=== PATIENT | male | born 1940 | race Caucasian/White ===

== ENCOUNTER → 2017-05-28 08:56 | Outpatient (CLI) | payer MEDICARE, OTHER, SELFPAY ==
[2017-05-28 12:45] LABS: PSA,Total- Diagnostic 7.59 ng/mL (0.0-4.0)
== END ==
PROVIDERS: Family Provider Family Medicine; PCP Family Medicine; Visit Provider Family Medicine
DX: R97.20 Elevated prostate specific antigen [PSA] (principal)
CPT/HCPCS: 36415; 84153

== ENCOUNTER → 2017-07-09 16:47 | Outpatient (CLI) | payer MEDICARE, OTHER, SELFPAY ==
--- NOTE | 2017-07-09 | IMM_PTH ---
PATIENT: CASEY MORALES LOC: [facility] U#:[id number] AGE/SX: 84/M ROOM: RE07/09/[address]: Dr. Alek Edouard MD : 1940 BED: DIS: SPEC #: [id number] RECD: 07/11/17 12:37 STATUS: LESLY REQ #: [id number] MARE: 07/09/17 00:[address]: Alek Edouard DEPT: IMMUNOHISTOCHEMISTRY RECD BY: Minnie Arrington ENTERED: 07/11/17 12:38 SP TYPE: IMMUNO OTHR DR: Dr. Yosef Ayers DO Tissues: A - PROSTATE RIGHT D - PROSTATE LEFT Procedures: 34BE12 (add) P40 (add) 34BE12 (initial) PHYSICIAN & INSTITUTION [place] [id number] SPECIMEN INFORMATION: Tissue Source: A - Right apex, D - Left apex Clinical Info: Elevated PSA Specimen Number: [id number] A & D CPT code: 69975, 60004 x3 METHODOLOGY: Deparaffinized sections of prefer/formalin-fixed tissue or PAP/DQ stained slides are incubated with monoclonal/polyclonal antibodies/oligonucleotide probes. Localization is made via biotin free immunoperoxidase method. Appropriate controls are performed and reacted as expected. Results on target cell population are indicated in the following table: RESULTS: ANTIBODY / CLONE RESULT Block A P40 (BC28) negative 34BE12 (34BE12) negative Block D P40 (BC28) positive 34BE12 (34BE12) positive These tests were developed and their performance characteristics determined by [facility]. They may not have been cleared or approved by the U.S. Food and Drug Administration. The FDA has determined that such clearance or approval is not necessary. INTERPRETATION: A. Right prostate, apex, core biopsy: Adenocarcinoma. D. Left prostate, apex, core biopsy: Consistent with focal high-grade prostatic intraepithelial neoplasia (HGPIN). SJ:elvira 07/12/17
--- NOTE | 2017-07-09 08:00 | PROSBIL_PTH ---
PATIENT: CASEY MORALES LOC: [facility] U#:[id number] AGE/SX: 84/M ROOM: RE07/09/[address]: Dr. Alek Edouard MD : 1940 BED: DIS: SPEC #: [id number] RECD: 07/09/17 16:38 STATUS: LESLY NICOLETTE #: [id number] MARE: 07/09/17 08:[address]: Alek Edouard DEPT: SURGICAL PATHOLOGY RECD BY: Lowell Chung ENTERED: 07/10/17 06:45 SP TYPE: PROST BX JHONATAN DR: Dr. Yosef Ayers DO Tissues: A - PROSTATE RIGHT B - PROSTATE RIGHT C - PROSTATE RIGHT D - PROSTATE LEFT E - PROSTATE LEFT F - PROSTATE LEFT Procedures: PROSTATE BX HEADER OPERATION: Prostate biopsy PRE-OP DIAGNOSIS: Elevated PSA TISSUE SUBMITTED: A - Right apex, B - Right mid, C - Right base, D - Left apex, E - Left mid, F - Left base MICROSCOPIC DIAGNOSIS A. Right prostate, apex, core biopsy: Prostatic adenocarcinoma: [place] grade: 3+3=6 Number of cores involved: 2 out of 2 Proportion of tissue involved: ~20% Perineural invasion: Not identified. Greatest tumor length: 0.3 cm Focal high-grade prostatic intraepithelial neoplasia (HGPIN). See comment. B. Right prostate, mid, core biopsy: Prostatic adenocarcinoma: [place] grade: 3+4=7 Number of cores involved: 2 out of 2 Proportion of tissue involved: ~75% Perineural invasion: Not identified. Greatest tumor length: 0.5 cm Focal high-grade prostatic intraepithelial neoplasia (HGPIN). C. Right prostate, base, core biopsy: Prostatic adenocarcinoma: [place] grade: 3+3=6 Number of cores involved: 1 out of 2 Proportion of tissue involved: ~25% Perineural invasion: Not identified. Greatest tumor length: 0.3 cm Focal high-grade prostatic intraepithelial neoplasia (HGPIN). See comment. D. Left prostate, apex, core biopsy: Focal high-grade prostatic intraepithelial neoplasia (HGPIN). See comment. E. Left prostate, mid, core biopsy: Prostatic adenocarcinoma: [place] grade: 3+3=6 Number of cores involved: 1 out of 2 Proportion of tissue involved: ~15% Perineural invasion: Not identified. Greatest tumor length: 0.2 cm Focal high-grade prostatic intraepithelial neoplasia (HGPIN). F. Left prostate, base, core biopsy: Prostatic tissue, negative for malignancy. SJ:elvira 07/11/17 COMMENT A & D. Immunohistochemistry ([id number]) supports the above diagnosis. C. The tumor is present focally in discontinuous fashion. This case has been reviewed in consultation with Dr. Colunga who concurs with the above diagnosis. MICROSCOPIC DESCRIPTION Slides are reviewed. GROSS DESCRIPTION A - Received is one container designated prostate, right apex. The specimen consists of two elongated fragments of light martinez-white soft tissue each measuring 1 cm in length and 0.1 cm in diameter. The specimen is totally submitted in one cassette. B - Received is one container designated prostate, right mid. The specimen consists of two elongated fragments of light martinez-white soft tissue each measuring 1 cm in length and 0.1 cm in diameter. The specimen is totally submitted in one cassette. C - Received is one container designated prostate, right base. The specimen consists of two elongated fragments of light martinez-white soft tissue each measuring 1 cm in length and 0.1 cm in diameter. The specimen is totally submitted in one cassette. D - Received is one container designated prostate, left apex. The specimen consists of two elongated fragments of light martinez-white soft tissue each measuring 1 cm in length and 0.1 cm in diameter. The specimen is totally submitted in one cassette. E - Received is one container designated prostate, left mid. The specimen consists of two elongated fragments of light martinez-white soft tissue each measuring 1 cm in length and 0.1 cm in diameter. The specimen is totally submitted in one cassette. F - Received is one container designated prostate, left base. The specimen consists of two elongated fragments of light martinez-white soft tissue each measuring 0.8 cm in length and 0.1 cm in diameter. The specimen is totally submitted in one cassette. / AM:rg 07/10/17 TC:0 [facility]: [id number]
== END ==
PROVIDERS: Family Provider Family Medicine; PCP Family Medicine; Visit Provider Urology
DX: C61 Malignant neoplasm of prostate (principal)
CPT/HCPCS: 88305; 88341; 88342; G0416

== ENCOUNTER → 2017-07-23 07:00 | Outpatient (CLI) | payer MEDICARE, OTHER, SELFPAY ==
--- NOTE | 2017-07-23 07:00 | DT_ITS ---
This patient was seen during an EMR downtime July 22, 2017 - July 29, 2017. This patient may have a combination of paper and electronic documentation or all paper documentation. All documentation is viewable within the e-chart portion of [employer] for each patient visit.
--- NOTE | 2017-07-23 07:00 | CT_ITS ---
STUDY: CT ABDOMEN AND PELVIS WITH CONTRAST REASON FOR EXAM: Male, 77 years old. New diagnosis prostate cancer RADIATION DOSAGE (If Supplied By Facility): CTDIvol = ( 13.13 ) mGy, DLP = ( 466.02 ) mGycm TECHNIQUE: Transaxial images were obtained from the dome of the diaphragm to the symphysis pubis with oral contrast. 100ml ml of Isovue 300 contrast was administered. Sagittal and coronal images were reconstructed. Individualized dose optimization techniques were used for this CT. COMPARISON: None. FINDINGS: The visualized lung bases are unremarkable. The visualized portions of the heart are within normal limits. There is a subcentimeter hypodensity of the lateral right hepatic lobe indeterminate for solid versus cystic structure. Normal gallbladder and extrahepatic biliary system. Normal spleen. Normal pancreas. Normal bilateral adrenal glands. There are multiple right renal cysts measuring up to 2.3 cm. There is prominence of the left renal pelvis. There is a lower pole cyst measuring 2.8 cm. Normal visualized stomach. Normal small intestine. There is a moderate amount of colonic stool. The appendix is visualized and appears normal. There are calcified plaques of the abdominal aorta Normal inferior vena cava. Normal retroperitoneum. Normal urinary bladder. The prostate is enlarged, measuring 5.8 x 3.3 cm. There is increased soft tissue density of the seminal vesicle angles raising the suspicion of extracapsular extension of primary disease process. Normal abdominal wall. Normal osseous structures. CT/Abdomen/Pelvis WITH Contrast IMPRESSION: 1. Subcentimeter hypodensity of the lateral right hepatic lobe indeterminate for solid versus cystic structure. Ultrasonographic correlation is recommended. 2. Bilateral renal cysts. Prominence of the left renal pelvis. No obstructing calculus is seen. 3. Enlarged prostate. Increased soft tissue density of the seminal vesicle angles raising the suspicion of extracapsular extension of primary disease process. 4. There is no evidence of osseous metastatic disease. 5. No inguinal, deep pelvic, or retroperitoneal adenopathy is seen. Electronically Signed: Ashwin Botello MD at 17:35 EDT , Service support ,
[2017-08-04 14:43] LABS: CREATININE FINGERSTICK 0.91 mg/dL (0.70-1.30)
== END ==
PROVIDERS: Family Provider Family Medicine; PCP Family Medicine; Visit Provider Urology
DX: C61 Malignant neoplasm of prostate (principal)
CPT/HCPCS: 74177; Q9967

== ENCOUNTER 2017-09-11 05:22 | Inpatient (IN) | payer MEDICARE, OTHER, SELFPAY ==
[2017-08-27 10:44] VITALS: BP 119/77; PULSE 54; RESP 16; TEMP 36.6; O2SAT 100; BMI 20.1
--- NOTE | 2017-08-27 11:07 | SDCEKG_ITS ---
Test Reason : Blood Pressure : / mmHG Vent. Rate : 048 BPM Atrial Rate : 048 BPM P-R Int : 136 ms QRS Dur : 104 ms QT Int : 432 ms P-R-T Axes : 008 083 077 degrees QTc Int : 385 ms Marked sinus bradycardia Incomplete right bundle branch block Abnormal ECG Confirmed by DIANNE CARTER, MAGGI ([id number]), clinical editor SCAR SMITH ([id number]) on 08/29/2017 12:57:00 PM Referred By: Alek Edouard Confirmed By:MAGGI DEAN MD
[2017-08-27 11:43] LABS: Hemoglobin 13.3 g/dl (13.0-16.5); Mean Corp Hgb Conc 34.1 g/gl (32-36); Mean Corpuscular Hgb 32.1 pg (27.0-32.0); Mean Corpuscular Volume 94.2 fL (80-94); Mean Platelet Vol. 9.6 fl (6.2-12.0); Platelet Count 221 K/mm3 (150-450); RBC Distribution Width CV 13.1 % (11.6-14.6); RBC Distribution Width SD 44.9 fl (35.1-43.9); Red Blood Count 4.14 M/mm3 (4.6-6.2); White Blood Count 5.2 K/mm3 (4.4-11.0)
[2017-08-27 11:44] LABS: Scan Indicated on CBC? Y/N NO
[2017-09-11] VITALS (10 sets, daily range): BP systolic 93–123; BP diastolic 45–83; PULSE 57–67; RESP 16–18; TEMP 36.2–36.8; O2SAT 97–100; BMI 20.1; BMI 20.2
--- NOTE | 2017-09-11 07:30 | PROST_PTH ---
PATIENT: CASEY MORALES LOC: [facility] U#:[id number] AGE/SX: 77/M ROOM: [facility] – [id number] RE09/11/[address]: Dr. Alek Edouard MD : 1940 BED: 1 DIS: 09/12/2017 SPEC #: [id number] RECD: 09/11/17 14:00 STATUS: LESLY NICOLETTE #: [id number] MARE: 09/11/17 07:[address]: Alek Edouard DEPT: SURGICAL PATHOLOGY RECD BY: Guy Galarza ENTERED: 09/11/17 15:18 SP TYPE: PROSTATE OTHR DR: Dr. Yosef Ayers, DO Tissues: A - Prostate, NOS B - Adipose tissue C - Lymph node of pelvis, NOS D - Lymph node of pelvis, NOS E - Neck of urinary bladder F - Neck of urinary bladder Procedures: Surgery Specimen Level IV Surgery Specimen Level HEADER OPERATION: Laparoscopic robotic radical prostatectomy PRE-OP DIAGNOSIS: Prostate cancer, elevated PSA TISSUE SUBMITTED: A ? Prostate, B ? Fat over prostate, C ? Right pelvic lymph node, D ? Left pelvic lymph node, E ? Bladder neck margin, F - Bladder neck margin #2 MICROSCOPIC DIAGNOSIS A. Prostate, radical prostatectomy: Prostatic adenocarcinoma. See cancer summary below. B. Fat over prostate: Mature adipose tissue, negative for carcinoma. C. Right pelvic lymph node, biopsy: Fragment of fibroconnective tissue, negative for carcinoma. No lymph node tissue is identified. D. Left pelvic lymph node, biopsy: Fragment of fibroconnective tissue, negative for carcinoma. No lymph node tissue is identified. E. Bladder neck margin, biopsy: Negative for carcinoma. See comment. F. Bladder neck margin #2, biopsy: Negative for carcinoma. See comment. PROSTATE CANCER (RADICAL) SUMMARY: Procedure - radical prostatectomy Prostate size - 4 cm transversely, 3.5 cm anterior-posteriorly and 3.5 cm craniocaudally Prostate weight ? 37.6 gm Lymph node sampling ? no lymph nodes are identified. See comment. Histologic type ? adenocarcinoma (acinar, not otherwise specified) Histologic grade ([place] Pattern): Primary pattern ? grade 3 Secondary pattern ? grade 4 Tertiary pattern ? not applicable Total [place] score - 7 Tumor Quantitation: Proportion (%) of prostate involved by tumor - ~20% Extraprostatic extension ? not identified Seminal vesicle invasion ? not identified Margins ? margins are free of tumor. Treatment effect on carcinoma ? no known presurgical therapy. Lymph-Vascular invasion - not identified Perineural invasion ? present, focal Regional lymph nodes ? please see comment. Distant metastasis ? not applicable Additional pathologic findings - Focal high-grade prostatic intraepithelial neoplasia (HGPIN). - Benign prostatic hyperplasia. - Focal chronic inflammation. Ancillary studies ? not performed PATHOLOGIC STAGE: pT2c pNx Mx The above summary is in compliance with [employer] [place] [employer] (CAP) Cancer Protocols Checklist and [place] Joint Committee on Cancer (AJCC), Staging Manual, 8th Ed. SJ:elvira 09/13/17 COMMENT A. The tumor in the right prostate lobe is present in the apical, mid and basal portion of the prostate and measures 2 x 0.5 cm in greatest dimension (measured microscopically) and present in slides #5, 6, 8, 13, 15 and 16. The tumor in the left lobe is present in the apical and mid portion of the prostate lobe and measures 1 x 0.5 cm in greatest dimension (measured microscopically) and present in slides #7, 9 and?12. C & D . No lymph node tissue is present in the submitted specimens. E & F. Cauterized fragments of urothelium are also noted. Please make reference to previous specimen ([id number]) right prostate, apex, mid and base and left prostate, mid with diagnosis of adenocarcinoma and left prostate, apex with diagnosis of focal high-grade prostatic intraepithelial neoplasia. MICROSCOPIC DESCRIPTION Slides are reviewed. GROSS DESCRIPTION A - Received in fixative is one container labeled with the patient's name and designated prostate. The specimen consists of a radical prostatectomy specimen consisting of the prostate and bilateral seminal vesicles and vas deferens weighing 37.6 gm. The prostate measures 4 cm transversely, 3.5 cm anterior-posteriorly and 3.5 cm craniocaudally. The right seminal vesicle measures 2.5 x 1 x 0.5 cm and right vas deferens measures 3 cm in length and up to 0.4 cm in diameter. The left seminal vesicle measures 2.5 x 1 x 0.5 cm and left vas deferens measures 2 cm in length and up to 0.4 cm in diameter. The prostate is inked as follows: anterior surface ? yellow, posterior surface ? black, right lateral surface ? blue, left lateral surface ? green. The seminal vesicles and vas deferens are inked as follows: right seminal vesicle and vas deferens anterior surface ? blue, posterior surface ? black, left seminal vesicle and vas deferens anterior surface ? green, posterior surface ? black. Sections do not reveal any mass lesion. Procedural Nurse sections are submitted in 19 cassettes as follows: 1 - right seminal vesicle and vas deferens, 2 ? left seminal vesicle and vas deferens, 3 ? apical margin, enface, 4 ? bladder base margin, enface, 5-9 ? apical portion, 10-13 ? middle portion, 14-19 ? basal portion (18 & 19 contains the most basal portion). / : 09/12/17 B - Received in fixative is one container labeled with the patient's name and designated fat over prostate. The specimen consists of an irregular piece of yellow adipose tissue measuring 3.5 x 2 x 0.5 cm. No mass lesion is identified. The entire specimen is submitted in two cassettes. / : 09/11/17 C - Received in fixative is one container labeled with the patient's name and designated right pelvic lymph node. The specimen consists of a piece of yellow adipose tissue measuring 2.2 x 0.5 x 0.3 cm. No obvious lymph node tissue is noted. The entire specimen is submitted in one cassette. / : 09/11/17 D - Received in fixative is one container labeled with the patient's name and designated left pelvic lymph node. The specimen consists of a piece of yellow adipose tissue measuring 2 x 1.5 x 0.2 cm. No obvious lymph node tissue is noted. The entire specimen is submitted in one cassette. / : 09/11/17 E - Received in fixative is one container labeled with the patient's name and designated bladder neck margin. The specimen consists of a piece of martinez soft tissue measuring 0.5 x 0.2 x 0.1 cm. The specimen is totally submitted in one cassette. / : 09/11/17 F - Received in fixative is one container labeled with the patient's name and designated bladder neck margin #2. The specimen consists of a piece of martinez-pink, congested soft tissue measuring 0.6 x 0.6 x 0.2 cm. The entire specimen is submitted in one cassette. / SILVIANO:elvira 09/11/17 TC:0 CPT: 03192, 52477 x 5
[2017-09-11] MEDS: Cefazolin 2 GM in 0.9% Normal Saline 100 ML IV (07:31)
[2017-09-11] MEDS: Bupivacaine Mpf 0.5% 30 ML VIAL (11:12)
--- NOTE | 2017-09-11 11:26 | OP.PCM_ITS ---
Report of Operation Date of Procedure: 09/11/17 Pre-Operative Diagnosis: Prostate cancer, frequent urination Post-Operative Diagnosis: The same and frequency of urination Surgery/Procedure Performed:: Laparoscopic robotic assisted radical prostatectomy bilateral nerve sparing, EMG monitoring of the urethral sphincter and pelvic nerves, suture suspension of the urethra for incontinence, bilateral pelvic lymph node dissection Description of Surgical Findings:: 77-year-old male taken back to the operating room after smooth induction of general anesthesia he is placed supine on the table in the in the dorsal lithotomy position, the penis and testicles were prepped and draped in usual sterile fashion his abdomen was shaved prepped and draped in usual sterile fashion after draping the patient on examination is very thin elderly male in fairly good health condition infiltrated below the umbilicus with lidocaine mated incision across the umbilicus and then dissected down to the fascia but the Veress needle through the fascia into the peritoneal cavity and insufflated the peritoneal cavity with CO2 gas we then set our pressure to 10 mm for most of the case. I then placed my camera trocar my right arm trocar my to left arm trochars entry level administrative assistant trocar and air seal port after all these ports were placed the robot was docked and we proceeded with the dissection I had a fairly large floppy bladder when I looked inside the inside the abdomen no obvious gross disease very thin male could identify all the landmarks the bowel and the colon looked normal I then identified the vas deferens on the right side and started tracing is down below the bladder at the support the bladder up and hold up with my entry level administrative assistant and also also the fourth arm and dissected behind the bladder until I got to the vas deferens and seminal vesicles dissected out the right seminal vesicle, and then dissected out the left seminal vesicle, then dissected above the the nonbilious fascia and was able to free the the prostate off the fascia quite easily all the way to the apex. Once the vas deferens and vessels were both dissected out completely and then pulled out of the pelvis we then dropped the bladder incising the peritoneal attachments of the bladder superiorly and created the space of Retzius and the bladder was placed on traction with the fourth arm dissected the bladder out created the space of Retzius open up the pelvis nicely I then dissected the obturator lymph nodes on the right side using clips and electrocautery this was sent off as a specimen the lymph nodes grossly the negative, I then went to the left side and dissected the lymph node bundle on the left side using clips and electrocautery again the bundles looked negative grossly and there was sent off as a permanent section. I then went to the prostate incised the endopelvic fascia both the left and right side dissected the levator muscles off the prostate all the way up to the apex I then transected through the puboprostatic ligaments and the attachments of the prostate to the pubic bone and then identified the dorsal vein complex, the dorsal vein complex was then stitched with the 0 Vicryl stitch using a CT1 needle once this was suture-ligated then I went on top of the prostate I then identified the fascia top of the prostate open this up and started dissecting the neurovascular bundles of the right and left side of the prostate laterally to allow for the dissection and identification of the neurovascular bundles. I then pulled back to the prostate bladder junction also the fat off the prostate was dissected off of this was sent off as a separate specimen called fat over prostate, I then dissected between the bladder and prostate coming down to the urethra and then dissected posteriorly between the bladder and prostate coming down to the seminal vesicles I we then placed the EMG electrodes to the midline trocar passed the electrodes through some fat and then put the electrodes in the right lateral wall on the left lateral wall we tested along the lateral wall to identify the nerve bundles that went along the side of the the lateral odell and these were intact both the left and right side I then started dissection of the pedicle on the right side I clipped to the pedicle with clips and identified the neurovascular bundle and freed it off the lateral aspect of the prostate and freed all the way up to the right apex during this dissection and used the EMG monitoring and electrostimulation to make sure that these nerves are also intact and they were intact at the end of dissection on the right side, I then went to the left side and put clips through the pedicle on the left side and then using EMG monitoring the check the electrodes before and after the dissection and the EMG monitoring confirmed the preservation of nerves on the left side all the way up to the apex after the clips were placed on the pedicle of the prostate left side and neurovascular bundle was saved nicely in the left side and I transected through the dorsal vein complex dissected sequentially around the urethra and a nice stump transected through the urethra and the prostate was then freed and placed in Endo Catch back we then performed anastomosis and suture suspension of the urethra was then performed to suspend the urethra to help prevent incontinence using stitches from the bladder neck to the urethra this is done in a running fashion after the end of the complete completion of this then put a catheter in the bladder irrigated and there was nice and watertight. I then placed an extra stitches in the dorsal vein complex to make sure this was no bleeding which I was not, we then undocked the robot we extracted the prostate to the umbilicus closed the [address] Delaney stitch fascia together and flush the catheter the catheter is nice and clear. Patient anesthetic is currently being reversed he did really well the procedure minimal to no blood loss all the counts were were reported to be normal and the patient is undergoing reversal of his anesthesia at this point. Type of Anesthesia:: General Drains: gama - Admit VTE Documentation VTE Present on Admission: No VTE Mechan Device Prophylaxis: SCD's
[2017-09-11] MEDS: Lactated Ringers 1,000 ML 125 ML IV ×2 (12:37→20:30)
[2017-09-11] MEDS: Ketorolac 15 MG/ML Vial IV ×2 (17:11→22:06)
[2017-09-11 18:14] LABS: Hematocrit 34.2 % (40-54); Hemoglobin 12.2 g/dl (13.0-16.5); Mean Corp Hgb Conc 35.7 g/gl (32-36); Mean Corpuscular Hgb 33.7 pg (27.0-32.0); Mean Corpuscular Volume 94.5 fL (80-94); Mean Platelet Vol. 9.8 fl (6.2-12.0); Platelet Count 206 K/mm3 (150-450); RBC Distribution Width CV 12.5 % (11.6-14.6); RBC Distribution Width SD 41.9 fl (35.1-43.9); Red Blood Count 3.62 M/mm3 (4.6-6.2)
[2017-09-11 18:16] LABS: Scan Indicated on CBC? Y/N NO
[2017-09-11 18:28] LABS: Anion Gap 6 (5-15); BUN 13 mg/dL (7-18); BUN/Creat Ratio 12.9 RATIO (10-20); Calcium,Total 8.3 mg/dL (8.5-10.1); Chloride 106 mmol/L (98-107); Creatinine, Serum 1.01 mg/dL (0.70-1.30); EST Glomerular Filtration Rate 76 mL/min (>60); Est Glom Filt Rate - Afr Amer 92 mL/min (>60); Glucose 127 mg/dL (74-106); Potassium 3.7 mmol/L (3.5-5.1); Sodium Level 143 mmol/L (136-145)
[2017-09-11] MEDS: Docusate Sodium 100 MG Capsule 200 MG PO (22:05)
[2017-09-11] MEDS: Ciprofloxacin 500 MG Tablet PO (22:05)
[2017-09-12 03:40] VITALS: BP 88/49; PULSE 68; RESP 18; TEMP 37; O2SAT 98
[2017-09-12] MEDS: Lactated Ringers 1,000 ML 125 ML IV (03:58)
[2017-09-12] MEDS: Ketorolac 15 MG/ML Vial IV ×2 (03:58→11:14)
[2017-09-12 05:52] VITALS: BP 86/44; PULSE 54; RESP 18; TEMP 37.2; O2SAT 97
[2017-09-12] MEDS: Tolterodine Tartrate 4 MG CAP.SA PO (06:01)
[2017-09-12] MEDS: 0.9% Normal Saline 1,000 ML 999 ML IV (06:19)
[2017-09-12 06:32] LABS: Hematocrit 31.6 % (40-54); Hemoglobin 11.1 g/dl (13.0-16.5); Mean Corp Hgb Conc 35.1 g/gl (32-36); Mean Corpuscular Hgb 33.2 pg (27.0-32.0); Mean Corpuscular Volume 94.6 fL (80-94); Mean Platelet Vol. 9.5 fl (6.2-12.0); Platelet Count 185 K/mm3 (150-450); RBC Distribution Width CV 12.3 % (11.6-14.6); RBC Distribution Width SD 41.2 fl (35.1-43.9); Red Blood Count 3.34 M/mm3 (4.6-6.2); White Blood Count 6.6 K/mm3 (4.4-11.0)
[2017-09-12 06:45] LABS: Anion Gap 4 (5-15); BUN 13 mg/dL (7-18); BUN/Creat Ratio 10.9 RATIO (10-20); Chloride 106 mmol/L (98-107); Creatinine, Serum 1.19 mg/dL (0.70-1.30); EST Glomerular Filtration Rate 63 mL/min (>60); Est Glom Filt Rate - Afr Amer 76 mL/min (>60); Estimated Creatinine Clearance 47.96 ml/min; Glucose 93 mg/dL (74-106); Potassium 3.8 mmol/L (3.5-5.1); Scan Indicated on CBC? Y/N NO; Sodium Level 142 mmol/L (136-145)
--- NOTE | 2017-09-12 07:57 | PCM.PN.BLA ---
Progress Note Problem 77-year-old male status post radical prostatectomy doing fairly well this morning, will advance him to regular diet if he can tolerate food for breakfast and lunch then I think he can go home I want him to also walk around the hallways of the walk and his blood pressure stable then he will be able to be discharged this afternoon he has prescriptions in the chart for Cipro, Lowry, and Colace. He was given instructions for no driving and no heavy lifting and follow-up with me next to remove the catheter.
--- NOTE | 2017-09-12 08:00 | DS.PCM_ITS ---
Discharge Date and Diagnosis Date of Admission: 09/11/17 Date of Discharge: 09/12/17 Hospital Course and Treatment Summary of Care Provided: Problem 77-year-old male status post radical prostatectomy doing fairly well this morning, will advance him to regular diet if he can tolerate food for breakfast and lunch then I think he can go home I want him to also walk around the hallways of the walk and his blood pressure stable then he will be able to be discharged this afternoon he has prescriptions in the chart for Cipro, [place] , and Colace. He was given instructions for no driving and no heavy lifting and follow-up with me next to remove the catheter. Discharge Diet: No Restrictions Home Medications: Medications to take at Discharge Loratadine [Allergy Relief] 10 mg PO DAILY PRN 08/27/17 Ciprofloxacin [Cipro] 500 mg PO BID #20 tab 09/11/17 Ciprofloxacin [Cipro] 500 mg PO BID #20 tab 09/11/17 Docusate Sodium [Colace] 100 mg PO BID #20 cap 09/11/17 Hydrocodone/Acetaminophen [[place] 5-325 Tablet] 1 ea PO Q4H PRN PRN 7 Days #14 tab 09/11/17 Following Prescrptions Were Given to Patient: Hydrocodone/Acetaminophen [[place] 5-325 Tablet] 1 ea PO Q4H PRN PRN 7 Days #14 tab PRN Reason: Pain Ciprofloxacin [Cipro] 500 mg PO BID #20 tab Ciprofloxacin [Cipro] 500 mg PO BID #20 tab Docusate Sodium [Colace] 100 mg PO BID #20 cap Primary Care Physician: Yosef Ayers DO [Primary Care Provider] - Medical Necessity - Tobacco Use Smoking Status: Former smoker Tobacco Use: Pipe Meaningful Use Info Meaningful Use Diagnoses (Choose all that apply): None applicable
[2017-09-12 08:52] VITALS: BP 81/46; PULSE 71; RESP 18; TEMP 36.9; O2SAT 96
[2017-09-12 08:56] VITALS: BP 86/43; PULSE 70
[2017-09-12] MEDS: Docusate Sodium 100 MG Capsule 200 MG PO (09:04)
[2017-09-12] MEDS: Ciprofloxacin 500 MG Tablet PO (09:04)
[2017-09-12 11:18] VITALS: BP 96/52; PULSE 70; RESP 18; TEMP 36.8; O2SAT 100
--- NOTE | 2017-09-12 11:21 | CASEMGMT ---
SEE JACQUELYN MANE ASSESS LINK. D/C Plan: Home Intro role to JACQUELYN MANE @ [facility]. Pt sitting up in chair, alert/oriented x3 and willing to participate in assessment. All questions answered appropriately. Pt states he is independent @ home, drives, no DME use. No needs identified. Kate BSN JACQUELYN MANE
== END 2017-09-12 13:55 | disposition home or self-care (01) | DRG 708 ==
LOC: ACINP 05:29 → MS2 12:45
PROVIDERS: Anesthesiology; Admitting Provider Urology; Family Provider Family Medicine; PCP Family Medicine; Visit Provider Urology
PROC: 0VT04ZZ Resection of Prostate, Percutaneous Endoscopic Approach (ICD-10-PCS; CPT 55866; principal; 2017-09-11 07:10)
DX: C61 Malignant neoplasm of prostate (principal); R35.0 Frequency of micturition; I45.10 Unspecified right bundle-branch block; Z87.891 Personal history of nicotine dependence
CPT/HCPCS: 36415; 80048; 85027; 86850; 86900; 86901; 88304; 88305; 88307; 88309; 93005; 97802; J7030; J7120

== ENCOUNTER → 2017-11-05 09:05 | Outpatient (CLI) | payer MEDICARE, OTHER, SELFPAY ==
[2017-11-05 12:25] LABS: PSA,Total- Diagnostic < 0.01 ng/mL (0.0-4.0)
== END ==
PROVIDERS: Family Provider Family Medicine; PCP Family Medicine; Visit Provider Urology
DX: C61 Malignant neoplasm of prostate (principal)
CPT/HCPCS: 36415; 84153

== ENCOUNTER → 2018-03-05 10:34 | Outpatient (CLI) | payer MEDICARE, OTHER, SELFPAY ==
[2018-03-05 12:18] LABS: PSA,Total- Diagnostic < 0.01 ng/mL (0.0-4.0)
--- OUTSIDE RECORDS SUMMARY | 2018-05-10 05:46 | XMS RPT_ITS ---
:1940 Author Organization [employer] Name Relationship Address Phone EVON MORALES Unavailable [address] + [place] [address] ANDREW, SANA Unavailable Unavailable + R Unavailable Unavailable Unavailable ANDREW, SHARLYE Unavailable [address] + [place] [address] ANDREW, SANA Unavailable Unavailable + R Unavailable Unavailable Unavailable ANDREW, SHARLYE Unavailable [address] + [place] [address] ANDREW, SANA Unavailable Unavailable + R Unavailable Unavailable Unavailable ANDREW, SHARLYE Unavailable [address] + [place] [address] ANDREW, SANA Unavailable Unavailable + R Unavailable Unavailable Unavailable ANDREW, SHARLYE Unavailable [address] + [place] [address] ANG HEDRICK Un[address] + [place] [address] R Unavailable Unavailable Unavailable ANDREW, SHARLYE Unavailable [address] + [place] [address] ANG HEDRICK Unavailable [address] + [place] [address] R Unavailable Unavailable Unavailable ANDREW, SHARLYE Unavailable [address] + [place] [address] ANG HEDRICK Unavailable [address] + [place] [address] R Unavailable Unavailable Unavailable Care Team Providers Name Role Phone Alek Edouard Attending Unavailable Alek Edouard Referring Unavailable Yosef Ayers Primary Care Unavailable Yosef Ayers Attending Unavailable Armen, Yosef Primary Care Unavailable Silke, Alek Chan Attending Unavailable Armen, Yosef Primary Care Unavailable Silke, Alek Chan Referring Unavailable Silke, Alek Chan Attending Unavailable Silke, Alek Chan Referring Unavailable Armen, Yosef Primary Care Unavailable Silke, Alek Chan Admitting Unavailable Silke, Alek Chan Attending Unavailable Silke, Alek Chan Referring Unavailable Armen, Yosef Primary Care Unavailable [place], Wero Attending Unavailable Silke, Alek Chan Referring Unavailable Silke, Alek Chan Attending Unavailable Silke, Alek Chan Referring Unavailable Armen, Yosef Primary Care Unavailable PROBLEMS PROBLEMS DATE TYPE CONDITION / CODE ATTENDING STATUS SOURCE 10/09/2017 Unknown C61 - Malignant Silke, Alek Active [place] neoplasm of prostate / [facility] C61(ICD-10) Hospital Repository 09/23/2017 Unknown I45.10 - Unspecified [place], Active [place] 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9940 0.0-4.0 ng/mL PSA, Normal DIAGNOSTIC < 0.01 Result Comment: This test was performed using the TPSA assay method for the [employer] chemistry system. Values obtained with different assay methods cannot be used interchangably. When changing PSA assays in the course of monitoring a patient, additional sequential testing should be carried out to confirm baseline values. Performed By: #### L501.9940 #### [facility] [place], [address] PSA,TOTAL- DIAGNOSTIC Collected: 11/05/2017 Status: F Source: [place] 9:12 AM [facility] REPOSITORY TYPE CODE TESTS RESULT OUT OF RANGE REFERENCE UNITS LAB L501.9940 0.0-4.0 ng/mL PSA, Normal DIAGNOSTIC < 0.01 Result Comment: This test was performed using the TPSA assay method for the [employer] chemistry system. Values obtained with different assay methods cannot be used interchangably. When changing PSA assays in the course of monitoring a patient, additional sequential testing should be carried out to confirm baseline values. Performed By: #### L501.9940 #### [facility] [address] [place], [address] DISCHARGE SUMMARY Observed: 09/12/2017 Status: F Source: [place] 8:00 AM [facility] REPOSITORY [facility] Medical Records Department [address] [place] [address] Discharge Summary 09/12/17 0759 MR#: [id number] Acct: [id number] Name: CASEY MORALES Rep #: [id number] : 1940 77 From: Alek Edouard MD PCP: Yosef Ayers DO Status: ADM IN Location: MS2 MS600-3 Discharge Date and Diagnosis Date of Admission: 09/11/17 Date of Discharge: 09/12/17 Hospital Course and Treatment Summary of Care Provided: Problem 77-year-old male status post radical prostatectomy doing fairly well this morning, will advance him to regular diet if he can tolerate food for breakfast and lunch then I think he can go home I want him to also walk around the hallways of the walk and his blood pressure stable then he will be able to be discharged this afternoon he has prescriptions in the chart for Cipro, Kulpmont, and Colace. He was given instructions for no driving and no heavy lifting and follow-up with me next to remove the catheter. Discharge Diet: No Restrictions Home Medications: Medications to take at Discharge Loratadine [Allergy Relief] 10 mg PO DAILY PRN 08/27/17 Ciprofloxacin [Cipro] 500 mg PO BID #20 tab 09/11/17 Ciprofloxacin [Cipro] 500 mg PO BID #20 tab 09/11/17 Docusate Sodium [Colace] 100 mg PO BID #20 cap 09/11/17 Hydrocodone/Acetaminophen [Kulpmont 5-325 Tablet] 1 ea PO Q4H PRN PRN 7 Days #14 tab 09/11/17 Following Prescrptions Were Given to Patient: Hydrocodone/Acetaminophen [Kulpmont 5-325 Tablet] 1 ea PO Q4H PRN PRN 7 Days #14 tab PRN Reason: Pain Ciprofloxacin [Cipro] 500 mg PO BID #20 tab Ciprofloxacin [Cipro] 500 mg PO BID #20 tab Docusate Sodium [Colace] 100 mg PO BID #20 cap Primary Care Physician: Yosef Ayers DO [Primary Care Provider] - Medical Necessity - Tobacco Use Smoking Status: Former smoker Tobacco Use: Pipe Meaningful Use Info Meaningful Use Diagnoses (Choose all that apply): None applicable 09/12/17 0800 <Electronically signed by Alek Edouard MD> Date Alek Edouard MD Cosigner Signature (if applicable): Date CC: Alek Edouard MD; Yosef Ayers DO Signed CBC-COMPLETE BLOOD CNT Collected: 09/12/2017 Status: F Source: [place] NO DIFF 6:15 AM [facility] REPOSITORY TYPE CODE TESTS RESULT OUT OF RANGE REFERENCE UNITS LAB L100.1000 4.4-11.0 K/mm3 Normal WBC 6.6 LAB L100.1200 4.6-6.2 M/mm3 Low RBC 3.34 LAB L100.1300 13.0-16.5 g/dl Low HGB 11.1 LAB L100.1400 40-54 % Low HCT 31.6 LAB L100.1500 80-94 fL High MCV 94.6 LAB L100.1600 27.0-32.0 pg High MCH 33.2 LAB L100.1700 32-36 g/gl Normal MCHC 35.1 LAB L100.1810 11.6-14.6 % Normal RDW CV 12.3 LAB L100.1820 35.1-43.9 fl Normal RDW SD 41.2 LAB L100.1900 150-450 K/mm3 Normal PLT 185 LAB L100.2000 6.2-12.0 fl Normal MPV 9.5 Performed By: #### L100.0500 #### [facility] [address] [place], [place], [address] BASIC METABOLIC Collected: 09/12/2017 Status: F Source: [place] PROFILE (BMP) 6:15 AM [facility] REPOSITORY TYPE CODE TESTS RESULT OUT OF RANGE REFERENCE UNITS LAB L501.0100 74-106 mg/dL Normal GLU 93 Result Comment: Please note revised GLUCOSE reference range effective 2017. LAB L501.1000 7-18 mg/dL Normal BUN 13 LAB L501.1100 0.70-1.30 mg/dL Normal CREAT,SERUM 1.19 Result Comment: The validity of the calculated GFR AND GFRAA in patients over 70 years has not been determined. Clinical correlation is essential. LAB L501.1110 >60 mL/min Normal EST GFR 63 Result Comment: Non- GFR Calc LAB L501.1115 >60 mL/min Normal EST GFR - AA 76 Result Comment: GFR Calc LAB L501.1255 ml/min Normal Estimated CRCL 47.96 LAB L501.1300 10-20 RATIO Normal BUN/CRE 10.9 LAB L501.2200 8.5-10 mg/dL Low .1 CA 8.0 LAB L501.5300 136-14 mmol/L Normal 5 NA 142 LAB L501.5600 3.5-5. mmol/L Normal 1 K 3.8 LAB L501.5900 98-107 mmol/L Normal CL 106 LAB L501.6100 21.0-3 mmol/L Normal 2.0 CO2 32.0 LAB L501.6200 5-15 Low GAP 4 Performed By: #### L500.2500 #### [facility] [address] [place], [place], [address] CBC-COMPLETE BLOOD CNT Collected: 09/11/2017 Status: F Source: [place] NO DIFF 5:24 PM [facility] REPOSITORY Order Comment: Comments: To be done in PACU TYPE CODE TESTS RESULT OUT OF RANGE REFERENCE UNITS LAB L100.1000 4.4-11.0 K/mm3 Normal WBC 10.0 LAB L100.1200 4.6-6.2 M/mm3 Low RBC 3.62 LAB L100.1300 13.0-16.5 g/dl Low HGB 12.2 LAB L100.1400 40-54 % Low HCT 34.2 LAB L100.1500 80-94 fL High MCV 94.5 LAB L100.1600 27.0-32.0 pg High MCH 33.7 LAB L100.1700 32-36 g/gl Normal MCHC 35.7 LAB L100.1810 11.6-14.6 % Normal RDW CV 12.5 LAB L100.1820 35.1-43.9 fl Normal RDW SD 41.9 LAB L100.1900 150-450 K/mm3 Normal PLT 206 LAB L100.2000 6.2-12.0 fl Normal MPV 9.8 Performed By: #### L100.0500 #### [facility] [address] [place], [address] BASIC METABOLIC Collected: 09/11/2017 Status: F Source: [place] PROFILE (BMP) 5:24 PM [facility] REPOSIT[facility] Order Comment: TO BE DONE IN PACU Comments: To be done in PACU TYPE CODE TESTS RESULT OUT OF RANGE REFERENCE UNITS LAB L501.0100 74-106 mg/dL High GLU 127 Result Comment: Fasting Glucose result greater than or equal to 126 mg/dL suggests DIABETES MELLITUS per A.D.A. criteria. Please note revised GLUCOSE reference range effective 2017. LAB L501.1000 7-18 mg/dL Normal BUN 13 LAB L501.1100 0.70-1.30 mg/dL Normal CREAT,SERUM 1.01 Result Comment: The validity of the calculated GFR AND GFRAA in patients over 70 years has not been determined. Clinical correlation is essential. LAB L501.1110 >60 mL/min Normal EST GFR 76 Result Comment: Non- GFR Calc LAB L501.1115 >60 mL/min Normal EST GFR - AA 92 Result Comment: GFR Calc LAB L501.1255 ml/min Normal Estimated CRCL 56.50 LAB L501.1300 10-20 RATIO Normal BUN/CRE 12.9 LAB L501.2200 8.5-10 mg/dL Low .1 CA 8.3 LAB L501.5300 136-14 mmol/L Normal 5 NA 143 LAB L501.5600 3.5-5. mmol/L Normal 1 K 3.7 LAB L501.5900 98-107 mmol/L Normal CL 106 LAB L501.6100 21.0-3 mmol/L Normal 2.0 CO2 31.0 LAB L501.6200 5-15 Normal GAP 6 Performed By: #### L500.2500 #### [facility] [address] [place], [address] OPERATIVE REPORT Observed: 09/11/2017 Status: F Source: [place] 11:26 AM [facility] REPOSITORY [facility] Medical Records Department [address] [place] [address] Operative Report 09/11/17 1118 MR#: [id number] Acct: [id number] Name: CASEY MORALES Rep #: [id number] : 1940 77 From: Alek Edouard MD PCP: Yosef Ayers DO Status: ADM IN Y Location: [place] [address] Report of Operation Date of Procedure: 09/11/17 Pre-Operative Diagnosis: Prostate cancer, frequent urination Post-Operative Diagnosis: The same and frequency of urination Surgery/Procedure Performed:: Laparoscopic robotic assisted radical prostatectomy bilateral nerve sparing, EMG monitoring of the urethral sphincter and pelvic nerves, suture suspension of the urethra for incontinence, bilateral pelvic lymph node dissection Description of Surgical Findings:: 77-year-old male taken back to the operating room after smooth induction of general anesthesia he is placed supine on the table in the in the dorsal lithotomy position, the penis and testicles were prepped and draped in usual sterile fashion his abdomen was shaved prepped and draped in usual sterile fashion after draping the patient on examination is very thin elderly male in fairly good health condition infiltrated below the umbilicus with lidocaine mated incision across the umbilicus and then dissected down to the fascia but the Veress needle through the fascia into the peritoneal cavity and insufflated the peritoneal cavity with CO2 gas we then set our pressure to 10 mm for most of the case. I then placed my camera trocar my right arm trocar my to left arm trochars clinical assistant professor trocar and air seal port after all these ports were placed the robot was docked and we proceeded with the dissection I had a fairly large floppy bladder when I looked inside the inside the abdomen no obvious gross disease very thin male could identify all the landmarks the bowel and the colon looked normal I then identified the vas deferens on the right side and started tracing is down below the bladder at the support the bladder up and hold up with my clinical assistant professor and also also the fourth arm and dissected behind the bladder until I got to the vas deferens and seminal vesicles dissected out the right seminal vesicle, and then dissected out the left seminal vesicle, then dissected above the the nonbilious fascia and was able to free the the prostate off the fascia quite easily all the way to the apex. Once the vas deferens and vessels were both dissected out completely and then pulled out of the pelvis we then dropped the bladder incising the peritoneal attachments of the bladder superiorly and created the space of Retzius and the bladder was placed on traction with the fourth arm dissected the bladder out created the space of Retzius open up the pelvis nicely I then dissected the obturator lymph nodes on the right side using clips and electrocautery this was sent off as a specimen the lymph nodes grossly the negative, I then went to the left side and dissected the lymph node bundle on the left side using clips and electrocautery again the bundles looked negative grossly and there was sent off as a permanent section. I then went to the prostate incised the endopelvic fascia both the left and right side dissected the levator muscles off the prostate all the way up to the apex I then transected through the puboprostatic ligaments and the attachments of the prostate to the pubic bone and then identified the dorsal vein complex, the dorsal vein complex was then stitched with the 0 Vicryl stitch using a CT1 needle once this was suture-ligated then I went on top of the prostate I then identified the fascia top of the prostate open this up and started dissecting the neurovascular bundles of the right and left side of the prostate laterally to allow for the dissection and identification of the neurovascular bundles. I then pulled back to the prostate bladder junction also the fat off the prostate was dissected off of this was sent off as a separate specimen called fat over prostate, I then dissected between the bladder and prostate coming down to the urethra and then dissected posteriorly between the bladder and prostate coming down to the seminal vesicles I we then placed the EMG electrodes to the midline trocar passed the electrodes through some fat and then put the electrodes in the right lateral wall on the left lateral wall we tested along the lateral wall to identify the nerve bundles that went along the side of the the lateral odell and these were intact both the left and right side I then started dissection of the pedicle on the right side I clipped to the pedicle with clips and identified the neurovascular bundle and freed it off the lateral aspect of the prostate and freed all the way up to the right apex during this dissection and used the EMG monitoring and electrostimulation to make sure that these nerves are also intact and they were intact at the end of dissection on the right side, I then went to the left side and put clips through the pedicle on the left side and then using EMG monitoring the check the electrodes before and after the dissection and the EMG monitoring confirmed the preservation of nerves on the left side all the way up to the apex after the clips were placed on the pedicle of the prostate left side and neurovascular bundle was saved nicely in the left side and I transected through the dorsal vein complex dissected sequentially around the urethra and a nice stump transected through the urethra and the prostate was then freed and placed in Endo Catch back we then performed anastomosis and suture suspension of the urethra was then performed to suspend the urethra to help prevent incontinence using stitches from the bladder neck to the urethra this is done in a running fashion after the end of the complete completion of this then put a catheter in the bladder irrigated and there was nice and watertight. I then placed an extra stitches in the dorsal vein complex to make sure this was no bleeding which I was not, we then undocked the robot we extracted the prostate to the umbilicus closed the [address] stitch fascia together and flush the catheter the catheter is nice and clear. Patient anesthetic is currently being reversed he did really well the procedure minimal to no blood loss all the counts were were reported to be normal and the patient is undergoing reversal of his anesthesia at this point. Type of Anesthesia:: General Drains: gama - Admit VTE Documentation VTE Present on Admission: No VTE Mechan Device Prophylaxis: SCD's 09/11/17 1126 <Electronically signed by Alek Edouard MD> Date Alek Edouard MD CC: Alek Edouard MD; Yosef Ayers DO Signed PROSTATE RADICAL Observed: 09/11/2017 Status: F Source: [place] RESECTION 7:30 AM [facility] REPOSITORY Patient: CASEY MORALES : 1940 (77/M) Acct Num: [id number] Phys: Silke CARTER,Alek Chan Unit Num: [id number] Loc: MS2 UR938-5 Specimen: [id number] Received: 09/11/17 - 1400 Spec Type: PROSTATE TISSUES TISSUES: A. Prostate, NOS B. Adipose tissue C. Lymph node of pelvis, NOS - RIGHT D. Lymph node of pelvis, NOS - LEFT E. Neck of urinary bladder F. Neck of urinary bladder COMMENT A. The tumor in the right prostate lobe is present in the apical, mid and basal portion of the prostate and measures 2 x 0.5 cm in greatest dimension (measured microscopically) and present in slides #5, 6, 8, 13, 15 and 16. The tumor in the left lobe is present in the apical and mid portion of the prostate lobe and measures 1 x 0.5 cm in greatest dimension (measured microscopically) and present in slides #7, 9 and 12. C AND D . No lymph node tissue is present in the submitted specimens. E AND F. Cauterized fragments of urothelium are also noted. Please make reference to previous specimen ([id number]) right prostate, apex, mid and base and left prostate, mid with diagnosis of adenocarcinoma and left prostate, apex with diagnosis of focal high-grade prostatic intraepithelial neoplasia. GROSS DESCRIPTION A - Received in fixative is one container labeled with the patient's name and designated prostate. The specimen consists of a radical prostatectomy specimen consisting of the prostate and bilateral seminal vesicles and vas deferens weighing 37.6 gm. The prostate measures 4 cm transversely, 3.5 cm anterior-posteriorly and 3.5 cm craniocaudally. The right seminal vesicle measures 2.5 x 1 x 0.5 cm and right vas deferens measures 3 cm in length and up to 0.4 cm in diameter. The left seminal vesicle measures 2.5 x 1 x 0.5 cm and left vas deferens measures 2 cm in length and up to 0.4 cm in diameter. The prostate is inked as follows: anterior surface yellow, posterior surface black, right lateral surface blue, left lateral surface green. The seminal vesicles and vas deferens are inked as follows: right seminal vesicle and vas deferens anterior surface blue, posterior surface black, left seminal vesicle and vas deferens anterior surface green, posterior surface black. Sections do not reveal any mass lesion. Network Support Administrator sections are submitted in 19 cassettes as follows: 1 - right seminal vesicle and vas deferens, 2 left seminal vesicle and vas deferens, 3 apical margin, enface, 4 bladder base margin, enface, 5-9 apical portion, 10-13 middle portion, 14-19 basal portion (18 AND 19 contains the most basal portion). / : 09/12/17 B - Received in fixative is one container labeled with the patient's name and designated fat over prostate. The specimen consists of an irregular piece of yellow adipose tissue measuring 3.5 x 2 x 0.5 cm. No mass lesion is identified. The entire specimen is submitted in two cassettes. / : 09/11/17 C - Received in fixative is one container labeled with the patient's name and designated right pelvic lymph node. The specimen consists of a piece of yellow adipose tissue measuring 2.2 x 0.5 x 0.3 cm. No obvious lymph node tissue is noted. The entire specimen is submitted in one cassette. / : D - Received in fixative is one container labeled with the patient's name and designated left pelvic lymph node. The specimen consists of a piece of yellow adipose tissue measuring 2 x 1.5 x 0.2 cm. No obvious lymph node tissue is noted. The entire specimen is submitted in one cassette. / : 09/11/17 E - Received in fixative is one container labeled with the patient's name and designated bladder neck margin. The specimen consists of a piece of martinez soft tissue measuring 0.5 x 0.2 x 0.1 cm. The specimen is totally submitted in one cassette. / : 09/11/17 F - Received in fixative is one container labeled with the patient's name and designated bladder neck margin #2. The specimen consists of a piece of martinez- pink, congested soft tissue measuring 0.6 x 0.6 x 0.2 cm. The entire specimen is submitted in one cassette. / : 09/11/17 TC:0 CPT: 01032, 29097 x 5 HEADER OPERATION: Laparoscopic robotic radical prostatectomy PRE-OP DIAGNOSIS: Prostate cancer, elevated PSA TISSUE SUBMITTED: A Prostate, B Fat over prostate, C Right pelvic lymph node, D Left pelvic lymph node, E Bladder neck margin, F - Bladder neck margin #2 MICROSCOPIC DESCRIPTION Slides are reviewed. MICROSCOPIC DIAGNOSIS A. Prostate, radical prostatectomy: Prostatic adenocarcinoma. See cancer summary below. B. Fat over prostate: Mature adipose tissue, negative for carcinoma. C. Right pelvic lymph node, biopsy: Fragment of fibroconnective tissue, negative for carcinoma. No lymph node tissue is identified. D. Left pelvic lymph node, biopsy: Fragment of fibroconnective tissue, negative for carcinoma. No lymph node tissue is identified. E. Bladder neck margin, biopsy: Negative for carcinoma. See comment. F. Bladder neck margin #2, biopsy: Negative for carcinoma. See comment. PROSTATE CANCER (RADICAL) SUMMARY: Procedure - radical prostatectomy Prostate size - 4 cm transversely, 3.5 cm anterior-posteriorly and 3.5 cm craniocaudally Prostate weight 37.6 gm Lymph node sampling no lymph nodes are identified. See comment. Histologic type adenocarcinoma (acinar, not otherwise specified) Histologic grade (Vadim Pattern): Primary pattern grade 3 Secondary pattern grade 4 Tertiary pattern not applicable Total Vadim score - 7 Tumor Quantitation: Proportion (%) of prostate involved by tumor - ~20% Extraprostatic extension not identified Seminal vesicle invasion not identified Margins margins are free of tumor. Treatment effect on carcinoma no known presurgical therapy. Lymph-Vascular invasion - not identified Perineural invasion present, focal Regional lymph nodes please see comment. Distant metastasis not applicable Additional pathologic findings - Focal high-grade prostatic intraepithelial neoplasia (HGPIN). - Benign prostatic hyperplasia. - Focal chronic inflammation. Ancillary studies not performed PATHOLOGIC STAGE: pT2c pNx Mx The above summary is in compliance with [employer] [place] (CAP) Cancer Protocols Checklist and [place] [employer] Committee on Cancer (AJCC), Staging Manual, 8th Ed. SJ:elvira 09/13/17 Signed Leonel Mims 09/13/17 <signature on file> Performed By: #### PPROST #### [facility] [address] [place], [address] TYPE AND SCREEN Collected: 09/11/2017 Status: F Source: [place] 5:50 AM [facility] REPOSITORY Order Comment: Reason for Type AND Screen/Red Cells: SURGERY TYPE CODE TESTS RESULT OUT OF RANGE REFERENCE UNITS LAB B10.0800 Test Normal BLOOD TYPE GEL not performed LAB B100.4000 Normal Antibody NEGATIVE Screen Performed By: #### B101.7450 #### [facility] [address] [place], [address] ABORH BLOOD TYPE, Collected: 09/11/2017 Status: F Source: [place] PATIENT 5:50 AM [facility] REPOSITORY TYPE CODE TESTS RESULT OUT OF RANGE REFERENCE UNITS LAB B100.1300 A Normal BLOOD POSITIVE TYPE PT Performed By: #### B100.0000 #### [facility] [address] [place], [address] 12 LEAD ELECTROCARDIOGRAM Observed: 08/29/2017 Status: F Source: ALEC 12:57 PM [facility] REPOSITORY [facility] Cardiovascular Services [address] [place] [address] EKG - [facility] 08/27/17 1021 MR#: [id number] Acct: [id number] Name: CASEY MORALES Rep #: [id number] : 1940 77 From: Wero Dean MD Attending Dr: Silke CARTER,Alek Chan Status: PRE IN Ordering Dr: Shyam Mosley MD Date: 08/27/17 Location: [facility] Sex: M C Admitted: Test Reason : Blood Pressure : / mmHG Vent. Rate : 048 BPM Atrial Rate : 048 BPM P-R Int : 136 ms QRS Dur : 104 ms QT Int : 432 ms P-R-T Axes : 008 083 077 degrees QTc Int : 385 ms Marked sinus bradycardia Incomplete right bundle branch block Abnormal ECG Confirmed by DIANNE CARTER, WERO ([id number]), development editor SCAR SMITH ([id number]) on 08/29/2017 12:57:00 PM Referred By: Alek Edouard Confirmed By:WERO DEAN MD 08/29/17 1257 Date Wero Dean MD CC: Shyam Mosley MD; Alek Edouard MD; Yosef Ayers DO Date Dictated: 08/27/17 1021 Date Transcribed: 08/27/17 1021 Corrections Officer: Signed CBC-COMPLETE BLOOD CNT Collected: 08/27/2017 Status: F Source: ALEC NO DIFF 11:15 AM [facility] REPOSITORY TYPE CODE TESTS RESULT OUT OF RANGE REFERENCE UNITS LAB L100.1000 4.4-11.0 K/mm3 Normal WBC 5.2 LAB L100.1200 4.6-6.2 M/mm3 Low RBC 4.14 LAB L100.1300 13.0-16.5 g/dl Normal HGB 13.3 LAB L100.1400 40-54 % Low HCT 39.0 LAB L100.1500 80-94 fL High MCV 94.2 LAB L100.1600 27.0-32.0 pg High MCH 32.1 LAB L100.1700 32-36 g/gl Normal MCHC 34.1 LAB L100.1810 11.6-14.6 % Normal RDW CV 13.1 LAB L100.1820 35.1-43.9 fl High RDW SD 44.9 LAB L100.1900 150-450 K/mm3 Normal PLT 221 LAB L100.2000 6.2-12.0 fl Normal MPV 9.6 Performed By: #### L100.0500 #### [facility] [address] [facility] [place], [address] DOWNTIME REPORT Observed: 08/08/2017 Status: F Source: ALEC 12:25 PM [facility] REPOSITORY [facility] Medical Records Department [address] [place] [address] Downtime Report MR#: [id number] Acct: [id number] Name: ANDREWCASEY L Rep #: [id number] : 1940 77 From: Hiren Smith PCP: Yosef Ayers DO Status: REG CLI This patient was seen during an EMR downtime July 22, 2017 - July 29, 2017. This patient may have a combination of paper and electronic documentation or all paper documentation. All documentation is viewable within the e-chart portion of [employer]™ for each patient visit. ABDOMEN/PELVIS WITH Observed: 07/25/2017 Status: F Source: ALEC CONTRAST 5:45 PM [facility] REPOSITORY [facility] Imaging Services [address] [place] [address] Abdomen/Pelvis WITH Contrast MR#: [id number] Acct: [id number] Name: CASEY MORALES Rep #: [id number] : 1940 77 From: Ashwin Botello MD PCP: Yosef Ayers DO Status: PRE CLI Study: Abdomen/Pelvis WITH Contrast Date of Exam: 07/23/17 Exam# [id number] Ordering Dr: Alek Edouard MD STUDY: CT ABDOMEN AND PELVIS WITH CONTRAST REASON FOR EXAM: Male, 77 years old. New diagnosis prostate cancer RADIATION DOSAGE (If Supplied By Facility): CTDIvol = ( 13.13 ) mGy, DLP = ( 466.02 ) mGycm TECHNIQUE: Transaxial images were obtained from the dome of the diaphragm to the symphysis pubis with oral contrast. 100ml ml of Isovue 300 contrast was administered. Sagittal and coronal images were reconstructed. Individualized dose optimization techniques were used for this CT. COMPARISON: None. FINDINGS: The visualized lung bases are unremarkable. The visualized portions of the heart are within normal limits. There is a subcentimeter hypodensity of the lateral right hepatic lobe indeterminate for solid versus cystic structure. Normal gallbladder and extrahepatic biliary system. Normal spleen. Normal pancreas. Normal bilateral adrenal glands. There are multiple right renal cysts measuring up to 2.3 cm. There is prominence of the left renal pelvis. There is a lower pole cyst measuring 2.8 cm. Normal visualized stomach. Normal small intestine. There is a moderate amount of colonic stool. The appendix is visualized and appears normal. There are calcified plaques of the abdominal aorta Normal inferior vena cava. Normal retroperitoneum. Normal urinary bladder. The prostate is enlarged, measuring 5.8 x 3.3 cm. There is increased soft tissue density of the seminal vesicle angles raising the suspicion of extracapsular extension of primary disease process. Normal abdominal wall. Normal osseous structures. CT/Abdomen/Pelvis WITH Contrast IMPRESSION: 1. Subcentimeter hypodensity of the lateral right hepatic lobe indeterminate for solid versus cystic structure. Ultrasonographic correlation is recommended. 2. Bilateral renal cysts. Prominence of the left renal pelvis. No obstructing calculus is seen. 3. Enlarged prostate. Increased soft tissue density of the seminal vesicle angles raising the suspicion of extracapsular extension of primary disease process. 4. There is no evidence of osseous metastatic disease. 5. No inguinal, deep pelvic, or retroperitoneal adenopathy is seen. Electronically Signed: Ashwin Botello MD at 17:35 EDT , Service support , CC: Alek Edouard MD; [facility] Corrections Officer: Signed CREATININE FINGERSTICK Collected: 07/23/2017 Status: F Source: TRIMBLE 6:50 AM [facility] REPOSITORY Order Comment: RESULT(S) PREVIOUSLY REPORTED ON MANUAL REQUISITION DURING DOWNTIME. TYPE CODE TESTS RESULT OUT OF RANGE REFERENCE UNITS LAB L9100.0210 0.70-1.30 mg/dL Normal CREATININE WB 0.91 Performed By: #### L9100.0200 #### [facility] Point of Care [address] [place] [address] PROSTATE BIOPSY Observed: 07/09/2017 Status: F Source: TRIMBLE BILATERAL 8:00 AM [facility] REPOSITORY Patient: CASEY MORALES : 1940 (76/M) Acct Num: [id number] Phys: Silke CARTER,Alek Chan Unit Num: [id number] Loc: LABSPEC Specimen: [id number] Received: 07/09/171 Spec Type: PROST BX TISSUES TISSUES: A. PROSTATE RIGHT B. PROSTATE RIGHT C. PROSTATE RIGHT D. PROSTATE LEFT E. PROSTATE LEFT F. PROSTATE LEFT COMMENT A AND D. Immunohistochemistry ([id number]) supports the above diagnosis. C. The tumor is present focally in discontinuous fashion. This case has been reviewed in consultation with Dr. Colunga who concurs with the above diagnosis. GROSS DESCRIPTION A - Received is one container designated prostate, right apex. The specimen consists of two elongated fragments of light martinez-white soft tissue each measuring 1 cm in length and 0.1 cm in diameter. The specimen is totally submitted in one cassette. B - Received is one container designated prostate, right mid. The specimen consists of two elongated fragments of light martinez-white soft tissue each measuring 1 cm in length and 0.1 cm in diameter. The specimen is totally submitted in one cassette. C - Received is one container designated prostate, right base. The specimen consists of two elongated fragments of light martinez-white soft tissue each measuring 1 cm in length and 0.1 cm in diameter. The specimen is totally submitted in one cassette. D - Received is one container designated prostate, left apex. The specimen consists of two elongated fragments of light martinez-white soft tissue each measuring 1 cm in length and 0.1 cm in diameter. The specimen is totally submitted in one cassette. E - Received is one container designated prostate, left mid. The specimen consists of two elongated fragments of light martinez-white soft tissue each measuring 1 cm in length and 0.1 cm in diameter. The specimen is totally submitted in one cassette. F - Received is one container designated prostate, left base. The specimen consists of two elongated fragments of light martinez-white soft tissue each measuring 0.8 cm in length and 0.1 cm in diameter. The specimen is totally submitted in one cassette. / AM:rg 07/10/17 TC:0 CPT: G0146 HEADER OPERATION: Prostate biopsy PRE-OP DIAGNOSIS: Elevated PSA TISSUE SUBMITTED: A - Right apex, B - Right mid, C - Right base, D - Left apex, E - Left mid, F - Left base MICROSCOPIC DESCRIPTION Slides are reviewed. MICROSCOPIC DIAGNOSIS A. Right prostate, apex, core biopsy: Prostatic adenocarcinoma: Vadim grade: 3+3=6 Number of cores involved: 2 out of 2 Proportion of tissue involved: ~20% Perineural invasion: Not identified. Greatest tumor length: 0.3 cm Focal high-grade prostatic intraepithelial neoplasia (HGPIN). See comment. B. Right prostate, mid, core biopsy: Prostatic adenocarcinoma: Vadim grade: 3+4=7 Number of cores involved: 2 out of 2 Proportion of tissue involved: ~75% Perineural invasion: Not identified. Greatest tumor length: 0.5 cm Focal high-grade prostatic intraepithelial neoplasia (HGPIN). C. Right prostate, base, core biopsy: Prostatic adenocarcinoma: Vadim grade: 3+3=6 Number of cores involved: 1 out of 2 Proportion of tissue involved: ~25% Perineural invasion: Not identified. Greatest tumor length: 0.3 cm Focal high-grade prostatic intraepithelial neoplasia (HGPIN). See comment. D. Left prostate, apex, core biopsy: Focal high-grade prostatic intraepithelial neoplasia (HGPIN). See comment. E. Left prostate, mid, core biopsy: Prostatic adenocarcinoma: [place] grade: 3+3=6 Number of cores involved: 1 out of 2 Proportion of tissue involved: ~15% Perineural invasion: Not identified. Greatest tumor length: 0.2 cm Focal high-grade prostatic intraepithelial neoplasia (HGPIN). F. Left prostate, base, core biopsy: Prostatic tissue, negative for malignancy. SJ:elvira 07/11/17 Signed Leonel Mims 07/11/17 <signature on file> Performed By: #### PPROSBIL #### [facility] [place], [address] IMMUNOHISTOCHEMISTRY Observed: 07/09/2017 Status: F Source: TRIMBLE 12:00 AM [facility] REPOSITORY Patient: CASEY MORALES : 1940 (76/M) Acct Num: [id number] Phys: Silke CARTER,Alek Chan Unit Num: [id number] Loc: LABSPEC Specimen: [id number] Received: 07/11/17 - 1237 Spec Type: IMMUNO TISSUES TISSUES: A. PROSTATE RIGHT D. PROSTATE LEFT SPECIMEN INFORMATION: Tissue Source: A - Right apex, D - Left apex Clinical Info: Elevated PSA Specimen Number: [id number] A AND D CPT code: 86199, 78360 x3 METHODOLOGY: Deparaffinized sections of prefer/formalin-fixed tissue or PAP/DQ stained slides are incubated with monoclonal/polyclonal antibodies/oligonucleotide probes. Localization is made via biotin free immunoperoxidase method. Appropriate controls are performed and reacted as expected. Results on target cell population are indicated in the following table: RESULTS: ANTIBODY / CLONE RESULT Block A P40 (BC28) negative 34BE12 (34BE12) negative Block D P40 (BC28) positive 34BE12 (34BE12) positive These tests were developed and their performance characteristics determined by [facility]. They may not have been cleared or approved by the U.S. Food and Drug Administration. The FDA has determined that such clearance or approval is not necessary. INTERPRETATION: A. Right prostate, apex, core biopsy: Adenocarcinoma. D. Left prostate, apex, core biopsy: Consistent with focal high-grade prostatic intraepithelial neoplasia (HGPIN). SJ:elvira 07/12/17 PHYSICIAN AND INSTITUTION [place] [address] Signed Leonel Mims 07/12/17 <signature on file> Performed By: #### PIMM #### [facility] [address] [place] [address]. [place], [address] PSA,TOTAL- DIAGNOSTIC Collected: 05/28/2017 Status: F Source: TRIMBLE 9:00 [facility] REPOSITORY TYPE CODE TESTS RESULT OUT OF REFERENCE UNITS RANGE LAB L501.9940 0.0-4.0 ng/mL PSA, High DIAGNOSTIC 7.59 Result Comment: This test was performed using the TPSA assay method for the [employer] chemistry system. Values obtained with different assay methods cannot be used interchangably. When changing PSA assays in the course of monitoring a patient, additional sequential testing should be carried out to confirm baseline values. Performed By: #### L501.9940 #### [facility] [address] [place], [place] [address], [address] ALLERGIES ALLERGIES DATE TYPE / CODE NAME / CODE REACTION SEVERITY SOURCE 08/27/2017 Drug No Known Unknown [facility] Allergy/4160 Allergies/F00 Hospital [address]37(SNOMED 9601609(RXNOR Repository CT) M) ENCOUNTERS ENCOUNTERS ADMIT/DISCHARGE ACCOUNT ADMITTING ENCOUNTER LOCATION SOURCE NUMBER CLASS 03/05/2018 [id number] Ambulatory [place] 8 [facility] ing:LAB Repository 11/05/2017 [id number] Ambulatory [place] 6 [facility] ing:LAB Repository 09/11/2017/ [id number] Alek Edouard Inpatient [place] 8 9 [place] Encounter [facility] ing:RX2Ehss: Repository BQ406Ejj: 1 08/27/2017/ [id number] Ambulatory BMSBuilding:W [place] 8 5 [facility] Repository 07/23/2017 [id number] Ambulatory Alec [place] 3 [facility] ing:CT Repository 07/09/2017 [id number] Ambulatory [place] 6 [facility] ing:LABSPEC Repository 05/28/2017 [id number] Ambulatory Alec [place] 6 [facility] ing:LAB.FUTUR Repository E PAYERS PAYERS ENCOUNTER GUARANTOR PAYER SUBSCRIBER SOURCE 03/05/2018 Mark Mcknight Primary CASEY L [place] [id number] Insurance:MEDICARE BARTADOB: [facility] [place] [facility] [id number] Repository [id number]: [phone] [id number] [phone] () Date:2018-03-05 03/05/2018 Secondary CASEY L [place] Insurance:MEDICAL BARTADOB: [facility] [id number] Hospital Number: Repository [id number] Date:2661-14-02[address] [address]ZQ: 03/05/2018 Tertiary NOT GIVENUNK Alec Insurance:SELF PAY [facility] Number: Effective Repository Date:2018-03-05 11/05/2017 Mark Juan Luis Primary CASEY L [place] [id number] Insurance:MEDICARE BARTADOB: [facility] [place] [facility] [id number] Number: Repository [id number]: [phone] [id number] [phone] () Date:2017-11-05 11/05/2017 Secondary CASEY L [place] Insurance:MEDICAL BARTADOB: [facility] [id number] Hospital Number: Repository [id number] Date:7418-55-76DI[address] [address]YS: 11/05/2017 Tertiary NOT GIVENUNK Alec Insurance:SELF PAY [facility] Number: Effective Repository Date:2017-11-05 09/11/2017 Mark L Primary CASEY L [place] [id number] Insurance:MEDICARE BARTADOB: [facility] [place] [facility] [id number] Number: Repository [id number]: [phone] [id number] [phone] (HP) Date:2017-08-05 09/11/2017 Secondary CASEY L Alec Insurance:MEDICAL BARTADOB: [facility] [id number] Hospital Number: Repository [id number] Date:4049-03-57WN[address] [address]FX: 09/11/2017 Tertiary NOT GIVENUNK Alec Insurance:SELF PAY [facility] Number: Effective Repository Date:2017-08-05 08/27/2017 Mark L Primary CASEY L [place] [id number] Insurance:MEDICAL BARTADOB: [facility] [place] [facility] [id number] Number: Repository [id number]: [phone] [id number] [phone] (HP) Date:0362-90-04RR[address] [address]HR: 08/27/2017 Secondary NOT GIVENUNK [place] Insurance:SELF PAY [facility] Number: Effective Repository Date:2017-08-27 07/23/2017 Mark L Primary CASEY L Ale[place] [id number] Insurance:MEDICARE BARTADOB: [facility] [place] [facility] [id number] Number: Repository [id number]: [phone] [id number] [phone] (HP) Date:2017-07-16 07/23/2017 Secondary CASEY L Alec Insurance:[facility]ADOB[id number] Hospital Number: Repository [id number] Date:5558-53-55HE [address] [address]XJ: 07/23/2017 Tertiary NOT GIVENUNK [place] Insurance:SELF PAY [facility] Number: Effective Repository Date:2017-07-16 07/09/2017 Mark L Primary CASEY L [place] [id number] Insurance:MEDICARE BARTADOB: [facility] [place] [facility] [place] ONLYPolicy [id number] Number: Repository [id number]: [phone] [id number] [phone] () Date:2017-07-09 07/09/2017 Secondary CASEY L [place] Insurance:MEDICAL BARTADOB: [facility] [id number] Hospital Number: Repository [id number] Date:7462-86-10LI [address] [address]RK: 07/09/2017 Tertiary NOT GIVENUNK [place] Insurance:SELF PAY [facility] Number: Effective Repository Date:2017-07-09 05/28/2017 Mark L Primary CASEY L Ale[place] [id number] Insurance:MEDICARE BARTADOB: [facility] [place] ONLYPolicy [id number] Number: Repository [id number]: [id number] [phone] (HP) Date:2006-07-19 05/28/2017 Secondary CASEY L Alec Insurance[facility] [id number] Hospital Number: Repository [id number] Date:7927-57-72DI [address] [address]HS: 05/28/2017 Tertiary NOT GIVENUNK Alec Insurance:SELF PAY [facility] Number: Effective Repository Date:2016-11-30
== END ==
PROVIDERS: Family Provider Family Medicine; PCP Family Medicine; Referring Provider Urology; Visit Provider Urology
DX: C61 Malignant neoplasm of prostate (principal)
CPT/HCPCS: 36415; 84153

== ENCOUNTER → 2018-09-02 | Outpatient (CLI) | payer MEDICARE, OTHER, SELFPAY ==
[2018-09-02 15:44] LABS: Absolute Lymphocyte Count 1.54 X10^3/uL (0.83-4.51); Absolute Neutrophil Count 3.1 X10^3/uL (2.0-7.7); Basophil# 0.01 X10^3/uL; Basophil% 0.2 % (0-1); Eosinophil# 0.07 X10^3/uL; Eosinophils% 1.4 % (0-5); Hematocrit 38.4 % (40-54); Hemoglobin 13.1 g/dL (13.0-16.5); Lymphocyte # 1.54 X10^3/ul (4.0); Mean Corp Hgb Conc 34.1 g/dL (32-36); Mean Corpuscular Hgb 32.6 pg (27.0-32.0); Mean Corpuscular Volume 95.5 fL (80-94); Mean Platelet Vol. 10.1 fl (6.2-12.0); Monocyte% 7.8 % (0-10); NRBC Flagged by Analyzer 0 % (0-5); Neutrophil % 60.4 % (47-70); Platelet Count 225 K/mm3 (150-450); RBC Distribution Width SD 45.5 fl (35.1-43.9); Red Blood Count 4.02 M/mm3 (4.6-6.2); White Blood Count 5.1 K/mm3 (4.4-11.0)
[2018-09-02 17:26] LABS: ALB/GLOB Ratio 1.2 RATIO (0.9-2.4); AST(SGOT) 22 U/L (15-37); Alanine Aminotransfer ALT/SGPT 17 U/L (16-61); Albumin, Serum 3.9 g/dL (3.2-5.0); Alkaline Phosphatase 71 U/L (45-117); Anion Gap 9 (5-15); BUN 23 mg/dL (7-18); BUN/Creat Ratio 17.8 RATIO (10-20); Calcium,Total 8.9 mg/dL (8.5-10.1); Chloride 106 mmol/L (98-107); Creatinine, Serum 1.29 mg/dL (0.70-1.30); EST Glomerular Filtration Rate 57 mL/min (>60); Est Glom Filt Rate - Afr Amer 69 mL/min (>60); Globulin 3.2 g/dL (2.2-4.2); Glucose 94 mg/dL (74-106); PSA,Total- Diagnostic < 0.01 ng/mL (0.0-4.0); Potassium 4.2 mmol/L (3.5-5.1); Protein, Total 7.1 g/dL (6.4-8.2); Sodium Level 142 mmol/L (136-145)
== END | disposition home or self-care (01) ==
LOC: BFHLAB 13:05
PROVIDERS: Family Provider Family Medicine; PCP Family Medicine; Visit Provider Urology
DX: C61 Malignant neoplasm of prostate (principal); R10.9 Unspecified abdominal pain
CPT/HCPCS: 36415; 80053; 84153; 85025

== ENCOUNTER → 2018-09-12 12:39 | Outpatient (CLI) | payer MEDICARE, OTHER, SELFPAY ==
--- NOTE | 2018-09-12 12:44 | CT_ITS ---
STUDY: CT ABDOMEN AND PELVIS WITH CONTRAST REASON FOR EXAM: Male, 78 years old. Abdominal pain and GI distress RADIATION DOSAGE (If Supplied By Facility): CTDIvol = ( 18.37 ) mGy, DLP = ( 335.84 ) mGycm TECHNIQUE: Transaxial images were obtained from the dome of the diaphragm to the symphysis pubis without oral contrast. 100 IV/Oral Isovue 300 was administered. Sagittal and coronal images were reconstructed. Individualized dose optimization techniques were used for this CT. COMPARISON: July 23, 2017 FINDINGS: The visualized lung bases are unremarkable. The visualized portions of the heart are within normal limits. There is mild fatty infiltrated. There is a tiny cyst in the right lobe. Bile ducts are not dilated. Normal gallbladder and extrahepatic biliary system. Normal spleen. Normal pancreas. Normal bilateral adrenal glands. There are multiple simple cysts in the right kidney. There is left renal pelvocaliectasis without evidence for hydroureter or ureteral calculus. This may partly exaggerated by parapelvic cysts There is a simple cyst in the left renal cortex. Concentric thickening of the odell of stomach possibly due to nonspecific gastritis. Nonspecific ileus with diffuse fecal retention in the colon. No evidence for acute appendicitis. Atherosclerotic changes of the aorta without evidence for aneurysm Normal inferior vena cava. Normal retroperitoneum. Nonspecific distention of the bladder. Normal abdominal wall. Lumbar spine demonstrates mild spondylosis No significant change since prior study CT/Abdomen/Pelvis WITH Contrast IMPRESSION: Findings which may be consistent with nonspecific gastritis Nonspecific ileus with diffuse fecal retention in the colon. Bilateral renal cysts. Electronically Signed: Giovany Chaney MD at 16:56 EDT , Service support ,
== END ==
PROVIDERS: Family Provider Family Medicine; PCP Family Medicine; Referring Provider Family Medicine; Visit Provider Family Medicine
DX: R10.9 Unspecified abdominal pain (principal); M54.5 Low back pain
CPT/HCPCS: 74177; Q9967

== ENCOUNTER → 2020-02-02 13:38 | Outpatient (CLI) | payer MEDICARE, OTHER, SELFPAY ==
[2020-02-02 15:54] LABS: PSA,Total - Annual Screen < 0.01 ng/mL (0.00-4.00)
== END ==
PROVIDERS: PCP Family Medicine; Visit Provider Family Medicine
DX: Z12.5 Encounter for screening for malignant neoplasm of prostate (principal)
CPT/HCPCS: 36415; 84153; G0103

== ENCOUNTER → 2021-02-02 14:12 | Outpatient (CLI) | payer OTHER, SELFPAY | PROVIDERS: PCP Family Medicine; Referring Provider Family Medicine; Visit Provider Family Medicine | DX: U07.1 COVID-19 (principal) | CPT/HCPCS: 87633; 87635; U0005; U0003 ==

== ENCOUNTER 2021-02-05 16:05 | Inpatient (IN) | payer MEDICARE, OTHER, SELFPAY ==
[2021-02-05 16:07] VITALS: BP 116/77; PULSE 73; RESP 25; TEMP 36.8; O2SAT 97; BMI 17.9
[2021-02-05 16:24] VITALS: BP 121/73; PULSE 69; RESP 22; TEMP 36.9; O2SAT 96
--- NOTE | 2021-02-05 16:24 | EKG12_ITS ---
Test Reason : SOB Blood Pressure : / mmHG Vent. Rate : 072 BPM Atrial Rate : 072 BPM P-R Int : 110 ms QRS Dur : 102 ms QT Int : 390 ms P-R-T Axes : 007 081 074 degrees QTc Int : 427 ms Sinus rhythm with short NH Poor R wave progression Confirmed by DIANNE CARTER, MAGGI ([id number]), editorial clerk MIRANDA SALGADO ([id number]) on 02/06/2021 9:47:12 AM Referred By: ADELFO Confirmed By:MAGGI DEAN MD
--- NOTE | 2021-02-05 16:28 | EDS_ITS ---
HPI History of Present Illness Chief Complaint: Weakness Informant: patient and EMS Narrative Narrative: 80-year-old male presents to the emergency department via EMS for the chief complaint of generalized weakness. Patient himself provides very little history as he falls asleep or keeps his eyes closed. I am told that he is Covid positive and so was his . I am told by EMS that his son from out of state was told that he was on the couch and was unable to get up. EMS notes that he was incontinent of urine. There is report that he was hypoxic at home but for EMS and for triage he is 97 to 98% on room air. Reportedly has no medical problems or surgeries. No known allergies. Patient cannot tell me any symptomology that he is experiencing. Upon chart review I see that the patient's primary care provider ordered a Covid test 3 days ago that returned positive. PFSH PFSH Medical History no medical history no medical history Home Medications loratadine [Allergy Relief] 10 mg PO DAILY PRN 08/27/17 [History Last Taken Unknown] ciprofloxacin HCl 500 mg PO BID #20 tab 09/11/17 [Rx Last Taken Unknown] ciprofloxacin HCl 500 mg PO BID #20 tab 09/11/17 [Rx Last Taken Unknown] docusate sodium 100 mg PO BID #20 cap 09/11/17 [Rx Last Taken Unknown] hydrocodone-acetaminophen 1 ea PO Q4H PRN PRN 7 Days #14 tab 09/11/17 [Rx Last Taken Unknown] Allergy/AdvReac Type Severity Reaction Status Date / Time No Known Allergies Allergy Verified 02/05/21 16:06 Surgical History no surgical history no surgical history Social History (Updated 02/05/21 @ 16:[address] Joey Michel, ) household members: spouse Smoking Status: Former smoker ROS ROS ED Review of Systems ROS Unobtainable: due to mental status EXAM Physical Exam Const Vital Signs: 02/05/21 16:07 02/05/21 16:24 02/05/21 18:13 Temperature 98.3 F 98.4 F 98.3 F Temperature Source Oral Oral Oral Pulse Rate 73 69 72 Respiratory Rate 25 H 22 H 20 H Respiratory Effort Normal Non-Labored Respiratory Pattern Normal Blood Pressure 116/77 121/73 H 128/81 H Blood Pressure Mean 90 89 96 Pulse Ox 97 96 97 Oxygen Delivery Method Room Air Room Air Room Air Positive well nourished and well developed General Appearance ED: well developed HEENT Reports normocephalic, head/scalp atraumatic, TM's clear and moist mucous membranes Negative for trauma Tympanic Membrane ED: Yes TM's clear Eyes PERRL and EOMs intact bilaterally Neck no lymphadenopathy, supple and no JVD Resp normal respiratory effort and clear to auscultation bilaterally Cardio regular rate, regular rhythm and no murmurs GI normal to inspection, nondistended, normoactive bowel sounds and non-tender Palpation: soft Narrative: Urinary incontinence Back/Spine no CVA tenderness and normal ROM Extremity normal to inspection General Extremety ED: Negative for edema General Extremity: Negative for edema Neuro no sensory deficits noted Sensorium / Orientation: lethargic Psych mental status grossly normal Mood & Affect: Negative for depressed or tearful Skin no rashes or lesions noted and no wounds MDM MDM MDM Narrative Medical decision making narrative: Basic blood work showed a white count of 6.5 hemoglobin 15.2. Coags negative. CMP with a BUN of 41 and a creatinine 1.27. Total bilirubin 1.4. Glucose 129. Troponin is at 38. BNP 851 and a normal lactic acid. My interpretation of the chest x-ray is multifocal areas of infiltrate though mild. Urine is very concentrated and with his BUN of 41 and creatinine 1.2 suggestive of dehydration. He did receive a liter fluid bolus. Patient is hemodynamically stable. He is not requiring supplemental oxygen. Unfortunately the patient appears very fatigued and is unable to really stay crystal ke and talk. The patient is unable to care for himself at home. I will speak with the hospitalist about admission to help placement. I was unable to speak/get a hold of family. After discussing with the hospitalist nursing was able to reach the . Lab Data Attestation: I reviewed the patient's lab results. Labs: Laboratory Results - last 24 hr 02/05/21 02/05/21 02/05/21 16:40 16:40 16:40 WBC 6.5 RBC 4.60 Hgb 15.2 Hct 42.8 MCV 93.0 MCH 33.0 H MCHC 35.5 RDW Std Deviation 43.9 RDW Coeff of Zackery 12.7 Plt Count 241 MPV 10.0 Immature Gran % (Auto) 0.500 Neut % (Auto) 73.3 H Lymph % (Auto) 16.6 L [place] % (Auto) 9.6 Eos % (Auto) 0.0 Baso % (Auto) 0.0 Absolute Neuts (auto) 4.8 Absolute Lymphs (auto) 1.08 Nucleated RBC % 0 PT 13.1 INR 1.1 APTT 30.4 Sodium 141 Potassium 4.0 Chloride 103 Carbon Dioxide 31.0 Anion Gap 7 BUN 41 H Creatinine 1.27 Estim Creat Clear Calc 39.89 Est GFR (MDRD) Af Amer 70 Est GFR (MDRD) Non-Af 58 L BUN/Creatinine Ratio 32.3 H Glucose 129 H Lactic Acid Calcium 9.1 Total Bilirubin 1.40 H AST 67 H ALT 23 Alkaline Phosphatase 104 Troponin I High Sens 38 B-Natriuretic Peptide Total Protein 7.6 Albumin 2.9 L Globulin 4.7 H Albumin/Globulin Ratio 0.6 L Lipase 77 02/05/21 02/05/21 16:40 16:40 WBC RBC Hgb Hct MCV MCH MCHC RDW Std Deviation RDW Coeff of Zackery Plt Count MPV Immature Gran % (Auto) Neut % (Auto) Lymph % (Auto) [place] % (Auto) Eos % (Auto) Baso % (Auto) Absolute Neuts (auto) Absolute Lymphs (auto) Nucleated RBC % PT INR APTT Sodium Potassium Chloride Carbon Dioxide Anion Gap BUN Creatinine Estim Creat Clear Calc Est GFR (MDRD) Af Amer Est GFR (MDRD) Non-Af BUN/Creatinine Ratio Glucose Lactic Acid 1.4 Calcium Total Bilirubin AST ALT Alkaline Phosphatase Troponin I High Sens B-Natriuretic Peptide 51.3 Total Protein Albumin Globulin Albumin/Globulin Ratio Lipase Radiography Diagnostic Testing: Clinical Impression(s) from Imaging Studies Chest X-Ray 02/05/21 16:30 IMPRESSION: Few subtle patchy airspace opacities in the left lower lobe consistent with Covid pneumonia. Electronically Signed: Fabio Castillo MD at 17:10 EST Tel , Service support , EKG Initial EKG: Attestation: I personally reviewed and interpreted this EKG as follows: Comments: Sinus rhythm with a ventricular rate of 72 bpm Discharge Plan Dx/Rx/DC Orders Clinical Impression: COVID-19, Generalized weakness, Acute dehydration, Encephalopathy due to 2019- nCoV Disposition Disposition: Acute Care Hospital [facility]
--- NOTE | 2021-02-05 16:30 | RAD_ITS ---
INDICATION: covid EXAMINATION/TECHNIQUE: X-RAY - XR Chest 1 View COMPARISON: None. FINDINGS: Few subtle patchy airspace opacities in the left lower lobe. The cardiomediastinal silhouette is unremarkable. No pleural effusion or pneumothorax. No acute osseous abnormalities. RAD/Chest 1 View (Portable) IMPRESSION: Few subtle patchy airspace opacities in the left lower lobe consistent with Covid pneumonia. Electronically Signed: Fabio Castillo MD at 17:10 EST Tel , Service support ,
[2021-02-05 16:59] LABS: Absolute Lymphocyte Count 1.08 X10^3/uL (0.83-4.51); Absolute Neutrophil Count 4.8 X10^3/uL (2.0-7.7); Hematocrit 42.8 % (40-54); Hemoglobin 15.2 g/dL (13.0-16.5); Lymphocyte # 1.08 X10^3/ul (0.83-4.51); Lymphocyte % 16.6 % (19-41); Mean Corp Hgb Conc 35.5 g/dL (32-36); Monocyte# 0.62 X10^3/uL; Monocyte% 9.6 % (0-10); NRBC Flagged by Analyzer 0 % (0-5); Neutrophil # 4.76 X10^3/uL (2.7-7.7); Neutrophil % 73.3 % (47-70); Platelet Count 241 K/mm3 (150-450); RBC Distribution Width CV 12.7 % (11.6-14.6); RBC Distribution Width SD 43.9 fl (35.1-43.9); White Blood Count 6.5 K/mm3 (4.4-11.0)
[2021-02-05 17:06] LABS: International Normalized Ratio 1.1; Prothrombin Time (Protime)PT. 13.1 SECONDS (11.7-14.9)
[2021-02-05 17:07] LABS: Partial Thromboplast Time 30.4 Seconds (24.1-36.2)
[2021-02-05 17:14] LABS: ALB/GLOB Ratio 0.6 RATIO (0.9-2.4); AST(SGOT) 67 U/L (15-37); Alanine Aminotransfer ALT/SGPT 23 U/L (16-61); Albumin, Serum 2.9 g/dL (3.2-5.0); Alkaline Phosphatase 104 U/L (45-117); Anion Gap 7 (5-15); BUN 41 mg/dL (7-18); BUN/Creat Ratio 32.3 RATIO (10-20); Calcium,Total 9.1 mg/dL (8.5-10.1); Chloride 103 mmol/L (98-107); Creatinine, Serum 1.27 mg/dL (0.70-1.30); EST Glomerular Filtration Rate 58 mL/min (>60); Est Glom Filt Rate - Afr Amer 70 mL/min (>60); Estimated Creatinine Clearance 39.89 ml/min; Globulin 4.7 g/dL (2.2-4.2); Glucose 129 mg/dL (74-106); Lipase 77 U/L (73-393); Protein, Total 7.6 g/dL (6.4-8.2); Sodium Level 141 mmol/L (136-145); Troponin-I HS 38 pg/mL (3.0-78.0)
[2021-02-05 17:27] LABS: Lactic Acid 1.4 mmol/L (0.4-1.9)
[2021-02-05 17:42] LABS: BNP,B-Type NATRIURETIC PEPTIDE 51.3 pg/mL (0-100)
[2021-02-05 18:13] VITALS: BP 128/81; PULSE 72; RESP 20; TEMP 36.8; O2SAT 97
--- NOTE | 2021-02-05 18:28 | CT_ITS ---
HISTORY: altered loc TECHNIQUE: Multiple axial images were obtained of the brain without intravenous contrast. A radiation dose optimization technique was used for this scan. IV Contrast dosage and agent: None. COMPARISON: None FINDINGS: # of images incl. paperwork: 251 PARANASAL SINUSES AND MASTOID AIR CELLS: Scattered mucoperiosteal thickening. INTRACRANIAL HEMORRHAGE: None. BRAIN PARENCHYMA: No CT evidence of stroke. No intracranial masses. There is preservation of the holman/white matter interface. Posterior fossa structures are unremarkable. There is hypoattenuation of the periventricular white matter. Chronic involutional changes are noted. CSF SPACES: Appropriate for age. There is no hydrocephalus. MASS EFFECT: None. CALVARIUM: No acute fracture. CT/Brain/Head without Contrast IMPRESSION: Chronic involutional and white matter changes. No acute intracranial process. Individualized dose optimization techniques were used for this CT. at 2006 Reported and signed by: Wing Zavala MD Electronically Signed: Wing Zavala MD at 20:05 EST Tel , Service support ,
[2021-02-05 18:29] LABS: Magnesium 2.7 mg/dL (1.6-2.6)
[2021-02-05] MEDS: 0.9% Normal Saline 1,000 ML 999 ML IV (18:30)
--- NOTE | 2021-02-05 18:33 | HP.PCM.HOS_ITS ---
HPI - General General Date of Admission: 02/05/21 HPI Narrative CASEY MORALES, is a 80 M with unknown past medical history was brought by squad to ED for altered mental status, not eating and drinking for 5 to 6 days. Patient and his both are Covid positive. Patient is very weak, confused, groggy, lethargic and cannot give history, not sure whether he comprehends the questions. As per EMS, patient has been pale diaphoretic incontinent and not getting up from the couch for past few days. Patient blood pressure 128/86, respiratory 12, pulse 72, entitle 15 as per EMS. GCS 14. In ED, patient vitals is similar. Patient easily fall asleep and keeps eyes closed as per ED physician but patient open eyes for me but no answer. As per ER physician patient PCP ordered Covid test 3 days ago and returned positive on 02/02/2021. Chest x-ray shows subtle opacities in left lower lobe consistent with COVID-19 pneumonia. Labs reviewed. BUN 41, creatinine 1.2 765 dehydration. Patient has Badillo catheter and dark-colored urine about 500 mL. Magnesium 2.7, AST elevated, total bili 1.4. UA pending. CT head, inflammatory markers and D-dimer ordered. I talked to the patient's on phone and she said he has been losing memory for past 6 months but for last few weeks is very confused, groggy and not moving. For for last few days he is not moving out of the bed very weak and has not eaten or drink water last 5 to 6 days. She denies cough, shortness of breath, fever chills, abdominal pain, nausea vomiting diarrhea constipation, GI bleed, burning micturition or UTI. He does not take any medications. [facility], [facility] Medical History no medical history Home Medications NK 02/05/21 [History Last Taken Unknown] Allergy/AdvReac Type Severity Reaction Status Date / Time No Known Allergies Allergy Verified 02/05/21 16:06 Surgical History no surgical history Social History household members: spouse Smoking Status: Former smoker ROS ROS Narrative 12 ROS unobtainable as patient confused disoriented does not answer questions. Rest 12 ROS in HPI as talked to patient's over the phone. Review of Systems ROS Unobtainable: due to encephalopathy and due to mental status Vital Signs Vital Signs Vital Signs: 02/05/21 16:07 02/05/21 16:24 02/05/21 18:13 Temperature 98.3 F 98.4 F 98.3 F Temperature Source Oral Oral Oral Pulse Rate 73 69 72 Respiratory Rate 25 H 22 H 20 H Respiratory Effort Normal Non-Labored Respiratory Pattern Normal Blood Pressure 116/77 121/73 H 128/81 H Blood Pressure Mean 90 89 96 Pulse Ox 97 96 97 Oxygen Delivery Method Room Air Room Air Room Air Weight Weight: 131 lb 13.383 oz Body Mass Index (BMI) 17.9 Physical Exam Narrative General: Confused, disoriented, not answering questions, nonverbal. BMI 17.9 kg/m? HEENT: Atraumatic, PERRLA, EOMI, Normocephalic Oral: Oral mucosa dry. Neck: Supple, No JVD, Negative Carotid Bruits Lungs: Air entry diminished in bilateral lung bases. No crepitation/rhonchi Cardiovascular: Sinus rhythm, Normal S1, Normal S2, No murmurs Abdomen: Bowel Sounds sluggish, Soft, Non Tender, Non-Distended : No renal angle tenderness. No suprapubic tenderness. Extremities: No edema, Capillary Refill Less than 3 Seconds Skin: Bluish toe and left second toe. Musculoskeletal: Loss of subcutaneous fat and loss from bulk of muscles of extremities, intercostal muscles and intervertebral muscles. No Tenderness to Palpation of Joints or Extremities Neurological: Cranial nerves II-XII grossly intact, DTR 2+/4, can lift both lower extremities for 5 seconds, muscle strength 4/5 at major joints. Psych/Mental Status: Confused, flat affect. Results Lab / Micro Data Result Diagrams: 02/05/21 16:40 02/05/21 16:40 Labs: Laboratory Results - last 24 hr 02/05/21 16:40: WBC 6.5, RBC 4.60, Hgb 15.2, Hct 42.8, MCV 93.0, MCH 33.0 H, MCHC 35.5, RDW Std Deviation 43.9, RDW Coeff of Zackery 12.7, Plt Count 241, MPV 10.0, Immature Gran % (Auto) 0.500, Neut % (Auto) 73.3 H, Lymph % (Auto) 16.6 L, [place] % (Auto) 9.6, Eos % (Auto) 0.0, Baso % (Auto) 0.0, Absolute Neuts (auto) 4.8, Absolute Lymphs (auto) 1.08, Nucleated RBC % 0 02/05/21 16:40: PT 13.1, INR 1.1, APTT 30.4 02/05/21 16:40: Sodium 141, Potassium 4.0, Chloride 103, Carbon Dioxide 31.0, Anion Gap 7, BUN 41 H, Creatinine 1.27, Estim Creat Clear Calc 39.89, Est GFR (MDRD) Af Amer 70, Est GFR (MDRD) Non-Af 58 L, BUN/Creatinine Ratio 32.3 H, Glucose 129 H, Calcium 9.1, Total Bilirubin 1.40 H, AST 67 H, ALT 23, Alkaline Phosphatase 104, Troponin I High Sens 38, Total Protein 7.6, Albumin 2.9 L, Globulin 4.7 H, Albumin/Globulin Ratio 0.6 L, Lipase 77 02/05/21 16:40: Lactic Acid 1.4 02/05/21 16:40: B-Natriuretic Peptide 51.3 02/05/21 16:40: Magnesium 2.7 H Radiology Impression Chest X-Ray 02/05/21 16:30 IMPRESSION: Few subtle patchy airspace opacities in the left lower lobe consistent with Covid pneumonia. Electronically Signed: Fabio Castillo MD at 17:10 EST Tel , Service support , Assessment & Plan Assessment/Plan (1) COVID-19: PLAN: 1. Acute encephalopathy, possible metabolic/encephalopathic or multiple etiologies on chronic mental condition possible dementia probably from COVID-19 infection: Patient is being admitted in PCU. IV fluid normal saline to correct dehydration. Normal potassium. Lactic acid 1.4. CT head ordered by ER physician. 2. Bilateral COVID-19 pneumonia: Start on IV Decadron 6 mg daily and IV remdesivir. AST 67 1 total bili 1.4 but ALT normal. Inflammatory markers including D-dimer ordered. If D-dimer more than 1.5, will order CT angiogram chest. Pneumonia work-up including blood cultures x2 ordered. 3. Patient is a former smoker. Patient denies any past medical history including chronic heart disease lung disease, digestive disease or musculoskeletal disease. He is not on any home medications VTE prophylaxis: Lovenox 30 mg subcu twice daily if D-dimer less than 1.5 otherwise therapeutic dose. Discontinue if platelet count drops less than 50,000 or hemoglobin less than 8 g% Living will/advanced directive/end of life care: I talked to the patient's regarding advanced directive and he has living will or advanced directive. As per probably he is on organ donor list although she is not very sure. After discussion of benefits/risks procedures involved with full code, DNR CC arrest and DNR CC, the patient's opted for full code The patient's does want artificial life support including intubation, tube feed, ventilator and/chest compression, central venous catheter, vasopressor and DC shock if needed Total time spent in [id number] encounter in discussion of advanced di rective 16 minutes. Charges/Coding Visit Charges Inpatient E&M: 30037 Init Hosp L3 Procedures Hospitalists Procedures: 72266 Advncd Care Plan 30 Min
[2021-02-05 18:38] LABS: Mucous, Urine 0 SEEN /hpf (<or=2+); Squamous Epithelial Cells - UA 0 SEEN /hpf (0-5)
[2021-02-05 18:41] LABS: Color, Urine Yellow (Yellow); Glucose, Dipstick Normal (Normal); Ketone-Dipstick 15 mg/dl (Negative); Leukocyte Esterase-Dipstick 25 /ul (Negative); Nitrite-Dipstick Negative (Negative); Occult Blood-Urine 150 /ul (Negative); Protein-Dipstick 30 mg/dl (Negative); Urine Bilirubin Dipstick Negative (Negative); Urine Clarity Clear (Clear); Urine Urobilinogen 1 mg/dl (Normal)
[2021-02-05 19:09] LABS: Bacteria RARE /hpf (None Seen); Red Blood Cells-Urine 10-25 SEEN /hpf (0-5); White Blood Cells 0-5 SEEN /hpf (0-5)
[2021-02-05 19:39] VITALS: PULSE 68
[2021-02-05 19:40] VITALS: BMI 16.5
[2021-02-05 19:41] VITALS: BP 112/62; PULSE 74; RESP 18; TEMP 36.2; O2SAT 99
--- NOTE | 2021-02-05 20:14 | PCS.PANDOC ---
PANDEMIC DOCUMENTATION INITIATED: Date: 10/03/2020 Time: 190
[2021-02-05] MEDS: Enoxaparin 30 MG/0.3 ML Syringe SC (20:22)
[2021-02-05 20:28] LABS: Procalcitonin 0.15 ng/mL (0.00-0.09)
[2021-02-05 20:35] LABS: Fibrinogen 638 mg/dl (203-444)
[2021-02-05 20:50] LABS: CPK Total, Creatine Kinase 323 U/L (39-308); LDH 312 U/L (87-241); Troponin-I HS 39 pg/mL (3.0-78.0)
[2021-02-05 20:54] LABS: D-Dimer Quantitative (DVT/PE) 2.01 FEU/ug/m (0.27-0.49)
--- NOTE | 2021-02-05 21:16 | CT_ITS ---
HISTORY: d-dimer elevation, Covid + EXAMINATION: CTA Chest WO/W Contrast Injection TECHNIQUE: Helically acquired images were obtained of the chest following IV contrast as per pulmonary angiogram protocol with 3D reconstructions. A radiation dose optimization technique was used for this scan. IV Contrast dosage and agent: 75mL [id number] COMPARISON: None FINDINGS: LUNGS, PLEURA AND LARGE AIRWAYS: Groundglass opacity in the periphery of the left lower lobe with milder involvement in the periphery of the upper lingula. No consolidations or pleural effusions. No pneumothorax. THYROID: No thyroid lesions. PULMONARY ARTERIES: Normal in caliber. No pulmonary embolism. AORTA AND GREAT VESSELS: No aneurysm or dissection. HEART AND PERICARDIUM: Heart size is normal. No pericardial effusion. MEDIASTINUM AND MIGDALIA: No mediastinal or hilar adenopathy. Esophagus is unremarkable. No hiatal hernia. UPPER ABDOMEN: No acute pathology. BONES: No acute or aggressive abnormality. CT/CTA Chest W/WO Contrast IMPRESSION: Negative CTA Chest. Pulmonary findings of unknown chronicity but suspicious for infection including atypical or viral pneumonia in the appropriate clinical setting. Individualized dose optimization techniques were used for this CT. at 2334 Reported and signed by: Wing Zavala MD Electronically Signed: Wing Zavala MD at 23:33 EST Tel , Service support ,
--- NOTE | 2021-02-05 21:23 | PCM.HOSP.N ---
Hospitalist Note After reviewing patient's chart tonight, I called Dr. Peguero to discuss the case with him since he admitted the patient, patient is not hypoxic he shows no signs of Covid at this time, I do not believe he is a candidate for IV dexamethasone and remdesivir, Dr. Peguero agrees and we will stop the medications. Patient will be seen tomorrow by infectious diseases-there will make an evaluation as to whether the patient needs treatment or not. Patient's D-dimer was elevated today and I have ordered a CTA of the chest to rule out PE.
[2021-02-05 22:44] VITALS: PULSE 79
[2021-02-06] VITALS (18 sets, daily range): BP systolic 93–117; BP diastolic 47–84; PULSE 53–105; RESP 18–28; TEMP 37.2–39.2; O2SAT 92–99
[2021-02-06] MEDS: 0.9% Normal Saline 1,000 ML 100 ML IV ×3 (02:26→20:28)
[2021-02-06] MEDS: Acetaminophen 325 MG Tablet 650 MG PO (02:33)
[2021-02-06] MEDS: 0.9% Saline Lock 10 ML Syringe IV ×2 (02:33→10:20)
[2021-02-06 06:49] LABS: Absolute Lymphocyte Count 0.61 X10^3/uL (0.83-4.51); Absolute Neutrophil Count 6.4 X10^3/uL (2.0-7.7); Hematocrit 41.5 % (40-54); Hemoglobin 14.6 g/dL (13.0-16.5); Lymphocyte # 0.61 X10^3/ul (0.83-4.51); Mean Corp Hgb Conc 35.2 g/dL (32-36); Mean Corpuscular Hgb 32.9 pg (27.0-32.0); Mean Corpuscular Volume 93.5 fL (80-94); Monocyte# 0.53 X10^3/uL; NRBC Flagged by Analyzer 0 % (0-5); Neutrophil % 84.2 % (47-70); Platelet Count 226 K/mm3 (150-450); RBC Distribution Width CV 12.6 % (11.6-14.6); RBC Distribution Width SD 43.2 fl (35.1-43.9); Red Blood Count 4.44 M/mm3 (4.6-6.2); White Blood Count 7.6 K/mm3 (4.4-11.0)
[2021-02-06 07:15] LABS: ALB/GLOB Ratio 0.6 RATIO (0.9-2.4); AST(SGOT) 88 U/L (15-37); Alanine Aminotransfer ALT/SGPT 30 U/L (16-61); Albumin, Serum 2.6 g/dL (3.2-5.0); Alkaline Phosphatase 124 U/L (45-117); Anion Gap 7 (5-15); BUN 38 mg/dL (7-18); BUN/Creat Ratio 32.8 RATIO (10-20); Calcium,Total 8.7 mg/dL (8.5-10.1); Chloride 108 mmol/L (98-107); Creatinine, Serum 1.16 mg/dL (0.70-1.30); EST Glomerular Filtration Rate 65 mL/min (>60); Est Glom Filt Rate - Afr Amer 78 mL/min (>60); Estimated Creatinine Clearance 39.37 ml/min; Globulin 4.1 g/dL (2.2-4.2); Glucose 142 mg/dL (74-106); Potassium 3.8 mmol/L (3.5-5.1); Protein, Total 6.7 g/dL (6.4-8.2); Sodium Level 144 mmol/L (136-145)
--- NOTE | 2021-02-06 09:50 | CASEMGMT ---
JACQUELYN MANE assessment: Call to pt's for initial transition planning/care coordination assessment due to pt confusion. JACQUELYN MANE introduced self and role at [facility], voices understanding and consents to assessment. Pt is currently on 2-3L nc but is only alert to self. states is 'not doing great' herself at home but states their son is on way from [place] and states no concerns getting resources. also has some moments of confusion during phone conversation. Care providers, pharmacy, and demographics verified/updated. Presentation: COVID +, not eating/drinking, unable to get off couch, incontinent Admitting dx: COVID w/ AMS PCP: Armen Specialists: None Preferred Pharmacy: [facility] Insurance: MMO/MCR B only Prescription Benefit: MMO Living Will/HPOA: is unsure if pt has LW/HPOA and is aware that there is nothing on file at [facility]. LNOK: Amirah Chin, ; Ryan Chin, son Living Arrangements: Pt lives with on main level of 2 story home and states has not been able to care for self. states increased confusion for pt over the last 6 months but has not been dx'd with anything by PCP. states pt has not been able to complete ADL's on own. Transportation: states pt has still been driving. DME/HHC: states pt has shower seat and states no need for any further DME. states no preference for DME company if pt qualifies for home oxygen. states no hx of HHC or SNF. does state some concerns with pt coming home at discharge d/t inability to care for self and confusion. Pt is retired. Pt does not smoke cigarettes or drink ETOH. voices no further questions/concerns. CM to follow therapy notes, oxygen need, and any further discharge planning/needs. Advised pt to ask for CM if any further questions/concerns/needs arise, voices understanding. Pt Goal: Home Plan: TBD, pending therapy notes, oxygen need. [place] JACQUELYN MANE
[2021-02-06] MEDS: Enoxaparin 30 MG/0.3 ML Syringe SC ×2 (10:19→22:25)
[2021-02-06] MEDS: dexAMETHasone 10 MG/ML Vial 6 MG IV (10:19)
--- NOTE | 2021-02-06 11:33 | CON.PCM.ID_ITS ---
HPI Consult Data Date of Consult: 02/06/21 HPI Narrative HPI Narrative: CASEY MORALES, is a 80 M who presents with decreased level consciousness and poor p.o. intake. Patient was found to be COVID-19 positive on admission. Patient is currently on 3 L nasal cannula O2. Patient is very vague and difficult historian, apparently has no significant past medical histo ry and was not taking any medications at home. Badillo catheter was placed upon admission. History is obtained through review of the records. Patient is currently on low-dose dexamethasone as well as DVT prophylaxis. PFSH Medical History no medical history Home Medications NK 02/05/21 [History Last Taken Unknown] Allergy/AdvReac Type Severity Reaction Status Date / Time No Known Allergies Allergy Verified 02/05/21 16:06 Family History unable to obtain Surgical History no surgical history Social History household members: spouse Smoking Status: Former smoker Lab / Micro Data Result Diagrams: 02/06/21 06:20 02/06/21 06:20 Labs: Laboratory Results - last 24 hr 02/05/21 16:40: WBC 6.5, RBC 4.60, Hgb 15.2, Hct 42.8, MCV 93.0, MCH 33.0 H, MCHC 35.5, RDW Std Deviation 43.9, RDW Coeff of Zackery 12.7, Plt Count 241, MPV 10.0, Immature Gran % (Auto) 0.500, Neut % (Auto) 73.3 H, Lymph % (Auto) 16.6 L, [place] % (Auto) 9.6, Eos % (Auto) 0.0, Baso % (Auto) 0.0, Absolute Neuts (auto) 4 .8, Absolute Lymphs (auto) 1.08, Nucleated RBC % 0 02/05/21 16:40: PT 13.1, INR 1.1, APTT 30.4 02/05/21 16:40: Sodium 141, Potassium 4.0, Chloride 103, Carbon Dioxide 31.0, Anion Gap 7, BUN 41 H, Creatinine 1.27, Estim Creat Clear Calc 39.89, Est GFR (MDRD) Af Amer 70, Est GFR (MDRD) Non-Af 58 L, BUN/Creatinine Ratio 32.3 H, Glucose 129 H, Calcium 9.1, Total Bilirubin 1.40 H, AST 67 H, ALT 23, Alkaline Phosphatase 104, Troponin I High Sens 38, Total Protein 7.6, Albumin 2.9 L, Globulin 4.7 H, Albumin/Globulin Ratio 0.6 L, Lipase 77 02/05/21 16:40: Lactic Acid 1.4 02/05/21 16:40: B-Natriuretic Peptide 51.3 02/05/21 16:40: Magnesium 2.7 H 02/05/21 16:40: Fibrinogen 638 H, D-Dimer Quant (PE/DVT) 2.01 H* 02/05/21 16:40: Procalcitonin 0.15 H 02/05/21 18:08: Urine Color Yellow, Urine Clarity Clear, Urine pH 6.0, Ur Specific [place] 1.020, Urine Protein 30 H, Urine Glucose (UA) Normal, Urine Ketones 15 H, Urine Occult Blood 150 H, Urine Nitrite Negative, Urine Bilirubin Negative, Urine Urobilinogen 1 H, Ur Leukocyte Esterase 25 H, Urine RBC 10-25 SEEN, Urine WBC 0-5 SEEN, Ur Squamous Epith Cells 0 SEEN, Urine Bacteria RARE, Urine Mucus 0 SEEN 02/05/21 20:05: Lactate Dehydrogenase 312 H, Total Creatine Kinase 323 H, Tropo eder I High Sens 39, C-React Prot Ext Range 89.50 H 02/06/21 06:20: Sodium 144, Potassium 3.8, Chloride 108 H, Carbon Dioxide 29.0, Anion Gap 7, BUN 38 H, Creatinine 1.16, Estim Creat Clear Calc 39.37, Est GFR (MDRD) Af Amer 78, Est GFR (MDRD) Non-Af 65, BUN/Creatinine Ratio 32.8 H, Glucose 142 H, Calcium 8.7, Total Bilirubin 1.50 H, AST 88 H, ALT 30, Alkaline Phosphatase 124 H, Total Protein 6.7, Albumin 2.6 L, Globulin 4.1, Albumin/Globulin Ratio 0.6 L 02/06/21 06:20: WBC 7.6, RBC 4.44 L, Hgb 14.6, Hct 41.5, MCV 93.5, MCH 32.9 H, MCHC 35.2, RDW Std Deviation 43.2, RDW Coeff of Zackery 12.6, Plt Count 226, MPV 10.0, Immature Gran % (Auto) 0.800, Neut % (Auto) 84.2 H, Lymph % (Auto) 8.0 L, [place] % (Auto) 7.0, Eos % (Auto) 0.0, Baso % (Auto) 0.0, Absolute Neuts (auto) 6.4, Absolute Lymphs (auto) 0.61 L, Nucleated RBC % 0 Micro: Microbiology 02/06/21 03:55 Urine Catheter - Catheter Legionella Antigen - Final 02/06/21 03:55 Urine Catheter - Catheter Streptococcus pneumoniae Antigen (M - Final Radiology Impression Chest X-Ray 02/05/21 16:30 IMPRESSION: Few subtle patchy airspace opacities in the left lower lobe consistent with Covid pneumonia. Electronically Signed: Fabio Castillo MD at 17:10 EST Tel , Service support , Brain CT 02/05/21 18:28 IMPRESSION: Chronic involutional and white matter changes. No acute intracranial process. Individualized dose optimization techniques were used for this CT. at 2006 Reported and signed by: Wing Zavala MD Electronically Signed: Wing Zavala MD at 20:05 EST Tel , Service support , Chest CTA 02/05/21 21:16 IMPRESSION: Negative CTA Chest. Pulmonary findings of unknown chronicity but suspicious for infection including atypical or viral pneumonia in the appropriate clinical setting. Individualized dose optimization techniques were used for this CT. at 2334 Reported and signed by: Wing Zavala MD Electronically Signed: Wing Zavala MD at 23:33 EST Tel , Service support , COVID-19 pneumonia currently requiring 3 L nasal cannula. Reasonable to continue low-dose dexamethasone and DVT prophylaxis. Unclear the duration of symptomatology, reasonable to hold off for remdesivir at this point. Continue s upportive care.
--- NOTE | 2021-02-06 16:59 | PCM.PN.HOSP ---
Subjective Subjective Very confused and sleepy today. Per the he has been having increasing confusion over the last 6 months and does have a history of dementia. No issues overnight Objective Data Objective Data Vital Signs: Vital Signs Temp Pulse Resp BP Pulse Ox 98.9 F 59 L 19 H 103/53 L 98 02/06/21 15:30 02/06/21 15:30 02/06/21 15:30 02/06/21 15:30 02/06/21 16:34 Oxygen Flow Rate (L/min) 3 Oxygen Delivery Method Nasal Cannula Weight: 118 lb 13.266 oz Body Mass Index (BMI) 16.5 Intake & Output: Intake and Output for Last 24 Hours 02/05/21 02/06/21 02/07/21 03:59 03:59 03:59 Intake Total 1204.17 / 1204.17 795 / 795 Output Total 1050 / 1050 200 / 200 Balance 154.17 / 154.17 595 / 595 Lab / Micro Data Result Diagrams: 02/06/21 06:20 02/06/21 06:20 Labs: Laboratory Results - last 24 hr 02/05/21 16:40: WBC 6.5, RBC 4.60, Hgb 15.2, Hct 42.8, MCV 93.0, MCH 33.0 H, MCHC 35.5, RDW Std Deviation 43.9, RDW Coeff of Zackery 12.7, Plt Count 241, MPV 10.0, Immature Gran % (Auto) 0.500, Neut % (Auto) 73.3 H, Lymph % (Auto) 16.6 L, [place] % (Auto) 9.6, Eos % (Auto) 0.0, Baso % (Auto) 0.0, Absolute Neuts (auto) 4.8, Absolute Lymphs (auto) 1.08, Nucleated RBC % 0 02/05/21 16:40: PT 13.1, INR 1.1, APTT 30.4 02/05/21 16:40: Sodium 141, Potassium 4.0, Chloride 103, Carbon Dioxide 31.0, Anion Gap 7, BUN 41 H, Creatinine 1.27, Estim Creat Clear Calc 39.89, Est GFR (MDRD) Af Amer 70, Est GFR (MDRD) Non-Af 58 L, BUN/Creatinine Ratio 32.3 H, Glucose 129 H, Calcium 9.1, Total Bilirubin 1.40 H, AST 67 H, ALT 23, Alkaline Phosphatase 104, Troponin I High Sens 38, Total Protein 7.6, Albumin 2.9 L, Globulin 4.7 H, Albumin/Globulin Ratio 0.6 L, Lipase 77 02/05/21 16:40: Lactic Acid 1.4 02/05/21 16:40: B-Natriuretic Peptide 51.3 02/05/21 16:40: Magnesium 2.7 H 02/05/21 16:40: Fibrinogen 638 H, D-Dimer Quant (PE/DVT) 2.01 H* 02/05/21 16:40: Procalcitonin 0.15 H 02/05/21 18:08: Urine Color Yellow, Urine Clarity Clear, Urine pH 6.0, Ur Specific [place] 1.020, Urine Protein 30 H, Urine Glucose (UA) Normal, Urine Ketones 15 H, Urine Occult Blood 150 H, Urine Nitrite Negative, Urine Bilirubin Negative, Urine Urobilinogen 1 H, Ur Leukocyte Esterase 25 H, Urine RBC 10-25 SEEN, Urine WBC 0-5 SEEN, Ur Squamous Epith Cells 0 SEEN, Urine Bacteria RARE, Urine Mucus 0 SEEN 02/05/21 20:05: Lactate Dehydrogenase 312 H, Total Creatine Kinase 323 H, Troponin I High Sens 39, C-React Prot Ext Range 89.50 H 02/06/21 06:20: Sodium 144, Potassium 3.8, Chloride 108 H, Carbon Dioxide 29.0, Anion Gap 7, BUN 38 H, Creatinine 1.16, Estim Creat Clear Calc 39.37, Est GFR (MDRD) Af Amer 78, Est GFR (MDRD) Non-Af 65, BUN/Creatinine Ratio 32.8 H, Glucose 142 H, Calcium 8.7, Total Bilirubin 1.50 H, AST 88 H, ALT 30, Alkaline Phosphatase 124 H, Total Protein 6.7, Albumin 2.6 L, Globulin 4.1, Albumin/Globulin Ratio 0.6 L 02/06/21 06:20: WBC 7.6, RBC 4.44 L, Hgb 14.6, Hct 41.5, MCV 93.5, MCH 32.9 H, MCHC 35.2, RDW Std Deviation 43.2, RDW Coeff of Zackery 12.6, Plt Count 226, MPV 10.0, Immature Gran % (Auto) 0.800, Neut % (Auto) 84.2 H, Lymph % (Auto) 8.0 L, [place] % (Auto) 7.0, Eos % (Auto) 0.0, Baso % (Auto) 0.0, Absolute Neuts (auto) 6.4, Absolute Lymphs (auto) 0.61 L, Nucleated RBC % 0 Micro: Microbiology 02/06/21 03:55 Urine Catheter - Catheter Legionella Antigen - Final 02/06/21 03:55 Urine Catheter - Catheter Streptococcus pneumoniae Antigen (M - Final Radiography Diagnostic Testing: Radiology Impression Chest X-Ray 02/05/21 16:30 IMPRESSION: Few subtle patchy airspace opacities in the left lower lobe consistent with Covid pneumonia. Electronically Signed: Fabio Castillo MD at 17:10 EST Tel , Service support , Brain CT 02/05/21 18:28 IMPRESSION: Chronic involutional and white matter changes. No acute intracranial process. Individualized dose optimization techniques were used for this CT. at 2006 Reported and signed by: Wing Zavala MD Electronically Signed: Wing Zavala MD at 20:05 EST Tel , Service support , Chest CTA 02/05/21 21:16 IMPRESSION: Negative CTA Chest. Pulmonary findings of unknown chronicity but suspicious for infection including atypical or viral pneumonia in the appropriate clinical setting. Individualized dose optimization techniques were used for this CT. at 2334 Reported and signed by: Wing Zavala MD Electronically Signed: Wing Zavala MD at 23:33 EST Tel , Service support , Physical Exam Const no apparent distress General Appearance: cooperative Orientation / Consciousness: confused HEENT normocephalic and moist oral mucous membranes Eyes PERRL, EOMs intact bilaterally and conjunctivae normal Neck supple and no JVD Resp normal respiratory effort, no retractions and no use of accessory muscles Auscultation: diminished lung sounds; Negative for crackles, rales, rhonchi or wheezes Cardio regular rate, regular rhythm, S1 normal heart sound, S2 normal heart sound and no murmurs GI soft to palpation, non-tender and non-distended; Negative for hepatosplenomegaly Extremity no clubbing, cyanosis or edema Skin no rashes or lesions noted Neuro no focal motor deficits and no sensory deficits noted Psych Mood & Affect: flat affect Assessment & Plan Assessment/Plan (1) COVID-19: PLAN: 1. Acute encephalopathy, possible metabolic/encephalopathic or multiple etiologies on chronic mental condition possible dementia probably from COVID-19 infection: Patient is being admitted in PCU. IV fluid normal saline to correct dehydration. Normal potassium. Lactic acid 1.4. CT head ordered by ER physician. ?02/06/2021: Per the that he does have baseline dementia which is getting worse over the last 6 months 2. Bilateral COVID-19 pneumonia: Start on IV Decadron 6 mg daily and IV remdesivir. AST 67 1 total bili 1.4 but ALT normal. Inflammatory markers including D-dimer ordered. If D-dimer more than 1.5, will order CT angiogram chest. Pneumonia work-up including blood cultures x2 ordered. ?02/06/2021: Continue with Decadron hold off on remdesivir given unclear duration of symptoms appreciate infectious disease input. CT of the chest was negative for PEs 3. Patient is a former smoker. Patient denies any past medical history including chronic heart disease lung disease, digestive disease or musculoskeletal disease. He is not on any home medications DVT: Lovenox Charges/Coding Visit Charges Inpatient E&M: 25069 Subs Hosp L2
[2021-02-07] VITALS (18 sets, daily range): BP systolic 85–121; BP diastolic 50–63; PULSE 42–65; RESP 16–23; TEMP 35.9–36.8; O2SAT 20–100
[2021-02-07] MEDS: 0.9% Normal Saline 1,000 ML 999 ML IV (04:31)
[2021-02-07 07:27] LABS: Absolute Lymphocyte Count 1.01 X10^3/uL (0.83-4.51); Absolute Neutrophil Count 9.1 X10^3/uL (2.0-7.7); Basophil# 0.01 X10^3/uL; Basophil% 0.1 % (0-1); Hematocrit 35.9 % (40-54); Hemoglobin 12.2 g/dL (13.0-16.5); Lymphocyte # 1.01 X10^3/ul (0.83-4.51); Lymphocyte % 9.4 % (19-41); Mean Corpuscular Hgb 32.4 pg (27.0-32.0); Mean Corpuscular Volume 95.2 fL (80-94); Mean Platelet Vol. 10.4 fl (6.2-12.0); Monocyte% 4.7 % (0-10); NRBC Flagged by Analyzer 0 % (0-5); Neutrophil # 9.08 X10^3/uL (2.7-7.7); Neutrophil % 84.8 % (47-70); POSITIVE MORPHOLOGY YES; Platelet Count 230 K/mm3 (150-450); RBC Distribution Width CV 12.9 % (11.6-14.6); RBC Distribution Width SD 45.2 fl (35.1-43.9); Red Blood Count 3.77 M/mm3 (4.6-6.2); White Blood Count 10.7 K/mm3 (4.4-11.0)
[2021-02-07 07:30] LABS: Differential Indicated SCAN CRITERIA MET
[2021-02-07] MEDS: dexAMETHasone 10 MG/ML Vial 6 MG IV (08:03)
[2021-02-07] MEDS: 0.9% Normal Saline 1,000 ML 100 ML IV (08:03)
[2021-02-07] MEDS: Enoxaparin 30 MG/0.3 ML Syringe SC ×2 (08:05→22:14)
[2021-02-07 08:15] LABS: ALB/GLOB Ratio 0.5 RATIO (0.9-2.4); AST(SGOT) 54 U/L (15-37); Alanine Aminotransfer ALT/SGPT 21 U/L (16-61); Albumin, Serum 1.8 g/dL (3.2-5.0); Alkaline Phosphatase 86 U/L (45-117); Anion Gap 5 (5-15); BUN 40 mg/dL (7-18); BUN/Creat Ratio 41.5 RATIO (10-20); Calcium,Total 8.1 mg/dL (8.5-10.1); Chloride 118 mmol/L (98-107); Creatinine, Serum 0.96 mg/dL (0.70-1.30); EST Glomerular Filtration Rate 80 mL/min (>60); Est Glom Filt Rate - Afr Amer 97 mL/min (>60); Estimated Creatinine Clearance 47.57 ml/min; Globulin 3.7 g/dL (2.2-4.2); Glucose 140 mg/dL (74-106); Potassium 3.8 mmol/L (3.5-5.1); Protein, Total 5.5 g/dL (6.4-8.2); Sodium Level 150 mmol/L (136-145)
--- NOTE | 2021-02-07 13:44 | PN.HOSP_ITS ---
Subjective Subjective Seems more alert today, responds to voice and does answer some questions though he is still confused. Objective Data Objective Data Vital Signs: Vital Signs Temp Pulse Resp BP Pulse Ox 97.9 F 65 20 H 98/54 L 98 02/07/21 08:00 02/07/21 11:00 02/07/21 08:00 02/07/21 08:00 02/07/21 10:53 Oxygen Flow Rate (L/min) 2 Oxygen Delivery Method Nasal Cannula Weight: 118 lb 13.266 oz Body Mass Index (BMI) 16.5 Intake & Output: Intake and Output for Last 24 Hours 02/06/21 02/07/21 02/08/21 03:59 03:59 03:59 Intake Total 1204.17 / 1204.17 2146.67 / 2146.67 1648.33 / 1648.33 Output Total 1050 / 1050 700 / 700 550 / 550 Balance 154.17 / 154.17 1446.67 / 1446.67 1098.33 / 1098.33 Lab / Micro Data Result Diagrams: 02/07/21 07:05 02/07/21 07:05 Labs: Laboratory Results - last 24 hr 02/07/21 07:05: WBC 10.7, RBC 3.77 L, Hgb 12.2 L, Hct 35.9 L, MCV 95.2 H, MCH 32.4 H, MCHC 34.0, RDW Std Deviation 45.2 H, RDW Coeff of Zackery 12.9, Plt Count 230, MPV 10.4, Immature Gran % (Auto) 1.000 H, Neut % (Auto) 84.8 H, Lymph % (Auto) 9.4 L, [place] % (Auto) 4.7, Eos % (Auto) 0.0, Baso % (Auto) 0.1, Absolute Neuts (auto) 9.1 H, Absolute Lymphs (auto) 1.01, Nucleated RBC % 0 02/07/21 07:05: Sodium 150 H, Potassium 3.8, Chloride 118 H, Carbon Dioxide 27.0, Anion Gap 5, BUN 40 H, Creatinine 0.96, Estim Creat Clear Calc 47.57, Est GFR (MDRD) Af Amer 97, Est GFR (MDRD) Non-Af 80, BUN/Creatinine Ratio 41.5 H, Glucose 140 H, Calcium 8.1 L, Total Bilirubin 0.70, AST 54 H, ALT 21, Alkaline Phosphatase 86, Total Protein 5.5 L, Albumin 1.8 L, Globulin 3.7, Albumin/Globulin Ratio 0.5 L Micro: Microbiology 02/06/21 03:55 Urine Catheter - Catheter Legionella Antigen - Final 02/06/21 03:55 Urine Catheter - Catheter Streptococcus pneumoniae Antigen (M - Final Physical Exam Const alert and no apparent distress General Appearance: cooperative Orientation / Consciousness: confused HEENT normocephalic and moist oral mucous membranes Eyes PERRL, EOMs intact bilaterally and conjunctivae normal Neck supple and no JVD Resp normal respiratory effort, no retractions and no use of accessory muscles Auscultation: diminished lung sounds; Negative for crackles, rales, rhonchi or wheezes Cardio regular rate, regular rhythm, S1 normal heart sound, S2 normal heart sound and no murmurs GI soft to palpation, non-tender and non-distended; Negative for hepatosplenomegaly Extremity no clubbing, cyanosis or edema Skin no rashes or lesions noted Neuro no focal motor deficits and no sensory deficits noted Psych Mood & Affect: flat affect Assessment & Plan Assessment/Plan (1) COVID-19: PLAN: 1. Acute encephalopathy, possible metabolic/encephalopathic or multiple etiologies on chronic mental condition possible dementia probably from COVID-19 infection: Patient is being admitted in PCU. IV fluid normal saline to correct dehydration. Normal potassium. Lactic acid 1.4. CT head ordered by ER physician. ?02/06/2021: Per the that he does have baseline dementia which is getting worse over the last 6 months ?02/07/2021: Seems to be a little bit more alert today, will continue to monitor his improvement. However given his baseline confusion and the fact that he has been getting worse he is likely unsafe to return home and will likely need placement in a detention facility. 2. Bilateral COVID-19 pneumonia: Start on IV Decadron 6 mg daily and IV remdesivir. AST 67 1 total bili 1.4 but ALT normal. Inflammatory markers including D-dimer ordered. If D-dimer more than 1.5, will order CT angiogram chest. Pneumonia work-up including blood cultures x2 ordered. ?02/06/2021: Continue with Decadron hold off on remdesivir given unclear duration of symptoms appreciate infectious disease input. CT of the chest was negative for PEs ?02/07/2021: Doing well from an oxygen standpoint, he is maintaining his sats currently on 2 L. We'll continue with Decadron 3. Patient is a former smoker. Patient denies any past medical history including chronic heart disease lung disease, digestive disease or musculoskeletal disease. He is not on any home medications Disposition: SNF DVT: Lovenox Charges/Coding Visit Charges Inpatient E&M: 81025 Subs Hosp L2
--- NOTE | 2021-02-07 16:03 | CASEMGMT ---
EVERTON spoke with patient's son Ryan regarding discharge planning. EVERTON explained to Ryan that patient is going to need to go to a usp facility short term. EVERTON provided Ryan with a list of (SNF, HH, LTCH, IRF) providers including quality and resource use data and consistent with the patient?s preferred geographic region, medical needs, and insurance network. SW circled the facilities that are in network. EVERTON also explained the only facility in the area that is taking positive COVID patients is [facility] and EVERTON circled this one as well. EVERTON explained that [facility] is not in network with patient's insurance. However, due to the circumstances it is possible to get an exception. EVERTON encouraged Ryan to go look at the facility as they are allowing visits. Ryan asked what happens if [facility] is not acceptable and he is not comfortable with patient going there. EVERTON told him that some of the other facilities in the area are accepting patients 10-14 days past their positive test. That would not be an ideal situation. Ryan asked about help at home if that is an option. EVERTON explained home health and what is covered and also gave him a private duty list. Ryan will talk with family. Susie Hoyos PUPIL PERSONNEL WORKER KIMO
[2021-02-07 16:51] LABS: Magnesium 2.3 mg/dL (1.6-2.6); Phosphorus 2.5 mg/dL (2.5-4.9)
[2021-02-07] MEDS: 0.9% Saline Lock 10 ML Syringe IV (20:06)
[2021-02-08] VITALS (12 sets, daily range): BP systolic 97–111; BP diastolic 47–68; PULSE 44–79; RESP 16–20; TEMP 36–37.1; O2SAT 94–97
[2021-02-08 05:07] LABS: Absolute Lymphocyte Count 0.75 X10^3/uL (0.83-4.51); Basophil# 0.01 X10^3/uL; Basophil% 0.1 % (0-1); Hematocrit 33.7 % (40-54); Hemoglobin 11.8 g/dL (13.0-16.5); Lymphocyte # 0.75 X10^3/ul (0.83-4.51); Lymphocyte % 7.3 % (19-41); Mean Corpuscular Hgb 32.7 pg (27.0-32.0); Mean Corpuscular Volume 93.4 fL (80-94); Mean Platelet Vol. 10.4 fl (6.2-12.0); Monocyte# 0.42 X10^3/uL; Monocyte% 4.1 % (0-10); NRBC Flagged by Analyzer 0 % (0-5); Neutrophil # 9.02 X10^3/uL (2.7-7.7); Neutrophil % 87.6 % (47-70); Platelet Count 226 K/mm3 (150-450); RBC Distribution Width CV 12.7 % (11.6-14.6); RBC Distribution Width SD 43.4 fl (35.1-43.9); Red Blood Count 3.61 M/mm3 (4.6-6.2); White Blood Count 10.3 K/mm3 (4.4-11.0)
[2021-02-08 05:31] LABS: ALB/GLOB Ratio 0.5 RATIO (0.9-2.4); AST(SGOT) 66 U/L (15-37); Alanine Aminotransfer ALT/SGPT 29 U/L (16-61); Albumin, Serum 1.8 g/dL (3.2-5.0); Alkaline Phosphatase 77 U/L (45-117); Anion Gap 5 (5-15); BUN 39 mg/dL (7-18); BUN/Creat Ratio 44.6 RATIO (10-20); Chloride 111 mmol/L (98-107); Creatinine, Serum 0.88 mg/dL (0.70-1.30); EST Glomerular Filtration Rate 89 mL/min (>60); Est Glom Filt Rate - Afr Amer 108 mL/min (>60); Estimated Creatinine Clearance 51.89 ml/min; Globulin 3.5 g/dL (2.2-4.2); Glucose 135 mg/dL (74-106); Potassium 3.4 mmol/L (3.5-5.1); Protein, Total 5.3 g/dL (6.4-8.2); Sodium Level 144 mmol/L (136-145)
[2021-02-08] MEDS: 0.9% Saline Lock 10 ML Syringe IV (07:57)
[2021-02-08] MEDS: Enoxaparin 30 MG/0.3 ML Syringe SC ×2 (07:57→21:53)
[2021-02-08] MEDS: dexAMETHasone 10 MG/ML Vial 6 MG IV (07:57)
--- NOTE | 2021-02-08 12:53 | CASEMGMT ---
EVERTON received a call from patient's son, Edmundo. He had a few questions for EVERTON regarding d/c planning. EVERTON answered his questions. EVERTON let Edmundo know that physician feels patient will be ready for discharge in the next day or so. EVERTON asked if EVERTON could send a referral to [facility]. Edmundo said he is going to talk to his brother Ryan and they will get back to EVERTON. Susie MALIN
--- NOTE | 2021-02-08 13:51 | PCM.PN.HOSP ---
Subjective Subjective Seems to be back to baseline in terms of alertness. He is completely on room air, and denies any shortness of breath. He is also very confused and does not know where he is or what year it is. Objective Data Objective Data Vital Signs: Vital Signs Temp Pulse Resp BP Pulse Ox 98.3 F 58 L 16 108/54 L 95 02/08/21 08:10 02/08/21 11:00 02/08/21 08:10 02/08/21 08:10 02/08/21 08:10 Oxygen Flow Rate (L/min) 2 Oxygen Delivery Method Room Air Weight: 118 lb 13.266 oz Body Mass Index (BMI) 16.5 Intake & Output: Intake and Output for Last 24 Hours 02/07/21 02/08/21 02/09/21 03:59 03:59 03:59 Intake Total 2146.67 / 2146.67 2488.33 / 2488.33 Output Total 700 / 700 700 / 700 525 / 525 Balance 1446.67 / 1446.67 1788.33 / 1788.33 -525 / -525 Lab / Micro Data Result Diagrams: 02/08/21 04:52 02/08/21 04:52 Labs: Laboratory Results - last 24 hr 02/07/21 07:05: Phosphorus 2.5, Magnesium 2.3 02/08/21 04:52: WBC 10.3, RBC 3.61 L, Hgb 11.8 L, Hct 33.7 L, MCV 93.4, MCH 32.7 H, MCHC 35.0, RDW Std Deviation 43.4, RDW Coeff of Zackery 12.7, Plt Count 226, MPV 10.4, Immature Gran % (Auto) 0.900, Neut % (Auto) 87.6 H, Lymph % (Auto) 7.3 L, [place] % (Auto) 4.1, Eos % (Auto) 0.0, Baso % (Auto) 0.1, Absolute Neuts (auto) 9.0 H, Absolute Lymphs (auto) 0.75 L, Nucleated RBC % 0 02/08/21 04:52: Sodium 144, Potassium 3.4 L, Chloride 111 H, Carbon Dioxide 28.0, Anion Gap 5, BUN 39 H, Creatinine 0.88, Estim Creat Clear Calc 51.89, Est GFR (MDRD) Af Amer 108, Est GFR (MDRD) Non-Af 89, BUN/Creatinine Ratio 44.6 H, Glucose 135 H, Calcium 8.0 L, Total Bilirubin 0.80, AST 66 H, ALT 29, Alkaline Phosphatase 77, Total Protein 5.3 L, Albumin 1.8 L, Globulin 3.5, Albumin/Globulin Ratio 0.5 L Micro: Microbiology 02/05/21 18:05 Blood Culture (Wb) - Anticubital Right Blood Culture - Preliminary No growth in 48 hours. 02/05/21 16:40 Blood Culture (Wb) - Anticubital Right Blood Culture - Preliminary No growth in 48 hours. 02/06/21 03:55 Urine Catheter - Catheter Legionella Antigen - Final 02/06/21 03:55 Urine Catheter - Catheter Streptococcus pneumoniae Antigen (M - Final Physical Exam Const alert and no apparent distress General Appearance: cooperative Orientation / Consciousness: confused HEENT normocephalic and moist oral mucous membranes Eyes PERRL, EOMs intact bilaterally and conjunctivae normal Neck supple and no JVD Resp normal respiratory effort, no retractions and no use of accessory muscles Auscultation: diminished lung sounds; Negative for crackles, rales, rhonchi or wheezes Cardio regular rate, regular rhythm, S1 normal heart sound, S2 normal heart sound and no murmurs GI soft to palpation, non-tender and non-distended; Negative for hepatosplenomegaly Extremity no clubbing, cyanosis or edema Skin no rashes or lesions noted Neuro no focal motor deficits and no sensory deficits noted Psych Mood & Affect: flat affect Assessment & Plan Assessment/Plan (1) COVID-19: PLAN: 1. Acute encephalopathy, possible metabolic/encephalopathic or multiple etiologies on chronic mental condition possible dementia probably from COVID-19 infection: Patient is being admitted in PCU. IV fluid normal saline to correct dehydration. Normal potassium. Lactic acid 1.4. CT head ordered by ER physician. ?02/06/2021: Per the that he does have baseline dementia which is getting worse over the last 6 months ?02/07/2021: Seems to be a little bit more alert today, will continue to monitor his improvement. However given his baseline confusion and the fact that he has been getting worse he is likely unsafe to return home and will likely need placement in a residential facility. ?02/08/2021: Much more alert today, will advance his diet to a full liquid diet and see how he manages with that. 2. Bilateral COVID-19 pneumonia: Start on IV Decadron 6 mg daily and IV remdesivir. AST 67 1 total bili 1.4 but ALT normal. Inflammatory markers including D-dimer ordered. If D-dimer more than 1.5, will order CT angiogram chest. Pneumonia work-up including blood cultures x2 ordered. ?02/06/2021: Continue with Decadron hold off on remdesivir given unclear duration of symptoms appreciate infectious disease input. CT of the chest was negative for PEs ?02/07/2021: Doing well from an oxygen standpoint, he is maintaining his sats currently on 2 L. We'll continue with Decadron ?02/08/2021: We will continue with Decadron however he is now maintaining his oxygen saturations on room air 3. Patient is a former smoker. Patient denies any past medical history including chronic heart disease lung disease, digestive disease or musculoskeletal disease. He is not on any home medications Disposition: SNF DVT: Lovenox Charges/Coding Visit Charges Inpatient E&M: 99652 Subs Hosp L2
--- NOTE | 2021-02-08 15:34 | CASEMGMT ---
EVERTON spoke with patient's son, Ryan when he came to visit patient. EVERTON explained the physician told SW patient will be ready in a day or 2 if he continues to do well. EVERTON asked if EVERTON could send the referral to [facility]. EVERTON told Ryan that [facility] said they only have 2 beds available. Ryan gave EVERTON permission to send the referral to [facility]. EVERTON faxed referral to [facility] and also called leaving a message. Susie Hoyos MSW KIMO
[2021-02-08] MEDS: Potassium Chloride Oral Tablet 20 MEQ 40 MEQ PO (16:33)
--- NOTE | 2021-02-08 17:17 | CASEMGMT ---
SW received a message from Cherie at [facility] and they do not have any beds available. Susie Hoyos CASINO FLOORPERSON KIMO
[2021-02-09] VITALS (15 sets, daily range): BP systolic 100–194; BP diastolic 56–164; PULSE 57–83; RESP 16–20; TEMP 36.4–36.9; O2SAT 89–99
[2021-02-09 07:15] LABS: Absolute Lymphocyte Count 0.84 X10^3/uL (0.83-4.51); Basophil# 0.01 X10^3/uL; Basophil% 0.1 % (0-1); Hematocrit 36.8 % (40-54); Hemoglobin 13.3 g/dL (13.0-16.5); Lymphocyte # 0.84 X10^3/ul (0.83-4.51); Mean Corp Hgb Conc 36.1 g/dL (32-36); Mean Corpuscular Hgb 33.1 pg (27.0-32.0); Mean Corpuscular Volume 91.5 fL (80-94); Mean Platelet Vol. 10.4 fl (6.2-12.0); Monocyte# 0.61 X10^3/uL; Monocyte% 5.8 % (0-10); NRBC Flagged by Analyzer 0 % (0-5); Neutrophil # 8.97 X10^3/uL (2.7-7.7); Neutrophil % 85.5 % (47-70); Platelet Count 262 K/mm3 (150-450); RBC Distribution Width CV 12.5 % (11.6-14.6); Red Blood Count 4.02 M/mm3 (4.6-6.2); White Blood Count 10.5 K/mm3 (4.4-11.0)
[2021-02-09 07:45] LABS: ALB/GLOB Ratio 0.6 RATIO (0.9-2.4); AST(SGOT) 78 U/L (15-37); Alanine Aminotransfer ALT/SGPT 39 U/L (16-61); Albumin, Serum 2.1 g/dL (3.2-5.0); Alkaline Phosphatase 84 U/L (45-117); Anion Gap 7 (5-15); BUN 37 mg/dL (7-18); BUN/Creat Ratio 41.3 RATIO (10-20); Calcium,Total 8.4 mg/dL (8.5-10.1); Chloride 111 mmol/L (98-107); EST Glomerular Filtration Rate 87 mL/min (>60); Est Glom Filt Rate - Afr Amer 105 mL/min (>60); Estimated Creatinine Clearance 50.74 ml/min; Globulin 3.8 g/dL (2.2-4.2); Glucose 125 mg/dL (74-106); Potassium 3.6 mmol/L (3.5-5.1); Protein, Total 5.9 g/dL (6.4-8.2); Sodium Level 145 mmol/L (136-145)
[2021-02-09] MEDS: Enoxaparin 30 MG/0.3 ML Syringe SC ×2 (09:03→22:33)
[2021-02-09] MEDS: dexAMETHasone 10 MG/ML Vial 6 MG IV (09:03)
--- NOTE | 2021-02-09 10:06 | CASEMGMT ---
EVERTON spoke with patient's son, Ryan and let him know [facility] does not have any beds available. EVERTON explained Saturday patient will be 10 days out from his positive test so he could go to one of the other facilities that take his insurance on the list that EVERTON gave him. Ryan had the list and patient's choices in [facility] are [place] and [facility]. They would like to keep patient as close to [place] as possible. EVERTON said [facility] is closer than [facility]. Ryan agreed to allow EVERTON fo fax a referral to [facility]. EVERTON called [facility] and spoke with Sandra. She will have her training program developer look at referral when she comes in this afternoon. Sandra said that since he is 10 days out on Saturday the earliest they could take him would be Saturday. Await return call. Susie Hoyos BOBBIN COIL WINDER KIMO
--- NOTE | 2021-02-09 15:15 | CASEMGMT ---
EVERTON received a call from Sandra at [facility]. They can accept patient on Saturday since this will be day 11 since positive COVID test. She asked that the SW on Saturday fax updated progress and therapy notes. EVERTON called patient's son Ryan and let him know [facility] can take patient on Saturday. SW let him know someone will call and let him know when patient will be leaving. His brother from [place] will be coming into town on Saturday to help with patient's significant other and patient. EVERTON let him know patient can wear regular clothes while at [facility]. He thanked EVERTON for the assistance. Plan: d/c to [facility] under skilled level of care on a convalescent stay. Susie MALIN
--- NOTE | 2021-02-09 16:46 | PN.HOSP_ITS ---
Subjective Subjective Much more alert today and sitting up in the chair for the exam. He still is confused. Son was in the room today and states that they have been noticing some mental decline for the last 6 months but became more noticeable 2 months ago and then he had significant decline with the beginning of his Covid infection. Objective Data Objective Data Vital Signs: Vital Signs Temp Pulse Resp BP Pulse Ox 98.2 F 83 16 110/77 97 02/09/21 15:00 02/09/21 15:45 02/09/21 15:00 02/09/21 15:00 02/09/21 15:00 Oxygen Flow Rate (L/min) 2 Oxygen Delivery Method Room Air Weight: 118 lb 13.266 oz Body Mass Index (BMI) 16.5 Intake & Output: Intake and Output for Last 24 Hours 02/08/21 02/09/21 02/10/21 03:59 03:59 03:59 Intake Total 2488.33 / 2488.33 480 / 480 480 / 480 Output Total 700 / 700 800 / 800 1450 / 1450 Balance 1788.33 / 1788.33 -320 / -320 -970 / -970 Lab / Micro Data Result Diagrams: 02/09/21 07:05 02/09/21 07:05 Labs: Laboratory Results - last 24 hr 02/09/21 07:05: WBC 10.5, RBC 4.02 L, Hgb 13.3, Hct 36.8 L, MCV 91.5, MCH 33.1 H , MCHC 36.1 H, RDW Std Deviation 42.0, RDW Coeff of Zackery 12.5, Plt Count 262, MPV 10.4, Immature Gran % (Auto) 0.600, Neut % (Auto) 85.5 H, Lymph % (Auto) 8.0 L, [place] % (Auto) 5.8, Eos % (Auto) 0.0, Baso % (Auto) 0.1, Absolute Neuts (auto) 9.0 H, Absolute Lymphs (auto) 0.84, Nucleated RBC % 0 02/09/21 07:05: Sodium 145, Potassium 3.6, Chloride 111 H, Carbon Dioxide 27.0, Anion Gap 7, BUN 37 H, Creatinine 0.90, Estim Creat Clear Calc 50.74, Est GFR (MDRD) Af Amer 105, Est GFR (MDRD) Non-Af 87, BUN/Creatinine Ratio 41.3 H, Glucose 125 H, Calcium 8.4 L, Total Bilirubin 0.90, AST 78 H, ALT 39, Alkaline Phosphatase 84, Total Protein 5.9 L, Albumin 2.1 L, Globulin 3.8, Albumin/Gl obulin Ratio 0.6 L Micro: Microbiology 02/05/21 18:05 Blood Culture (Wb) - Anticubital Right Blood Culture - Preliminary No growth in 48 hours. 02/05/21 16:40 Blood Culture (Wb) - Anticubital Right Blood Culture - Preliminary No growth in 48 hours. 02/06/21 03:55 Urine Catheter - Catheter Legionella Antigen - Final 02/06/21 03:55 Urine Catheter - Catheter Streptococcus pneumoniae Antigen (M - Final Physical Exam Const alert and no apparent distress General Appearance: cooperative Orientation / Consciousness: confused HEENT normocephalic and moist oral mucous membranes Eyes PERRL, EOMs intact bilaterally and conjunctivae normal Neck supple and no JVD Resp normal respiratory effort, no retractions and no use of accessory muscles Auscultation: diminished lung sounds; Negative for crackles, rales, rhonchi or wheezes Cardio regular rate, regular rhythm, S1 normal heart sound, S2 normal heart sound and no murmurs GI soft to palpation, non-tender and non-distended; Negative for hepatosplenomegaly Extremity no clubbing, cyanosis or edema Skin no rashes or lesions noted Neuro no focal motor deficits and no sensory deficits noted Psych Mood & Affect: flat affect Assessment & Plan Assessment/Plan (1) COVID-19: PLAN: 1. Acute encephalopathy, possible metabolic/encephalopathic or multiple etiologies on chronic mental condition possible dementia probably from COVID-19 infection: Patient is being admitted in PCU. IV fluid normal saline to correct dehydration. Normal potassium. Lactic acid 1.4. CT head ordered by ER physician. ?02/06/2021: Per the that he does have baseline dementia which is getting worse over the last 6 months ?02/07/2021: Seems to be a little bit more alert today, will continue to monitor his improvement. However given his baseline confusion and the fact that he has been getting worse he is likely unsafe to return home and will likely need placement in a detention facility. ?02/08/2021: Much more alert today, will advance his diet to a full liquid diet and see how he manages with that. Neck spine?12-?02/09/2021: We will obtain a vitamin B12 and a TSH as these work-ups have not been done as an outpatient by his PCP. CT of the brain was unremarkable. Given the time course it is consistent with acute encephalopathy in the setting of chronic dementia given the onset of Covid. The delirium could also be worsened by steroids however at this time we will continue. 2. Bilateral COVID-19 pneumonia: Start on IV Decadron 6 mg daily and IV remdesivir. AST 67 1 total bili 1.4 but ALT normal. Inflammatory markers including D-dimer ordered. If D-dimer more than 1.5, will order CT angiogram chest. Pneumonia work-up including blood cultures x2 ordered. ?02/06/2021: Continue with Decadron hold off on remdesivir given unclear duration of symptoms appreciate infectious disease input. CT of the chest was negative for PEs ?02/07/2021: Doing well from an oxygen standpoint, he is maintaining his sats currently on 2 L. We'll continue with Decadron ?02/08/2021: We will continue with Decadron however he is now maintaining his oxygen saturations on room air 3. Patient is a former smoker. Patient denies any past medical history including chronic heart disease lung disease, digestive disease or musculoskeletal disease. He is not on any home medications Disposition: SNF DVT: Lovenox Charges/Coding Visit Charges Inpatient E&M: 43159 Subs Hosp L2
[2021-02-10] VITALS (10 sets, daily range): BP systolic 112–158; BP diastolic 59–81; PULSE 52–96; RESP 16–22; TEMP 36–36.7; O2SAT 92–96
[2021-02-10 07:36] LABS: Absolute Lymphocyte Count 0.72 X10^3/uL (0.83-4.51); Absolute Neutrophil Count 5.8 X10^3/uL (2.0-7.7); Basophil# 0.01 X10^3/uL; Basophil% 0.1 % (0-1); Hematocrit 35.3 % (40-54); Hemoglobin 12.5 g/dL (13.0-16.5); Lymphocyte # 0.72 X10^3/ul (0.83-4.51); Lymphocyte % 10.1 % (19-41); Mean Corp Hgb Conc 35.4 g/dL (32-36); Mean Corpuscular Hgb 32.5 pg (27.0-32.0); Mean Corpuscular Volume 91.7 fL (80-94); Mean Platelet Vol. 10.6 fl (6.2-12.0); Monocyte# 0.63 X10^3/uL; Monocyte% 8.8 % (0-10); NRBC Flagged by Analyzer 0 % (0-5); Neutrophil # 5.75 X10^3/uL (2.7-7.7); Neutrophil % 80.3 % (47-70); Platelet Count 272 K/mm3 (150-450); RBC Distribution Width CV 12.3 % (11.6-14.6); RBC Distribution Width SD 41.3 fl (35.1-43.9); Red Blood Count 3.85 M/mm3 (4.6-6.2); White Blood Count 7.2 K/mm3 (4.4-11.0)
[2021-02-10 08:16] LABS: ALB/GLOB Ratio 0.5 RATIO (0.9-2.4); AST(SGOT) 61 U/L (15-37); Alanine Aminotransfer ALT/SGPT 41 U/L (16-61); Alkaline Phosphatase 80 U/L (45-117); Anion Gap 8 (5-15); BUN 36 mg/dL (7-18); BUN/Creat Ratio 45.3 RATIO (10-20); Calcium,Total 8.4 mg/dL (8.5-10.1); Chloride 110 mmol/L (98-107); EST Glomerular Filtration Rate 100 mL/min (>60); Est Glom Filt Rate - Afr Amer 121 mL/min (>60); Estimated Creatinine Clearance 57.08 ml/min; Globulin 3.7 g/dL (2.2-4.2); Glucose 119 mg/dL (74-106); Potassium 3.7 mmol/L (3.5-5.1); Protein, Total 5.7 g/dL (6.4-8.2); Sodium Level 146 mmol/L (136-145)
[2021-02-10 09:11] LABS: Vitamin B12 759 pg/mL (211-911)
[2021-02-10] MEDS: dexAMETHasone 4 MG Tablet 6 MG PO (09:19)
[2021-02-10] MEDS: Enoxaparin 30 MG/0.3 ML Syringe SC ×2 (09:19→20:53)
--- NOTE | 2021-02-10 13:54 | PN.HOSP_ITS ---
Subjective Subjective Patient seen and examined. He had a flat affect and wouldnt really answer questions. Unable to do review of systems. Objective Data Objective Data Vital Signs: Vital Signs Temp Pulse Resp BP Pulse Ox 97.9 F 82 16 117/74 92 02/10/21 09:16 02/10/21 09:16 02/10/21 09:16 02/10/21 09:16 02/10/21 10:20 Oxygen Flow Rate (L/min) 2 Oxygen Delivery Method Room Air Weight: 118 lb 13.266 oz Body Mass Index (BMI) 16.5 Intake & Output: Intake and Output for Last 24 Hours 02/08/21 02/09/21 02/10/21 23:59 23:59 23:59 Intake Total 480 / 480 840 / 990 370 / 370 Output Total 850 / 850 1850 / 2300 1200 / 1200 Balance -370 / -370 -1010 / -1310 -830 / -830 Lab / Micro Data Result Diagrams: 02/10/21 07:15 02/10/21 07:15 Labs: Laboratory Results - last 24 hr 02/09/21 07:05: TSH 1.20 02/10/21 07:15: WBC 7.2, RBC 3.85 L, Hgb 12.5 L, Hct 35.3 L, MCV 91.7, MCH 32.5 H, MCHC 35.4, RDW Std Deviation 41.3, RDW Coeff of Zackery 12.3, Plt Count 272, MPV 10.6, Immature Gran % (Auto) 0.700, Neut % (Auto) 80.3 H, Lymph % (Auto) 10.1 L, [place] % (Auto) 8.8, Eos % (Auto) 0.0, Baso % (Auto) 0.1, Absolute Neuts (auto) 5.8, Absolute Lymphs (auto) 0.72 L, Nucleated RBC % 0 02/10/21 07:15: Sodium 146 H, Potassium 3.7, Chloride 110 H, Carbon Dioxide 28.0, Anion Gap 8, BUN 36 H, Creatinine 0.80, Estim Creat Clear Calc 57.08, Est GFR (MDRD) Af Amer 121, Est GFR (MDRD) Non-Af 100, BUN/Creatinine Ratio 45.3 H, Glucose 119 H, Calcium 8.4 L, Total Bilirubin 1.00, AST 61 H, ALT 41, Alkaline Phosphatase 80, Total Protein 5.7 L, Albumin 2.0 L, Globulin 3.7, Albumin/Globulin Ratio 0.5 L 02/10/21 07:15: Vitamin B12 759 Micro: Microbiology 02/05/21 18:05 Blood Culture (Wb) - Anticubital Right Blood Culture - Preliminary No growth in 48 hours. 02/05/21 16:40 Blood Culture (Wb) - Anticubital Right Blood Culture - Preliminary No growth in 48 hours. 02/06/21 03:55 Urine Catheter - Catheter Legionella Antigen - Final 02/06/21 03:55 Urine Catheter - Catheter Streptococcus pneumoniae Antigen (M - Final Physical Exam Const alert Orientation / Consciousness: confused Exam Limitations: altered mental status HEENT head/scalp atraumatic and moist oral mucous membranes Head and Scalp: normocephalic Eyes PERRL, EOMs intact bilaterally and conjunctivae normal Neck no lymphadenopathy and supple Resp normal respiratory effort, no retractions, no use of accessory muscles and clear to auscultation bilaterally Resp Narrative: on room air. Cardio regular rate, regular rhythm, S1 normal heart sound, S2 normal heart sound and n o murmurs GI normal to inspection, nondistended, normoactive bowel sounds, soft to palpation, non-tender, non-distended and hepatosplenomegaly Extremity normal to inspection, full ROM and no clubbing, cyanosis or edema Peripheral Pulses: Yes pulses 2+ throughout Skin no rashes or lesions noted Neuro Neuro Narrative: confused Sensorium / Orientation: awake and alert Assessment & Plan Assessment/Plan (1) COVID-19: (2) Generalized weakness: PLAN: #COVID 19 infection * On room air. On Decadron. * Titrate oxygen as needed to maintain saturation above 90%. * Duration of symptoms was unclear so remdesivir was discontinued. * CT was negative for PE. * #Acute metabolic encephalopathy * Was thought to be due to Covid but it does appear that patient has baseline dementia which has been gradually worsening. * PT OT on board. Patient will therefore benefit from placement. CT of the brain showed no acute intracranial abnormalities * DVT prophylaxis: lovenox Disposition: awaiting placement. Charges/Coding Visit Charges Inpatient E&M: 92377 Subs Hosp L2
[2021-02-11] VITALS (9 sets, daily range): BP systolic 110–129; BP diastolic 71–89; PULSE 56–74; RESP 16–20; TEMP 36.1–36.6; O2SAT 96–97
[2021-02-11 06:06] LABS: Absolute Lymphocyte Count 0.87 X10^3/uL (0.83-4.51); Absolute Neutrophil Count 5.1 X10^3/uL (2.0-7.7); Basophil# 0.01 X10^3/uL; Basophil% 0.2 % (0-1); Hematocrit 36.8 % (40-54); Hemoglobin 12.8 g/dL (13.0-16.5); Lymphocyte # 0.87 X10^3/ul (0.83-4.51); Lymphocyte % 13.1 % (19-41); Mean Corp Hgb Conc 34.8 g/dL (32-36); Mean Corpuscular Hgb 32.2 pg (27.0-32.0); Mean Corpuscular Volume 92.5 fL (80-94); Mean Platelet Vol. 10.6 fl (6.2-12.0); Monocyte# 0.61 X10^3/uL; Monocyte% 9.2 % (0-10); NRBC Flagged by Analyzer 0 % (0-5); Neutrophil # 5.08 X10^3/uL (2.7-7.7); Neutrophil % 76.3 % (47-70); Platelet Count 308 K/mm3 (150-450); RBC Distribution Width CV 12.2 % (11.6-14.6); RBC Distribution Width SD 41.5 fl (35.1-43.9); Red Blood Count 3.98 M/mm3 (4.6-6.2); White Blood Count 6.7 K/mm3 (4.4-11.0)
[2021-02-11 06:34] LABS: Anion Gap 4 (5-15); BUN 36 mg/dL (7-18); BUN/Creat Ratio 46.7 RATIO (10-20); Calcium,Total 8.3 mg/dL (8.5-10.1); Chloride 110 mmol/L (98-107); Creatinine, Serum 0.77 mg/dL (0.70-1.30); EST Glomerular Filtration Rate 103 mL/min (>60); Est Glom Filt Rate - Afr Amer 125 mL/min (>60); Estimated Creatinine Clearance 45.67 ml/min; Glucose 118 mg/dL (74-106); Potassium 3.6 mmol/L (3.5-5.1); Sodium Level 144 mmol/L (136-145)
[2021-02-11] MEDS: Enoxaparin 30 MG/0.3 ML Syringe SC ×2 (09:34→20:59)
[2021-02-11] MEDS: dexAMETHasone 4 MG Tablet 6 MG PO (09:34)
--- NOTE | 2021-02-11 10:40 | PN.HOSP_ITS ---
Subjective Subjective Patient seen and examined. He remains confused and is unable to do review of systems. He is on room air. He is awaiting placement. Objective Data Objective Data Vital Signs: Vital Signs Temp Pulse Resp BP Pulse Ox 97.8 F 74 16 124/89 H 97 02/11/21 09:00 02/11/21 09:00 02/11/21 09:00 02/11/21 09:00 02/11/21 09:00 Oxygen Flow Rate (L/min) 2 Oxygen Delivery Method Nasal Cannula Weight: 118 lb 13.266 oz Body Mass Index (BMI) 16.5 Intake & Output: Intake and Output for Last 24 Hours 02/09/21 02/10/21 02/11/21 23:59 23:59 23:59 Intake Total 840 / 990 770 / 770 0 / 0 Output Total 1850 / 2300 1500 / 1850 650 / 650 Balance -1010 / -1310 -730 / -1080 -650 / -650 Lab / Micro Data Result Diagrams: 02/11/21 05:46 02/11/21 05:46 Labs: Laboratory Results - last 24 hr 02/11/21 05:46: WBC 6.7, RBC 3.98 L, Hgb 12.8 L, Hct 36.8 L, MCV 92.5, MCH 32.2 H, MCHC 34.8, RDW Std Deviation 41.5, RDW Coeff of Zackery 12.2, Plt Count 308, MPV 10.6, Immature Gran % (Auto) 1.200 H, Neut % (Auto) 76.3 H, Lymph % (Auto) 13.1 L, [place] % (Auto) 9.2, Eos % (Auto) 0.0, Baso % (Auto) 0.2, Absolute Neuts (auto) 5.1, Absolute Lymphs (auto) 0.87, Nucleated RBC % 0 02/11/21 05:46: Sodium 144, Potassium 3.6, Chloride 110 H, Carbon Dioxide 30.0, Anion Gap 4 L, BUN 36 H, Creatinine 0.77, Estim Creat Clear Calc 45.67, Est GFR (MDRD) Af Amer 125, Est GFR (MDRD) Non-Af 103, BUN/Creatinine Ratio 46.7 H, Glucose 118 H, Calcium 8.3 L Micro: Microbiology 02/05/21 18:05 Blood Culture (Wb) - Anticubital Right Blood Culture - Final No growth in 5 days. 02/05/21 16:40 Blood Culture (Wb) - Anticubital Right Blood Culture - Final No growth in 5 days. 02/06/21 03:55 Urine Catheter - Catheter Legionella Antigen - Final 02/06/21 03:55 Urine Catheter - Catheter Streptococcus pneumoniae Antigen (M - Final Physical Exam Const alert Constitutional Narrative: nonverbal General Appearance: cooperative Orientation / Consciousness: confused Exam Limitations: altered mental status HEENT normocephalic, head/scalp atraumatic and moist oral mucous membranes Head and Scalp: normocephalic Eyes PERRL, EOMs intact bilaterally and conjunctivae normal Neck no lymphadenopathy, supple and no JVD Resp normal respiratory effort, no retractions, no use of accessory muscles and clear to auscultation bilaterally Resp Narrative: on room air. Auscultation: diminished lung sounds; Negative for crackles, rales, rhonchi or wheezes Cardio regular rate, regular rhythm, S1 normal heart sound, S2 normal heart sound and no murmurs GI normal to inspection, nondistended, normoactive bowel sounds, soft to palpation, non-tender, non-distended and hepatosplenomegaly Extremity normal to inspection, full ROM and no clubbing, cyanosis or edema Skin no rashes or lesions noted Neuro no focal motor deficits and no sensory deficits noted Neuro Narrative: confused Sensorium / Orientation: awake and alert Psych Mood & Affect: flat affect Assessment & Plan Assessment/Plan (1) COVID-19: (2) Generalized weakness: PLAN: #COVID 19 infection * On room air. On Decadron. * Titrate oxygen as needed to maintain saturation above 90%. * Duration of symptoms was unclear so remdesivir was discontinued. * CT was negative for PE. * #Acute metabolic encephalopathy * Was thought to be due to Covid but it does appear that patient has baseline dementia which has been gradually worsening. * PT OT on board. Patient will therefore benefit from placement. CT of the brain showed no acute intracranial abnormalities * DVT prophylaxis: lovenox Disposition: awaiting placement. FOr DC to [facility] on Saturday Charges/Coding Visit Charges Inpatient E&M: 76550 Subs Hosp L2
[2021-02-12] VITALS (10 sets, daily range): BP systolic 92–115; BP diastolic 49–58; PULSE 56–102; RESP 16–18; TEMP 36.1–36.6; O2SAT 90–96
[2021-02-12 07:09] LABS: Absolute Lymphocyte Count 0.81 X10^3/uL (0.83-4.51); Absolute Neutrophil Count 4.6 X10^3/uL (2.0-7.7); Basophil# 0.01 X10^3/uL; Basophil% 0.2 % (0-1); Eosinophil# 0.01 X10^3/uL; Eosinophils% 0.2 % (0-5); Hematocrit 38.9 % (40-54); Hemoglobin 13.3 g/dL (13.0-16.5); Lymphocyte # 0.81 X10^3/ul (0.83-4.51); Lymphocyte % 13.4 % (19-41); Mean Corp Hgb Conc 34.2 g/dL (32-36); Mean Corpuscular Volume 93.5 fL (80-94); Mean Platelet Vol. 10.9 fl (6.2-12.0); Monocyte# 0.55 X10^3/uL; Monocyte% 9.1 % (0-10); NRBC Flagged by Analyzer 0 % (0-5); Neutrophil # 4.61 X10^3/uL (2.7-7.7); Neutrophil % 76.4 % (47-70); Platelet Count 319 K/mm3 (150-450); RBC Distribution Width CV 12.2 % (11.6-14.6); RBC Distribution Width SD 42.3 fl (35.1-43.9); Red Blood Count 4.16 M/mm3 (4.6-6.2)
[2021-02-12 07:32] LABS: Anion Gap 6 (5-15); BUN 36 mg/dL (7-18); BUN/Creat Ratio 45.7 RATIO (10-20); Calcium,Total 8.3 mg/dL (8.5-10.1); Chloride 107 mmol/L (98-107); Creatinine, Serum 0.79 mg/dL (0.70-1.30); EST Glomerular Filtration Rate 101 mL/min (>60); Est Glom Filt Rate - Afr Amer 122 mL/min (>60); Estimated Creatinine Clearance 45.67 ml/min; Glucose 115 mg/dL (74-106); Potassium 3.6 mmol/L (3.5-5.1); Sodium Level 143 mmol/L (136-145)
--- NOTE | 2021-02-12 09:33 | PN.HOSP_ITS ---
Subjective Subjective Patient seen and examined. He was lying calmly in bed. He was nonverbal. He has remained hemodynamically stable. Objective Data Objective Data Vital Signs: Vital Signs Temp Pulse Resp BP Pulse Ox 97.0 F L 59 L 18 98/53 L 93 02/12/21 03:10 02/12/21 07:00 02/12/21 03:10 02/12/21 03:10 02/12/21 03:10 Oxygen Flow Rate (L/min) 2 Oxygen Delivery Method Room Air Weight: 118 lb 13.266 oz Body Mass Index (BMI) 16.5 Intake & Output: Intake and Output for Last 24 Hours 02/10/21 02/11/21 02/12/21 23:59 23:59 23:59 Intake Total 770 / 770 180 / 180 200 / 200 Output Total 1500 / 1850 1400 / 1400 400 / 400 Balance -730 / -1080 -1220 / -1220 -200 / -200 Lab / Micro Data Result Diagrams: 02/12/21 06:20 02/12/21 06:20 Labs: Laboratory Results - last 24 hr 02/12/21 06:20: WBC 6.0, RBC 4.16 L, Hgb 13.3, Hct 38.9 L, MCV 93.5, MCH 32.0, MCHC 34.2, RDW Std Deviation 42.3, RDW Coeff of Zackery 12.2, Plt Count 319, MPV 10.9, Immature Gran % (Auto) 0.700, Neut % (Auto) 76.4 H, Lymph % (Auto) 13.4 L, [place] % (Auto) 9.1, Eos % (Auto) 0.2, Baso % (Auto) 0.2, Absolute Neuts (auto) 4.6, Absolute Lymphs (auto) 0.81 L, Nucleated RBC % 0 02/12/21 06:20: Sodium 143, Potassium 3.6, Chloride 107, Carbon Dioxide 30.0, Anion Gap 6, BUN 36 H, Creatinine 0.79, Estim Creat Clear Calc 45.67, Est GFR (MDRD) Af Amer 122, Est GFR (MDRD) Non-Af 101, BUN/Creatinine Ratio 45.7 H, Glucose 115 H, Calcium 8.3 L Micro: Microbiology 02/05/21 18:05 Blood Culture (Wb) - Anticubital Right Blood Culture - Final No growth in 5 days. 02/05/21 16:40 Blood Culture (Wb) - Anticubital Right Blood Culture - Final No growth in 5 days. 02/06/21 03:55 Urine Catheter - Catheter Legionella Antigen - Final 02/06/21 03:55 Urine Catheter - Catheter Streptococcus pneumoniae Antigen (M - Final Physical Exam Const alert Constitutional Narrative: nonverbal General Appearance: cooperative Orientation / Consciousness: confused Exam Limitations: altered mental status HEENT normocephalic, head/scalp atraumatic and moist oral mucous membranes Head and Scalp: normocephalic Eyes PERRL, EOMs intact bilaterally and conjunctivae normal Neck no lymphadenopathy, supple and no JVD Resp normal respiratory effort, no retractions, no use of accessory muscles and clear to auscultation bilaterally Resp Narrative: on room air. Auscultation: diminished lung sounds; Negative for crackles, rales, rhonchi or wheezes Cardio regular rate, regular rhythm, S1 normal heart sound, S2 normal heart sound and no murmurs GI normal to inspection, nondistended, normoactive bowel sounds, soft to palpation, non-tender, non-distended and hepatosplenomegaly Extremity normal to inspection, full ROM and no clubbing, cyanosis or edema Peripheral Pulses: Yes pulses 2+ throughout Skin no rashes or lesions noted Neuro no focal motor deficits and no sensory deficits noted Neuro Narrative: confused Sensorium / Orientation: awake and alert Psych Mood & Affect: flat affect Assessment & Plan Assessment/Plan (1) COVID-19: (2) Generalized weakness: PLAN: #COVID 19 infection * remains on room air. On Decadron. * Titrate oxygen as needed to maintain saturation above 90%. * Duration of symptoms was unclear so remdesivir was discontinued. * CT was negative for PE. * #Acute metabolic encephalopathy * due to worsening baseline dementia * PT OT on board. Patient will therefore benefit from placement. CT of the brain showed no acute intracranial abnormalities * DVT prophylaxis: lovenox Disposition: awaiting placement. FOr DC to [facility] on Saturday Charges/Coding Visit Charges Inpatient E&M: 24210 Subs Hosp L2
[2021-02-12] MEDS: Enoxaparin 30 MG/0.3 ML Syringe SC ×2 (09:53→20:27)
[2021-02-12] MEDS: dexAMETHasone 4 MG Tablet 6 MG PO (09:53)
[2021-02-13] VITALS (7 sets, daily range): BP systolic 103–111; BP diastolic 39–67; PULSE 57–98; RESP 16–18; TEMP 36–36.6; O2SAT 96–99
[2021-02-13 07:31] LABS: Absolute Lymphocyte Count 0.84 X10^3/uL (0.83-4.51); Absolute Neutrophil Count 10.9 X10^3/uL (2.0-7.7); Basophil# 0.02 X10^3/uL; Basophil% 0.2 % (0-1); Hematocrit 39.1 % (40-54); Lymphocyte # 0.84 X10^3/ul (0.83-4.51); Lymphocyte % 6.5 % (19-41); Mean Corp Hgb Conc 35.8 g/dL (32-36); Mean Corpuscular Hgb 33.3 pg (27.0-32.0); Mean Corpuscular Volume 93.1 fL (80-94); Mean Platelet Vol. 10.6 fl (6.2-12.0); Monocyte% 8.5 % (0-10); NRBC Flagged by Analyzer 0 % (0-5); Neutrophil # 10.89 X10^3/uL (2.7-7.7); Neutrophil % 84.3 % (47-70); Platelet Count 338 K/mm3 (150-450); RBC Distribution Width CV 12.5 % (11.6-14.6); RBC Distribution Width SD 42.8 fl (35.1-43.9); White Blood Count 12.9 K/mm3 (4.4-11.0)
[2021-02-13 07:53] LABS: Anion Gap 5 (5-15); BUN 38 mg/dL (7-18); BUN/Creat Ratio 39.3 RATIO (10-20); Calcium,Total 8.5 mg/dL (8.5-10.1); Chloride 106 mmol/L (98-107); Creatinine, Serum 0.97 mg/dL (0.70-1.30); EST Glomerular Filtration Rate 80 mL/min (>60); Est Glom Filt Rate - Afr Amer 96 mL/min (>60); Estimated Creatinine Clearance 47.08 ml/min; Glucose 113 mg/dL (74-106); Potassium 3.8 mmol/L (3.5-5.1); Sodium Level 144 mmol/L (136-145)
[2021-02-13] MEDS: Enoxaparin 30 MG/0.3 ML Syringe SC (08:37)
[2021-02-13] MEDS: dexAMETHasone 4 MG Tablet 6 MG PO (08:37)
--- NOTE | 2021-02-13 10:16 | CASEMGMT ---
Addendum entered by Germaine Curry 02/13/21 15:17: Social Work Physician had put pt needed longer than 30 days. SW spoke w/physician, was able to change length of stay to shorter than 30 days. [facility] faxed new instructions to both [facility] and to [facility]. ADRY Castillo Addendum entered by Germaine Curry 02/13/21 13:21: Social Work Pt is ready for discharge to [facility]. [facility]ON faxed the hospital exemption to [facility]. SW did let Guera at [facility] know that we could not send the hospital exemption electronically so it was faxed over, and they can see if they are able to to the PAS/RR online. [facility]ERTON faxed all discharge paperwork including the hospital exemption over to [facility]. [facility] set up a 3:30pm ambulance with Physicians. EVERTON let pt's son Guera Davis at [facility], and pt's bedside RN know time of pickup. No further needs anticipated. Pt going to [facility] skilled, for convalescent stay. ADRY Castillo Original Note: Social Work SW received a call from son Ryan asking if pt is going to [facility] today, SW let him know that as per the notes on Saturday pt should go today, will let him know when pt is set up to go. SW spoke w/Guera at [facility], also let her know pt should be coming today, updates faxed. [facility] attempted to do the hospital exemption, and an error message pops up saying pt's social security number is already in use, and cannot continue to complete the exemption form. However, searching by pt's social security number yields no results. [facility]ERTON spoke w/Pam Méndez at [facility]. She states if we cannot submit electronically we need to fax it over once completed to [facility]. Since she is aware of the situation, we do not need to wait for an approval, but just need to fax over. [facility]ERTON waiting for discharge instructions, and will fax to [facility], fax hospital exemption to [facility], and set up transport. ADRY Castillo
--- NOTE | 2021-02-13 11:25 | PCM.DC.SUM ---
Providers Date of Admission: 02/05/21 Primary Care Physician: Dr. Yosef Ayers, Consultations 02/05/21 19:40 Consult: Infectious Disease Routine Consulting Provider: Russell Teague Reason for Consult: Covid-19, AMS, exact history not clear EMERGENT Consult: No MD Notified: Yes Date Notified: 02/06/21 Time Notified: 06:40 Method of Notification: Answering Service Reason For Visit: COVID19 WITH AMS Diagnosis Discharge Diagnosis (1) COVID-19: Status: Acute Code(s): U07.1 - COVID-19 (2) Generalized weakness: Status: Acute Code(s): R53.1 - Weakness Medications at Discharge Home Medications dexamethasone 6 mg PO DAILY #6 tab 02/13/21 Hospital Course Operations None Procedures None Summary of Care Provided Minutes Spent on Discharge: 45 Hospital Course: Patient is a 80-year-old male who was admitted through the ED on 02/05/2021 after being brought in by the EMS for altered mental status and decreased appetite and intake for 5 to 6 days. Patient was Covid positive and was found to be very weak and confused and lethargic. He could not give much of a history. His PCP had ordered a Covid test 3 days prior and he had tested positive on 02/02/2021. Chest x-ray showed subtle opacities consistent with COVID-[address] of the brain was negative for any acute intracranial pathology. Admitting hospitalist spoke to patient's who said the patient had been losing his memory for about 5 to 6 months which had worsened in the past few weeks prior to admission. He was admitted to manage for acute metabolic encephalopathy thought to be due to COVID-19 infection and exacerbated by probable dementia. He was started on Decadron and remdesivir. Patient was weaned off of oxygen and remained on room air. He was skilled as needing therapy. He was discharged to senior care facility on 02/13/2021. Patient was seen and examined prior to discharge. He remained minimally responsive, but had no other active complaints. Review of systems was otherwise negative. Labs and vitals reviewed. Home meds reviewed and reconciled. Physical Exam Const alert Constitutional Narrative: nonverbal Orientation / Consciousness: confused Exam Limitations: altered mental status HEENT normocephalic, head/scalp atraumatic and moist oral mucous membranes Eyes PERRL, EOMs intact bilaterally and conjunctivae normal Neck no lymphadenopathy, supple and no JVD Resp normal respiratory effort, no retractions, no use of accessory muscles and clear to auscultation bilaterally Resp Narrative: on room air. Auscultation: diminished lung sounds; Negative for crackles, rales, rhonchi or wheezes Cardio regular rate, regular rhythm, S1 normal heart sound, S2 normal heart sound and no murmurs GI normal to inspection, nondistended, normoactive bowel sounds, soft to palpation, non-tender, non-distended and hepatosplenomegaly Extremity normal to inspection, full ROM and no clubbing, cyanosis or edema Skin no rashes or lesions noted Neuro no focal motor deficits and no sensory deficits noted Neuro Narrative: confused Sensorium / Orientation: awake and alert Psych Mood & Affect: flat affect Weight / BMI Weight Weight: 118 lb 13.266 oz Body Mass Index (BMI) 16.5 ABG / Lab / Microbiology Data Result Diagrams: 02/13/21 07:18 02/13/21 07:18 Laboratory: Laboratory Results - last 24 hr 02/13/21 07:18: WBC 12.9 H, RBC 4.20 L, Hgb 14.0, Hct 39.1 L, MCV 93.1, MCH 33.3 H, MCHC 35.8, RDW Std Deviation 42.8, RDW Coeff of Zackery 12.5, Plt Count 338, MPV 10.6, Immature Gran % (Auto) 0.500, Neut % (Auto) 84.3 H, Lymph % (Auto) 6.5 L, [place] % (Auto) 8.5, Eos % (Auto) 0.0, Baso % (Auto) 0.2, Absolute Neuts (auto) 10.9 H, Absolute Lymphs (auto) 0.84, Nucleated RBC % 0 02/13/21 07:18: Sodium 144, Potassium 3.8, Chloride 106, Carbon Dioxide 33.0 H, Anion Gap 5, BUN 38 H, Creatinine 0.97, Estim Creat Clear Calc 47.08, Est GFR (MDRD) Af Amer 96, Est GFR (MDRD) Non-Af 80, BUN/Creatinine Ratio 39.3 H, Glucose 113 H, Calcium 8.5 Microbiology: Microbiology 02/05/21 18:05 Blood Culture (Wb) - Anticubital Right Blood Culture - Final No growth in 5 days. 02/05/21 16:40 Blood Culture (Wb) - Anticubital Right Blood Culture - Final No growth in 5 days. 02/06/21 03:55 Urine Catheter - Catheter Legionella Antigen - Final 02/06/21 03:55 Urine Catheter - Catheter Streptococcus pneumoniae Antigen (M - Final D/C Instructions Discharge Diet: Low fat / Low cholesterol Discharge Activity: Return to Normal Activity Weight Bearing Status: Weight bearing as tolerated Call your doctor if you observe: Fever of 101 or Higher, Shortness of breath and Increased palpitations (irregular heartbeat) Meaningful Use Info Meaningful Use Diagnoses (Choose all that apply): None applicable Discharge Plan Admission Admit Date/Time: 02/05/21 18:02 Primary Reason for Your Visit: covid 19 pneumonia Attending Provider: Cheryl Umanzor Primary Care Provider: Yosef Ayers Consulting Providers: Russell Teague Discharge Orders/Prescriptions Prescriptions: New dexamethasone 4 mg Tablet 6 mg PO DAILY Qty: 6 RF: 0 Referrals / Follow Up: Yosef Ayers DO [Primary Care Provider] - Disposition Disposition (needs filled in before D/C Order can be placed): [facility] Facility Charges/Coding Visit Charges Inpatient E&M: 44127 Disch Hosp
--- NOTE | 2021-02-13 12:14 | PCM.TXEXTCAR ---
Diet 02/09/21 10:25 Diet: Regular - General Food consistency:: Regular Liquid Consistency:: Regular/Thin Type of Dietary Supplement:: Ensure Enlive Is pt able to select menu?: No Diet Comments: 8 oz w/ meals tid, 1:1 supervision, ensure pt is fully alert for meals Routine Orders/Code Status Enema Type: Fleetz Enema Frequency: Daily PRN Suppository Type: Dulcolax 10mg Suppository Frequency: Daily PRN O2 Frequency: PRN Keep PO Greater than or Equal to (%): 90 Therapies Weight Bearing: Weight bearing as tolerated Physical Therapy: Eval and Treat Occupational Therapy: Eval and Treat Problem/Diagnosis (1) COVID-19: Status: Acute (2) Generalized weakness: Status: Acute Allergies/Procedures Done in Hospital Allergies No Known Allergies Allergy (Verified 02/05/21 16:06) Procedures: None Type of Care/Length of Stay Estimated LOS: More Than 30 Days Type of Care Needed: Skilled Rehab Potential: Fair Prognosis: Fair Additional Orders/Day of Discharge Day of Discharge: 02/13/21 Dietary and Speech Recommendations Dietitian Recommendations/Changes: As medically able, rec advance SHRAVAN to liberal regular diet Will provide 8 oz ensure enlive w/ meals tid for increased nutrition if consumed Discharge Plan Admission Admit Date/Time: 02/05/21 18:02 Primary Reason for Your Visit: covid 19 pneumonia Attending Provider: Cheryl Umanzor Primary Care Provider: Yosef Ayers Consulting Providers: Russell Teague Discharge Orders/Prescriptions Prescriptions: New dexamethasone 4 mg Tablet 6 mg PO DAILY Qty: 6 RF: 0 Referrals / Follow Up: Yosef Ayers DO [Primary Care Provider] - Disposition Disposition (needs filled in before D/C Order can be placed): Long-Term Facility
--- NOTE | 2021-02-13 13:32 | NURSING ---
Pt straight cathed for 450ml monique colored urine.
--- NOTE | 2021-02-13 16:12 | NURSING ---
Report called to Marc Justin to nurse Sherlyn @ [phone].
== END 2021-02-13 15:51 | disposition skilled nursing facility (03) | DRG 177 ==
LOC: ED 17:26 → PCU 18:29
PROVIDERS: Family Medicine; Internal Medicine; Admitting Provider Internal Medicine; Emergency Provider Emergency Medicine; PCP Family Medicine; Visit Provider Student in an Organized Health Care Education/Training Program
DX: U07.1 COVID-19 (principal); J12.82 Pneumonia due to coronavirus disease 2019; G93.41 Metabolic encephalopathy; E86.0 Dehydration; F03.90 Unspecified dementia, unspecified severity, without behavioral disturbance, psychotic disturbance, mood disturbance, and anxiety; Z66 Do not resuscitate; Z87.891 Personal history of nicotine dependence; R32 Unspecified urinary incontinence
CPT/HCPCS: 36415; 51702; 70450; 71045; 71275; 80048; 80053; 81001; 82550; 82607; 83605; 83615; 83690; 83735; 83880; 84100; 84145; 84443; 84484; 85025; 85379; 85384; 85610; 85730; 86140; 87040; 87449; 87633; 87635; 92507; 92526; 92610; 93005; 97110; 97116; 97162; 97165; 97530; 97535; 99285; J7030; J7050; Q9967; A4216; U0003; U0005

== ENCOUNTER 2021-02-20 10:55 | Inpatient (IN) | payer MEDICARE, OTHER, SELFPAY ==
[2021-02-20] VITALS (14 sets, daily range): BP systolic 94–119; BP diastolic 65–78; PULSE 55–92; RESP 10–26; TEMP 35.5–36.6; O2SAT 96–100; BMI 35.6; BMI 15.0
--- NOTE | 2021-02-20 11:09 | EKG12_ITS ---
Test Reason : Blood Pressure : / mmHG Vent. Rate : 084 BPM Atrial Rate : 084 BPM P-R Int : 124 ms QRS Dur : 100 ms QT Int : 488 ms P-R-T Axes : 083 086 081 degrees QTc Int : 576 ms Normal sinus rhythm Nonspecific ST abnormality Prolonged QT Abnormal ECG Confirmed by DIANNE CARTER, MAGGI ([id number]), web content editor REGGIE LOU ([id number]) on 02/22/2021 9:49:03 AM Referred By: ALEJANDRO/ALEXA Confirmed By:MAGGI DEAN MD
--- NOTE | 2021-02-20 11:24 | ED.VIS.DYS ---
HPI History of Present Illness Chief Complaint: Shortness of Breath Informant: patient, EMS and SNF Associated Symptoms cough Chest Pain: Positive for None Narrative Narrative: From available information, patient is on day #11 of Covid (which is inaccurate since the patient tested positive for Covid on 02/02/2021), was discharged from the hospital after being admitted for it, and was 70% on room air this morning, he has had a little more dyspnea than usual. No chest discomfort. It is noted according to discharge summary from the hospital on 02/13 that the patient was discharged on room air to [facility] after being weaned from oxygen requirement. [facility] Medical History (Updated 02/20/21 @ 13:[address] Bhanu Nobles MD) Altered mental status COVID Dementia Dysphagia Encephalopathy Muscle weakness Pneumonia Medical History no medical history no medical history Home Medications albuterol sulfate 0.63 mg INHALATION Q4H 02/20/21 [History Last Taken Unknown] bisacodyl 10 mg IA DAILY PRN 02/20/21 [History Last Taken Unknown] dexamethasone 6 mg PO DAILY 02/20/21 [History Last Taken 02/20/21] food supplemt, lactose-reduced [Ensure] 4 ml PO TID 02/20/21 [History Last Taken Unknown] levofloxacin [Levaquin] 500 mg PO DAILY 02/20/21 [History Last Taken 02/20/21] sodium phosphates [Fleet Enema] 118 ml IA DAILY PRN 02/20/21 [History Last Taken Unknown] Allergy/AdvReac Type Severity Reaction Status Date / Time No Known Allergies Allergy Verified 02/20/21 11:55 Social History household members: spouse Smoking Status: Former smoker ROS ROS ED Constitutional Constitutional ED: Reports body ache(s), chills, fatigue, fever(s) and malaise Eyes Eyes: Denies change in vision or diplopia ENT ENT ED: Denies rhinorrhea or sore throat Cardiovascular Cardiovascular: Denies chest pain or palpitations Respiratory/Chest Respiratory/Chest: Reports as per HPI, cough and dyspnea Gastrointestinal Gastrointestinal: Denies abdominal pain, diarrhea, nausea or vomiting Genitourinary Genitourinary ED: Denies dysuria or hematuria Musculoskeletal Musculoskeletal: Denies back pain or neck pain Integumentary Denies abscess or rash Neurologic Neurologic: Denies headache(s), paresthesias or weakness Psychiatric Psychiatric: Denies anxiety or suicidal thoughts EXAM Physical Exam Const Vital Signs: 02/20/21 10:55 02/20/21 10:59 02/20/21 11:46 Temperature 96 F L 96 F L Temperature Source Temporal Temporal Pulse Rate 88 88 Respiratory Rate 18 18 Respiratory Effort Normal Non-Labored Blood Pressure 108/74 108/74 Blood Pressure Mean 85 85 Pulse Ox 99 99 Oxygen Delivery Method Nasal Cannula Nasal Cannula Nasal Cannula Oxygen Flow Rate (L/min) 4 4 2 02/20/21 11:58 02/20/21 12:01 02/20/21 13:00 Temperature 97.8 F 97.8 F 97.8 F Temperature Source Temporal Temporal Temporal Pulse Rate 89 76 92 Respiratory Rate 26 H 19 H 22 H Respiratory Effort Blood Pressure 94/67 109/65 119/68 Blood Pressure Mean 76 79 85 Pulse Ox 100 100 100 Oxygen Delivery Method Nasal Cannula Nasal Cannula Nasal Cannula Oxygen Flow Rate (L/min) 2 2 2 02/20/21 14:00 02/20/21 16:05 02/20/21 17:37 Temperature 97.8 F Temperature Source Oral Pulse Rate 76 88 75 Respiratory Rate 22 H 22 H 18 Respiratory Effort Blood Pressure 114/66 107/68 100/78 Blood Pressure Mean 82 81 85 Pulse Ox 99 99 100 Oxygen Delivery Method Room Air Nasal Cannula Nasal Cannula Oxygen Flow Rate (L/min) 3 2 Positive well nourished and well developed Constitutional Narrative: Malaised-appearing, no distress General Appearance ED: well developed and NAD HEENT Reports moist mucous membranes normocephalic and atraumatic Eyes PERRL and EOMs intact bilaterally Neck full ROM, supple, no meningeal signs and no JVD Resp normal respiratory effort and clear to auscultation bilaterally Cardio regular rate, regular rhythm and no murmurs Rate: Negative for tachycardic GI non-tender and non-distended Auscultation: normoactive bowel sounds Palpation: soft Back/Spine no CVA tenderness General Back: other FROM Extremity normal to inspection and no calf tenderness General Extremety ED: Negative for edema, pulses abnormal or tenderness General Extremity: Negative for edema or pulses abnormal Neuro oriented x3, CN's II-XII intact bilaterally and no sensory deficits noted Sensorium / Orientation: awake and alert Motor Exam: strength 5/5 throughout Skin no rashes or lesions noted and no wounds MDM MDM MDM Narrative Medical decision making narrative: Chest x-ray shows right upper lobe pneumonia as well as some patchy infiltrate in the left lung. Labs are noted including potassium of 2.9, mild prerenal azotemia, both of which were treated in emergency department in addition to oxygen supplementation. D-dimer was elevated so CT angiography of the chest was obtained. Findings as noted below. Patient was started on Zosyn and vancomycin after cultures obtained. Negative Covid. CT shows development of right lung abscess that was not there on CT this past month on the . No pulmonary emboli. Discussed with hospitalist who requested that I review with pulmonology. Discussed with Dr. Chambers, who agrees with Zosyn and vancomycin and advises attempting to find a facility with CT surgery, although he states trying to percutaneously drain this would not be advisable right now due to the possible formation of bronchopleural fistula and advises IV antibiotics for now. I did discuss with both [facility] and [facility], he is on the waiting list for both and they request that we admit him locally for now with antibiotics as previously discussed. At [facility] discussed with CT surgery Dr. Calderon, they would be happy to accept the patient if they get a bed available that is appropriate for him and while here on IV antibiotics the patient shows signs of worsening. Lab Data Attestation: I reviewed the patient's lab results. Labs: Laboratory Results - last 24 hr 02/20/21 02/20/21 02/20/21 11:40 11:40 11:40 WBC Cancelled Corrected WBC Cancelled RBC Cancelled Hgb Cancelled Hct Cancelled MCV Cancelled MCH Cancelled MCHC Cancelled RDW Std Deviation Cancelled RDW Coeff of Zackery Cancelled Plt Count Cancelled MPV Cancelled Immature Gran % (Auto) Cancelled Neut % (Auto) Cancelled Lymph % (Auto) Cancelled Beckham % (Auto) Cancelled Eos % (Auto) Cancelled Baso % (Auto) Cancelled Absolute Neuts (auto) Cancelled Absolute Lymphs (auto) Cancelled Total Counted Cancelled Neutrophils % (Manual) Cancelled Band Neutrophils % Cancelled Lymphocytes % (Manual) Cancelled Monocytes % (Manual) Cancelled Eosinophils % (Manual) Cancelled Basophils % (Manual) Cancelled Metamyelocytes % Cancelled Myelocytes % Cancelled Promyelocytes % Cancelled Blast Cells % Cancelled Plasma Cell % (Manual) Cancelled Other Cells % Cancelled Nucleated RBC % Cancelled Nucleated RBCs/100 WBC Cancelled Differential Comment Cancelled Diff Path Review Cancelled Hypersegmented Neuts Cancelled Atypical Lymphocytes Cancelled Reactive Lymphocytes Cancelled Smudge Cells Cancelled Toxic Granulation Cancelled Toxic Vacuolation Cancelled Dohle Bodies Cancelled Aurelia Rods Cancelled Platelet Estimate Cancelled Plt Morphology Comment Cancelled RBC Morphology Cancelled Polychromasia Cancelled Hypochromasia Cancelled Poikilocytosis Cancelled Basophilic Stippling Cancelled Anisocytosis Cancelled Microcytosis Cancelled Macrocytosis Cancelled Spherocytes Cancelled Sickle Cells Cancelled Target Cells Cancelled Tear Drop Cells Cancelled Ovalocytes Cancelled Stomatocytes Cancelled Ruiz-[place] Bodies Cancelled Angelic Cells Cancelled Bite Cells Cancelled Crenated Cell Cancelled Acanthocytes (Spur) Cancelled Rouleaux Cancelled Schistocytes Cancelled D-Dimer Quant (PE/DVT) Sodium 153 H Potassium 2.9 L Chloride 115 H Carbon Dioxide 32.0 Anion Gap 6 BUN 34 H Creatinine 1.00 Estim Creat Clear Calc 65.74 Est GFR (MDRD) Af Amer 93 Est GFR (MDRD) Non-Af 77 BUN/Creatinine Ratio 34.1 H Glucose 201 H Lactic Acid 1.3 Calcium 8.5 Total Bilirubin 1.30 H AST 45 H ALT 116 H Alkaline Phosphatase 162 H Troponin I High Sens 6 Total Protein 5.9 L Albumin 1.3 L Globulin 4.6 H Albumin/Globulin Ratio 0.3 L 02/20/21 02/20/21 11:40 12:05 WBC 13.1 H Corrected WBC RBC 4.20 L Hgb 13.4 Hct 40.1 MCV 95.5 H MCH 31.9 MCHC 33.4 RDW Std Deviation 46.7 H RDW Coeff of Zackery 13.3 Plt Count 172 MPV 11.5 Immature Gran % (Auto) 0.500 Neut % (Auto) 91.8 H Lymph % (Auto) 4.3 L Beckham % (Auto) 3.2 Eos % (Auto) 0.0 Baso % (Auto) 0.2 Absolute Neuts (auto) 12.0 H Absolute Lymphs (auto) 0.56 L Total Counted Neutrophils % (Manual) Band Neutrophils % Lymphocytes % (Manual) Monocytes % (Manual) Eosinophils % (Manual) Basophils % (Manual) Metamyelocytes % Myelocytes % Promyelocytes % Blast Cells % Plasma Cell % (Manual) Other Cells % Nucleated RBC % 0 Nucleated RBCs/100 WBC Differential Comment Diff Path Review Hypersegmented Neuts Atypical Lymphocytes Reactive Lymphocytes Smudge Cells Toxic Granulation Toxic Vacuolation Dohle Bodies Aurelia Rods Platelet Estimate Plt Morphology Comment RBC Morphology Polychromasia Hypochromasia Poikilocytosis Basophilic Stippling Anisocytosis Microcytosis Macrocytosis Spherocytes Sickle Cells Target Cells Tear Drop Cells Ovalocytes Stomatocytes Ruiz-[place] Bodies Angelic Cells Bite Cells Crenated Cell Acanthocytes (Spur) Rouleaux Schistocytes D-Dimer Quant (PE/DVT) 2.12 H* Sodium Potassium Chloride Carbon Dioxide Anion Gap BUN Creatinine Estim Creat Clear Calc Est GFR (MDRD) Af Amer Est GFR (MDRD) Non-Af BUN/Creatinine Ratio Glucose Lactic Acid Calcium Total Bilirubin AST ALT Alkaline Phosphatase Troponin I High Sens Total Protein Albumin Globulin Albumin/Globulin Ratio Radiography Diagnostic Testing: Clinical Impression(s) from Imaging Studies Chest X-Ray 02/20/21 11:25 IMPRESSION: Findings suggestive of focal infiltration in the lateral peripheral aspect of the right upper lobe with cavitation. Patchy infiltrate in the left midlung. Hyperinflation and COPD. Electronically Signed: Ayden Gregory MD at 11:51 EST , Service support , Chest CTA 02/20/21 12:42 IMPRESSION: Progressive heterogeneous infiltration in the superior segment of the right lower lobe with multiple areas of cavitation suggestive of possible abscess formation. Persistent bibasilar infiltrates worse in the right lower lobe as well as in the anterior aspect of the left upper lobe. There is no evidence of pulmonary embolism at this time. Electronically Signed: Ayden Gregory MD at 13:24 EST , Service support , EKG Initial EKG: Attestation: I personally reviewed and interpreted this EKG as follows: Interpretation: Sinus Rhythm, No Acute Injury Pattern and Non-Specific ST Changes Comments: Prolonged QTC Prior EKG tracings: available for review Prior: Changed (T wave flattening diffusely is new, in addition to QT prolongation) Discharge Plan Dx/Rx/DC Orders Clinical Impression: Abscess of lung, Hypoxemia, Pneumonia, Hypokalemia Disposition Disposition: Acute Care Hospital [facility]
--- NOTE | 2021-02-20 11:25 | RAD_ITS ---
STUDY: X-RAY CHEST REASON FOR EXAM: Male, 80 years old. Cough. Covid day 11. TECHNIQUE: Single AP portable view of the chest. COMPARISON: Comparison is made with prior study dated 02/05/2021. FINDINGS: EKG electrodes are seen. There is hyperinflation of the lungs consistent with chronic obstructive lung disease (COPD). There now is evidence of a 7 cm x 4.7 cm heterogeneous infiltrate in the peripheral lateral aspect of the right upper lobe suggestive of pneumonic infiltrate with cavitation. Focal infiltrate in the left midlung. There is no demonstrated pleural abnormality. Normal size heart. Normal mediastinum and susie. Normal visualized pulmonary arteries. Normal visualized aortic arch and descending thoracic aorta. There are degenerative changes of the visualized thoracic spine. Normal visualized ribs, clavicles, and shoulders. There is no demonstrated abnormality of the visualized soft tissue structures of the upper abdomen. RAD/Chest 1 View (Portable) IMPRESSION: Findings suggestive of focal infiltration in the lateral peripheral aspect of the right upper lobe with cavitation. Patchy infiltrate in the left midlung. Hyperinflation and COPD. Electronically Signed: Ayden Gregory MD at 11:51 EST , Service support ,
[2021-02-20] MEDS: 0.9% Normal Saline 1,000 ML 125 ML IV ×2 (11:54→21:07)
[2021-02-20 12:06] LABS: D-Dimer Quantitative (DVT/PE) 2.12 FEU/ug/m (0.27-0.49)
[2021-02-20 12:09] LABS: Albumin, Serum 1.3 g/dL (3.2-5.0); BUN 34 mg/dL (7-18); BUN/Creat Ratio 34.1 RATIO (10-20); EST Glomerular Filtration Rate 77 mL/min (>60); Est Glom Filt Rate - Afr Amer 93 mL/min (>60); Estimated Creatinine Clearance 65.74 ml/min; Globulin 4.6 g/dL (2.2-4.2); Glucose 201 mg/dL (74-106); Protein, Total 5.9 g/dL (6.4-8.2)
[2021-02-20 12:10] LABS: ALB/GLOB Ratio 0.3 RATIO (0.9-2.4); AST(SGOT) 45 U/L (15-37); Alanine Aminotransfer ALT/SGPT 116 U/L (16-61); Alkaline Phosphatase 162 U/L (45-117); Anion Gap 6 (5-15); Calcium,Total 8.5 mg/dL (8.5-10.1); Chloride 115 mmol/L (98-107); Potassium 2.9 mmol/L (3.5-5.1); Sodium Level 153 mmol/L (136-145); Troponin-I HS 6 pg/mL (3.0-78.0)
[2021-02-20 12:14] LABS: Absolute Lymphocyte Count 0.56 X10^3/uL (0.83-4.51); Basophil# 0.03 X10^3/uL; Basophil% 0.2 % (0-1); Hematocrit 40.1 % (40-54); Hemoglobin 13.4 g/dL (13.0-16.5); Lymphocyte # 0.56 X10^3/ul (0.83-4.51); Lymphocyte % 4.3 % (19-41); Mean Corp Hgb Conc 33.4 g/dL (32-36); Mean Corpuscular Hgb 31.9 pg (27.0-32.0); Mean Corpuscular Volume 95.5 fL (80-94); Mean Platelet Vol. 11.5 fl (6.2-12.0); Monocyte# 0.42 X10^3/uL; Monocyte% 3.2 % (0-10); NRBC Flagged by Analyzer 0 % (0-5); Neutrophil # 12.01 X10^3/uL (2.7-7.7); Neutrophil % 91.8 % (47-70); POSITIVE DIFFERENTIAL YES; Platelet Count 172 K/mm3 (150-450); RBC Distribution Width CV 13.3 % (11.6-14.6); RBC Distribution Width SD 46.7 fl (35.1-43.9); White Blood Count 13.1 K/mm3 (4.4-11.0)
[2021-02-20 12:15] LABS: Differential Indicated SCAN CRITERIA MET
[2021-02-20 12:21] LABS: Lactic Acid 1.3 mmol/L (0.4-1.9)
--- NOTE | 2021-02-20 12:42 | CT_ITS ---
STUDY: CTA CHEST REASON FOR EXAM: Male, 80 years old. Sob, elevated d-dimer RADIATION DOSAGE (If Supplied By Facility): CTDIvol = ( 5.77 ) mGy, DLP = ( 154.77 ) mGycm TECHNIQUE: The examination was performed with the intravenous administration of IV 75mL [id number]-[id number]. Post-processing of the angiographic images was performed, with multiplanar reformation and 3D reconstruction. Individualized dose optimization techniques were used for this CT. COMPARISON: Comparison is made with prior CT scan the thorax dated 02/05/2021 and prior chest radiograph done earlier today. FINDINGS: Normal enhancement of the main pulmonary artery and right and left pulmonary arteries. Normal enhancement of the bilateral peripheral pulmonary arteries. There is no demonstrated pulmonary embolism. Normal thoracic aorta and visualized great vessels. There is no demonstrated aortic dissection. Normal heart and pericardium. Normal mediastinum. Normal hilar regions. Normal visualized trachea and bronchi. Hyperinflation. Diffuse emphysematous changes. Stable 5 mm partially calcified granuloma in the posterior medial segment of the right upper lobe. Mild degree of the calcified pleural plaques in the right hemithorax. Since prior study, there has been progressive heterogeneous infiltration in the superior segment of the right lower lobe with multiple areas of cavitation. This may represent pulmonary abscesses. There is also evidence of patchy bibasilar infiltrates worse in the right lower lobe. Normal chest wall structures. There are degenerative changes of thoracic spine. Moderate degree of left hydronephrosis. CT/CTA Chest W/WO Contrast IMPRESSION: Progressive heterogeneous infiltration in the superior segment of the right lower lobe with multiple areas of cavitation suggestive of possible abscess formation. Persistent bibasilar infiltrates worse in the right lower lobe as well as in the anterior aspect of the left upper lobe. There is no evidence of pulmonary embolism at this time. Electronically Signed: Ayden Gregory MD at 13:24 EST , Service support ,
[2021-02-20] MEDS: Potassium Chloride 10mEq/100mL 10 MEQ/100 ML IV.SOLN. 100 MEQ IV BOLUS (14:14)
--- NOTE | 2021-02-20 17:05 | NURSING ---
CALLED [facility], TALKED TO CINTHIA. NO DR TO DR UNTIL THEIR BED IS APPROVED.
--- NOTE | 2021-02-20 17:08 | NURSING ---
CALLED [facility]. TALKED TO SUZETTE. NOT ACCEPTING PATIENT
--- NOTE | 2021-02-20 17:15 | NURSING ---
CALLED [facility]. TALKED TO DANGELO. THEY ARE TAKING PATIENTS ON A CASE BY CASE. SHE IS TALKING TO DR LIU
--- NOTE | 2021-02-20 17:49 | NURSING ---
ON WAIT LIST NOW AT [facility]
--- NOTE | 2021-02-20 18:07 | NURSING ---
MED SURG JOBEULAHERI LUNG ABSCESS, HYPOXEMIA, HYPOKALEMIA
--- NOTE | 2021-02-20 18:15 | HP.PCM.HOS_ITS ---
HPI - General HPI Narrative CASEY MORALES, is a 80 M who presents with increased dyspnea. Patient was just discharged on the with COVID-19. Was hospitalized for the . Discharged on room air. Patient was dyspneic today with a pulse ox of 70% on room air. Patient presented to the emergency room and had a CAT scan. CAT scan showed progressive heterogenous infiltration of the superior segment of the right lower lobe with multiple areas of cavitation suggested possible abscess formation. Persistent bibasilar infiltrates worse in the right lower lobe as well these cavitary lesions were not noted on CAT scan from the 05 February. Patient is a very poor historian so history is obtained primarily from emergency room physician. [facility] Medical History Altered mental status COVID Dementia Dysphagia Encephalopathy Muscle weakness Pneumonia Medical History no medical history Home Medications albuterol sulfate 0.63 mg INHALATION Q4H 02/20/21 [History Last Taken Unknown] bisacodyl 10 mg MS DAILY PRN 02/20/21 [History Last Taken Unknown] dexamethasone 6 mg PO DAILY 02/20/21 [History Last Taken 02/20/21] food supplemt, lactose-reduced [Ensure] 4 ml PO TID 02/20/21 [History Last Taken Unknown] levofloxacin [Levaquin] 500 mg PO DAILY 02/20/21 [History Last Taken 02/20/21] sodium phosphates [Fleet Enema] 118 ml MS DAILY PRN 02/20/21 [History Last Taken Unknown] Allergy/AdvReac Type Severity Reaction Status Date / Time No Known Allergies Allergy Verified 02/20/21 11:55 Social History household members: spouse Smoking Status: Former smoker ROS ROS Narrative Coughing. Nonproductive. No fever chills. Weight loss. Poor appetite. All review of systems were negative except as mentioned above in the history of present illness and the other review of systems. Vital Signs Vital Signs Vital Signs: 02/20/21 10:55 02/20/21 10:59 02/20/21 11:46 Temperature 35.5 C L 35.5 C L Temperature Source Temporal Temporal Pulse Rate 88 88 Respiratory Rate 18 18 Respiratory Effort Normal Non-Labored Blood Pressure 108/74 108/74 Blood Pressure Mean 85 85 Pulse Ox 99 99 Oxygen Delivery Method Nasal Cannula Nasal Cannula Nasal Cannula Oxygen Flow Rate (L/min) 4 4 2 02/20/21 11:58 02/20/21 12:01 02/20/21 13:00 Temperature 36.6 C 36.6 C 36.6 C Temperature Source Temporal Temporal Temporal Pulse Rate 89 76 92 Respiratory Rate 26 H 19 H 22 H Respiratory Effort Blood Pressure 94/67 109/65 119/68 Blood Pressure Mean 76 79 85 Pulse Ox 100 100 100 Oxygen Delivery Method Nasal Cannula Nasal Cannula Nasal Cannula Oxygen Flow Rate (L/min) 2 2 2 02/20/21 14:00 02/20/21 16:05 02/20/21 17:37 Temperature 36.6 C Temperature Source Oral Pulse Rate 76 88 75 Respiratory Rate 22 H 22 H 18 Respiratory Effort Blood Pressure 114/66 107/68 100/78 Blood Pressure Mean 82 81 85 Pulse Ox 99 99 100 Oxygen Delivery Method Room Air Nasal Cannula Nasal Cannula Oxygen Flow Rate (L/min) 3 2 Weight Weight: 119 kg Body Mass Index (BMI) 35.6 Physical Exam Const Constitutional Narrative: Cachectic. Afebrile. Patient has garbled voice. HEENT normocephalic and head/scalp atraumatic Eyes Eyes Narrative: No icterus Neck no lymphadenopathy Neck Narrative: No thyromegaly Resp Resp Narrative: Diminished throughout but clear. Bronchial breath sounds in right lower lobe Cardio regular rate, regular rhythm, S1 normal heart sound and S2 normal heart sound GI normal to inspection, nondistended, normoactive bowel sounds, soft to palpation, non-tender and non-distended Extremity normal to inspection and no clubbing, cyanosis or edema Skin no rashes or lesions noted Neuro moves all extremities Neuro Narrative: Oriented to self and place. Date was 13, could not tell me the year Results Lab / Micro Data Attestation: I reviewed the patient's lab results. Result Diagrams: 02/20/21 12:05 02/20/21 11:40 Labs: Laboratory Results - last 24 hr 02/20/21 11:40: WBC Cancelled, Corrected WBC Cancelled, RBC Cancelled, Hgb C ancelled, Hct Cancelled, MCV Cancelled, MCH Cancelled, MCHC Cancelled, RDW Std Deviation Cancelled, RDW Coeff of Zackery Cancelled, Plt Count Cancelled, MPV Cancelled, Immature Gran % (Auto) Cancelled, Neut % (Auto) Cancelled, Lymph % (Auto) Cancelled, Rush % (Auto) Cancelled, Eos % (Auto) Cancelled, Baso % (Auto) Cancelled, Absolute Neuts (auto) Cancelled, Absolute Lymphs (auto) Cancelled, Total Counted Cancelled, Neutrophils % (Manual) Cancelled, Band Neutrophils % Cancelled, Lymphocytes % (Manual) Cancelled, Monocytes % (Manual) Cancelled, Eosinophils % (Manual) Cancelled, Basophils % (Manual) Cancelled, Metamyelocytes % Cancelled, Myelocytes % Cancelled, Promyelocytes % Cancelled, Blast Cells % Cancelled, Plasma Cell % (Manual) Cancelled, Other Cells % Cancelled, Nucleated RBC % Cancelled, Nucleated RBCs/100 WBC Cancelled, Differential Comment Cancelled, Diff Path Review Cancelled, Hypersegmented Neuts Cancelled, Atypical Lymphocytes Cancelled, Reactive Lymphocytes Cancelled, Smudge Cells Cancelled, Toxic Granulation Cancelled, Toxic Vacuolation Cancelled, Dohle Bodies Cancelled, Aurelia Rods Cancelled, Platelet Estimate Cancelled, Plt Morphology Comment Cancelled, RBC Morphology Cancelled, Polychromasia Cancelled, Hypochromasia Cancelled, Poikilocytosis Cancelled, Basophilic Stippling Cancelled, Anisocytosis Cancelled, Microcytosis Cancelled, Macrocytosis Cancelled, Spherocytes Cancelled, Sickle Cells Cancelled, Target Cells Cancelled, Tear Drop Cells Cancelled, Ovalocytes Cancelled, Stomatocytes Cancelled, Ruiz-Truman Bodies Cancelled, Angelic Cells Cancelled, Bite Cells Cance lled, Crenated Cell Cancelled, Acanthocytes (Spur) Cancelled, Rouleaux Cancelled, Schistocytes Cancelled 02/20/21 11:40: Sodium 153 H, Potassium 2.9 L, Chloride 115 H, Carbon Dioxide 32.0, Anion Gap 6, BUN 34 H, Creatinine 1.00, Estim Creat Clear Calc 65.74, Est GFR (MDRD) Af Amer 93, Est GFR (MDRD) Non-Af 77, BUN/Creatinine Ratio 34.1 H, Glucose 201 H, Calcium 8.5, Total Bilirubin 1.30 H, AST 45 H, ALT 116 H, Alkaline Phosphatase 162 H, Troponin I High Sens 6, Total Protein 5.9 L, Albumin 1.3 L, Globulin 4.6 H, Albumin/Globulin Ratio 0.3 L 02/20/21 11:40: Lactic Acid 1.3 02/20/21 11:40: D-Dimer Quant (PE/DVT) 2.12 H* 02/20/21 12:05: WBC 13.1 H, RBC 4.20 L, Hgb 13.4, Hct 40.1, MCV 95.5 H, MCH 31.9, MCHC 33.4, RDW Std Deviation 46.7 H, RDW Coeff of Zackery 13.3, Plt Count 172, MPV 11.5, Immature Gran % (Auto) 0.500, Neut % (Auto) 91.8 H, Lymph % (Auto) 4.3 L, Rush % (Auto) 3.2, Eos % (Auto) 0.0, Baso % (Auto) 0.2, Absolute Neuts (auto) 12.0 H, Absolute Lymphs (auto) 0.56 L, Nucleated RBC % 0 Micro: Microbiology 02/20/21 11:50 Nasal Secretion SARS-CoV-2 Antigen (Rapid) - Final Radiology Impression Chest X-Ray 02/20/21 11:25 IMPRESSION: Findings suggestive of focal infiltration in the lateral peripheral aspect of the right upper lobe with cavitation. Patchy infiltrate in the left midlung. Hyperinflation and COPD. Electronically Signed: Ayden Gregory MD at 11:51 EST , Service support , Chest CTA 02/20/21 12:42 IMPRESSION: Progressive heterogeneous infiltration in the superior segment of the right lower lobe with multiple areas of cavitation suggestive of possible abscess formation. Persistent bibasilar infiltrates worse in the right lower lobe as well as in the anterior aspect of the left upper lobe. There is no evidence of pulmonary embolism at this time. Electronically Signed: Ayden Gregory MD at 13:24 EST , Service support , Assessment & Plan Assessment/Plan (1) Abscess of lung: QUALIFIERS: Pulmonary abscess pneumonia presence: with pneumonia Laterality: right Lung location: lower lobe of lung Qualified Code(s): J85.1 - Abscess of lung with pneumonia (2) Pneumonia: QUALIFIERS: Pneumonia type: due to unspecified organism Laterality: right Lung location: lower lobe of lung Qualified Code(s): J18.9 - Pneumonia, unspecified organism (3) Acute respiratory failure with hypoxia: PLAN: 1. Acute hypoxic respiratory failure Secondary to possible gram-negative pneumonia but also cavitary lesions which could be an abscess but also recent COVID-19 pneumonia Patient peers to be stable at this time on 3 L Wean oxygen as able 2. Suspected gram-negative pneumonia as well as possible pulmonary abscess These cavitary lesions were not present on CAT scan from February 05 We will recheck x-ray in the morning to see if there is been any worsening of these lesions. Atypical presentation for pneumothorax The emergency room physician was able to contact [facility]. He spoke with the CT surgeon, Dr. Shyam Calderon, at [facility] who apparently did not formally accept the patient but was to be notified if there. The plan now is just to continue with IV antibiotics, consult pulmonary, check cultures, check urinary antigens for Streptococcus and Legionella Pulmonary toilet 3. Hypokalemia Replacement performed in the emergency room Check magnesium 4. Severe protein malnutrition Very cachectic Continue supplements Consult nutrition 5. Recent COVID-19 pneumonia Unclear onset but was least 30 January Patient is no longer requiring quarantine No additional treatment at this time Patient tells me that he was unvaccinated but I cannot rely on the accuracy 6. Possible dementia Consider geriatric evaluation for more formal assessment outpatient Patient does have garbled voice and will have speech therapy evaluate him 7. Debility Multifactorial PT OT evaluate and treat 8. VTE prophylaxis with enoxaparin 9. CODE STATUS: Reviewed previous documentation. Patient was full CODE STATUS continue with that Charges/Coding Visit Charges Inpatient E&M: 48121 Init Hosp L3
[2021-02-20] MEDS: Albuterol 2.5 MG/3 ML VIAL.NEB. INHALATION (22:20)
--- NOTE | 2021-02-20 22:20 | CPS ---
Decreased O2 liter flow to 1 lpm
--- NOTE | 2021-02-20 22:21 | PCM.RX.CS ---
Consult Pharmacy has been consulted to manage selected antiobiotic: Vancomycin Type of Consult: New start Labs: Sodium 153 mmol/L (136-145) H 02/20/21 11:40 Potassium 2.9 mmol/L (3.5-5.1) L 02/20/21 11:40 Chloride 115 mmol/L (98-107) H 02/20/21 11:40 Carbon Dioxide 32.0 mmol/L (21.0-32.0) 02/20/21 11:40 Anion Gap 6 (5-15) 02/20/21 11:40 BUN 34 mg/dL (7-18) H 02/20/21 11:40 Creatinine 1.00 mg/dL (0.70-1.30) 02/20/21 11:40 Est GFR (MDRD) Af Amer 93 mL/min (>60) 02/20/21 11:40 Est GFR (MDRD) Non-Af 77 mL/min (>60) 02/20/21 11:40 BUN/Creatinine Ratio 34.1 RATIO (10-20) H 02/20/21 11:40 Glucose 201 mg/dL (74-106) H 02/20/21 11:40 Microbiology: Microbiology 02/20/21 11:50 Nasal Secretion SARS-CoV-2 Antigen (Rapid) - Final Goal Trough: 15-20 mcg/mL Pharmacy Plan for Drug Dosing: Pharmacy Service will continue to monitor and adjust dosing as required. Medications Vancomycin HCl () 500 mg in 100 mls @ 100 mls/hr IV Q12H PÉREZ Discontinued Medications Vancomycin HCl 1,750 mg/ (Sodium Chloride) 535 mls @ 250 mls/hr IV X1 ONE Stop: 02/20/21 14:52 Last Admin: 02/20/21 17:18 Dose: Infused Documented by: Follow-Up Labs: Trough Vancomycin Labs to be done on [date and time ordered]: 02/22 @ 3195
[2021-02-20] MEDS: Piperacil/Tazobactam 3.375 GM/50 ML ML IV (22:57)
--- NOTE | 2021-02-20 23:16 | NURSING ---
called and left message to get answers to admission questions
[2021-02-21] VITALS (23 sets, daily range): BP systolic 102–120; BP diastolic 54–72; PULSE 60–95; RESP 18–24; TEMP 36.2–37.3; O2SAT 75–99
[2021-02-21 00:35] LABS: M R Staph aureus DNA By PCR Negative (Negative); Probe Check PASS; Specimen Processing Control PASS
[2021-02-21] MEDS: Vancomycin IV 500 MG/100 ML BAG 100 MG IV ×2 (03:57→13:34)
[2021-02-21] MEDS: 0.9% Normal Saline 1,000 ML 125 ML IV (04:03)
--- NOTE | 2021-02-21 04:08 | PCS.PANDOC ---
PANDEMIC DOCUMENTATION INITIATED: Date: 10/03/2020 Time: 190
--- NOTE | 2021-02-21 05:55 | RAD_ITS ---
STUDY: X-RAY CHEST REASON FOR EXAM: Male, 80 years old. Pulmonary abscess followup TECHNIQUE: Single AP portable view of the chest. COMPARISON: Comparison is made with prior study dated 02/20/2021. FINDINGS: EKG electrodes are seen. There is hyperinflation of the lungs consistent with chronic obstructive lung disease (COPD). Since prior study, there has been a decrease in size of the heterogeneous infiltrate in the lateral aspect of the right upper lobe. It presently measures 6.4 cm by 4.8 cm. There is progressive infiltrate in the left midlung. Normal size heart. Normal mediastinum and susie. Normal visualized pulmonary arteries. Normal visualized aortic arch and descending thoracic aorta. Normal visualized thoracic spine. Normal visualized ribs, clavicles, and shoulders. There is no demonstrated abnormality of the visualized soft tissue structures of the upper abdomen. RAD/Chest 1 View (Portable) IMPRESSION: Progressive infiltrate in the left midlung. Interval improvement of the heterogeneous infiltrate in the peripheral aspect of the right upper Electronically Signed: Ayden Gregory MD at 10:46 EST , Service support ,
[2021-02-21] MEDS: Piperacil/Tazobactam 3.375 GM/50 ML ML IV ×3 (06:40→21:58)
[2021-02-21] MEDS: Albuterol 2.5 MG/3 ML VIAL.NEB. INHALATION ×4 (07:12→19:05)
[2021-02-21 07:57] LABS: Absolute Lymphocyte Count 0.72 X10^3/uL (0.83-4.51); Basophil# 0.01 X10^3/uL; Basophil% 0.1 % (0-1); Hematocrit 36.7 % (40-54); Hemoglobin 12.2 g/dL (13.0-16.5); Lymphocyte # 0.72 X10^3/ul (0.83-4.51); Lymphocyte % 7.1 % (19-41); Mean Corp Hgb Conc 33.2 g/dL (32-36); Mean Corpuscular Hgb 32.3 pg (27.0-32.0); Mean Corpuscular Volume 97.1 fL (80-94); Mean Platelet Vol. 12.1 fl (6.2-12.0); Monocyte# 0.34 X10^3/uL; Monocyte% 3.3 % (0-10); NRBC Flagged by Analyzer 0 % (0-5); Neutrophil # 9.01 X10^3/uL (2.7-7.7); Neutrophil % 88.8 % (47-70); Platelet Count 183 K/mm3 (150-450); RBC Distribution Width CV 13.4 % (11.6-14.6); RBC Distribution Width SD 48.2 fl (35.1-43.9); Red Blood Count 3.78 M/mm3 (4.6-6.2); White Blood Count 10.2 K/mm3 (4.4-11.0)
[2021-02-21 08:30] LABS: ALB/GLOB Ratio 0.3 RATIO (0.9-2.4); AST(SGOT) 30 U/L (15-37); Alanine Aminotransfer ALT/SGPT 72 U/L (16-61); Albumin, Serum 1.1 g/dL (3.2-5.0); Alkaline Phosphatase 124 U/L (45-117); Anion Gap 6 (5-15); BUN 31 mg/dL (7-18); BUN/Creat Ratio 36.1 RATIO (10-20); Calcium,Total 8.2 mg/dL (8.5-10.1); Chloride 120 mmol/L (98-107); Creatinine, Serum 0.86 mg/dL (0.70-1.30); EST Glomerular Filtration Rate 91 mL/min (>60); Est Glom Filt Rate - Afr Amer 111 mL/min (>60); Estimated Creatinine Clearance 49.55 ml/min; Globulin 3.9 g/dL (2.2-4.2); Glucose 124 mg/dL (74-106); Magnesium 2.3 mg/dL (1.6-2.6); Sodium Level 155 mmol/L (136-145)
[2021-02-21] MEDS: 0.45% Normal Saline 1,000 ML 100 ML IV (08:33)
[2021-02-21] MEDS: Enoxaparin 40 MG/0.4 ML Syringe SC (08:33)
[2021-02-21] MEDS: Menthol/Lanolin/Calamine/Znox 113 GM Tube 1 APPLIC TOPICAL ×2 (10:00→19:50)
--- NOTE | 2021-02-21 13:00 | PCM.PN.HOSP ---
Subjective Subjective States that he is breathing okay and feels fine. Denies any chest pain. He does have a baseline dementia on previous discussions with his son they have been noticing it for several months before his initial admission in the middle of January but that his is gotten worse with the onset of Covid. TSH and B12 on the last admission were normal as was a CT of the head. Objective Data Objective Data Vital Signs: Vital Signs Temp Pulse Resp BP Pulse Ox 97.5 F L 66 23 H 118/70 92 02/21/21 08:17 02/21/21 10:45 02/21/21 10:45 02/21/21 08:17 02/21/21 10:45 Oxygen Flow Rate (L/min) 1 Oxygen Delivery Method Room Air Weight: 110 lb 14.28 oz Body Mass Index (BMI) 15.0 Intake & Output: Intake and Output for Last 24 Hours 02/20/21 02/21/21 02/22/21 03:59 03:59 03:59 Intake Total 1382.92 / 1432.92 1016.67 / 1016.67 Balance 1382.92 / 1432.92 1016.67 / 1016.67 Medical Nutrition Assessment Dietitian: Malnutrition Criteria Met Start: 02/21/21 12:40 Freq: Status: Active Protocol: Document 02/21/21 12:42 BILL (Rec: 02/21/21 12:42 BILL [id number]) Nutrition Malnutrition Evidence of Malnutrition Exists Yes Malnutrition (severe): Acute Illness/Injury Evidenced By Suboptimal Energy Intake ( Severe),Weight Loss (Severe), Physical Changes (Severe) Clinical Problem Acute Disease or Injury Related Malnutrition Etiology related to recent illness of covid, dementia and issues w/ chewing/swallowing making it difficult for pt to consume adeqate nutrition to meet est nutritional needs Signs/Symptoms as evidenced by <50% po intake x >5 days, 6.7% wt loss x 2 wks and obvious fat/muscle wasting in upper body (orbital /temporal regions, clavicle area, arms) Status Active Problem Recommendation Dietitian Recommendations/Changes As medically able, rec SHRAVAN to liberal Regular - consistency per [employer] - w/ ensure pudding or magic cup w/ meals tid Monitor for refeeding syndrome d/t signs and symptoms of malnutrition If to remain NPO, will provide rec for enteral nutrition support as indicated and if in accordance w/ pt/family wishes. Lab / Micro Data Result Diagrams: 02/21/21 07:05 02/21/21 07:05 Labs: Laboratory Results - last 24 hr 02/20/21 23:00: MRSA (PCR) Negative 02/21/21 07:05: WBC 10.2, RBC 3.78 L, Hgb 12.2 L, Hct 36.7 L, MCV 97.1 H, MCH 32.3 H, MCHC 33.2, RDW Std Deviation 48.2 H, RDW Coeff of Zackery 13.4, Plt Count 183, MPV 12.1 H, Immature Gran % (Auto) 0.700, Neut % (Auto) 88.8 H, Lymph % (Auto) 7.1 L, Coffey % (Auto) 3.3, Eos % (Auto) 0.0, Baso % (Auto) 0.1, Absolute Neuts (auto) 9.0 H, Absolute Lymphs (auto) 0.72 L, Nucleated RBC % 0 02/21/21 07:05: Sodium 155 H, Potassium 3.0 L, Chloride 120 H, Carbon Dioxide 29.0, Anion Gap 6, BUN 31 H, Creatinine 0.86, Estim Creat Clear Calc 49.55, Est GFR (MDRD) Af Amer 111, Est GFR (MDRD) Non-Af 91, BUN/Creatinine Ratio 36.1 H, Glucose 124 H, Calcium 8.2 L, Magnesium 2.3, Total Bilirubin 1.10 H, AST 30, ALT 72 H, Alkaline Phosphatase 124 H, Total Protein 5.0 L, Albumin 1.1 L, Globulin 3.9, Albumin/Globulin Ratio 0.3 L Micro: Microbiology 02/20/21 11:50 Nasal Secretion SARS-CoV-2 Antigen (Rapid) - Final Radiography Diagnostic Testing: Radiology Impression Chest CTA 02/20/21 12:42 IMPRESSION: Progressive heterogeneous infiltration in the superior segment of the right lower lobe with multiple areas of cavitation suggestive of possible abscess formation. Persistent bibasilar infiltrates worse in the right lower lobe as well as in the anterior aspect of the left upper lobe. There is no evidence of pulmonary embolism at this time. Electronically Signed: Ayden Gregory MD at 13:24 EST , Service support , Chest X-Ray 02/21/21 05:55 IMPRESSION: Progressive infiltrate in the left midlung. Interval improvement of the heterogeneous infiltrate in the peripheral aspect of the right upper Electronically Signed: Ayden Gregory MD at 10:46 EST , Service support , Physical Exam Const alert and no apparent distress General Appearance: cooperative HEENT normocephalic and moist oral mucous membranes Eyes PERRL, EOMs intact bilaterally and conjunctivae normal Neck supple and no JVD Resp normal respiratory effort, no retractions and no use of accessory muscles Auscultation: diminished lung sounds; Negative for crackles, rales, rhonchi or wheezes Cardio regular rate, regular rhythm, S1 normal heart sound, S2 normal heart sound and no murmurs GI soft to palpation, non-tender and non-distended; Negative for hepatosplenomegaly Extremity no clubbing, cyanosis or edema Skin no rashes or lesions noted Neuro no focal motor deficits and no sensory deficits noted Psych affect normal Appearance: appropriate Assessment & Plan Assessment/Plan (1) Abscess of lung: QUALIFIERS: Pulmonary abscess pneumonia presence: with pneumonia Laterality: right Lung location: lower lobe of lung Qualified Code(s): J85.1 - Abscess of lung with pneumonia (2) Pneumonia: QUALIFIERS: Pneumonia type: due to unspecified organism Laterality: right Lung location: lower lobe of lung Qualified Code(s): J18.9 - Pneumonia, unspecified organism (3) Acute respiratory failure with hypoxia: PLAN: 1. Acute hypoxic respiratory failure due to recent Covid as well as possible gram-negative pneumonia with a pulmonary abscess Secondary to possible gram-negative pneumonia but also cavitary lesions which could be an abscess but also recent COVID-19 pneumonia Patient peers to be stable at this time on 3 L Wean oxygen as able We will continue with broad-spectrum antibiotics and consult pulmonology. Dr. Shyam Calderon is a CT surgeon at [facility] who wanted to be notified if there was a pneumothorax however it does not appear to be on repeat chest x-ray. Urine antigens negative 2. Hypokalemia Replacement performed in the emergency room Check magnesium 3. Severe protein malnutrition Very cachectic Continue supplements Consult nutrition 4. Recent COVID-19 pneumonia Unclear onset but was least 30 January Patient is no longer requiring quarantine No additional treatment at this time Patient tells me that he was unvaccinated but I cannot rely on the accuracy 5. Possible dementia Consider geriatric evaluation for more formal assessment outpatient Patient does have garbled voice and will have speech therapy evaluate him 6. Debility Multifactorial PT OT evaluate and treat DVT: Lovenox Charges/Coding Visit Charges Inpatient E&M: 44353 Subs Hosp L2
--- NOTE | 2021-02-21 13:22 | CASEMGMT ---
Social Work Consult: long term placement Referral source: RN ANTONIETTA Met with patient in room. Introduced self and social service technician role. Patient not verbally responding to this social service technician. Patient making eye contact with this social service technician. This social service technician inquired if patient can hear this social service technician, patient shakes head yes. This social service technician then asking further questions, patient not responding. This social service technician inquired if this social service technician could contact patient family, patient owen head yes. Further chart review completed. Patient son, Ryan noted to be main contact. Telephone call to Ryan Davis answering and confirms to be main contact as patient spouse can get confused. Ryan reports to be aware that patient is confused and having difficulty following directions and engaging in conversation. Ryan reports that patient prior level of functioning before COVID-19 diagnosis was independent. 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 This social service technician broached topic of care home placement for patient. Patient was at [facility] prior to hospitalization. Ryan inquiring about other SNF options that might be closer to [place]. This social service technician e-mailed list of in-network facilities to Ryan that are local to patient geographical region as well as provided Ryan with list of all nursing homes in the area per Ryan's request. Ryan to review information and get back to this social service technician on choices/plan. Ryan reports to be updating patient spouse. Will continue to follow. Heather SINGH, ADRY
--- NOTE | 2021-02-21 13:47 | EX.PCM.CONCC ---
Assessment & Plan Assessment/Plan (1) Abscess of lung: QUALIFIERS: Pulmonary abscess pneumonia presence: with pneumonia Laterality: right Lung location: lower lobe of lung Qualified Code(s): J85.1 - Abscess of lung with pneumonia (2) Dementia: PLAN: RECOMMENDATIONS: 1. Continue empiric antibiotics 2. Possibly arrange for CT-guided biopsy if not improving 3. Attempt to clarify ECF history 4. No indication for baricitinib, Remdesivir or Decadron from a COVID perspective 5. Initiate bronchodilators if patient develops wheezing 6. Consider infectious disease consult for possible long-term antibiotics IMPRESSIONS: 1. Possible pulmonary abscess following COVID-19 infection Patient with cavitating lesion noted in the periphery of the right lung. Patient is also reporting a significant reduction in weight, but review of the medical record shows only a 20 pound weight loss compared to previous. Patient is not reporting any constitutional symptoms such as a productive cough or fever. Patient was recently admitted for COVID-19 and left lower lobe findings appear to be stable. However, patient has developed a cavitating lesion in the right lower lobe that was not present on 02/05/2021. The rapidity would be suggestive of an infectious etiology. Cultures are currently pending. Continue with antibiotics for now. Cannot exclude the need for a CT-guided biopsy if not responsive to therapy as squamous cell carcinoma can act similarly. Patient does not meet clinical criteria for medical therapy for COVID. Patient is in an ECF, but otherwise has no risk factors for tuberculosis 2. Hypernatremia/hyperchloremia/hypokalemia Patient will be initiated on D5W. Patient does have a significant elevation of bicarbonate. Cannot exclude paraneoplastic SIADH. Potassium will be supplemented as indicated. Rapidity of development is suggestive of an infectious etiology more than malignant. 3. Advanced age/severe malnutrition/possible dementia/debility Complicates care, management, recovery and prognosis. We will need to monitor closely for refeeding syndrome. HPI Consult Data Date of Consult: 02/21/21 HPI Narrative HPI Narrative: CASEY MORALES is a 80 M, with past medical history listed below, who presents to [facility] on 02/20/2021 secondary to progressive shortness of breath while at an ECF. Patient had reportedly tested positive for COVID-19 on February 02, 2021 and was discharged from the hospital. Patient was noted to have a saturation of 70% on the morning of presentation with slightly worsening dyspnea. Patient had denied any chest discomfort at that time. Patient was reportedly discharged to an ECF on room air. History from the patient was significantly limited given baseline dementia. In the ER, patient was afebrile, but requiring 4 L nasal cannula to maintain saturations. Patient was normotensive. Initial labs showed hypokalemia of 2.9, hypernatremia at 153 and hyperchloremia at 115. Renal function was within normal limits. Bicarbonate was elevated to 32. Liver enzymes were elevated and albumin was only 1.3. White blood cell count was elevated at 13.3 and hemoglobin of 13.4. D-dimer was elevated at 2.12. Chest x-ray suggested a focal infiltrate on the lateral aspect of the right upper lobe with cavitation along with baseline hyperinflation. A CTA of the chest was obtained confirming multiple areas of cavitation with possible abscess in the right lower lobe. No PE was noted. Patient is a very difficult historian. Patient is aware that he is at [facility] and knows his date of . Patient reports he has never been a smoker and denies any pulmonary history. Patient was unaware of his COVID-19 diagnosis recently. Patient is reporting a 40 pound weight loss as he believes his weight is around 150. Patient has not reported any hemoptysis, epistaxis or hematuria. [facility] Medical History (Updated 02/21/21 @ 13:[address] Brian Chambers MD) Altered mental status COVID COVID-19 Dementia Dysphagia Encephalopathy Generalized weakness Muscle weakness Pneumonia Medical History no medical history Home Medications albuterol sulfate 0.63 mg INHALATION Q4H 02/20/21 [History Last Taken Unknown] bisacodyl 10 mg CO DAILY PRN 02/20/21 [History Last Taken Unknown] dexamethasone 6 mg PO DAILY 02/20/21 [History Last Taken 02/20/21] food supplemt, lactose-reduced [Ensure] 4 ml PO TID 02/20/21 [History Last Taken Unknown] levofloxacin [Levaquin] 500 mg PO DAILY 02/20/21 [History Last Taken 02/20/21] sodium phosphates [Fleet Enema] 118 ml CO DAILY PRN 02/20/21 [History Last Taken Unknown] Allergy/AdvReac Type Severity Reaction Status Date / Time No Known Allergies Allergy Verified 02/20/21 11:55 Social History household members: spouse Smoking Status: Former smoker ROS Review of Systems ROS Unobtainable: due to mental status Physical Exam Const alert and no apparent distress General Appearance: cooperative Nutritional Appearance: cachectic HEENT normocephalic HEENT Narrative: Dry mucous membranes. Temporal wasting noted. Mouth: oral and palatal mucosa abnormal Eyes PERRL, EOMs intact bilaterally and conjunctivae normal Neck supple and no JVD Chest Chest Narrative: Visible rib spaces noted Chest: abnormal inspection of the chest barrel chest and increased A-P diameter Resp normal respiratory effort, no retractions and no use of accessory muscles Auscultation: diminished lung sounds; Negative for crackles, rales, rhonchi or wheezes Cardio regular rate, regular rhythm, S1 normal heart sound, S2 normal heart sound and no murmurs GI soft to palpation, non-tender and non-distended; Negative for hepatosplenomegaly Extremity no clubbing, cyanosis or edema Skin no rashes or lesions noted Neuro no focal motor deficits and no sensory deficits noted Psych affect normal Appearance: appropriate Medical Records Data Medical Nutrition Assessment Dietitian: Malnutrition Criteria Met Start: 02/21/21 12:40 Freq: Status: Active Protocol: Document 02/21/21 12:42 BILL (Rec: 02/21/21 12:42 [facility] [id number]) Nutrition Malnutrition Evidence of Malnutrition Exists Yes Malnutrition (severe): Acute Illness/Injury Evidenced By Suboptimal Energy Intake ( Severe),Weight Loss (Severe), Physical Changes (Severe) Clinical Problem Acute Disease or Injury Related Malnutrition Etiology related to recent illness of covid, dementia and issues w/ chewing/swallowing making it difficult for pt to consume adeqate nutrition to meet est nutritional needs Signs/Symptoms as evidenced by <50% po intake x >5 days, 6.7% wt loss x 2 wks and obvious fat/muscle wasting in upper body (orbital /temporal regions, clavicle area, arms) Status Active Problem Recommendation Dietitian Recommendations/Changes As medically able, rec SHRAVAN to liberal Regular - consistency per ROUTER OPERATOR RADIAL - w/ ensure pudding or magic cup w/ meals tid Monitor for refeeding syndrome d/t signs and symptoms of malnutrition If to remain NPO, will provide rec for enteral nutrition support as indicated and if in accordance w/ pt/family wishes. Lab / Micro Data Result Diagrams: 02/21/21 07:05 02/21/21 07:05 Labs: Laboratory Results - last 24 hr 02/20/21 23:00: MRSA (PCR) Negative 02/21/21 07:05: WBC 10.2, RBC 3.78 L, Hgb 12.2 L, Hct 36.7 L, MCV 97.1 H, MCH 32.3 H, MCHC 33.2, RDW Std Deviation 48.2 H, RDW Coeff of Zackery 13.4, Plt Count 183, MPV 12.1 H, Immature Gran % (Auto) 0.700, Neut % (Auto) 88.8 H, Lymph % (Auto) 7.1 L, [place] % (Auto) 3.3, Eos % (Auto) 0.0, Baso % (Auto) 0.1, Absolute Neuts (auto) 9.0 H, Absolute Lymphs (auto) 0.72 L, Nucleated RBC % 0 02/21/21 07:05: Sodium 155 H, Potassium 3.0 L, Chloride 120 H, Carbon Dioxide 29.0, Anion Gap 6, BUN 31 H, Creatinine 0.86, Estim Creat Clear Calc 49.55, Est GFR (MDRD) Af Amer 111, Est GFR (MDRD) Non-Af 91, BUN/Creatinine Ratio 36.1 H, Glucose 124 H, Calcium 8.2 L, Magnesium 2.3, Total Bilirubin 1.10 H, AST 30, ALT 72 H, Alkaline Phosphatase 124 H, Total Protein 5.0 L, Albumin 1.1 L, Globulin 3.9, Albumin/Globulin Ratio 0.3 L Micro: Microbiology 02/20/21 11:50 Nasal Secretion SARS-CoV-2 Antigen (Rapid) - Final Radiology Impression Chest X-Ray 02/21/21 05:55 IMPRESSION: Progressive infiltrate in the left midlung. Interval improvement of the heterogeneous infiltrate in the peripheral aspect of the right upper Electronically Signed: Ayden Gregory MD at 10:46 EST , Service support , Charges/Coding Visit Charges Inpatient E&M: 54299 Init Hosp L2
[2021-02-21] MEDS: Potassium Chloride 10mEq/100mL 10 MEQ/100 ML IV.SOLN. 100 MEQ IV BOLUS ×4 (14:30→19:40)
--- NOTE | 2021-02-21 14:35 | NURSING ---
recieved phone call from [facility] they reviewed patient's care with cardiothoracic surgeon who states best treated with 6 weeks of antibiotics and referred to their hospitalist, at this time no bed for patient on medical floor. hospitalist informed.
--- NOTE | 2021-02-21 15:10 | CASEMGMT ---
JACQUELYN CM Readmission Note Previous Admission: 02/05/2021-02/13/21 Diagnosis: COVID 19 with AMS DC Disposition: SNF on RA Current Admission Diagnosis: PNA, pulmonary abscess Pt presented to ER from [facility] due to 70% pulse ox on RA and increased sob. CT showed R lung abscess, IV atb started. Pt is on waiting list at [facility] for trf. Pt is currently on RA. Pulm to c/s. DC PLAN: Transfer to tertiary facility if bed becomes available vs SNF if managed at [facility].
[2021-02-21] MEDS: 0.9% Saline Lock 10 ML Syringe IV (16:41)
--- NOTE | 2021-02-21 17:26 | EKG12_ITS ---
Test Reason : TACHY Blood Pressure : / mmHG Vent. Rate : 081 BPM Atrial Rate : 081 BPM P-R Int : 130 ms QRS Dur : 100 ms QT Int : 376 ms P-R-T Axes : 085 085 073 degrees QTc Int : 436 ms Normal sinus rhythm Nonspecific ST and T wave abnormality Abnormal ECG When compared with ECG of 20-FEB-2021 11:29, MANUAL COMPARISON REQUIRED, DATA IS UNCONFIRMED Confirmed by MARY CARTER, SRINI ([id number]), proposal editor MIRANDA SALGADO ([id number]) on 03/02/2021 1:53:21 PM Referred By: ALISSON Confirmed By:PRICILA HERNANDEZ MD
[2021-02-22] VITALS (13 sets, daily range): BP systolic 99–110; BP diastolic 58–71; PULSE 62–94; RESP 16–18; TEMP 36.6–36.8; O2SAT 95–98
[2021-02-22 02:05] LABS: Vancomycin, Trough Level 8.8 ug/mL (5.0-15.0)
--- NOTE | 2021-02-22 02:20 | PCM.RX.CS ---
Consult Pharmacy has been consulted to manage selected antiobiotic: Vancomycin Type of Consult: Follow-up Labs: Sodium 155 mmol/L (136-145) H 02/21/21 07:05 Potassium 3.0 mmol/L (3.5-5.1) L 02/21/21 07:05 Chloride 120 mmol/L (98-107) H 02/21/21 07:05 Carbon Dioxide 29.0 mmol/L (21.0-32.0) 02/21/21 07:05 Anion Gap 6 (5-15) 02/21/21 07:05 BUN 31 mg/dL (7-18) H 02/21/21 07:05 Creatinine 0.86 mg/dL (0.70-1.30) 02/21/21 07:05 Est GFR (MDRD) Af Amer 111 mL/min (>60) 02/21/21 07:05 Est GFR (MDRD) Non-Af 91 mL/min (>60) 02/21/21 07:05 BUN/Creatinine Ratio 36.1 RATIO (10-20) H 02/21/21 07:05 Glucose 124 mg/dL (74-106) H 02/21/21 07:05 Vancomycin Trough 8.8 ug/mL (5.0-15.0) 02/22/21 01:26 Microbiology: Microbiology 02/21/21 15:30 Urine, Random Legionella Antigen - Final 02/21/21 15:30 Urine, Random Streptococcus pneumoniae Antigen (M - Final 02/20/21 11:50 Nasal Secretion SARS-CoV-2 Antigen (Rapid) - Final Goal Trough: 15-20 mcg/mL Pharmacy Plan for Drug Dosing: Pharmacy Service will continue to monitor and adjust dosing as required. TROUGH 8.8 AT 11 HRS. INCREASE TO 1GM Q12H AND FOLLOW UP TROUGH PRIOR TO 4TH DOSE Follow-Up Labs: Trough Vancomycin Labs to be done on [date and time ordered]: 02/23 @ 1316
[2021-02-22] MEDS: Vancomycin IV 1,000 MG/200 ML BAG 200 MG IV ×2 (02:57→13:49)
[2021-02-22] MEDS: Piperacil/Tazobactam 3.375 GM/50 ML ML IV ×3 (05:04→21:24)
[2021-02-22] MEDS: Albuterol 2.5 MG/3 ML VIAL.NEB. INHALATION ×2 (07:25→14:40)
[2021-02-22 08:04] LABS: Absolute Lymphocyte Count 0.73 X10^3/uL (0.83-4.51); Absolute Neutrophil Count 7.5 X10^3/uL (2.0-7.7); Basophil# 0.01 X10^3/uL; Basophil% 0.1 % (0-1); Eosinophil# 0.02 X10^3/uL; Eosinophils% 0.2 % (0-5); Hematocrit 34.5 % (40-54); Hemoglobin 11.5 g/dL (13.0-16.5); Lymphocyte # 0.73 X10^3/ul (0.83-4.51); Lymphocyte % 8.4 % (19-41); Mean Corp Hgb Conc 33.3 g/dL (32-36); Mean Corpuscular Volume 96.1 fL (80-94); Monocyte# 0.35 X10^3/uL; NRBC Flagged by Analyzer 0 % (0-5); Neutrophil # 7.52 X10^3/uL (2.7-7.7); Neutrophil % 86.7 % (47-70); Platelet Count 162 K/mm3 (150-450); RBC Distribution Width CV 13.2 % (11.6-14.6); RBC Distribution Width SD 47.3 fl (35.1-43.9); Red Blood Count 3.59 M/mm3 (4.6-6.2); White Blood Count 8.7 K/mm3 (4.4-11.0)
[2021-02-22] MEDS: Menthol/Lanolin/Calamine/Znox 113 GM Tube 1 APPLIC TOPICAL ×2 (08:15→21:25)
[2021-02-22 08:16] LABS: Anion Gap 5 (5-15); BUN 22 mg/dL (7-18); Calcium,Total 7.8 mg/dL (8.5-10.1); Chloride 112 mmol/L (98-107); Creatinine, Serum 0.82 mg/dL (0.70-1.30); EST Glomerular Filtration Rate 97 mL/min (>60); Est Glom Filt Rate - Afr Amer 117 mL/min (>60); Estimated Creatinine Clearance 51.97 ml/min; Glucose 113 mg/dL (74-106); Potassium 3.1 mmol/L (3.5-5.1); Sodium Level 148 mmol/L (136-145)
--- NOTE | 2021-02-22 09:40 | CASEMGMT ---
Social Work SW called son, Ryan, in regard to plans for retirement facility. Ryan states they would like to get pt closer to home, as it would be easier for pt's to see him. SW explained may want to check SNF benefits to see if pt has out of network benefits--as no facilities in [place] take pt's insurance. SW explained can call and let son know. SW called [employer]. SW informed pt's in and out of network benefit for SNF is the same, covered at 80% after a $2500 deductible. Since this insurance goes by calendar year, pt will again owe the $2500 for 2021. The signs and displays sales representative from insurance also said that pt will need a precert AND a three day stay. SW called son, gave son the information above. SW asked him to review the list of retirement facilities given by Brenda, and to let this SW a couple of choices. He is to get back to this SW this afternoon. SW will continue to follow. ADRY Castillo
[2021-02-22] MEDS: Potassium Chloride 10mEq/100mL 10 MEQ/100 ML IV.SOLN. 100 MEQ IV BOLUS (10:46)
--- NOTE | 2021-02-22 11:00 | PCM.PN.HOSP ---
Subjective Subjective Denies any significant issues overnight. Feels well and has no difficulty breathing Objective Data Objective Data Vital Signs: Vital Signs Temp Pulse Resp BP Pulse Ox 97.9 F 63 18 105/62 97 02/22/21 08:09 02/22/21 08:09 02/22/21 08:09 02/22/21 08:09 02/22/21 08:09 Oxygen Flow Rate (L/min) 1 Oxygen Delivery Method Room Air Weight: 110 lb 14.28 oz Body Mass Index (BMI) 15.0 Intake & Output: Intake and Output for Last 24 Hours 02/21/21 02/22/21 02/23/21 03:59 03:59 03:59 Intake Total 1382.92 / 1432.92 3014.17 / 3014.17 931 / 931 Output Total 350 / 350 Balance 1382.92 / 1432.92 2664.17 / 2664.17 931 / 931 Medical Nutrition Assessment Dietitian: Malnutrition Criteria Met Start: 02/21/21 12:40 Freq: Status: Active Protocol: Document 02/21/21 12:42 SLA (Rec: 02/21/21 12:42 SLA [id number]) Nutrition Malnutrition Evidence of Malnutrition Exists Yes Malnutrition (severe): Acute Illness/Injury Evidenced By Suboptimal Energy Intake ( Severe),Weight Loss (Severe), Physical Changes (Severe) Clinical Problem Acute Disease or Injury Related Malnutrition Etiology related to recent illness of covid, dementia and issues w/ chewing/swallowing making it difficult for pt to consume adeqate nutrition to meet est nutritional needs Signs/Symptoms as evidenced by <50% po intake x >5 days, 6.7% wt loss x 2 wks and obvious fat/muscle wasting in upper body (orbital /temporal regions, clavicle area, arms) Status Active Problem Recommendation Dietitian Recommendations/Changes As medically able, rec SHRAVAN to liberal Regular - consistency per BUSINESS LIAISON MANAGER - w/ ensure pudding or magic cup w/ meals tid Monitor for refeeding syndrome d/t signs and symptoms of malnutrition If to remain NPO, will provide rec for enteral nutrition support as indicated and if in accordance w/ pt/family wishes. Lab / Micro Data Result Diagrams: 02/22/21 07:38 02/22/21 07:38 Labs: Laboratory Results - last 24 hr 02/22/21 01:26: Vancomycin Trough 8.8 02/22/21 07:38: WBC 8.7, RBC 3.59 L, Hgb 11.5 L, Hct 34.5 L, MCV 96.1 H, MCH 32.0, MCHC 33.3, RDW Std Deviation 47.3 H, RDW Coeff of Zackery 13.2, Plt Count 162, MPV 12.0, Immature Gran % (Auto) 0.600, Neut % (Auto) 86.7 H, Lymph % (Auto) 8.4 L, [place] % (Auto) 4.0, Eos % (Auto) 0.2, Baso % (Auto) 0.1, Absolute Neuts (auto) 7.5, Absolute Lymphs (auto) 0.73 L, Nucleated RBC % 0 02/22/21 07:38: Sodium 148 H, Potassium 3.1 L, Chloride 112 H, Carbon Dioxide 31.0, Anion Gap 5, BUN 22 H, Creatinine 0.82, Estim Creat Clear Calc 51.97, Est GFR (MDRD) Af Amer 117, Est GFR (MDRD) Non-Af 97, BUN/Creatinine Ratio 27.0 H, Glucose 113 H, Calcium 7.8 L Micro: Microbiology 02/21/21 15:30 Urine, Random Legionella Antigen - Final 02/21/21 15:30 Urine, Random Streptococcus pneumoniae Antigen (M - Final 02/20/21 11:50 Nasal Secretion SARS-CoV-2 Antigen (Rapid) - Final Physical Exam Const alert and no apparent distress General Appearance: cooperative HEENT normocephalic and moist oral mucous membranes Eyes PERRL, EOMs intact bilaterally and conjunctivae normal Neck supple and no JVD Resp normal respiratory effort, no retractions and no use of accessory muscles Auscultation: diminished lung sounds; Negative for crackles, rales, rhonchi or wheezes Cardio regular rate, regular rhythm, S1 normal heart sound, S2 normal heart sound and no murmurs GI soft to palpation, non-tender and non-distended; Negative for hepatosplenomegaly Extremity no clubbing, cyanosis or edema Skin no rashes or lesions noted Neuro no focal motor deficits and no sensory deficits noted Psych affect normal Appearance: appropriate Assessment & Plan Assessment/Plan (1) Abscess of lung: QUALIFIERS: Pulmonary abscess pneumonia presence: with pneumonia Laterality: right Lung location: lower lobe of lung Qualified Code(s): J85.1 - Abscess of lung with pneumonia (2) Pneumonia: QUALIFIERS: Pneumonia type: due to unspecified organism Laterality: right Lung location: lower lobe of lung Qualified Code(s): J18.9 - Pneumonia, unspecified organism (3) Acute respiratory failure with hypoxia: PLAN: 1. Acute hypoxic respiratory failure due to recent Covid as well as possible gram-negative pneumonia with a pulmonary abscess Secondary to possible gram-negative pneumonia but also cavitary lesions which could be an abscess but also recent COVID-19 pneumonia Current lead doing well on room air We will continue with broad-spectrum antibiotics and consult pulmonology. CT surgery got back to us and stated this was not a surgical issue and from medical standpoint to have no beds We will consult infectious disease for antibiotic recommendations 2. Hypokalemia Replacement performed in the emergency room Check magnesium 3. Severe protein malnutrition Very cachectic Continue supplements Consult nutrition 4. Recent COVID-19 pneumonia Unclear onset but was least 30 January Patient is no longer requiring quarantine No additional treatment at this time Patient tells me that he was unvaccinated but I cannot rely on the accuracy 5. Possible dementia Consider geriatric evaluation for more formal assessment outpatient Patient does have garbled voice and will have speech therapy evaluate him 6. Debility Multifactorial PT/OT evaluate and treat DVT: Lovenox Charges/Coding Visit Charges Inpatient E&M: 43091 Subs Hosp L2
[2021-02-22 11:37] LABS: Phosphorus 1.9 mg/dL (2.5-4.9)
[2021-02-22] MEDS: Potassium Chloride 10mEq/100mL 10 MEQ/100 ML IV.SOLN. 90 MEQ IV BOLUS ×3 (12:04→15:20)
[2021-02-22] MEDS: Enoxaparin 40 MG/0.4 ML Syringe SC (12:07)
--- NOTE | 2021-02-22 14:03 | PN.CC_ITS ---
Assessment & Plan Assessment/Plan (1) Abscess of lung: QUALIFIERS: Pulmonary abscess pneumonia presence: with pneumonia Laterality: right Lung location: lower lobe of lung Qualified Code(s): J85.1 - Abscess of lung with pneumonia (2) Dementia: PLAN: RECOMMENDATIONS: 1. Continue empiric antibiotics 2. Possibly arrange for CT-guided biopsy if not improving in 3 to 4 weeks 3. Attempt to clarify ECF history 4. No indication for baricitinib, Remdesivir or Decadron from a COVID perspective 5. Initiate bronchodilators if patient develops wheezing 6. Recommend infectious disease consult for possible long-term antibiotics IMPRESSIONS: 1. Possible pulmonary abscess following COVID-19 infection Patient with cavitating lesion noted in the periphery of the right lung. Patient is also reporting a significant reduction in weight, but review of the medical record shows only a 20 pound weight loss compared to previous. Patient is not reporting any constitutional symptoms such as a productive cough or fever. Patient was recently admitted for COVID-19 and left lower lobe findings appear to be stable. However, patient has developed a cavitating lesion in the right lower lobe that was not present on 02/05/2021. The rapidity would be suggestive of an infectious etiology. Cultures are currently pending. Continue with antibiotics for now. Cannot exclude the need for a CT-guided biopsy in 3 to 4 weeks if not responsive to therapy as squamous cell carcinoma can act similarly. Patient does not meet clinical criteria for medical therapy for COVID. Patient is in an ECF, but otherwise has no risk factors for tuberculosis. Patient could possibly be discharged once antibiotic plan is made 2. Hypernatremia/hyperchloremia/hypokalemia Patient will be continued on D5W for another 24 hours. Mentation appears to be improving with improvement in hypernatremia. Patient does have a significant elevation of bicarbonate. Cannot exclude paraneoplastic SIADH. Potassium will be supplemented as indicated. Rapidity of development is suggestive of an infectious etiology more than malignant. 3. Advanced age/severe malnutrition/possible dementia/debility Complicates care, management, recovery and prognosis. We will need to monitor closely for refeeding syndrome. Subjective Subjective Patient did okay overnight. Patient much more interactive today compared to yesterday. Patient is still doing well on room air. Patient is not reporting any productive cough. Patient does cough frequently with deep inhalation and talking. Objective Data Objective Data Vital Signs: Vital Signs Temp Pulse Resp BP Pulse Ox 36.6 C 63 18 105/62 98 02/22/21 08:09 02/22/21 13:38 02/22/21 08:09 02/22/21 08:09 02/22/21 10:31 Oxygen Flow Rate (L/min) 1 Oxygen Delivery Method Room Air Weight: 50.3 kg Body Mass Index (BMI) 15.0 Intake & Output: Intake and Output for Last 24 Hours 02/20/21 02/21/21 02/22/21 23:59 23:59 23:59 Intake Total 1382.92 / 1382.92 2764.17 / 2764.17 1381 / 1381 Output Total 250 / 350 100 / 100 Balance 1382.92 / 1382.92 2514.17 / 2414.17 1281 / 1281 Medical Nutrition Assessment Dietitian: Malnutrition Criteria Met Start: 02/21/21 12:40 Freq: Status: Active Protocol: Document 02/21/21 12:42 BILL (Rec: 02/21/21 12:42 SLA [id number]) Nutrition Malnutrition Evidence of Malnutrition Exists Yes Malnutrition (severe): Acute Illness/Injury Evidenced By Suboptimal Energy Intake ( Severe),Weight Loss (Severe), Physical Changes (Severe) Clinical Problem Acute Disease or Injury Related Malnutrition Etiology related to recent illness of covid, dementia and issues w/ chewing/swallowing making it difficult for pt to consume adeqate nutrition to meet est nutritional needs Signs/Symptoms as evidenced by <50% po intake x >5 days, 6.7% wt loss x 2 wks and obvious fat/muscle wasting in upper body (orbital /temporal regions, clavicle area, arms) Status Active Problem Recommendation Dietitian Recommendations/Changes As medically able, rec SHRAVAN to liberal Regular - consistency per APPLICATION DBA - w/ ensure pudding or magic cup w/ meals tid Monitor for refeeding syndrome d/t signs and symptoms of malnutrition If to remain NPO, will provide rec for enteral nutrition support as indicated and if in accordance w/ pt/family wishes. Lab / Micro Data Result Diagrams: 02/22/21 07:38 02/22/21 07:38 Labs: Laboratory Results - last 24 hr 02/22/21 01:26: Vancomycin Trough 8.8 02/22/21 07:38: WBC 8.7, RBC 3.59 L, Hgb 11.5 L, Hct 34.5 L, MCV 96.1 H, MCH 32.0, MCHC 33.3, RDW Std Deviation 47.3 H, RDW Coeff of Zackery 13.2, Plt Count 162, MPV 12.0, Immature Gran % (Auto) 0.600, Neut % (Auto) 86.7 H, Lymph % (Auto) 8.4 L, [place] % (Auto) 4.0, Eos % (Auto) 0.2, Baso % (Auto) 0.1, Absolute Neuts (auto) 7.5, Absolute Lymphs (auto) 0.73 L, Nucleated RBC % 0 02/22/21 07:38: Sodium 148 H, Potassium 3.1 L, Chloride 112 H, Carbon Dioxide 31.0, Anion Gap 5, BUN 22 H, Creatinine 0.82, Estim Creat Clear Calc 51.97, Est GFR (MDRD) Af Amer 117, Est GFR (MDRD) Non-Af 97, BUN/Creatinine Ratio 27.0 H, Glucose 113 H, Calcium 7.8 L 02/22/21 07:38: Phosphorus 1.9 L Micro: Microbiology 02/21/21 15:30 Urine, Random Legionella Antigen - Final 02/21/21 15:30 Urine, Random Streptococcus pneumoniae Antigen (M - Final 02/20/21 11:50 Nasal Secretion SARS-CoV-2 Antigen (Rapid) - Final Physical Exam Const alert and no apparent distress Constitutional Narrative: More conversational today General Appearance: cooperative Nutritional Appearance: cachectic HEENT normocephalic HEENT Narrative: Dry mucous membranes. Temporal wasting noted. Mouth: oral and palatal mucosa abnormal Eyes PERRL, EOMs intact bilaterally and conjunctivae normal Neck supple and no JVD Chest Chest Narrative: Visible rib spaces noted Chest: abnormal inspection of the chest barrel chest and increased A-P diameter Resp normal respiratory effort, no retractions and no use of accessory muscles Auscultation: diminished lung sounds; Negative for crackles, rales, rhonchi or wheezes Cardio regular rate, regular rhythm, S1 normal heart sound, S2 normal heart sound and no murmurs GI soft to palpation, non-tender and non-distended; Negative for hepatosplenomegaly Extremity no clubbing, cyanosis or edema Skin no rashes or lesions noted Neuro no focal motor deficits and no sensory deficits noted Psych affect normal Appearance: appropriate Charges/Coding Visit Charges Inpatient E&M: 98069 Subs Hosp L2
[2021-02-22] MEDS: 0.9% Saline Lock 10 ML Syringe IV ×3 (14:24→21:24)
--- NOTE | 2021-02-22 14:51 | CON.PCM.ID_ITS ---
Assessment & Plan Assessment/Plan (1) Dementia: (2) Abscess of lung: QUALIFIERS: Pulmonary abscess pneumonia presence: with pneumonia Laterality: right Lung location: lower lobe of lung Qualified Code(s): J85.1 - Abscess of lung with pneumonia PLAN: Recent covid, now with lung abscess. Bcx neg so far. On empiric vanc/zosyn. Recommend biopsy and culture if possible to help with diagnosis and treatment, otherwise plan will be long course of abx with followup imaging to do cument resolution. Will follow, thank you HPI Consult Data Date of Consult: 02/22/21 HPI Narrative HPI Narrative: CASEY MORALES, is a 80 M with dementia, presented 02/20 with worsening dyspnea. Lives at [facility]. Admitted 02/[address] here s howed new cavitary pneumonia, admitted on vanc/zosyn. Feeling ok, denies cough, SOB, fever, n/v/d. Full ROS performed and neg except as noted above. [facility] Medical History Altered mental status COVID COVID-19 Dementia Dysphagia Encephalopathy Generalized weakness Muscle weakness Pneumonia Medical History no medical history Home Medications albuterol sulfate 0.63 mg INHALATION Q4H 02/20/21 [History Last Taken Unknown] bisacodyl 10 mg WI DAILY PRN 02/20/21 [History Last Taken Unknown] dexamethasone 6 mg PO DAILY 02/20/21 [History Last Taken 02/20/21] food supplemt, lactose-reduced [Ensure] 4 ml PO TID 02/20/21 [History Last Taken Unknown] levofloxacin [Levaquin] 500 mg PO DAILY 02/20/21 [History Last Taken 02/20/21] sodium phosphates [Fleet Enema] 118 ml WI DAILY PRN 02/20/21 [History Last Taken Unknown] Allergy/AdvReac Type Severity Reaction Status Date / Time No Known Allergies Allergy Verified 02/20/21 11:55 Social History household members: spouse Smoking Status: Former smoker Physical Exam Const no apparent distress Constitutional Narrative: oriented x2 General Appearance: cooperative HEENT normocephalic and head/scalp atraumatic Eyes PERRL and EOMs intact bilaterally Neck supple and No nodes Resp clear to auscultation bilaterally Auscultation: diminished lung sounds Cardio regular rate and regular rhythm GI normal to inspection, nondistended, normoactive bowel sounds Extremity no clubbing, cyanosis or edema Skin no rashes or lesions noted Neuro CN's II-XII intact bilaterally Medical Records Data Medical Nutrition Assessment Dietitian: Malnutrition Criteria Met Start: 02/21/21 12:40 Freq: Status: Active Protocol: Document 02/21/21 12:42 [facility] (Rec: 02/21/21 12:42 [facility] [id number]) Nutrition Malnutrition Evidence of Malnutrition Exists Yes Malnutrition (severe): Acute Illness/Injury Evidenced By Suboptimal Energy Intake ( Severe),Weight Loss (Severe), Physical Changes (Severe) Clinical Problem Acute Disease or Injury Related Malnutrition Etiology related to recent illness of covid, dementia and issues w/ chewing/swallowing making it difficult for pt to consume adeqate nutrition to meet est nutritional needs Signs/Symptoms as evidenced by <50% po intake x >5 days, 6.7% wt loss x 2 wks and obvious fat/muscle wasting in upper body (orbital /temporal regions, clavicle area, arms) Status Active Problem Recommendation Dietitian Recommendations/Changes As medically able, rec SHRAVAN to liberal Regular - consistency per PRODUCT ANALYST - w/ ensure pudding or magic cup w/ meals tid Monitor for refeeding syndrome d/t signs and symptoms of malnutrition If to remain NPO, will provide rec for enteral nutrition support as indicated and if in accordance w/ pt/family wishes. Lab / Micro Data Result Diagrams: 02/22/21 07:38 02/22/21 07:38 Labs: Laboratory Results - last 24 hr 02/22/21 01:26: Vancomycin Trough 8.8 02/22/21 07:38: WBC 8.7, RBC 3.59 L, Hgb 11.5 L, Hct 34.5 L, MCV 96.1 H, MCH 32.0, MCHC 33.3, RDW Std Deviation 47.3 H, RDW Coeff of Zackery 13.2, Plt Count 162, MPV 12.0, Immature Gran % (Auto) 0.600, Neut % (Auto) 86.7 H, Lymph % (Auto) 8.4 L, [place] % (Auto) 4.0, Eos % (Auto) 0.2, Baso % (Auto) 0.1, Absolute Neuts (auto) 7.5, Absolute Lymphs (auto) 0.73 L, Nucleated RBC % 0 02/22/21 07:38: Sodium 148 H, Potassium 3.1 L, Chloride 112 H, Carbon Dioxide 3 1.0, Anion Gap 5, BUN 22 H, Creatinine 0.82, Estim Creat Clear Calc 51.97, Est GFR (MDRD) Af Amer 117, Est GFR (MDRD) Non-Af 97, BUN/Creatinine Ratio 27.0 H, Glucose 113 H, Calcium 7.8 L 02/22/21 07:38: Phosphorus 1.9 L Micro: Microbiology 02/20/21 11:40 Blood Culture (Wb) - Anticubital Right Blood Culture - Preliminary No growth in 48 hours. 02/20/21 11:40 Blood Culture (Wb) - Anticubital Left Blood Culture - Preliminary No growth in 48 hours. 02/21/21 15:30 Urine, Random Legionella Antigen - Final 02/21/21 15:30 Urine, Random Streptococcus pneumoniae Antigen (M - Final
[2021-02-23] VITALS (14 sets, daily range): BP systolic 58–111; BP diastolic 47–70; PULSE 65–104; RESP 18; TEMP 36.1–36.7; O2SAT 94–99
[2021-02-23] MEDS: Vancomycin IV 1,000 MG/200 ML BAG 200 MG IV ×2 (02:55→13:01)
[2021-02-23] MEDS: Piperacil/Tazobactam 3.375 GM/50 ML ML IV ×3 (05:28→21:22)
[2021-02-23] MEDS: Albuterol 2.5 MG/3 ML VIAL.NEB. INHALATION ×2 (06:48→11:30)
[2021-02-23 07:17] LABS: Absolute Lymphocyte Count 0.79 X10^3/uL (0.83-4.51); Absolute Neutrophil Count 5.6 X10^3/uL (2.0-7.7); Basophil# 0.03 X10^3/uL; Basophil% 0.4 % (0-1); Eosinophil# 0.02 X10^3/uL; Eosinophils% 0.3 % (0-5); Hematocrit 37.7 % (40-54); Hemoglobin 12.8 g/dL (13.0-16.5); Lymphocyte # 0.79 X10^3/ul (0.83-4.51); Lymphocyte % 11.6 % (19-41); Mean Corpuscular Hgb 31.5 pg (27.0-32.0); Mean Corpuscular Volume 92.9 fL (80-94); Mean Platelet Vol. 12.1 fl (6.2-12.0); Monocyte# 0.31 X10^3/uL; Monocyte% 4.5 % (0-10); NRBC Flagged by Analyzer 0 % (0-5); Neutrophil # 5.64 X10^3/uL (2.7-7.7); Neutrophil % 82.6 % (47-70); Platelet Count 133 K/mm3 (150-450); RBC Distribution Width CV 13.2 % (11.6-14.6); RBC Distribution Width SD 44.5 fl (35.1-43.9); Red Blood Count 4.06 M/mm3 (4.6-6.2); White Blood Count 6.8 K/mm3 (4.4-11.0)
[2021-02-23 07:49] LABS: Anion Gap 7 (5-15); BUN 19 mg/dL (7-18); BUN/Creat Ratio 18.1 RATIO (10-20); Chloride 109 mmol/L (98-107); Creatinine, Serum 1.05 mg/dL (0.70-1.30); EST Glomerular Filtration Rate 72 mL/min (>60); Est Glom Filt Rate - Afr Amer 88 mL/min (>60); Estimated Creatinine Clearance 40.59 ml/min; Glucose 113 mg/dL (74-106); Potassium 3.1 mmol/L (3.5-5.1); Sodium Level 145 mmol/L (136-145)
[2021-02-23] MEDS: Enoxaparin 40 MG/0.4 ML Syringe SC (08:48)
[2021-02-23] MEDS: Menthol/Lanolin/Calamine/Znox 113 GM Tube 1 APPLIC TOPICAL ×2 (08:48→20:01)
--- NOTE | 2021-02-23 09:46 | CASEMGMT ---
Social Work Pt's son Ryan called to review options for long-term. As SW's encouragement, son did call pt's insurance to check on coverage, and SW was quoted incorrect information. Because pt has part B Medicare, when this SW called yesterday, [employer] assumed they were secondary insurance--they assumed pt also had Medicare Part A, and he does not. Son was able to attain the accurate information in regard to pt's benefits, and found out out of network is covered at 50%. Son states they would like to stay with an in network facility if possible. They would like TCU if bed availability. SW did explain to son will find out, explained the length of stay in TCU is usually 30 days or less. SW explained should pt need longer than this, the SW in TCU will be planning with family about where pt should go from there. Son states understanding. Family may be okay with [facility] if [facility]CU cannot take pt, or they may consider another facility in network. SW called TCU, they can take pt. Precert is waived at this time. SW let pt's son know pt can go to TCU. SW again reminded him that if pt needs longer than 30 days, the staff there will speak w/family about next steps. Son states understanding and is very glad pt is able to go to TCU. It is easier for pt's as she can drive to TCU to see pt. SW will continue to follow with anticipated discharge to TCU. ADRY Castillo
[2021-02-23] MEDS: Potassium Chloride 10mEq/100mL 10 MEQ/100 ML IV.SOLN. 100 MEQ IV BOLUS ×4 (11:00→15:43)
--- NOTE | 2021-02-23 11:54 | PN.HOSP_ITS ---
Subjective Subjective Says have more energy today after his phosphorus was replaced. No issues overnight. Objective Data Objective Data Vital Signs: Vital Signs Temp Pulse Resp BP Pulse Ox 98.1 F 67 18 111/70 97 02/23/21 02:58 02/23/21 03:54 02/23/21 02:58 02/23/21 02:58 02/23/21 09:29 Oxygen Flow Rate (L/min) 1 Oxygen Delivery Method Room Air Weight: 110 lb 14.28 oz Body Mass Index (BMI) 15.0 Intake & Output: Intake and Output for Last 24 Hours 02/22/21 02/23/21 02/24/21 03:59 03:59 03:59 Intake Total 3014.17 / 3014.17 2796 / 2796 345 / 345 Output Total 350 / 350 Balance 2664.17 / 2664.17 2796 / 2796 345 / 345 Medical Nutrition Assessment Dietitian: Malnutrition Criteria Met Start: 02/21/21 12:40 Freq: Status: Active Protocol: Document 02/21/21 12:42 [facility] (Rec: 02/21/21 12:42 [facility] [id number]) Nutrition Malnutrition Evidence of Malnutrition Exists Yes Malnutrition (severe): Acute Illness/Injury Evidenced By Suboptimal Energy Intake ( Severe),Weight Loss (Severe), Physical Changes (Severe) Clinical Problem Acute Disease or Injury Related Malnutrition Etiology related to recent illness of covid, dementia and issues w/ chewing/swallowing making it difficult for pt to consume adeqate nutrition to meet est nutritional needs Signs/Symptoms as evidenced by <50% po intake x >5 days, 6.7% wt loss x 2 wks and obvious fat/muscle wasting in upper body (orbital /temporal regions, clavicle area, arms) Status Active Problem Recommendation Dietitian Recommendations/Changes As medically able, rec SHRAVAN to liberal Regular - consistency per CRM SOLUTION ARCHITECT - w/ ensure pudding or magic cup w/ meals tid Monitor for refeeding syndrome d/t signs and symptoms of malnutrition If to remain NPO, will provide rec for enteral nutrition support as indicated and if in accordance w/ pt/family wishes. Lab / Micro Data Result Diagrams: 02/23/21 07:00 02/23/21 07:00 Labs: Laboratory Results - last 24 hr 02/23/21 07:00: WBC 6.8, RBC 4.06 L, Hgb 12.8 L, Hct 37.7 L, MCV 92.9, MCH 31.5, MCHC 34.0, RDW Std Deviation 44.5 H, RDW Coeff of Zackery 13.2, Plt Count 133 L, MPV 12.1 H, Immature Gran % (Auto) 0.600, Neut % (Auto) 82.6 H, Lymph % (Auto) 11.6 L, [place] % (Auto) 4.5, Eos % (Auto) 0.3, Baso % (Auto) 0.4, Absolute Neuts (auto) 5.6, Absolute Lymphs (auto) 0.79 L, Nucleated RBC % 0 02/23/21 07:00: Sodium 145, Potassium 3.1 L, Chloride 109 H, Carbon Dioxide 29.0, Anion Gap 7, BUN 19 H, Creatinine 1.05, Estim Creat Clear Calc 40.59, Est GFR (MDRD) Af Amer 88, Est GFR (MDRD) Non-Af 72, BUN/Creatinine Ratio 18.1, Glucose 113 H, Calcium 8.0 L 02/23/21 07:00: Phosphorus 3.0 Micro: Microbiology 02/20/21 11:40 Blood Culture (Wb) - Anticubital Right Blood Culture - Preliminary No growth in 48 hours. 02/20/21 11:40 Blood Culture (Wb) - Anticubital Left Blood Culture - Preliminary No growth in 48 hours. 02/21/21 15:30 Urine, Random Legionella Antigen - Final 02/21/21 15:30 Urine, Random Streptococcus pneumoniae Antigen (M - Final 02/20/21 11:50 Nasal Secretion SARS-CoV-2 Antigen (Rapid) - Final Physical Exam Narrative Const alert and no apparent distress General Appearance: cooperative HEENT normocephalic and moist oral mucous membranes Eyes PERRL, EOMs intact bilaterally and conjunctivae normal Neck supple and no JVD Resp normal respiratory effort, no retractions and no use of accessory muscles Auscultation: diminished lung sounds; Negative for crackles, rales, rhonchi or wheezes Cardio regular rate, regular rhythm, S1 normal heart sound, S2 normal heart sound and no murmurs GI soft to palpation, non-tender and non-distended; Negative for hepatosplenomegaly Extremity no clubbing, cyanosis or edema Skin no rashes or lesions noted Neuro no focal motor deficits and no sensory deficits noted Psych affect normal Appearance: appropriate Assessment & Plan Assessment/Plan (1) Abscess of lung: QUALIFIERS: Pulmonary abscess pneumonia presence: with pneumonia Laterality: right Lung location: lower lobe of lung Qualified Code(s): J85.1 - Abscess of lung with pneumonia (2) Pneumonia: QUALIFIERS: Pneumonia type: due to unspecified organism Laterality: right Lung location: lower lobe of lung Qualified Code(s): J18.9 - Pneumonia, unspecified organism (3) Acute respiratory failure with hypoxia: PLAN: 1. Acute hypoxic respiratory failure due to recent Covid as well as possible gram-negative pneumonia with a pulmonary abscess Secondary to possible gram-negative pneumonia but also cavitary lesions which could be an abscess but also recent COVID-19 pneumonia Currently doing well on room air We will continue with broad-spectrum antibiotics and consult pulmonology. CT surgery got back to us and stated this was not a surgical issue and from medical standpoint to have no beds Per ID could likely transition to p.o. antibiotics when cleared by speech 2. Hypokalemia Continue to replace and monitor 3. Severe protein malnutrition Very cachectic Continue supplements Consult nutrition 4. Recent COVID-19 pneumonia Unclear onset but was least 30 January Patient is no longer requiring quarantine No additional treatment at this time Patient tells me that he was unvaccinated but I cannot rely on the accuracy 5. Possible dementia Consider geriatric evaluation for more formal assessment outpatient Patient does have garbled voice and will have speech therapy evaluate him 6. Debility Multifactorial PT/OT evaluate and treat DVT: Lovenox Charges/Coding Visit Charges Inpatient E&M: 80953 Subs Hosp L2
--- NOTE | 2021-02-23 12:00 | PCM.PN.INT ---
Assessment & Plan Assessment/Plan (1) Abscess of lung: QUALIFIERS: Pulmonary abscess pneumonia presence: with pneumonia Laterality: right Lung location: lower lobe of lung Qualified Code(s): J85.1 - Abscess of lung with pneumonia (2) Dementia: PLAN: RECOMMENDATIONS: 1. Continue empiric antibiotics 2. Possibly arrange for CT-guided biopsy if not improving in 3 to 4 weeks 3. Discontinue D5W given normalization of hyponatremia 4. No indication for baricitinib, Remdesivir or Decadron from a COVID perspective 5. Initiate bronchodilators if patient develops wheezing 6. Await ID recommendations on antibiotics IMPRESSIONS: 1. Possible pulmonary abscess following COVID-19 infection Patient with cavitating lesion noted in the periphery of the right lung. Patient is also reporting a significant reduction in weight, but review of the medical record shows only a 20 pound weight loss compared to previous. Patient is not reporting any constitutional symptoms such as a productive cough or fever. Patient was recently admitted for COVID-19 and left lower lobe findings appear to be stable. However, patient has developed a cavitating lesion in the right lower lobe that was not present on 02/05/2021. The rapidity would be suggestive of an infectious etiology. Cultures are currently pending. Continue with antibiotics for now. Cannot exclude the need for a CT-guided biopsy in 3 to 4 weeks if not responsive to therapy as squamous cell carcinoma can act similarly. Patient is in an ECF, but otherwise has no risk factors for tuberculosis. Patient could possibly be discharged once antibiotic plan is made with plans to follow-up with pulmonary following CT scan. 2. Hypernatremia/hyperchloremia/hypokalemia Resolved. Patient will be discontinued on D5W given normalization. Mentation appears to be improving with improvement in hypernatremia. Patient does have a significant elevation of bicarbonate. Cannot exclude paraneoplastic SIADH. Potassium will be supplemented as indicated. Rapidity of development is suggestive of an infectious etiology more than malignant. 3. Advanced age/severe malnutrition/possible dementia/debility Complicates care, management, recovery and prognosis. We will need to monitor closely for refeeding syndrome. Subjective Subjective Patient is doing okay from a respiratory standpoint on room air. Patient continues to have a cough with deep inhalation. No fevers were noted overnight. Patient subjectively feels stable from yesterday. Patient is much quicker and interactions today compared to yesterday. Objective Data Objective Data Vital Signs: Vital Signs Temp Pulse Resp BP Pulse Ox 36.7 C 67 18 111/70 97 02/23/21 02:58 02/23/21 03:54 02/23/21 02:58 02/23/21 02:58 02/23/21 09:29 Oxygen Flow Rate (L/min) 1 Oxygen Delivery Method Room Air Weight: 50.3 kg Body Mass Index (BMI) 15.0 Intake & Output: Intake and Output for Last 24 Hours 02/21/21 02/22/21 02/23/21 23:59 23:59 23:59 Intake Total 2764.17 / 2764.17 2796 / 2796 693.33 / 693.33 Output Total 250 / 350 100 / 100 Balance 2514.17 / 2414.17 2696 / 2696 693.33 / 693.33 Medical Nutrition Assessment Dietitian: Malnutrition Criteria Met Start: 02/21/21 12:40 Freq: Status: Active Protocol: Document 02/21/21 12:42 [facility] (Rec: 02/21/21 12:42 [facility] [id number]) Nutrition Malnutrition Evidence of Malnutrition Exists Yes Malnutrition (severe): Acute Illness/Injury Evidenced By Suboptimal Energy Intake ( Severe),Weight Loss (Severe), Physical Changes (Severe) Clinical Problem Acute Disease or Injury Related Malnutrition Etiology related to recent illness of covid, dementia and issues w/ chewing/swallowing making it difficult for pt to consume adeqate nutrition to meet est nutritional needs Signs/Symptoms as evidenced by <50% po intake x >5 days, 6.7% wt loss x 2 wks and obvious fat/muscle wasting in upper body (orbital /temporal regions, clavicle area, arms) Status Active Problem Recommendation Dietitian Recommendations/Changes As medically able, rec SHRAVAN to liberal Regular - consistency per AUTO VINYL TOP INSTALLER - w/ ensure pudding or magic cup w/ meals tid Monitor for refeeding syndrome d/t signs and symptoms of malnutrition If to remain NPO, will provide rec for enteral nutrition support as indicated and if in accordance w/ pt/family wishes. Lab / Micro Data Result Diagrams: 02/23/21 07:00 02/23/21 07:00 Labs: Laboratory Results - last 24 hr 02/23/21 07:00: WBC 6.8, RBC 4.06 L, Hgb 12.8 L, Hct 37.7 L, MCV 92.9, MCH 31.5, MCHC 34.0, RDW Std Deviation 44.5 H, RDW Coeff of Zackery 13.2, Plt Count 133 L, MPV 12.1 H, Immature Gran % (Auto) 0.600, Neut % (Auto) 82.6 H, Lymph % (Auto) 11.6 L, [place] % (Auto) 4.5, Eos % (Auto) 0.3, Baso % (Auto) 0.4, Absolute Neuts (auto) 5.6, Absolute Lymphs (auto) 0.79 L, Nucleated RBC % 0 02/23/21 07:00: Sodium 145, Potassium 3.1 L, Chloride 109 H, Carbon Dioxide 29.0, Anion Gap 7, BUN 19 H, Creatinine 1.05, Estim Creat Clear Calc 40.59, Est GFR (MDRD) Af Amer 88, Est GFR (MDRD) Non-Af 72, BUN/Creatinine Ratio 18.1, Glucose 113 H, Calcium 8.0 L 02/23/21 07:00: Phosphorus 3.0 Micro: Microbiology 02/20/21 11:40 Blood Culture (Wb) - Anticubital Right Blood Culture - Preliminary No growth in 48 hours. 02/20/21 11:40 Blood Culture (Wb) - Anticubital Left Blood Culture - Preliminary No growth in 48 hours. 02/21/21 15:30 Urine, Random Legionella Antigen - Final 02/21/21 15:30 Urine, Random Streptococcus pneumoniae Antigen (M - Final 02/20/21 11:50 Nasal Secretion SARS-CoV-2 Antigen (Rapid) - Final Physical Exam Const alert and no apparent distress Constitutional Narrative: More conversational today General Appearance: cooperative Nutritional Appearance: cachectic HEENT normocephalic HEENT Narrative: Dry mucous membranes. Temporal wasting noted. Mouth: oral and palatal mucosa abnormal Eyes PERRL, EOMs intact bilaterally and conjunctivae normal Neck supple and no JVD Chest Chest Narrative: Visible rib spaces noted Chest: abnormal inspection of the chest barrel chest and increased A-P diameter Resp normal respiratory effort, no retractions and no use of accessory muscles Auscultation: diminished lung sounds; Negative for crackles, rales, rhonchi or wheezes Cardio regular rate, regular rhythm, S1 normal heart sound, S2 normal heart sound and no murmurs GI soft to palpation, non-tender and non-distended; Negative for hepatosplenomegaly Extremity no clubbing, cyanosis or edema Skin no rashes or lesions noted Neuro no focal motor deficits and no sensory deficits noted Psych affect normal Appearance: appropriate Charges/Coding Visit Charges Inpatient E&M: 79746 Subs Hosp L2
--- NOTE | 2021-02-23 14:26 | PCM.RX.CS ---
Consult Pharmacy has been consulted to manage selected antiobiotic: Vancomycin Type of Consult: Follow-up Suspected Infection: Pneumonia Labs: Sodium 145 mmol/L (136-145) 02/23/21 07:00 Potassium 3.1 mmol/L (3.5-5.1) L 02/23/21 07:00 Chloride 109 mmol/L (98-107) H 02/23/21 07:00 Carbon Dioxide 29.0 mmol/L (21.0-32.0) 02/23/21 07:00 Anion Gap 7 (5-15) 02/23/21 07:00 BUN 19 mg/dL (7-18) H 02/23/21 07:00 Creatinine 1.05 mg/dL (0.70-1.30) 02/23/21 07:00 Est GFR (MDRD) Af Amer 88 mL/min (>60) 02/23/21 07:00 Est GFR (MDRD) Non-Af 72 mL/min (>60) 02/23/21 07:00 BUN/Creatinine Ratio 18.1 RATIO (10-20) 02/23/21 07:00 Glucose 113 mg/dL (74-106) H 02/23/21 07:00 Vancomycin Trough 28.4 ug/mL (5.0-15.0) H 02/23/21 13:40 Microbiology: Microbiology 02/20/21 11:40 Blood Culture (Wb) - Anticubital Right Blood Culture - Preliminary No growth in 48 hours. 02/20/21 11:40 Blood Culture (Wb) - Anticubital Left Blood Culture - Preliminary No growth in 48 hours. 02/21/21 15:30 Urine, Random Legionella Antigen - Final 02/21/21 15:30 Urine, Random Streptococcus pneumoniae Antigen (M - Final 02/20/21 11:50 Nasal Secretion SARS-CoV-2 Antigen (Rapid) - Final Goal Trough: 15-20 mcg/mL Pharmacy Plan for Drug Dosing: VANCOMYCIN LEVEL RECEIVED Current Vancomycin Dose: 1000mg IV Q12h Number of Doses Received: several Vancomycin Level: 28.4 Hours Since Last Dose: RN called, trough drawn while vancomycin dose was infusing Renal Function: 1.05 Renal Function Trend: stable Lab/Micro: NGTD Vancomycin Plan/Comments: The patient had a trough drawn which came back elevated. However; RN called to pharmacy and notified us that trough was drawn while vancomycin was infusing, which explains the elevated trough. Continue current dose and recheck a trough prior to next scheduled dose. Pending Level: 02/25/20 @6420 Pharmacy Service will continue to monitor and adjust dosing as required.
--- NOTE | 2021-02-23 17:16 | SP.MBSS_ITS ---
Modified Barium Swallow - Patient Information Study Date: 02/23/21 Study Time: 14:25 Direct Billable Minutes: 160 Total Minutes procedure & reportin Diagnosis: dysphagia Referring Physician: Gonzalez Brunner Reason for Referral: CASEY MORALES is a y/o 80 M who presented to the ED from [facility] d/t increased dyspnea on 02/21/20. Patient recently discharged from [facility] following a stay from 02/05/21 to 02/13/21 d/t COVID-19. He was discharged on room air. Patient was dyspneic upon admission to [facility] ED 02/20/21 with a pulse ox of 70% on room air. CAT scan showed progressive heterogenous infiltration of the superior segment of the right lower lobe with multiple areas of cavitation suggested possible abscess formation. Persistent bibasilar infiltrates worse in the right lower lobe as well these cavitary lesions were not noted on CAT scan from the 05 February. Patient is a very poor historian. Swallow function was evaluated at bedside on 02/22/21 and reassessed on 02/23/21. Pt was referred for objective assessment of swallow function under fluoroscopy prior to diet advancement d/t high suspicion for pharyngeal phase swallow dysfunction, complicated by fluctuating alertness/altered mental status. Medical History: Altered mental status, COVID, Dementia, Dysphagia, Encephalopathy, Muscle weakness, Pneumonia Current Diet Ordered: NPO Mental Status: Impaired - dementia - difficulty following commands, requires repetition Respiratory Status: Oxygenating on Room Air - Penetration-Aspiration Scale Penetration-Aspiration Scale: OBJECTIVE ASSESSMENT OF SWALLOW FUNCTION (QUANTITATIVE ? PER TRIAL): PENETRATION / ASPIRATION SCALE (SIDHU): 1 = does not enter airway 2 = enters airway/above vocal folds/ejected 3 = enters airway/above vocal folds/not ejected 4 = enters airway/contacts vocal folds/ejected 5 = enters airway/contacts vocal folds/not ejected 6 = enters airway/below vocal folds/ejected 7 = enters airway/below vocal folds/not ejected despite effort 8 = enters airway/below vocal folds/no effort - Penetration-Aspiration Scale Score Thin Liquid via teaspoon Result: 1= does not enter airway Comment: Multiple swallows required for pharyngeal clearance w/ pharyngeal residue penetrating the laryngeal vestibule (3 = enters airway/above vocal folds/not ejected). Moist throat clearing noted post-prandially, although not observed under fluoro. Thin Liquid via teaspoon Trial 2 Result: 5= enters airways/contacts vocal folds/not ejected Thin Liquid via small single sip from cup Result: 6= enters airway/below vocal folds/ejected Comment: Spillage to the pyriforms w/ posterior laryngeal vestibule penetration from the pyriforms which transiently dropped below the vocal folds, contrast ejected from below the folds but remained w/in the laryngeal vestibule atop the vocal folds. [place] Thick Liquid via small single sip from cup Result: 3= enters airways/above vocal folds/not ejected Comment: Increased thin liquid contrast (compared to prior image) visible in the laryngeal vestibule prior to deglutition d/t pharyngeal residue penetration; thin liquid contrast noted to be sitting atop vocal folds and prandially dropping below the vocal folds transiently (6 = enters airway/below vocal folds/ejected) and remained atop the vocal folds Honey Thick Liquid via teaspoon Result: 1= does not enter airway Pudding Result: 1= does not enter airway Pudding Trial 2 Result: 1= does not enter airway Cookie Result: 1= does not enter airway Honey Thick Liquid via teaspoon Trial 2 Result: 1= does not enter airway [place] Thick Liquid via teaspoon Result: 1= does not enter airway [place] Thick Liquid via small single sip from cup Trial 2 Result: 1= does not enter airway Thin Liquid via small single sip from cup Trial 2 Result: 6= enters airway/below vocal folds/ejected Comment: Spillage to the pyriforms w/ posterior laryngeal vestibule penetration from the pyriforms which transiently dropped below the vocal folds, contrast ejected from below the folds but remained w/in the laryngeal vestibule atop the vocal folds. - Pharyngeal Phase Initiation of Pharyngeal Swallow: Bolus head in valleculae Soft Palate Elevation: No bolus between soft palate and pharyngeal wall Laryngeal Elevation: Partial superior movement thyroid cart/partial apprx aryt- epig petiole Anterior Hyoid Excursion: Partial anterior movement Epiglottic Movement: Partial inversion Laryngeal Vestibule Closure at Height of Swallow: Incomplete; narrow column of air/contrast in laryngeal vestibule Pharyngeal Stripping Wave: Present - diminished Pharyngoesophageal Segment Opening: Parital distension and partial duration; parital obstruction of flow Tongue Base Retraction: Wide column of contrast between tongue base & post. pharyngeal wall Pharyngeal Residue: Majority of contrast within or on pharyngeal structures - Esophageal Phase Esophageal Clearance: Esophageal retention - Diagnosis/Impression Diagnosis: moderate to severe pharyngeal dysphagia (R13.13) Impression: This patient's swallow function is characterized by: * mild mastication inefficiency * oral residue post deglutition * little to no visible tongue base retraction * significantly reduced pharyngeal contraction/diminished stripping wave * incomplete epiglottic inversion * poor hyolaryngeal excursion resulting in reduced distention/duration of PES * poor pharyngeal clearance w/ severe residue retention * prandial thin liquid penetration into the laryngeal vestibule w/ post prandial penetration/aspiration of contrast spilling from the pyriforms and entering the laryngeal vestibule posteriorly * thin liquid contrast dropped below the vocal folds transiently w/ retention atop the vocal folds * less than 25% of pudding and less than 10% of cookie bolus successfully cleared through the pharynx into the esophagus w/ the initial swallow * severity of pharyngeal stasis necessitated multiple swallows per bolus w/ only partial clearance achieved * esophageal retention of bolus was noted w/ screening for clearance * patient was unable to follow commands for compensatory strategy use Additional Considerations: * patient is essentially a silent aspirator, demonstrating no outward response to contrast sitting atop/dropping below vocal folds throughout the study * high risk for aspiration of pharyngeal stasis * patient is highly susceptible to further medical complications associated with dysphagia, especially malnutrition/dehydration Diet Recommended: * NPO * Alternative means of nutrition/hydration should be considered Repeat MBS Recommended: * would discourage advancing diet without a repeat MBS d/t severity of pharyngeal stasis and lack of overt response to penetration/aspiration Treatment Considerations: * training and implementation of oropharyngeal strengthening exercises to facilitate improved tongue base retraction, pharyngeal contraction/stripping wave, hyolaryngeal excursion, epiglottic inversion, laryngeal vestibule closure * respiratory muscle strength training to improve cough strength for airway protection * would be an excellent candidate for participation in the the [place] Protocol * patient would benefit from therapeutic trials of moderately thick liquids w/ 2-3 swallows per bolus under direct VOICE OVER ANNOUNCER supervision w/ repeat MBS prior to advancing diet * patient demonstrates significant difficulty following directions, which may limit his ability to meaningfully participate in and benefit from traditional dysphagia intervention * difficulty comprehending and following directions additionally limits the patient's ability to implement compensatory strategies for airway protection w/ PO intake - Status Active ST Patient: Active - Contact Information [facility]:: Katie Seymour M.A., CCC-VOICE OVER ANNOUNCER [address] [place] [address] x [phone] [email or web address] 02/23/21 17:16
--- NOTE | 2021-02-23 18:39 | NURSING ---
Update given to son.
[2021-02-23] MEDS: 0.9% Normal Saline 1,000 ML 999 ML IV (19:20)
[2021-02-24] VITALS (14 sets, daily range): BP systolic 100–138; BP diastolic 57–84; PULSE 65–87; RESP 16–18; TEMP 36.6–36.7; O2SAT 95–98
[2021-02-24 02:22] LABS: Vancomycin, Trough Level 24.2 ug/mL (5.0-15.0)
--- NOTE | 2021-02-24 02:48 | PCM.RX.CS ---
Consult Pharmacy has been consulted to manage selected antiobiotic: Vancomycin Type of Consult: Follow-up Suspected Infection: Pneumonia Prior Doses of Antibiotics Received/Current Regimen: Medications Discontinued Medications Vancomycin HCl (Vancomycin) 1,000 mg in 200 mls @ 200 mls/hr IV Q12H PÉREZ Last Admin: 02/24/21 02:47 Dose: Not Given Documented by: Labs: Sodium 145 mmol/L (136-145) 02/23/21 07:00 Potassium 3.1 mmol/L (3.5-5.1) L 02/23/21 07:00 Chloride 109 mmol/L (98-107) H 02/23/21 07:00 Carbon Dioxide 29.0 mmol/L (21.0-32.0) 02/23/21 07:00 Anion Gap 7 (5-15) 02/23/21 07:00 BUN 19 mg/dL (7-18) H 02/23/21 07:00 Creatinine 1.05 mg/dL (0.70-1.30) 02/23/21 07:00 Est GFR (MDRD) Af Amer 88 mL/min (>60) 02/23/21 07:00 Est GFR (MDRD) Non-Af 72 mL/min (>60) 02/23/21 07:00 BUN/Creatinine Ratio 18.1 RATIO (10-20) 02/23/21 07:00 Glucose 113 mg/dL (74-106) H 02/23/21 07:00 Vancomycin Trough 24.2 ug/mL (5.0-15.0) H 02/24/21 01:30 Microbiology: Microbiology 02/20/21 11:40 Blood Culture (Wb) - Anticubital Right Blood Culture - Preliminary No growth in 48 hours. 02/20/21 11:40 Blood Culture (Wb) - Anticubital Left Blood Culture - Preliminary No growth in 48 hours. 02/21/21 15:30 Urine, Random Legionella Antigen - Final 02/21/21 15:30 Urine, Random Streptococcus pneumoniae Antigen (M - Final 02/20/21 11:50 Nasal Secretion SARS-CoV-2 Antigen (Rapid) - Final Weight used for dosin.3 kg Estimated Creatinine Clearance: 41 Goal Trough: 15-20 mcg/mL Pharmacy Plan for Drug Dosing: Vancomycin trough level was high at 24.2. Understandable to some degree from the recent increase in SCr. Discontinued current dose. Will draw a random level in 12 hours to determine further dosing. Pharmacy Service will continue to monitor and adjust dosing as required. Follow-Up Labs: Trough Vancomycin - random Labs to be done on [date and time ordered]: 02/24/21 @6978
[2021-02-24] MEDS: Piperacil/Tazobactam 3.375 GM/50 ML ML IV ×3 (05:27→20:38)
[2021-02-24 06:39] LABS: Anion Gap 7 (5-15); BUN 25 mg/dL (7-18); BUN/Creat Ratio 13.3 RATIO (10-20); Calcium,Total 7.6 mg/dL (8.5-10.1); Chloride 110 mmol/L (98-107); Creatinine, Serum 1.88 mg/dL (0.70-1.30); EST Glomerular Filtration Rate 37 mL/min (>60); Est Glom Filt Rate - Afr Amer 45 mL/min (>60); Estimated Creatinine Clearance 22.67 ml/min; Glucose 103 mg/dL (74-106); Potassium 2.8 mmol/L (3.5-5.1); Sodium Level 147 mmol/L (136-145)
[2021-02-24] MEDS: Albuterol 2.5 MG/3 ML VIAL.NEB. INHALATION ×2 (07:04→10:45)
[2021-02-24 07:46] LABS: Phosphorus 3.3 mg/dL (2.5-4.9)
[2021-02-24] MEDS: 0.9% Saline Lock 10 ML Syringe IV (08:54)
[2021-02-24] MEDS: Enoxaparin 40 MG/0.4 ML Syringe SC (09:00)
[2021-02-24] MEDS: Menthol/Lanolin/Calamine/Znox 113 GM Tube 1 APPLIC TOPICAL ×2 (09:01→20:32)
[2021-02-24] MEDS: Potassium Chloride 10mEq/100mL 10 MEQ/100 ML IV.SOLN. 100 MEQ IV BOLUS ×8 (09:01→20:31)
--- NOTE | 2021-02-24 11:19 | PN.CC_ITS ---
Assessment & Plan Assessment/Plan (1) Abscess of lung: QUALIFIERS: Pulmonary abscess pneumonia presence: with pneumonia Laterality: right Lung location: lower lobe of lung Qualified Code(s): J85.1 - Abscess of lung with pneumonia (2) Dementia: PLAN: RECOMMENDATIONS: 1. Continue empiric antibiotics per infectious disease 2. Possibly arrange for CT-guided biopsy if not improving in 3 to 4 weeks 3. Reinitiate D5W given hypernatremia 4. No indication for baricitinib, Remdesivir or Decadron from a COVID perspective 5. Initiate bronchodilators if patient develops wheezing 6. Await results of the swallow study IMPRESSIONS: 1. Possible pulmonary abscess following COVID-19 infection Patient with cavitating lesion noted in the periphery of the right lung. Patient is also reporting a significant reduction in weight, but review of the medical record shows only a 20 pound weight loss compared to previous. Patient is not reporting any constitutional symptoms such as a productive cough or fever. Patient was recently admitted for COVID-19 and left lower lobe findings appear to be stable. However, patient has developed a cavitating lesion in the right lower lobe that was not present on 02/05/2021. The rapidity would be suggestive of an infectious etiology. Cultures are negative. Continue with antibiotics per ID for now. Cannot exclude the need for a CT-guided biopsy in 3 to 4 weeks if not responsive to therapy as squamous cell carcinoma can act similarly. Patient is in an ECF, but otherwise has no risk factors for tuberculosis. Patient could possibly be discharged once antibiotic plan is made with plans to follow-up with pulmonary following CT scan. Plan needs to be made for nutrition and swallow recommendations 2. Hypernatremia/hyperchloremia/hypokalemia Resolved. Patient will be discontinued on D5W given normalization. M entation appears to be improving with improvement in hypernatremia. Patient does have a significant elevation of bicarbonate. Cannot exclude paraneoplastic SIADH. Potassium will be supplemented as indicated. Rapidity of development is suggestive of an infectious etiology more than malignant. 3. Advanced age/severe malnutrition/possible dementia/debility/hypotension Complicates care, management, recovery and prognosis. We will need to monitor closely for refeeding syndrome. Clinical suspicion for hypovolemic hypotension secondary to dehydration with decreased p.o. intake Subjective Subjective Patient with hypotension yesterday that responded to fluid boluses. Patient states he feels subjectively improved compared to yesterday. For the first time in his hospitalization, patient is able to complete a full sentence without coughing. Patient is not reporting any chest pain. Patient reportedly does have a swallow study evaluation scheduled for later today Objective Data Objective Data Vital Signs: Vital Signs Temp Pulse Resp BP Pulse Ox 36.7 C 65 16 100/57 L 95 02/24/21 08:41 02/24/21 08:41 02/24/21 08:41 02/24/21 08:41 02/24/21 08:41 Oxygen Flow Rate (L/min) 1 Oxygen Delivery Method Room Air Weight: 50.3 kg Body Mass Index (BMI) 15.0 Intake & Output: Intake and Output for Last 24 Hours 02/22/21 02/23/21 02/24/21 23:59 23:59 23:59 Intake Total 2796 / 2796 3065.83 / 3065.83 261.5 / 261.5 Output Total 100 / 100 Balance 2696 / 2696 3065.83 / 3065.83 261.5 / 261.5 Medical Nutrition Assessment Dietitian: Malnutrition Criteria Met Start: 02/21/21 12:40 Freq: Status: Active Protocol: Document 02/21/21 12:42 BILL (Rec: 02/21/21 12:42 [facility] [id number]) Nutrition Malnutrition Evidence of Malnutrition Exists Yes Malnutrition (severe): Acute Illness/Injury Evidenced By Suboptimal Energy Intake ( Severe),Weight Loss (Severe), Physical Changes (Severe) Clinical Problem Acute Disease or Injury Related Malnutrition Etiology related to recent illness of covid, dementia and issues w/ chewing/swallowing making it difficult for pt to consume adeqate nutrition to meet est nutritional needs Signs/Symptoms as evidenced by <50% po intake x >5 days, 6.7% wt loss x 2 wks and obvious fat/muscle wasting in upper body (orbital /temporal regions, clavicle area, arms) Status Active Problem Recommendation Dietitian Recommendations/Changes As medically able, rec SHRAVAN to liberal Regular - consistency per [employer] - w/ ensure pudding or magic cup w/ meals tid Monitor for refeeding syndrome d/t signs and symptoms of malnutrition If to remain NPO, will provide rec for enteral nutrition support as indicated and if in accordance w/ pt/family wishes. Lab / Micro Data Result Diagrams: 02/23/21 07:00 02/24/21 05:50 Labs: Laboratory Results - last 24 hr 02/23/21 13:40: Vancomycin Trough Cancelled 02/24/21 01:30: Vancomycin Trough 24.2 H 02/24/21 05:50: Sodium 147 H, Potassium 2.8 L, Chloride 110 H, Carbon Dioxide 30.0, Anion Gap 7, BUN 25 H, Creatinine 1.88 H, Estim Creat Clear Calc 22.67, Est GFR (MDRD) Af Amer 45 L, Est GFR (MDRD) Non-Af 37 L, BUN/Creatinine Ratio 13.3, Glucose 103, Calcium 7.6 L 02/24/21 06:00: Magnesium 2.0 02/24/21 06:00: Phosphorus 3.3 Micro: Microbiology 02/20/21 11:40 Blood Culture (Wb) - Anticubital Right Blood Culture - Preliminary No growth in 48 hours. 02/20/21 11:40 Blood Culture (Wb) - Anticubital Left Blood Culture - Preliminary No growth in 48 hours. 02/21/21 15:30 Urine, Random Legionella Antigen - Final 02/21/21 15:30 Urine, Random Streptococcus pneumoniae Antigen (M - Final 02/20/21 11:50 Nasal Secretion SARS-CoV-2 Antigen (Rapid) - Final Physical Exam Const alert and no apparent distress Constitutional Narrative: More conversational today with less coughing General Appearance: cooperative Nutritional Appearance: cachectic HEENT normocephalic HEENT Narrative: Dry mucous membranes. Temporal wasting noted. Mouth: oral and palatal mucosa abnormal Eyes PERRL, EOMs intact bilaterally and conjunctivae normal Neck supple and no JVD Chest Chest Narrative: Visible rib spaces noted Chest: abnormal inspection of the chest barrel chest and increased A-P diameter Resp normal respiratory effort, no retractions and no use of accessory muscles Auscultation: diminished lung sounds; Negative for crackles, rales, rhonchi or wheezes Cardio regular rate, regular rhythm, S1 normal heart sound, S2 normal heart sound and no murmurs GI soft to palpation, non-tender and non-distended; Negative for hepatosplenomegaly Extremity no clubbing, cyanosis or edema Skin no rashes or lesions noted Neuro no focal motor deficits and no sensory deficits noted Psych affect normal Appearance: appropriate Charges/Coding Visit Charges Inpatient E&M: 04989 Subs Hosp L2
--- NOTE | 2021-02-24 12:14 | PN.HOSP_ITS ---
Subjective Subjective Last evening he had transient hypotensive episode, at the time I was unsure whether or not this was due to an aspiration event he was given a liter bolus and his blood pressure improved. This morning he now has developed an VELIA with creatinine of 1.88, will need to discuss with the family that he failed his swallow evaluation again and discuss advance care planning options Objective Data Objective Data Vital Signs: Vital Signs Temp Pulse Resp BP Pulse Ox 98.1 F 80 18 100/57 L 95 02/24/21 08:41 02/24/21 10:45 02/24/21 10:45 02/24/21 08:41 02/24/21 10:45 Oxygen Flow Rate (L/min) 1 Oxygen Delivery Method Room Air Weight: 110 lb 14.28 oz Body Mass Index (BMI) 15.0 Intake & Output: Intake and Output for Last 24 Hours 02/23/21 02/24/21 02/25/21 03:59 03:59 03:59 Intake Total 2796 / 2796 2865.83 / 2865.83 311.5 / 311.5 Balance 2796 / 2796 2865.83 / 2865.83 311.5 / 311.5 Medical Nutrition Assessment Dietitian: Malnutrition Criteria Met Start: 02/21/21 12:40 Freq: Status: Active Protocol: Document 02/21/21 12:42 BILL (Rec: 02/21/21 12:42 BILL [id number]) Nutrition Malnutrition Evidence of Malnutrition Exists Yes Malnutrition (severe): Acute Illness/Injury Evidenced By Suboptimal Energy Intake ( Severe),Weight Loss (Severe), Physical Changes (Severe) Clinical Problem Acute Disease or Injury Related Malnutrition Etiology related to recent illness of covid, dementia and issues w/ chewing/swallowing making it difficult for pt to consume adeqate nutrition to meet est nutritional needs Signs/Symptoms as evidenced by <50% po intake x >5 days, 6.7% wt loss x 2 wks and obvious fat/muscle wasting in upper body (orbital /temporal regions, clavicle area, arms) Status Active Problem Recommendation Dietitian Recommendations/Changes As medically able, rec SHRAVAN to liberal Regular - consistency per [employer] END DEVEL[employer] - w/ ensure pudding or magic cup w/ meals tid Monitor for refeeding syndrome d/t signs and symptoms of malnutrition If to remain NPO, will provide rec for enteral nutrition support as indicated and if in accordance w/ pt/family wishes. Lab / Micro Data Result Diagrams: 02/23/21 07:00 02/24/21 05:50 Labs: Laboratory Results - last 24 hr 02/23/21 13:40: Vancomycin Trough Cancelled 02/24/21 01:30: Vancomycin Trough 24.2 H 02/24/21 05:50: Sodium 147 H, Potassium 2.8 L, Chloride 110 H, Carbon Dioxide 30.0, Anion Gap 7, BUN 25 H, Creatinine 1.88 H, Estim Creat Clear Calc 22.67, Est GFR (MDRD) Af Amer 45 L, Est GFR (MDRD) Non-Af 37 L, BUN/Creatinine Ratio 13.3, Glucose 103, Calcium 7.6 L 02/24/21 06:00: Magnesium 2.0 02/24/21 06:00: Phosphorus 3.3 Micro: Microbiology 02/20/21 11:40 Blood Culture (Wb) - Anticubital Right Blood Culture - Preliminary No growth in 48 hours. 02/20/21 11:40 Blood Culture (Wb) - Anticubital Left Blood Culture - Preliminary No growth in 48 hours. 02/21/21 15:30 Urine, Random Legionella Antigen - Final 02/21/21 15:30 Urine, Random Streptococcus pneumoniae Antigen (M - Final 02/20/21 11:50 Nasal Secretion SARS-CoV-2 Antigen (Rapid) - Final Physical Exam Narrative Const alert but sleepy and no apparent distress General Appearance: cooperative HEENT normocephalic and moist oral mucous membranes Eyes PERRL, EOMs intact bilaterally and conjunctivae normal Neck supple and no JVD Resp normal respiratory effort, no retractions and no use of accessory muscles Auscultation: diminished lung sounds; Negative for crackles, rales, rhonchi or wheezes Cardio regular rate, regular rhythm, S1 normal heart sound, S2 normal heart sound and no murmurs GI soft to palpation, non-tender and non-distended; Negative for hepatosplenomegaly Extremity no clubbing, cyanosis or edema Skin no rashes or lesions noted Neuro no focal motor deficits and no sensory deficits noted Psych affect normal Appearance: appropriate Assessment & Plan Assessment/Plan (1) Abscess of lung: QUALIFIERS: Pulmonary abscess pneumonia presence: with pneumonia Laterality: right Lung location: lower lobe of lung Qualified Code(s): J85.1 - Abscess of lung with pneumonia (2) Pneumonia: QUALIFIERS: Pneumonia type: due to unspecified organism Laterality: right Lung location: lower lobe of lung Qualified Code(s): J18.9 - Pneumonia, unspecified organism (3) Acute respiratory failure with hypoxia: PLAN: 1. Acute hypoxic respiratory failure due to recent Covid as well as possible gram-negative pneumonia with a pulmonary abscess/possible aspiration/VELIA ?Secondary to possible gram-negative pneumonia but also cavitary lesions which could be an abscess but also recent COVID-19 pneumonia may be secondary to aspiration ?Currently doing well on room air ?We will continue with broad-spectrum antibiotics and consult pulmonology. ?CT surgery got back to us and stated this was not a surgical issue and from medical standpoint to have no beds ?Per ID could likely transition to p.o. antibiotics when cleared by speech ?Will obtain swallow study and discussed with the family if he fails what to pursue in terms of artificial nutrition ?Had an episode of hypotension yesterday now has an VELIA, will continue to monitor creatinine, he is also hypernatremic therefore we'll continue with D5W 2. Hypokalemia ?Continue to replace and monitor 3. Severe protein malnutrition ?Very cachectic ?Continue supplements ?Consult nutrition 4. Recent COVID-19 pneumonia ?Unclear onset but was least 30 January ?Patient is no longer requiring quarantine ?No additional treatment at this time ?Patient tells me that he was unvaccinated but I cannot rely on the accuracy 5. Possible dementia ?Consider geriatric evaluation for more formal assessment outpatient ?Patient does have garbled voice and will have speech therapy evaluate him 6. Debility ?Multifactorial ?PT/OT evaluate and treat DVT: Lovenox Charges/Coding Visit Charges Inpatient E&M: 28487 Subs Hosp L2
--- NOTE | 2021-02-24 12:56 | PCM.PN.ID ---
Physical Exam Narrative Feeling better, no sputum, breathing improved, no fever Const alert General Appearance: cooperative Resp clear to auscultation bilaterally Resp Narrative: mild rhonchi Cardio regular rate and regular rhythm GI soft to palpation, non-tender and non-distended Skin no rashes or lesions noted ID ID: Route of nutrition/ use of supplements: [] Nutritional Intake: [] IV Site: [] [place] Catheter: [] Assessment & Plan Assessment/Plan (1) Dementia: (2) Abscess of lung: QUALIFIERS: Pulmonary abscess pneumonia presence: with pneumonia Laterality: right Lung location: lower lobe of lung Qualified Code(s): J85.1 - Abscess of lung with pneumonia PLAN: Recent covid, now with lung abscess. Bcx neg so far. On empiric vanc/zosyn. Improved symptoms. Ok for d/c with 30 days po doxy and augmentin with followup imaging to document resolution. ID followup in 3 weeks Will follow
--- NOTE | 2021-02-24 15:09 | CASEMGMT ---
Pt screened with [facility] Palliative Care Screening Tool due to readmission, no order received at this time. TCU to follow.
[2021-02-24 17:19] LABS: Vancomycin, Random Level 22.2 ug/mL (0.0-15.0)
--- NOTE | 2021-02-24 19:44 | PCM.RX.CS ---
Consult Pharmacy has been consulted to manage selected antiobiotic: Vancomycin Type of Consult: Follow-up Suspected Infection: Pneumonia Prior Doses of Antibiotics Received/Current Regimen: Previously had been on 1000mg iv q12h. Last dose 1.. @1301. Labs: Sodium 147 mmol/L (136-145) H 02/24/21 05:50 Potassium 2.8 mmol/L (3.5-5.1) L 02/24/21 05:50 Chloride 110 mmol/L (98-107) H 02/24/21 05:50 Carbon Dioxide 30.0 mmol/L (21.0-32.0) 02/24/21 05:50 Anion Gap 7 (5-15) 02/24/21 05:50 BUN 25 mg/dL (7-18) H 02/24/21 05:50 Creatinine 1.88 mg/dL (0.70-1.30) H 02/24/21 05:50 Est GFR (MDRD) Af Amer 45 mL/min (>60) L 02/24/21 05:50 Est GFR (MDRD) Non-Af 37 mL/min (>60) L 02/24/21 05:50 BUN/Creatinine Ratio 13.3 RATIO (10-20) 02/24/21 05:50 Glucose 103 mg/dL (74-106) 02/24/21 05:50 Vancomycin Trough 24.2 ug/mL (5.0-15.0) H 02/24/21 01:30 Random Vancomycin 22.2 ug/mL (0.0-15.0) H 02/24/21 16:08 Microbiology: Microbiology 02/20/21 11:40 Blood Culture (Wb) - Anticubital Right Blood Culture - Preliminary No growth in 48 hours. 02/20/21 11:40 Blood Culture (Wb) - Anticubital Left Blood Culture - Preliminary No growth in 48 hours. 02/21/21 15:30 Urine, Random Legionella Antigen - Final 02/21/21 15:30 Urine, Random Streptococcus pneumoniae Antigen (M - Final 02/20/21 11:50 Nasal Secretion SARS-CoV-2 Antigen (Rapid) - Final Weight used for dosin.3 kg Estimated Creatinine Clearance: ~23 ml/min Pharmacy Plan for Drug Dosing: Random level today 22.2. This was ~27hrs post last dose. Renal function worse. Cr today 1.88. Will get another random level in AM. No further dosing until level <20 mcg/ml. Pharmacy Service will continue to monitor and adjust dosing as required. Follow-Up Labs: Trough Vancomycin - random1.8.22@0600
--- NOTE | 2021-02-24 22:13 | PCA ---
Pt son Ryan called in to speak to the doctor about nutritional options. Pt son talked about peg tube and questioned other options, pt son would like to speak with doctor tomorrow 02/25 about options. Camilo Davis phone number is [phone]
[2021-02-25] VITALS (12 sets, daily range): BP systolic 92–127; BP diastolic 50–77; PULSE 61–121; RESP 16–18; TEMP 36.2–36.7; O2SAT 96–98
[2021-02-25] MEDS: Piperacil/Tazobactam 3.375 GM/50 ML ML IV ×2 (05:24→22:12)
[2021-02-25] MEDS: Albuterol 2.5 MG/3 ML VIAL.NEB. INHALATION (07:48)
[2021-02-25 08:18] LABS: Vancomycin, Random Level 19.4 ug/mL (0.0-15.0)
[2021-02-25 09:40] LABS: Anion Gap 11 (5-15); BUN 31 mg/dL (7-18); BUN/Creat Ratio 11.2 RATIO (10-20); Calcium,Total 7.5 mg/dL (8.5-10.1); Chloride 109 mmol/L (98-107); Creatinine, Serum 2.77 mg/dL (0.70-1.30); EST Glomerular Filtration Rate 24 mL/min (>60); Est Glom Filt Rate - Afr Amer 29 mL/min (>60); Estimated Creatinine Clearance 15.38 ml/min; Glucose 115 mg/dL (74-106); Potassium 3.4 mmol/L (3.5-5.1); Sodium Level 146 mmol/L (136-145)
[2021-02-25] MEDS: Menthol/Lanolin/Calamine/Znox 113 GM Tube 1 APPLIC TOPICAL ×2 (10:00→22:11)
--- NOTE | 2021-02-25 11:18 | PHA.PHARE_ITS ---
Consult Pharmacy has been consulted to manage selected antiobiotic: Vancomycin Type of Consult: Follow-up Labs: Sodium 146 mmol/L (136-145) H 02/25/21 06:48 Potassium 3.4 mmol/L (3.5-5.1) L 02/25/21 06:48 Chloride 109 mmol/L (98-107) H 02/25/21 06:48 Carbon Dioxide 26.0 mmol/L (21.0-32.0) 02/25/21 06:48 Anion Gap 11 (5-15) 02/25/21 06:48 BUN 31 mg/dL (7-18) H 02/25/21 06:48 Creatinine 2.77 mg/dL (0.70-1.30) H 02/25/21 06:48 Est GFR (MDRD) Af Amer 29 mL/min (>60) L 02/25/21 06:48 Est GFR (MDRD) Non-Af 24 mL/min (>60) L 02/25/21 06:48 BUN/Creatinine Ratio 11.2 RATIO (10-20) 02/25/21 06:48 Glucose 115 mg/dL (74-106) H 02/25/21 06:48 Vancomycin Trough 24.2 ug/mL (5.0-15.0) H 02/24/21 01:30 Random Vancomycin 19.4 ug/mL (0.0-15.0) H 02/25/21 06:48 Microbiology: Microbiology 02/20/21 11:40 Blood Culture (Wb) - Anticubital Right Blood Culture - Preliminary No growth in 48 hours. 02/20/21 11:40 Blood Culture (Wb) - Anticubital Left Blood Culture - Preliminary No growth in 48 hours. 02/21/21 15:30 Urine, Random Legionella Antigen - Final 02/21/21 15:30 Urine, Random Streptococcus pneumoniae Antigen (M - Final 02/20/21 11:50 Nasal Secretion SARS-CoV-2 Antigen (Rapid) - Final Goal Trough: 15-20 mcg/mL Pharmacy Plan for Drug Dosing: VANCOMYCIN LEVEL RECEIVED Current Vancomycin Dose: ON HOLD, LAST DOSE 1000MG 02/23 @ 1301 Number of Doses Received: 6 Vancomycin Level: 19.4 MG/DL - RANDOM Hours Since Last Dose: 41.5 Renal Function: SCR 2.77 MG/DL, CRCL 15.4 ML/MIN Renal Function Trend: WORSENED, SCR 1.88 MG/DL (02/24) Vancomycin Plan/Comments: RANDOM LEVEL IS THERAPEUTIC BUT SCR HAS INCREASED FROM 1.88 MG/DL TO 2.77 MG/DL. HESITANT TO GIVE A DOSE SINCE SCR HAS INCREASED SO MUCH AND RANDOM LEVEL IS ON THE UPPER END OF THERAPEUTIC RANGE. PATIENT WILL LIKELY STAY THERAPEUTIC TODAY SO WILL GET A RANDOM LEVEL TOMORROW MORNING TO RE- ASSES. Pending Level: 02/26/21 @ 0600 - RANDOM Pharmacy Service will continue to monitor and adjust dosing as required.
[2021-02-25] MEDS: Enoxaparin 40 MG/0.4 ML Syringe SC (12:02)
--- NOTE | 2021-02-25 14:25 | PN.CC_ITS ---
Assessment & Plan Assessment/Plan (1) Abscess of lung: QUALIFIERS: Pulmonary abscess pneumonia presence: with pneumonia Laterality: right Lung location: lower lobe of lung Qualified Code(s): J85.1 - Abscess of lung with pneumonia (2) Dementia: PLAN: RECOMMENDATIONS: 1. Continue empiric antibiotics per infectious disease 2. Possibly arrange for CT-guided biopsy if not improving in 3 to 4 weeks 3. Could consider TPN versus PEG with tube feeds 4. No indication for baricitinib, Remdesivir or Decadron from a COVID perspective 5. Possible need for nephrology consult IMPRESSIONS: 1. Possible pulmonary abscess following COVID-19 infection Patient with cavitating lesion noted in the periphery of the right lung. Patient is also reporting a significant reduction in weight, but review of the medical record shows only a 20 pound weight loss compared to previous. Patient is not reporting any constitutional symptoms such as a productive cough or fever. Patient was recently admitted for COVID-19 and left lower lobe findings appear to be stable. However, patient has developed a cavitating lesion in the right lower lobe that was not present on 02/05/2021. The rapidity would be suggestive of an infectious etiology. Cultures are negative. Continue with antibiotics per ID for now. Cannot exclude the need for a CT-guided biopsy in 3 to 4 weeks if not responsive to therapy as squamous cell carcinoma can act similarly. Patient is in an ECF, but otherwise has no risk factors for tuberculosis. Patient could possibly be discharged once antibiotic plan is made with plans to follow-up with pulmonary following CT scan. Plan needs to be made for nutrition 2. Hypernatremia/hyperchloremia/hypokalemia Resolved. Patient will be discontinued on D5W given normalization. Mentation appears to be improving with improvement in hypernatremia. Patient does have a significant elevation of bicarbonate. Potassium will be supplemented as indicated. Rapidity of development is suggestive of an infectious etiology more than malignant. 3. Advanced age/severe malnutrition/possible dementia/debility/hypotension Complicates care, management, recovery and prognosis. We will need to monitor closely for refeeding syndrome. Clinical suspicion for hypovolemic hypotension secondary to dehydration with decreased p.o. intake versus repeated aspiration associated with swallow evaluation 4. Acute kidney injury Patient was hypotensive yesterday. Clinical suspicion for ATN as an etiology. Hypotension was responsive to fluids and has not recurred. No indication for renal replacement therapy at this time. Hospitalist to discuss with family. Subjective Subjective Patient did okay overnight. No significant hypotension has been reported. Patient feels subjectively slightly improved compared to yesterday. No nausea or vomiting reported. Objective Data Objective Data Vital Signs: Vital Signs Temp Pulse Resp BP Pulse Ox 36.4 C L 121 H 18 109/77 96 02/25/21 08:15 02/25/21 10:00 02/25/21 08:55 02/25/21 08:15 02/25/21 09:00 Oxygen Flow Rate (L/min) 2 Oxygen Delivery Method Room Air Weight: 50.3 kg Body Mass Index (BMI) 15.0 Intake & Output: Intake and Output for Last 24 Hours 02/23/21 02/24/21 02/25/21 23:59 23:59 23:59 Intake Total 3065.83 / 3065.83 1298.5 / 1298.5 364 / 364 Balance 3065.83 / 3065.83 1298.5 / 1298.5 364 / 364 Medical Nutrition Assessment Dietitian: Malnutrition Criteria Met Start: 02/21/21 12:40 Freq: Status: Active Protocol: Document 02/24/21 15:11 RMA (Rec: 02/24/21 15:11 RMA [id number]) Nutrition Malnutrition Evidence of Malnutrition Exists Yes Malnutrition (severe): Acute Illness/Injury Evidenced By Suboptimal Energy Intake ( Severe),Weight Loss (Severe), Physical Changes (Severe) Clinical Problem Acute Disease or Injury Related Malnutrition Etiology Severe protein-calorie malnutrition in the context of acute illness related to dysphagia and inadequate oral intake Signs/Symptoms as evidenced by NPO, BMI 15.0, <50% po intake x >5 days, 6. 7% wt loss x 2 wks and obvious fat/muscle wasting in upper body (orbital/temporal regions , clavicle area, arms) Status Active Problem Recommendation Dietitian Recommendations/Changes PO diet as indicated to liberal Regular---consistency as per FINANCIAL SERVICES ASSOCIATE - w/ ensure pudding or magic cup w/ meals if safe for PO. Monitor for refeeding syndrome d/t signs and symptoms of malnutrition. If pt is deemed unsafe for PO nutrition and to remain NPO, consult RD for enteral nutrition support order and management as indicated. Lab / Micro Data Result Diagrams: 02/23/21 07:00 02/25/21 06:48 Labs: Laboratory Results - last 24 hr 02/24/21 16:08: Random Vancomycin 22.2 H 02/25/21 06:48: Sodium 146 H, Potassium 3.4 L, Chloride 109 H, Carbon Dioxide 26.0, Anion Gap 11, BUN 31 H, Creatinine 2.77 H, Estim Creat Clear Calc 15.38, Est GFR (MDRD) Af Amer 29 L, Est GFR (MDRD) Non-Af 24 L, BUN/Creatinine Ratio 11.2, Glucose 115 H, Calcium 7.5 L 02/25/21 06:48: Random Vancomycin 19.4 H Micro: Microbiology 02/20/21 11:40 Blood Culture (Wb) - Anticubital Right Blood Culture - Final No growth in 5 days. 02/20/21 11:40 Blood Culture (Wb) - Anticubital Left Blood Culture - Final No growth in 5 days. 02/21/21 15:30 Urine, Random Legionella Antigen - Final 02/21/21 15:30 Urine, Random Streptococcus pneumoniae Antigen (M - Final 02/20/21 11:50 Nasal Secretion SARS-CoV-2 Antigen (Rapid) - Final Physical Exam Const alert and no apparent distress Constitutional Narrative: Patient more drowsy today compared to yesterday General Appearance: cooperative Nutritional Appearance: cachectic HEENT normocephalic HEENT Narrative: Dry mucous membranes. Temporal wasting noted. Mouth: oral and palatal mucosa abnormal Eyes PERRL, EOMs intact bilaterally and conjunctivae normal Neck supple and no JVD Chest Chest Narrative: Visible rib spaces noted Chest: abnormal inspection of the chest barrel chest and increased A-P diameter Resp normal respiratory effort, no retractions and no use of accessory muscles Auscultation: diminished lung sounds; Negative for crackles, rales, rhonchi or wheezes Cardio regular rate, regular rhythm, S1 normal heart sound, S2 normal heart sound and no murmurs GI soft to palpation, non-tender and non-distended; Negative for hepatosplenomegaly Extremity no clubbing, cyanosis or edema Skin no rashes or lesions noted Neuro no focal motor deficits and no sensory deficits noted Psych affect normal Appearance: appropriate Charges/Coding Visit Charges Inpatient E&M: 89221 Subs Hosp L2
--- NOTE | 2021-02-25 15:25 | PCM.PN.HOSP ---
Subjective Subjective Alert but tired but no issues overnight. His potassium is 3.4 today and his creatinine is 2.77. Denies any shortness of breath or chest pain. Objective Data Objective Data Vital Signs: Vital Signs Temp Pulse Resp BP Pulse Ox 97.6 F L 121 H 18 109/77 96 02/25/21 08:15 02/25/21 10:00 02/25/21 08:55 02/25/21 08:15 02/25/21 09:00 Oxygen Flow Rate (L/min) 2 Oxygen Delivery Method Room Air Weight: 110 lb 14.28 oz Body Mass Index (BMI) 15.0 Intake & Output: Intake and Output for Last 24 Hours 02/24/21 02/25/21 02/26/21 03:59 03:59 03:59 Intake Total 2865.83 / 2865.83 1298.5 / 1298.5 314 / 314 Balance 2865.83 / 2865.83 1298.5 / 1298.5 314 / 314 Medical Nutrition Assessment Dietitian: Malnutrition Criteria Met Start: 02/21/21 12:40 Freq: Status: Active Protocol: Document 02/24/21 15:11 RMA (Rec: 02/24/21 15:11 RMA [id number]) Nutrition Malnutrition Evidence of Malnutrition Exists Yes Malnutrition (severe): Acute Illness/Injury Evidenced By Suboptimal Energy Intake ( Severe),Weight Loss (Severe), Physical Changes (Severe) Clinical Problem Acute Disease or Injury Related Malnutrition Etiology Severe protein-calorie malnutrition in the context of acute illness related to dysphagia and inadequate oral intake Signs/Symptoms as evidenced by NPO, BMI 15.0, <50% po intake x >5 days, 6. 7% wt loss x 2 wks and obvious fat/muscle wasting in upper body (orbital/temporal regions , clavicle area, arms) Status Active Problem Recommendation Dietitian Recommendations/Changes PO diet as indicated to liberal Regular---consistency as per CLINICAL OPERATIONS MANAGER - w/ ensure pudding or magic cup w/ meals if safe for PO. Monitor for refeeding syndrome d/t signs and symptoms of malnutrition. If pt is deemed unsafe for PO nutrition and to remain NPO, consult RD for enteral nutrition support order and management as indicated. Lab / Micro Data Result Diagrams: 02/23/21 07:00 02/25/21 06:48 Labs: Laboratory Results - last 24 hr 02/24/21 16:08: Random Vancomycin 22.2 H 02/25/21 06:48: Sodium 146 H, Potassium 3.4 L, Chloride 109 H, Carbon Dioxide 26.0, Anion Gap 11, BUN 31 H, Creatinine 2.77 H, Estim Creat Clear Calc 15.38, Est GFR (MDRD) Af Amer 29 L, Est GFR (MDRD) Non-Af 24 L, BUN/Creatinine Ratio 11.2, Glucose 115 H, Calcium 7.5 L 02/25/21 06:48: Random Vancomycin 19.4 H Micro: Microbiology 02/20/21 11:40 Blood Culture (Wb) - Anticubital Right Blood Culture - Final No growth in 5 days. 02/20/21 11:40 Blood Culture (Wb) - Anticubital Left Blood Culture - Final No growth in 5 days. 02/21/21 15:30 Urine, Random Legionella Antigen - Final 02/21/21 15:30 Urine, Random Streptococcus pneumoniae Antigen (M - Final 02/20/21 11:50 Nasal Secretion SARS-CoV-2 Antigen (Rapid) - Final Physical Exam Narrative Const alert but sleepy and no apparent distress General Appearance: cooperative Cachectic HEENT normocephalic and moist oral mucous membranes Eyes PERRL, EOMs intact bilaterally and conjunctivae normal Neck supple and no JVD Resp normal respiratory effort, no retractions and no use of accessory muscles Auscultation: diminished lung sounds; Negative for crackles, rales, rhonchi or wheezes Cardio regular rate, regular rhythm, S1 normal heart sound, S2 normal heart sound and no murmurs GI soft to palpation, non-tender and non-distended; Negative for hepatosplenomegaly Extremity no clubbing, cyanosis or edema Skin no rashes or lesions noted Neuro no focal motor deficits and no sensory deficits noted Psych affect normal Appearance: appropriate Assessment & Plan Assessment/Plan (1) Abscess of lung: QUALIFIERS: Pulmonary abscess pneumonia presence: with pneumonia Laterality: right Lung location: lower lobe of lung Qualified Code(s): J85.1 - Abscess of lung with pneumonia (2) Pneumonia: QUALIFIERS: Pneumonia type: due to unspecified organism Laterality: right Lung location: lower lobe of lung Qualified Code(s): J18.9 - Pneumonia, unspecified organism (3) Acute respiratory failure with hypoxia: PLAN: 1. Acute hypoxic respiratory failure due to recent Covid as well as possible gram-negative pneumonia with a pulmonary abscess/possible aspiration/VELIA ?Secondary to possible gram-negative pneumonia but also cavitary lesions which could be an abscess but also recent COVID-19 pneumonia may be secondary to aspiration ?Currently doing well on room air ?We will continue with broad-spectrum antibiotics and consult pulmonology. ?CT surgery got back to us and stated this was not a surgical issue and from medical standpoint to have no beds ?Per ID could likely transition to p.o. antibiotics when cleared by speech ?Will obtain swallow study and discussed with the family if he fails what to pursue in terms of artificial nutrition ?Had an episode of hypotension yesterday now has an VELIA, will continue to monitor creatinine, he is also hypernatremic therefore we'll continue with D5W ? Had a 40-minute discussion with the son over the phone about advanced care planning options. He is discussing with the family whether or not they would like a PICC line placed for TPN or if they would like to proceed with hospice assuming kidney function does not improve. He is lost about 10 pounds in a month due to poor nutrition. He remains confused. 2. Hypokalemia ?Continue to replace and monitor 3. Severe protein malnutrition ?Very cachectic ?Continue supplements ?Consult nutrition 4. Recent COVID-19 pneumonia ?Unclear onset but was least 30 January ?Patient is no longer requiring quarantine ?No additional treatment at this time ?Patient tells me that he was unvaccinated but I cannot rely on the accuracy 5. Possible dementia ?Consider geriatric evaluation for more formal assessment outpatient ?Patient does have garbled voice and will have speech therapy evaluate him 6. Debility ?Multifactorial ?PT/OT evaluate and treat DVT: Lovenox Charges/Coding Visit Charges Inpatient E&M: 17242 Subs Hosp L2
[2021-02-26] VITALS (12 sets, daily range): BP systolic 98–121; BP diastolic 63–83; PULSE 65–131; RESP 16–18; TEMP 36.3–36.7; O2SAT 95–98
[2021-02-26] MEDS: 0.9% Saline Lock 10 ML Syringe IV (02:26)
[2021-02-26 05:39] LABS: Absolute Neutrophil Count 7.2 X10^3/uL (2.0-7.7); Basophil# 0.01 X10^3/uL; Basophil% 0.1 % (0-1); Eosinophil# 0.06 X10^3/uL; Eosinophils% 0.7 % (0-5); Hematocrit 36.5 % (40-54); Hemoglobin 12.5 g/dL (13.0-16.5); Lymphocyte % 11.5 % (19-41); Mean Corp Hgb Conc 34.2 g/dL (32-36); Mean Corpuscular Hgb 32.4 pg (27.0-32.0); Mean Corpuscular Volume 94.6 fL (80-94); Mean Platelet Vol. 11.5 fl (6.2-12.0); Monocyte# 0.42 X10^3/uL; Monocyte% 4.8 % (0-10); NRBC Flagged by Analyzer 0 % (0-5); Neutrophil # 7.17 X10^3/uL (2.7-7.7); Neutrophil % 82.6 % (47-70); Platelet Count 202 K/mm3 (150-450); RBC Distribution Width CV 13.2 % (11.6-14.6); RBC Distribution Width SD 45.9 fl (35.1-43.9); Red Blood Count 3.86 M/mm3 (4.6-6.2); White Blood Count 8.7 K/mm3 (4.4-11.0)
[2021-02-26 06:26] LABS: Anion Gap 8 (5-15); BUN 30 mg/dL (7-18); BUN/Creat Ratio 9.6 RATIO (10-20); Calcium,Total 7.8 mg/dL (8.5-10.1); Chloride 105 mmol/L (98-107); Creatinine, Serum 3.11 mg/dL (0.70-1.30); EST Glomerular Filtration Rate 21 mL/min (>60); Est Glom Filt Rate - Afr Amer 25 mL/min (>60); Glucose 118 mg/dL (74-106); Potassium 3.7 mmol/L (3.5-5.1); Sodium Level 144 mmol/L (136-145)
[2021-02-26 06:31] LABS: Vancomycin, Random Level 15.9 ug/mL (0.0-15.0)
--- NOTE | 2021-02-26 09:35 | PCM.PN.INT ---
Assessment & Plan Assessment/Plan (1) Abscess of lung: QUALIFIERS: Pulmonary abscess pneumonia presence: with pneumonia Laterality: right Lung location: lower lobe of lung Qualified Code(s): J85.1 - Abscess of lung with pneumonia (2) Dementia: PLAN: RECOMMENDATIONS: 1. Continue empiric antibiotics per infectious disease 2. Possibly arrange for CT-guided biopsy if not improving in 3 to 4 weeks 3. Could consider TPN versus PEG with tube feeds. Defer to primary service 4. No indication for baricitinib, Remdesivir or Decadron from a COVID perspective 5. Okay to follow-up with pulmonary 4 to 6 weeks after discharge and follow-up CT completed 6. Hemodynamically stable on room air. Will sign off from a pulmonary perspective. Please call with issues. IMPRESSIONS: 1. Possible pulmonary abscess following COVID-19 infection Patient with cavitating lesion noted in the periphery of the right lung. Patient is also reporting a significant reduction in weight, but review of the medical record shows only a 20 pound weight loss compared to previous. Patient is not reporting any constitutional symptoms such as a productive cough or fever. Patient was recently admitted for COVID-19 and left lower lobe findings appear to be stable. However, patient has developed a cavitating lesion in the right lower lobe that was not present on 02/05/2021. The rapidity would be suggestive of an infectious etiology. Cultures are negative. Continue with antibiotics per ID for now. Cannot exclude the need for a CT-guided biopsy in 3 to 4 weeks if not responsive to therapy as squamous cell carcinoma can act similarly. Patient is in an ECF, but otherwise has no risk factors for tuberculosis. Patient could possibly be discharged once antibiotic plan is made with plans to follow-up with pulmonary following CT scan. Plan needs to be made for nutrition. Patient should follow-up in our office following a CT 4 to 6 weeks after discharge for further recommendations. 2. Hypernatremia/hyperchloremia/hypokalemia Resolved. Patient will be discontinued on D5W given normalization. Mentation appears to be improving with improvement in hypernatremia. Patient does have a significant elevation of bicarbonate. Potassium will be supplemented as indicated. Rapidity of development is suggestive of an infectious etiology more than malignant paraneoplastic syndrome. 3. Advanced age/severe malnutrition/possible dementia/debility/hypotension Complicates care, management, recovery and prognosis. We will need to monitor closely for refeeding syndrome. Clinical suspicion for hypovolemic hypotension secondary to dehydration with decreased p.o. intake versus repeated aspiration associated with swallow evaluation 4. Acute kidney injury Patient was hypotensive earlier in the hospitalization. Clinical suspicion for ATN as an etiology. Hypotension was responsive to fluids and has not recurred. No indication for renal replacement therapy at this time. Hospitalist to discuss with family. Could consider nephrology Subjective Subjective Patient did okay overnight. Patient not having much conversational dyspnea at this time. Patient still reports a periodic cough, but believes this is improved. Patient does remain n.p.o. secondary to swallowing concerns Objective Data Objective Data Vital Signs: Vital Signs Temp Pulse Resp BP Pulse Ox 36.6 C 73 16 121/75 H 95 02/26/21 04:43 02/26/21 05:57 02/26/21 04:43 02/26/21 04:43 02/26/21 08:59 Oxygen Flow Rate (L/min) 2 Oxygen Delivery Method Room Air Weight: 50.3 kg Body Mass Index (BMI) 15.0 Intake & Output: Intake and Output for Last 24 Hours 02/24/21 02/25/21 02/26/21 23:59 23:59 23:59 Intake Total 1298.5 / 1298.5 1440.5 / 1440.5 50 / 50 Balance 1298.5 / 1298.5 1440.5 / 1440.5 50 / 50 Medical Nutrition Assessment Dietitian: Malnutrition Criteria Met Start: 02/21/21 12:40 Freq: Status: Active Protocol: Document 02/24/21 15:11 RMA (Rec: 02/24/21 15:11 RMA [id number]) Nutrition Malnutrition Evidence of Malnutrition Exists Yes Malnutrition (severe): Acute Illness/Injury Evidenced By Suboptimal Energy Intake ( Severe),Weight Loss (Severe), Physical Changes (Severe) Clinical Problem Acute Disease or Injury Related Malnutrition Etiology Severe protein-calorie malnutrition in the context of acute illness related to dysphagia and inadequate oral intake Signs/Symptoms as evidenced by NPO, BMI 15.0, <50% po intake x >5 days, 6. 7% wt loss x 2 wks and obvious fat/muscle wasting in upper body (orbital/temporal regions , clavicle area, arms) Status Active Problem Recommendation Dietitian Recommendations/Changes PO diet as indicated to liberal Regular---consistency as per CHAIN FORMING MACHINE OPERATOR - w/ ensure pudding or magic cup w/ meals if safe for PO. Monitor for refeeding syndrome d/t signs and symptoms of malnutrition. If pt is deemed unsafe for PO nutrition and to remain NPO, consult RD for enteral nutrition support order and management as indicated. Lab / Micro Data Result Diagrams: 02/26/21 05:30 02/26/21 05:30 Labs: Laboratory Results - last 24 hr 02/25/21 06:48: Sodium 146 H, Potassium 3.4 L, Chloride 109 H, Carbon Dioxide 26.0, Anion Gap 11, BUN 31 H, Creatinine 2.77 H, Estim Creat Clear Calc 15.38, Est GFR (MDRD) Af Amer 29 L, Est GFR (MDRD) Non-Af 24 L, BUN/Creatinine Ratio 11.2, Glucose 115 H, Calcium 7.5 L 02/26/21 05:30: Random Vancomycin 15.9 H 02/26/21 05:30: WBC 8.7, RBC 3.86 L, Hgb 12.5 L, Hct 36.5 L, MCV 94.6 H, MCH 32.4 H, MCHC 34.2, RDW Std Deviation 45.9 H, RDW Coeff of Zackery 13.2, Plt Count 202, MPV 11.5, Immature Gran % (Auto) 0.300, Neut % (Auto) 82.6 H, Lymph % (Auto) 11.5 L, [place] % (Auto) 4.8, Eos % (Auto) 0.7, Baso % (Auto) 0.1, Absolute Neuts (auto) 7.2, Absolute Lymphs (auto) 1.00, Nucleated RBC % 0 02/26/21 05:30: Sodium 144, Potassium 3.7, Chloride 105, Carbon Dioxide 31.0, Anion Gap 8, BUN 30 H, Creatinine 3.11 H, Estim Creat Clear Calc 13.70, Est GFR (MDRD) Af Amer 25 L, Est GFR (MDRD) Non-Af 21 L, BUN/Creatinine Ratio 9.6 L, Glucose 118 H, Calcium 7.8 L Micro: Microbiology 02/20/21 11:40 Blood Culture (Wb) - Anticubital Right Blood Culture - Final No growth in 5 days. 02/20/21 11:40 Blood Culture (Wb) - Anticubital Left Blood Culture - Final No growth in 5 days. 02/21/21 15:30 Urine, Random Legionella Antigen - Final 02/21/21 15:30 Urine, Random Streptococcus pneumoniae Antigen (M - Final 02/20/21 11:50 Nasal Secretion SARS-CoV-2 Antigen (Rapid) - Final Physical Exam Const alert and no apparent distress Constitutional Narrative: Patient more alert today compared to yesterday General Appearance: cooperative Nutritional Appearance: cachectic HEENT normocephalic HEENT Narrative: Dry mucous membranes. Temporal wasting noted. Mouth: oral and palatal mucosa abnormal Eyes PERRL, EOMs intact bilaterally and conjunctivae normal Neck supple and no JVD Chest Chest Narrative: Visible rib spaces noted Chest: abnormal inspection of the chest barrel chest and increased A-P diameter Resp normal respiratory effort, no retractions and no use of accessory muscles Auscultation: diminished lung sounds; Negative for crackles, rales, rhonchi or wheezes Cardio regular rate, regular rhythm, S1 normal heart sound, S2 normal heart sound and no murmurs GI soft to palpation, non-tender and non-distended; Negative for hepatosplenomegaly Extremity no clubbing, cyanosis or edema Skin no rashes or lesions noted Neuro no focal motor deficits and no sensory deficits noted Psych affect normal Appearance: appropriate Charges/Coding Visit Charges Inpatient E&M: 78038 Subs Hosp L2
[2021-02-26] MEDS: Menthol/Lanolin/Calamine/Znox 113 GM Tube 1 APPLIC TOPICAL ×2 (09:52→22:02)
[2021-02-26] MEDS: Enoxaparin 30 MG/0.3 ML Syringe SC (09:52)
[2021-02-26] MEDS: Piperacil/Tazobactam 3.375 GM/50 ML ML IV ×2 (09:56→22:02)
--- NOTE | 2021-02-26 11:03 | PCM.RX.CS ---
Consult Pharmacy has been consulted to manage selected antiobiotic: Vancomycin Type of Consult: Follow-up Suspected Infection: Pneumonia Prior Doses of Antibiotics Received/Current Regimen: Last dose was 1gm on 02.23.21. Labs: Sodium 144 mmol/L (136-145) 02/26/21 05:30 Potassium 3.7 mmol/L (3.5-5.1) 02/26/21 05:30 Chloride 105 mmol/L (98-107) 02/26/21 05:30 Carbon Dioxide 31.0 mmol/L (21.0-32.0) 02/26/21 05:30 Anion Gap 8 (5-15) 02/26/21 05:30 BUN 30 mg/dL (7-18) H 02/26/21 05:30 Creatinine 3.11 mg/dL (0.70-1.30) H 02/26/21 05:30 Est GFR (MDRD) Af Amer 25 mL/min (>60) L 02/26/21 05:30 Est GFR (MDRD) Non-Af 21 mL/min (>60) L 02/26/21 05:30 BUN/Creatinine Ratio 9.6 RATIO (10-20) L 02/26/21 05:30 Glucose 118 mg/dL (74-106) H 02/26/21 05:30 Vancomycin Trough 24.2 ug/mL (5.0-15.0) H 02/24/21 01:30 Random Vancomycin 15.9 ug/mL (0.0-15.0) H 02/26/21 05:30 Microbiology: Microbiology 02/20/21 11:40 Blood Culture (Wb) - Anticubital Right Blood Culture - Final No growth in 5 days. 02/20/21 11:40 Blood Culture (Wb) - Anticubital Left Blood Culture - Final No growth in 5 days. 02/21/21 15:30 Urine, Random Legionella Antigen - Final 02/21/21 15:30 Urine, Random Streptococcus pneumoniae Antigen (M - Final 02/20/21 11:50 Nasal Secretion SARS-CoV-2 Antigen (Rapid) - Final Weight used for dosin.3 kg Estimated Creatinine Clearance: ~14ml/min Goal Trough: 15-20 mcg/mL Pharmacy Plan for Drug Dosing: Random level this AM was 15.9 (~64 hrs post last dose) and in therapeutic range of 15-20mcg/ml. Renal function worsened with Cr 3.1. Will give a 1x dose of 750mg per protocol and get another random level at 24hrs post dose. Pharmacy Service will continue to monitor and adjust dosing as required. Follow-Up Labs: Trough Vancomycin - random 02.27.21@2343
[2021-02-26] MEDS: Bisacodyl 10 MG Suppository RC (12:37)
--- NOTE | 2021-02-26 13:15 | CON.PCM.SX_ITS ---
Assessment & Plan Assessment/Plan (1) Failure to thrive: PLAN: Patient with malnutrition due to his medical condition Will need placement of PEG to improve nutrition I have discussed the procedure with the patient's son via telephone. The patient's son agrees to the procedure which will be done tomorrow as an add- on caSe. HPI Consult Data Date of Consult: 02/26/21 HPI Narrative HPI Narrative: CASYE MORALES, is a 80 M who presents with failure to thrive. I have been consulted by his hospitalist, Dr. Bernardo, for consideration of placement of PEG tube. The patient is s/p COVID infection with residual medical disorders. He has pulmonary abscess with pneumonia. He has severe malnutrition and debility. He will require PEG tube for improving his nutrition. [facility] Medical History Altered mental status COVID COVID-19 Dementia Dysphagia Encephalopathy Failure to thrive Generalized weakness Muscle weakness Pneumonia Medical History no medical history Home Medications albuterol sulfate 0.63 mg INHALATION Q4H 02/20/21 [History Last Taken Unknown] bisacodyl 10 mg VT DAILY PRN 02/20/21 [History Last Taken Unknown] dexamethasone 6 mg PO DAILY 02/20/21 [History Last Taken 02/20/21] food supplemt, lactose-reduced [Ensure] 4 ml PO TID 02/20/21 [History Last Taken Unknown] sodium phosphates [Fleet Enema] 118 ml VT DAILY PRN 02/20/21 [History Last Taken Unknown] amoxicillin-pot clavulanate [Augmentin] 1 tab PO BID #60 tab 02/24/21 [Rx Last Taken Unknown] doxycycline hyclate 100 mg PO BID #60 tab 02/24/21 [Rx Last Taken Unknown] Allergy/AdvReac Type Severity Reaction Status Date / Time No Known Allergies Allergy Verified 02/20/21 11:55 Social History household members: spouse Smoking Status: Former smoker ROS Constitutional Constitutional: Reports weight loss Cardiovascular Cardiovascular: Denies chest pain Respiratory/Chest Respiratory/Chest: Reports as per HPI Gastrointestinal Gastrointestinal: Denies abdominal pain Genitourinary Genitourinary: Denies hematuria Musculoskeletal Musculoskeletal: Reports muscle weakness Integumentary Integumentary: Denies jaundice Neurologic Neurologic: Reports weakness Physical Exam Const alert HEENT normocephalic Resp normal respiratory effort GI soft to palpation Extremity General Extremity: Negative for edema Skin no jaundice Medical Records Data Medical Nutrition Assessment Dietitian: Malnutrition Criteria Met Start: 02/21/21 12:40 Freq: Status: Active Protocol: Document 02/24/21 15:11 RMA (Rec: 02/24/21 15:11 RMA [id number]) Nutrition Malnutrition Evidence of Malnutrition Exists Yes Malnutrition (severe): Acute Illness/Injury Evidenced By Suboptimal Energy Intake ( Severe),Weight Loss (Severe), Physical Changes (Severe) Clinical Problem Acute Disease or Injury Related Malnutrition Etiology Severe protein-calorie malnutrition in the context of acute illness related to dysphagia and inadequate oral intake Signs/Symptoms as evidenced by NPO, BMI 15.0, <50% po intake x >5 days, 6. 7% wt loss x 2 wks and obvious fat/muscle wasting in upper body (orbital/temporal regions , clavicle area, arms) Status Active Problem Recommendation Dietitian Recommendations/Changes PO diet as indicated to liberal Regular---consistency as per STEREOPTIC PROJECTION TOPOGRAPHER - w/ ensure pudding or magic cup w/ meals if safe for PO. Monitor for refeeding syndrome d/t signs and symptoms of malnutrition. If pt is deemed unsafe for PO nutrition and to remain NPO, consult RD for enteral nutrition support order and management as indicated. Lab / Micro Data Result Diagrams: 02/26/21 05:30 02/26/21 05:30 Labs: Laboratory Results - last 24 hr 02/26/21 05:30: Random Vancomycin 15.9 H 02/26/21 05:30: WBC 8.7, RBC 3.86 L, Hgb 12.5 L, Hct 36.5 L, MCV 94.6 H, MCH 32.4 H, MCHC 34.2, RDW Std Deviation 45.9 H, RDW Coeff of Zackery 13.2, Plt Count 202, MPV 11.5, Immature Gran % (Auto) 0.300, Neut % (Auto) 82.6 H, Lymph % (Auto) 11.5 L, [place] % (Auto) 4.8, Eos % (Auto) 0.7, Baso % (Auto) 0.1, Absolute Neuts (auto) 7.2, Absolute Lymphs (auto) 1.00, Nucleated RBC % 0 02/26/21 05:30: Sodium 144, Potassium 3.7, Chloride 105, Carbon Dioxide 31.0, Anion Gap 8, BUN 30 H, Creatinine 3.11 H, Estim Creat Clear Calc 13.70, Est GFR (MDRD) Af Amer 25 L, Est GFR (MDRD) Non-Af 21 L, BUN/Creatinine Ratio 9.6 L, Glucose 118 H, Calcium 7.8 L Micro: Microbiology 02/20/21 11:40 Blood Culture (Wb) - Anticubital Right Blood Culture - Final No growth in 5 days. 02/20/21 11:40 Blood Culture (Wb) - Anticubital Left Blood Culture - Final No growth in 5 days.
--- NOTE | 2021-02-26 15:07 | PCM.PN.HOSP ---
Subjective Subjective Patient was seen and examined today, patient voices no complaints of any shortness of breath, fever, or chills. I talked at length with the patient's son in the presence of his mother (the patient's ) concerning how aggressive they wanted with his care. Son stated that it was the family's feeling that we should be aggressive taking care of the patient including a feeding tube if necessary and dialysis if necessary due to the fact that the patient had very little cognitive impairment going back to January 2021 before he had COVID-19. Since that time patient has become cachectic and weak and, son states that he would like everything done at this point, he declined to make the patient a DNR CC arrest. I talked to Dr. Mayfield by phone today and requested that she talk with the son about insertion of a PEG tube, I talked with the son about the hazards of PEG tube but I think that if the patient cannot safely eat, something needs to be done to address his nutritional status. Objective Data Objective Data Vital Signs: Vital Signs Temp Pulse Resp BP Pulse Ox 97.3 F L 101 H 18 98/69 98 02/26/21 14:08 02/26/21 14:08 02/26/21 14:08 02/26/21 14:08 02/26/21 14:08 Oxygen Flow Rate (L/min) 2 Oxygen Delivery Method Room Air Weight: 50.3 kg Body Mass Index (BMI) 15.0 Intake & Output: Intake and Output for Last 24 Hours 02/24/21 02/25/21 02/26/21 23:59 23:59 23:59 Intake Total 1298.5 / 1298.5 1440.5 / 1440.5 970 / 970 Balance 1298.5 / 1298.5 1440.5 / 1440.5 970 / 970 Medical Nutrition Assessment Dietitian: Malnutrition Criteria Met Start: 02/21/21 12:40 Freq: Status: Active Protocol: Document 02/24/21 15:11 RMA (Rec: 02/24/21 15:11 RMA [id number]) Nutrition Malnutrition Evidence of Malnutrition Exists Yes Malnutrition (severe): Acute Illness/Injury Evidenced By Suboptimal Energy Intake ( Severe),Weight Loss (Severe), Physical Changes (Severe) Clinical Problem Acute Disease or Injury Related Malnutrition Etiology Severe protein-calorie malnutrition in the context of acute illness related to dysphagia and inadequate oral intake Signs/Symptoms as evidenced by NPO, BMI 15.0, <50% po intake x >5 days, 6. 7% wt loss x 2 wks and obvious fat/muscle wasting in upper body (orbital/temporal regions , clavicle area, arms) Status Active Problem Recommendation Dietitian Recommendations/Changes PO diet as indicated to liberal Regular---consistency as per FAMILY HEALTH NURSE PRACTITIONER - w/ ensure pudding or magic cup w/ meals if safe for PO. Monitor for refeeding syndrome d/t signs and symptoms of malnutrition. If pt is deemed unsafe for PO nutrition and to remain NPO, consult RD for enteral nutrition support order and management as indicated. Lab / Micro Data Result Diagrams: 02/27/21 05:45 02/27/21 05:45 Labs: Laboratory Results - last 24 hr 02/26/21 05:30: Random Vancomycin 15.9 H 02/26/21 05:30: WBC 8.7, RBC 3.86 L, Hgb 12.5 L, Hct 36.5 L, MCV 94.6 H, MCH 32.4 H, MCHC 34.2, RDW Std Deviation 45.9 H, RDW Coeff of Zackery 13.2, Plt Count 202, MPV 11.5, Immature Gran % (Auto) 0.300, Neut % (Auto) 82.6 H, Lymph % (Auto) 11.5 L, [place] % (Auto) 4.8, Eos % (Auto) 0.7, Baso % (Auto) 0.1, Absolute Neuts (auto) 7.2, Absolute Lymphs (auto) 1.00, Nucleated RBC % 0 02/26/21 05:30: Sodium 144, Potassium 3.7, Chloride 105, Carbon Dioxide 31.0, Anion Gap 8, BUN 30 H, Creatinine 3.11 H, Estim Creat Clear Calc 13.70, Est GFR (MDRD) Af Amer 25 L, Est GFR (MDRD) Non-Af 21 L, BUN/Creatinine Ratio 9.6 L, Glucose 118 H, Calcium 7.8 L Micro: Microbiology 02/20/21 11:40 Blood Culture (Wb) - Anticubital Right Blood Culture - Final No growth in 5 days. 02/20/21 11:40 Blood Culture (Wb) - Anticubital Left Blood Culture - Final No growth in 5 days. 02/21/21 15:30 Urine, Random Legionella Antigen - Final 02/21/21 15:30 Urine, Random Streptococcus pneumoniae Antigen (M - Final 02/20/21 11:50 Nasal Secretion SARS-CoV-2 Antigen (Rapid) - Final Physical Exam Const alert and no apparent distress Constitutional Narrative: Patient appears cachectic and fatigued, he also appears frail, he exhibits confusion General Appearance: cooperative, well kempt and well developed Orientation / Consciousness: awake, oriented to person, oriented to place and oriented to time HEENT normocephalic, head/scalp atraumatic and moist oral mucous membranes Head and Scalp: normocephalic Eyes PERRL, EOMs intact bilaterally and conjunctivae normal Neck nuchal rigidity, supple, no JVD and thyroid normal General: trachea midline Resp normal respiratory effort, no retractions, no use of accessory muscles and clear to auscultation bilaterally Auscultation: Negative for rales, rhonchi or wheezes Cardio regular rate, regular rhythm, S1 normal heart sound, S2 normal heart sound, no murmurs, no rub and no gallops GI normal to inspection, nondistended, normoactive bowel sounds, soft to palpation, non-tender and non-distended GI Narrative: Patient appears cachectic Extremity no clubbing, cyanosis or edema Skin no rashes or lesions noted, no wounds and skin turgor normal General Skin Exam: no breakdown Neuro CN's II-XII intact bilaterally, no focal motor deficits and no sensory deficits noted Sensorium / Orientation: awake and alert Speech: speech normal Psych Psych Narrative: Patient exhibits confusion Mood & Affect: depressed Assessment & Plan Assessment/Plan (1) Failure to thrive: PLAN: 1. Acute hypoxic respiratory failure secondary to recent COVID-19 pneumonia as well as possible gram-negative pneumonia with pulmonary abscess-patient will remain on his current antibiotic coverage per infectious diseases 2. Severe protein caloric malnutrition as evidenced by patient's n.p.o. status, BMI 15, less than 50% of p.o. intake x5 days, 6.7% weight loss x2 weeks and obvious fat and muscle wasting in upper body-patient will have a PEG tube inserted tomorrow by general surgery #3 oropharyngeal dysphagia-patient is n.p.o. 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 Continue to monitor patient for improvement of mental status #5 generalized debility-patient will need placement in a nursing home facility, PT and OT are currently seeing the patient. #6 right pulmonary abscess-organism unknown, continue present antibiotics per infectious diseases Charges/Coding Visit Charges Inpatient E&M: 75608 Subs Hosp L2
[2021-02-27] VITALS (22 sets, daily range): BP systolic 95–112; BP diastolic 48–70; PULSE 57–86; RESP 12–16; TEMP 36–36.8; O2SAT 88–100; BMI 15.0
[2021-02-27] MEDS: Potassium Chloride 10mEq/100mL 10 MEQ/100 ML IV.SOLN. 100 MEQ IV BOLUS ×3 (00:35→10:10)
[2021-02-27] MEDS: Potassium Chloride 10mEq/100mL 10 MEQ/100 ML IV.SOLN. 60 MEQ IV BOLUS ×2 (02:13→04:30)
[2021-02-27 06:04] LABS: Absolute Lymphocyte Count 0.91 X10^3/uL (0.83-4.51); Absolute Neutrophil Count 6.5 X10^3/uL (2.0-7.7); Basophil# 0.01 X10^3/uL; Basophil% 0.1 % (0-1); Eosinophil# 0.05 X10^3/uL; Eosinophils% 0.6 % (0-5); Hematocrit 37.3 % (40-54); Hemoglobin 12.6 g/dL (13.0-16.5); Lymphocyte # 0.91 X10^3/ul (0.83-4.51); Lymphocyte % 11.6 % (19-41); Mean Corp Hgb Conc 33.8 g/dL (32-36); Mean Corpuscular Hgb 32.1 pg (27.0-32.0); Mean Corpuscular Volume 94.9 fL (80-94); Mean Platelet Vol. 11.7 fl (6.2-12.0); Monocyte# 0.36 X10^3/uL; Monocyte% 4.6 % (0-10); NRBC Flagged by Analyzer 0 % (0-5); Neutrophil # 6.46 X10^3/uL (2.7-7.7); Neutrophil % 82.3 % (47-70); Platelet Count 211 K/mm3 (150-450); RBC Distribution Width CV 13.1 % (11.6-14.6); RBC Distribution Width SD 46.1 fl (35.1-43.9); Red Blood Count 3.93 M/mm3 (4.6-6.2); White Blood Count 7.9 K/mm3 (4.4-11.0)
[2021-02-27 06:25] LABS: International Normalized Ratio 1.5; Partial Thromboplast Time 26.6 Seconds (24.1-36.2); Prothrombin Time (Protime)PT. 17.7 SECONDS (11.7-14.9)
[2021-02-27 06:26] LABS: Anion Gap 8 (5-15); BUN 28 mg/dL (7-18); BUN/Creat Ratio 9.7 RATIO (10-20); Calcium,Total 7.7 mg/dL (8.5-10.1); Chloride 104 mmol/L (98-107); EST Glomerular Filtration Rate 22 mL/min (>60); Est Glom Filt Rate - Afr Amer 27 mL/min (>60); Estimated Creatinine Clearance 14.69 ml/min; Glucose 113 mg/dL (74-106); Sodium Level 141 mmol/L (136-145)
[2021-02-27] MEDS: Piperacil/Tazobactam 3.375 GM/50 ML ML IV ×2 (10:35→23:19)
--- NOTE | 2021-02-27 11:30 | CASEMGMT ---
Social Work SW spoke w/physician, pt to get peg tube today, and it is anticipated he will be able to go to TCU tomorrow. SW let Nori in TCU know. SW called pt's son, Ryan to check in. SW let Ryan know that it is anticipated pt may be able to go to TCU tomorrow. Ryan is hopeful this may happen as pt's daughter will be coming in to town tomorrow. EVERTON did also explained the process with insurance covering TCU, and that it will be time limited, based on how pt progresses. Ryan states understanding. EVERTON will follow up tomorrow. ADRY Castillo
[2021-02-27] MEDS: Bupivacaine 0.25% 30 ML Vial (12:45)
--- NOTE | 2021-02-27 13:25 | OP.PCM_ITS ---
Report of Operation Date of Procedure: 02/27/21 Pre-Operative Diagnosis: inability to place PEG tube, PEG tube pulled out Post-Operative Diagnosis: same Surgery/Procedure Performed:: diagnostic laparoscopy, placement of PEG tube Surgeon: Molly Mayfield clinic mgr: Joey Quesada Type of Anesthesia: General Anesthesiologist: Booker Acosta Specimen's removed: none Drains: 15 Fr round SAMIRA drain in the upper abdomen Estimated Blood Loss (mL): 25 ml Fluids Replaced: 1200 ml RL Description of Procedure: After informed consent was given, the patient was brought to the Operating Room. Appropriate time out protocol was followed. The patient was placed in the supine position. The patient was then placed under general endotracheal anesthesia by the anesthesia provider. The abdomen was then prepped with a sterile surgical skin preparation and sterile surgical drapes were placed. The infraumbilical skin fold was grasped with penetrating clamps and the skin and subcutaneous tissues were infiltrated with local anesthetic with epinephrine. A skin incision was then made with a 15 blade scalpel (there was a previous skin incision at that site). The anterior abdominal wall was elevated and the fascia was open under direct visualization. A 12 mm trocar was then inserted into the intraabdominal cavity. A CO2 pneumoperitoneum was then created. Once this was achieved, then a 10mm laparoscope was then inserted into the trocar and careful attention was directed to the intraabdominal contents. There was no evidence of injury to any intraabdominal organs from insertion of the trocar. Under direct visualization, a 5mm left lateral trocar and a subxiphoid 5mm right subcostal trocar were placed. The skin and subcutaneous tissues at these sites were infiltrated with local anesthestic with epinephrine prior to placement of these trocars. Attention was then directed to anterior surface of the stomach. There was no obvious opening of the stomach noted and no bleeding at this site was noted. There was small amount of blood in the intraabdominal cavity, this was irrigated and lavaged out via the suction device. There was a needle puncture site of the liver. Surgicel was applied to this site and also pressure and after this was done, there was no evidence of bleeding. Dr. Quesada performed the upper endoscopy and insufflated the stomach. Thus, the stomach was maximally insufflated with gas. A point was chosen at the left upper quadrant of the abdominal wall for placement of the gastrostomy tube. It was confirmed by indentation within the stomach as visualized under endoscopy and transillumination through the abdominal wall. An angiocath was then inserted through the abdominal wall and into the stomach, visualized directly via the endoscope. The blue wire was then threaded into the angiocath and thus into the stomach lumen. The grasper loop device was then inserted into the biopsy port of the endoscope and was then used to grasp the blue loop from within the lumen of the stomach. The endoscope was then retracted back, bringing the blue loop out through the patient?s mouth. The blue loop was then attached to the gastrostomy tube according to outside sales account representative?s guidelines. A small skin boyd was made at the blue loop entrance site through the abdominal wall. The blue loop was then pulled through the abdominal wall, thus bringing the gastrostomy tube through the patient?s mouth and then into the stomach and then a portion out through the stomach and abdominal wall. The internal flange was seated flush with the mucosa and this was visualized endoscopically. The gastrostomy tube was exiting out of the abdominal wall at the level ?2.5? with the skin. The external flange was then placed on the gastrostomy tube and its distal aspect was positioned at level ?3?. Triple antibiotic ointment was then placed around the skin opening and sterile dressing was applied around the gastrostomy tube. A 15 Fr round drain was then brought in via the left lateral trocar and placed into the intraabdominal cavity and directed toward the upper abdomen. It was sutured to the skin using nylon suture. The periumbilical fascia was approximated with a [id number] vicryl sutur e. All skin incision were closed with 4-0 monocryl in a subdermal fashion. Cavilol and Steristrips were used to reinforce the skin closure. Sterile dressings were applied to all wounds. Sponge, needle and instrument count was verified and correct at time of skin closure. The patient was extubated and brought to the Recovery Room in stable condition. Complications none noted Admit VTE Documentation VTE Present on Admission: Yes VTE Mechan Device Prophylaxis: SCD's
--- NOTE | 2021-02-27 13:34 | OP.CCLET_ITS ---
02/27/2021 Yosef Ayers [address] [facility] [place] [address] Re : Upper GI endoscopy procedure for Marvin Elsy Dear Dr. Ayers This procedure was performed on Saturday, February 27, 2021. My impressions and recommendations are as follows: Impressions : - An externally removable PEG placement was successfully completed after placement in the OR. - No specimens collected. Recommendations : - Transport patient to OR. - Continue present medications. My findings are described in the full procedure note, which is enclosed. If I can be of further assistance, please feel free to contact me at Doctor phone number(s): , Work: . Sincerely, MD Molly Cordova MD 02/27/2021 1:33:39 PM This report has been signed electronically.
--- NOTE | 2021-02-27 13:34 | OP.EGD_ITS ---
Patient Name: Marvin Chin Procedure Date: 02/27/2021 11:01 AM Date of : 1940 Age: 80 Procedure: Upper GI endoscopy Indications: Malnutrition Providers: Molly Mayfield MD Medicines: See the Anesthesia note for documentation of the administered medications Patient Profile: Refer to note in patient chart for documentation of history and physical. Complications: to OR for placement Procedure: Pre-Anesthesia Assessment: - see anesthesia note After obtaining informed consent, the endoscope was passed under direct vision. Throughout the procedure, the patient's blood pressure, pulse, and oxygen saturations were monitored continuously. The gastroscope was introduced through the mouth, and advanced to the second part of duodenum. The upper GI endoscopy was accomplished without difficulty. The patient tolerated the procedure well. Scope In: 12:53:03 PM Scope Out: 1:01:49 PM Total Procedure Duration Time 0 hours 8 minutes 46 seconds Findings: The patient was placed in the supine position for PEG placement. The stomach was insufflated to appose gastric and abdominal odell. A site was located in the body of the stomach with excellent transillumination for placement. The abdominal wall was marked and prepped in a sterile manner. The area was anesthetized with 3 mL of 0.5% lidocaine. The trocar needle was introduced through the abdominal wall and into the stomach under direct endoscopic view. A snare was introduced through the endoscope and opened in the gastric lumen. The guide wire was passed through the trocar and into the open snare. The snare was closed around the guide wire. The endoscope and snare were removed, pulling the wire out through the mouth. A skin incision was made at the site of needle insertion. The externally removable 20 Fr Bard gastrostomy tube was lubricated. The G-tube was tied to the guide wire and pulled through the mouth and into the stomach. The trocar needle was removed, and the gastrostomy tube was pulled out from the stomach through the skin, minimal pressure was applied, however, the tube pulled through with the flange through the skin. Attempts to replace the gastrostomy tube were ineffective. It was therefore decided to take the patient to the OR for placement under direct visualization and drainage of pneumoperitoneum that may have ensued. In the OR, the patient was found to have minimal bleeding at the site. Gastrotomy tube was placed as above. The external bumper was attached to the gastrostomy tube, and the tube was cut to remove the guide wire. The final position of the gastrostomy tube was confirmed by relook endoscopy, and skin marking noted to be just less than 3 cm at the external bumper. The final tension and compression of the abdominal wall by the PEG tube and external bumper were checked. The feeding tube was capped, and the tube site cleaned and dressed. TO OR for placement, see above Impression: - An externally removable PEG placement was successfully completed after placement in the OR. - No specimens collected. Recommendation: - Transport patient to OR. - Continue present medications. Procedure Code(s): --- Professional --- 32840, Esophagogastroduodenoscopy, flexible, transoral; with directed placement of percutaneous gastrostomy tube Diagnosis Code(s): --- Professional --- E46, Unspecified protein-calorie malnutrition CPT copyright 2017 [employer]. All rights reserved. The codes documented in this report are preliminary and upon him coder review may be revised to meet current compliance requirements. MD Molly Cordova MD 02/27/2021 1:33:39 PM This report has been signed electronically. Number of Addenda: 0 Note Initiated On: 02/27/2021 11:01 AM
[2021-02-27 16:12] LABS: Vancomycin, Random Level 15.9 ug/mL (0.0-15.0)
--- NOTE | 2021-02-27 16:21 | PCM.RX.CS ---
Consult Pharmacy has been consulted to manage selected antiobiotic: Vancomycin Type of Consult: Follow-up Prior Doses of Antibiotics Received/Current Regimen: Medications Discontinued Medications Vancomycin HCl 750 mg/ Sodium (Chloride) 265 mls @ 250 mls/hr IV X1 ONE Stop: 02/26/21 14:03 Last Admin: 02/26/21 16:52 Dose: Infused Documented by: Labs: Sodium 141 mmol/L (136-145) 02/27/21 05:45 Potassium 3.0 mmol/L (3.5-5.1) L 02/27/21 05:45 Chloride 104 mmol/L (98-107) 02/27/21 05:45 Carbon Dioxide 29.0 mmol/L (21.0-32.0) 02/27/21 05:45 Anion Gap 8 (5-15) 02/27/21 05:45 BUN 28 mg/dL (7-18) H 02/27/21 05:45 Creatinine 2.90 mg/dL (0.70-1.30) H 02/27/21 05:45 Est GFR (MDRD) Af Amer 27 mL/min (>60) L 02/27/21 05:45 Est GFR (MDRD) Non-Af 22 mL/min (>60) L 02/27/21 05:45 BUN/Creatinine Ratio 9.7 RATIO (10-20) L 02/27/21 05:45 Glucose 113 mg/dL (74-106) H 02/27/21 05:45 Vancomycin Trough 24.2 ug/mL (5.0-15.0) H 02/24/21 01:30 Random Vancomycin 15.9 ug/mL (0.0-15.0) H 02/27/21 15:08 Microbiology: Microbiology 02/20/21 11:40 Blood Culture (Wb) - Anticubital Right Blood Culture - Final No growth in 5 days. 02/20/21 11:40 Blood Culture (Wb) - Anticubital Left Blood Culture - Final No growth in 5 days. 02/21/21 15:30 Urine, Random Legionella Antigen - Final 02/21/21 15:30 Urine, Random Streptococcus pneumoniae Antigen (M - Final 02/20/21 11:50 Nasal Secretion SARS-CoV-2 Antigen (Rapid) - Final Weight used for dosin kg Estimated Creatinine Clearance: < 20 Goal Trough: 15-20 mcg/mL Pharmacy Plan for Drug Dosin hour level in range. SCr seems to have peaked so recommend one more level check and dose tomorrow after 24 hours and hopefully can put on schedule after that. Pharmacy Service will continue to monitor and adjust dosing as required. Follow-Up Labs: Trough Vancomycin - 02/28 @ 1700 RANDOM
--- NOTE | 2021-02-27 19:09 | PN.HOSP_ITS ---
Subjective Subjective Patient was seen and examined today, he had a PEG tube inserted via laparoscope after the initial attempt was unsuccessful with the PEG tube being pulled out when trying to snug it to the abdominal wall. Patient also has a drain in, I talked with general surgery about his care and they feel that the drain could po ssibly be removed tomorrow, they would request that tube feedings not be started until tomorrow. Patient's renal functions are better today-creatinine was 2.9 and BUN was 28. Objective Data Objective Data Vital Signs: Vital Signs Temp Pulse Resp BP Pulse Ox 97.3 F L 72 16 112/55 L 89 02/27/21 18:43 02/27/21 18:43 02/27/21 18:43 02/27/21 18:43 02/27/21 18:43 Oxygen Flow Rate (L/min) 2 Oxygen Delivery Method Room Air Weight: 50.3 kg Body Mass Index (BMI) 15.0 Intake & Output: Intake and Output for Last 24 Hours 02/25/21 02/26/21 02/27/21 23:59 23:59 23:59 Intake Total 1440.5 / 1440.5 1235 / 1235 2683.5 / 2683.5 Output Total 0 / 0 313 / 313 Balance 1440.5 / 1440.5 1235 / 1235 2370.5 / 2370.5 Medical Nutrition Assessment Dietitian: Malnutrition Criteria Met Start: 02/21/21 12:40 Freq: Status: Active Protocol: Document 02/27/21 16:21 RMA (Rec: 02/27/21 16:21 RMA [id number]) Nutrition Malnutrition Evidence of Malnutrition Exists Yes Malnutrition (severe): Acute Illness/Injury Evidenced By Suboptimal Energy Intake ( Severe),Weight Loss (Severe), Physical Changes (Severe) Clinical Problem Acute Disease or Injury Related Malnutrition Etiology Severe protein-calorie malnutrition in the context of acute illness related to dysphagia and inadequate oral intake Signs/Symptoms as evidenced by extended NPO x 6 days, BMI 15.0, <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 Water flush 150 ml Q 4 hours for additional 900 ml free water. TF at goal rate and free water flushes to provide 1620 Kcal, 69 gm protein and 1721 ml free water per day. 2.) Pt is at risk for refeeding issues---start TF slow and increase gradually as tolerated. 3.) Pt is to remain strict NPO so, TF support meets~1005 estimated nutrition support. Lab / Micro Data Result Diagrams: 02/27/21 05:45 02/27/21 05:45 Labs: Laboratory Results - last 24 hr 02/27/21 05:45: WBC 7.9, RBC 3.93 L, Hgb 12.6 L, Hct 37.3 L, MCV 94.9 H, MCH 32.1 H, MCHC 33.8, RDW Std Deviation 46.1 H, RDW Coeff of Zackery 13.1, Plt Count 211, MPV 11.7, Immature Gran % (Auto) 0.800, Neut % (Auto) 82.3 H, Lymph % (Auto) 11.6 L, Long % (Auto) 4.6, Eos % (Auto) 0.6, Baso % (Auto) 0.1, Absolute Neuts (auto) 6.5, Absolute Lymphs (auto) 0.91, Nucleated RBC % 0 02/27/21 05:45: PT 17.7 H, INR 1.5, APTT 26.6 02/27/21 05:45: Sodium 141, Potassium 3.0 L, Chloride 104, Carbon Dioxide 29.0, Anion Gap 8, BUN 28 H, Creatinine 2.90 H, Estim Creat Clear Calc 14.69, Est GFR (MDRD) Af Amer 27 L, Est GFR (MDRD) Non-Af 22 L, BUN/Creatinine Ratio 9.7 L, Glucose 113 H, Calcium 7.7 L 02/27/21 05:45: Blood Type A POSITIVE, Antibody Screen NEGATIVE 02/27/21 15:08: Random Vancomycin 15.9 H Micro: Microbiology 02/20/21 11:40 Blood Culture (Wb) - Anticubital Right Blood Culture - Final No growth in 5 days. 02/20/21 11:40 Blood Culture (Wb) - Anticubital Left Blood Culture - Final No growth in 5 days. 02/21/21 15:30 Urine, Random Legionella Antigen - Final 02/21/21 15:30 Urine, Random Streptococcus pneumoniae Antigen (M - Final 02/20/21 11:50 Nasal Secretion SARS-CoV-2 Antigen (Rapid) - Final Physical Exam Const alert and no apparent distress Constitutional Narrative: Patient appears cachectic and fatigued, he appears frail General Appearance: cooperative, well kempt and well developed Orientation / Consciousness: awake, oriented to person, oriented to place and oriented to time HEENT normocephalic and head/scalp atraumatic Head and Scalp: normocephalic Mouth: dry mucous membranes Eyes PERRL, EOMs intact bilaterally and conjunctivae normal Neck nuchal rigidity, supple, no JVD and thyroid normal General: trachea midline Resp normal respiratory effort, no retractions, no use of accessory muscles and clear to auscultation bilaterally Auscultation: Negative for rales, rhonchi or wheezes Cardio regular rate, regular rhythm, S1 normal heart sound, S2 normal heart sound, no murmurs, no rub and no gallops GI GI Narrative: PEG tube in place, small drain present Extremity no clubbing, cyanosis or edema Skin no rashes or lesions noted General Skin Exam: no breakdown Neuro CN's II-XII intact bilaterally, no focal motor deficits and no sensory deficits noted Neuro Narrative: Patient responds to simple questions appropriately, he is otherwise confused Sensorium / Orientation: awake and alert Speech: speech normal Psych Psych Narrative: Patient appears confused but does answer simple questions appropriately. Mood & Affect: depressed Assessment & Plan Assessment/Plan (1) Failure to thrive: PLAN: 1. Acute hypoxic respiratory failure secondary to recent COVID-19 pneumonia as well as possible gram-negative pneumonia with pulmonary abscess- patient will remain on his current antibiotic coverage per infectious diseases 2. Severe protein caloric malnutrition as evidenced by patient's n.p.o. status, BMI 15, less than 50% of p.o. intake x5 days, 6.7% weight loss x2 weeks and obvious fat and muscle wasting in upper body-patient had a PEG tube inserted today by general surgery, tube feeds will probably be able to be started tomorrow #3 oropharyngeal dysphagia-patient is n.p.o. 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 Continue to monitor patient for improvement of mental status #5 generalized debility-patient will need placement in a correction facility, PT and OT are currently seeing the patient. #6 right pulmonary abscess-organism unknown, continue present antibiotics per infectious diseases, current IV antibiotics will be changed over to antibiotics down his PEG tube, I talked briefly with infectious diseases about this today, they recommended 100 mg of doxycycline twice a day and 500 mg of Augmentin down the tube 3 times a day-both for a total of 30 days. Charges/Coding Visit Charges Inpatient E&M: 84033 Subs Hosp L2
[2021-02-27] MEDS: Menthol/Lanolin/Calamine/Znox 113 GM Tube 1 APPLIC TOPICAL (23:27)
[2021-02-28] VITALS (10 sets, daily range): BP systolic 101–112; BP diastolic 56–65; PULSE 64–71; RESP 16–18; TEMP 36.3–37.2; O2SAT 94–99
[2021-02-28 09:21] LABS: Anion Gap 8 (5-15); BUN 25 mg/dL (7-18); BUN/Creat Ratio 9.5 RATIO (10-20); Calcium,Total 8.1 mg/dL (8.5-10.1); Chloride 102 mmol/L (98-107); Creatinine, Serum 2.64 mg/dL (0.70-1.30); EST Glomerular Filtration Rate 25 mL/min (>60); Est Glom Filt Rate - Afr Amer 30 mL/min (>60); Estimated Creatinine Clearance 16.14 ml/min; Glucose 121 mg/dL (74-106); Potassium 2.9 mmol/L (3.5-5.1); Sodium Level 139 mmol/L (136-145)
[2021-02-28] MEDS: Piperacil/Tazobactam 3.375 GM/50 ML ML IV (10:48)
[2021-02-28] MEDS: Menthol/Lanolin/Calamine/Znox 113 GM Tube 1 APPLIC TOPICAL (10:49)
[2021-02-28] MEDS: Enoxaparin 30 MG/0.3 ML Syringe SC (10:49)
--- NOTE | 2021-02-28 11:09 | PCM.TXEXTCAR ---
Diet 02/21/21 12:27 NPO [Diet: Nothing Per Oral] Is pt able to select menu?: No Diet Comments: NPO - frequent oral hygiene to maintain oral mucosa moisture/comfort Routine Orders/Code Status Routine Lab Work: BMP (On 03/01/2021, and 03/02/2021) Wound(s) ABDOMEN: Wound Type: Surgical Incision Therapies Weight Bearing: Weight bearing as tolerated Physical Therapy: Eval and Treat Occupational Therapy: Eval and Treat Speech Therapy: Eval and Treat Problem/Diagnosis (1) Failure to thrive: Status: Acute Comment: Poor oral intake over the last 30 days (2) Dementia: Status: Chronic Comment: Patient was high functioning prior to COVID infection in January 2021 (3) Abscess of lung: Status: Acute Comment: Organism unknown, antibiotics will need to be continued for 30 days, Follow-up with infectious diseases in 3 weeks (4) Malnutrition: Status: Acute Comment: PEG tube was inserted 02/27/2021 (5) VELIA (acute kidney injury): Status: Acute (6) Acute respiratory failure with hypoxia: Status: Acute (7) Hypokalemia: Status: Acute Allergies/Procedures Done in Hospital Allergies No Known Allergies Allergy (Verified 02/20/21 11:55) Procedures: Peg tube placement (Via laparoscope) Type of Care/Length of Stay Estimated LOS: Convalescent Care Less Than 30 days Type of Care Needed: Skilled Rehab Potential: Fair Prognosis: Fair Additional Orders/Day of Discharge Additional Orders: Maintain abdominal drain, general surgery will discontinue when they see patient in TCU Follow dietitian recommendations for tube feeding H&P will serve as current which was dated: 02/20/21 Day of Discharge: 02/28/21 Dietary and Speech Recommendations Dietitian Recommendations/Changes: 1.) When able to start enteral nutrition support via PEG tube, recommend TF of Jevity 1.5 Dhaval to start at 15ml/hr with rate increase of 10ml/hr Q 8-12 hours as tolerated to goal rate of 45 ml/hr. Water flush 150 ml Q 4 hours for additional 900 ml free water. TF at goal rate and free water flushes to provide 1620 Kcal, 69 gm protein and 1721 ml free water per day. 2.) Pt is at risk for refeeding issues---start TF slow and increase gradually as tolerated. 3.) Pt is to remain strict NPO so, TF support meets~1005 estimated nutrition support. Discharge Plan Admission Admit Date/Time: 02/20/21 18:08 Primary Reason for Your Visit: Lung abscess right lower lobe, hypoxic respiratory failure Attending Provider: Yosef Bernardo Primary Care Provider: Yosef Ayers Consulting Providers: Brian Chambers ; Neo Cr ; Shanthi Corrales RESPIRATORY DIRECTOR ; Russell Teague ; Molly Mayfield Discharge Orders/Prescriptions Prescriptions: New albuterol sulfate 2.5 mg /3 mL (0.083 %) Solution For Nebulization 2.5 mg inhalation Q2H PRN PRN (Reason: SHORTNESS OF BREATH) Qty: 1 RF: 0 menthol-zinc oxide [Calmoseptine] 0.44-20.6 % Ointment 1 applic topical BID Qty: 0 RF: 0 amoxicillin-pot clavulanate [Augmentin] 250-62.5 mg/5 mL suspension for reconstitution 10 ml feeding tube TID Qty: 100 RF: 0 Vibramycin 50 mg/5 mL syrup 100 mg feeding tube BID Qty: 473 RF: 0 Changed albuterol sulfate 0.63 mg/3 mL Solution For Nebulization 0.63 mg INHALATION Q6H Qty: 0 RF: 0 Discontinued bisacodyl 10 mg Suppository 10 mg CA DAILY PRN (Reason: Constipation) RF: 0 Fleet Enema 19-7 gram/118 mL Enema 118 ml CA DAILY PRN (Reason: Constipation) RF: 0 levofloxacin [Levaquin] 500 mg Tablet 500 mg PO DAILY RF: 0 Ensure Liquid 4 ml PO TID RF: 0 dexamethasone 6 mg Tablet 6 mg PO DAILY RF: 0 Referrals / Follow Up: Neo Cr DO [STAFF PHYSICIAN] - See Referral Note (in 3 weeks) Yosef Ayers DO [Primary Care Provider] - Russell Teague MD [STAFF PHYSICIAN] - See Referral Note (in 3 weeks) Disposition Disposition (needs filled in before D/C Order can be placed): [facility] Facility
--- NOTE | 2021-02-28 11:21 | PN.SURG_ITS ---
Subjective Subjective has minimal abdominal pain Objective Data Objective Data Vital Signs: Vital Signs Temp Pulse Resp BP Pulse Ox 98.5 F 71 18 101/64 94 02/28/21 07:53 02/28/21 07:53 02/28/21 08:04 02/28/21 07:53 02/28/21 09:22 Oxygen Flow Rate (L/min) 2 Oxygen Delivery Method Room Air Weight: 50.3 kg Body Mass Index (BMI) 15.0 Intake & Output: Intake and Output for Last 24 Hours 02/26/21 02/27/21 02/28/21 23:59 23:59 23:59 Intake Total 1235 / 1235 2683.5 / 2683.5 947 / 947 Output Total 0 / 0 373 / 373 30 / 30 Balance 1235 / 1235 2310.5 / 2310.5 917 / 917 Medical Nutrition Assessment Dietitian: Malnutrition Criteria Met Start: 02/21/21 12:40 Freq: Status: Active Protocol: Document 02/27/21 16:21 RMA (Rec: 02/27/21 16:21 RMA [id number]) Nutrition Malnutrition Evidence of Malnutrition Exists Yes Malnutrition (severe): Acute Illness/Injury Evidenced By Suboptimal Energy Intake ( Severe),Weight Loss (Severe), Physical Changes (Severe) Clinical Problem Acute Disease or Injury Related Malnutrition Etiology Severe protein-calorie malnutrition in the context of acute illness related to dysphagia and inadequate oral intake Signs/Symptoms as evidenced by extended NPO x 6 days, BMI 15.0, <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 Water flush 150 ml Q 4 hours for additional 900 ml free water. TF at goal rate and free water flushes to provide 1620 Kcal, 69 gm protein and 1721 ml free water per day. 2.) Pt is at risk for refeeding issues---start TF slow and increase gradually as tolerated. 3.) Pt is to remain strict NPO so, TF support meets~1005 estimated nutrition support. Lab / Micro Data Result Diagrams: 02/27/21 05:45 02/28/21 08:42 Labs: Laboratory Results - last 24 hr 02/27/21 15:08: Random Vancomycin 15.9 H 02/28/21 08:42: Sodium 139, Potassium 2.9 L, Chloride 102, Carbon Dioxide 29.0, Anion Gap 8, BUN 25 H, Creatinine 2.64 H, Estim Creat Clear Calc 16.14, Est GFR (MDRD) Af Amer 30 L, Est GFR (MDRD) Non-Af 25 L, BUN/Creatinine Ratio 9.5 L, Glucose 121 H, Calcium 8.1 L Micro: Microbiology 02/20/21 11:40 Blood Culture (Wb) - Anticubital Right Blood Culture - Final No growth in 5 days. 02/20/21 11:40 Blood Culture (Wb) - Anticubital Left Blood Culture - Final No growth in 5 days. 02/21/21 15:30 Urine, Random Legionella Antigen - Final 02/21/21 15:30 Urine, Random Streptococcus pneumoniae Antigen (M - Final 02/20/21 11:50 Nasal Secretion SARS-CoV-2 Antigen (Rapid) - Final Physical Exam GI GI Narrative: abdomen is soft and benign, appropriate incisional tenderness and at gastrostomy tube side SAMIRA output is serosanguinous - probably ascites due to low albumen Assessment & Plan Assessment/Plan (1) Malnutrition: PLAN: OK from surgical standpoint to discharge to TCU, I will follow up with patient there for consideration of SAMIRA drain removal
--- NOTE | 2021-02-28 11:38 | PCM.DC.SUM ---
Providers Date of Admission: 02/20/21 Date of Discharge: 02/28/21 Primary Care Physician: Dr. Yosef Ayers, Consultations 02/20/21 21:20 Consult: Electric Meter Repairer Apprentice / Pulmonary Medicine Routine Consulting Provider: [facility] Reason for Consult: pulmonary abscesses. EMERGENT Consult: No Notified: Yes Date Notified: 02/20/21 Time Notified: 18:12 Method of Notification: Verbal 02/22/21 07:32 Consult: Infectious Disease Routine Consulting Provider: Russell Teague Reason for Consult: Lung abscess after COVID EMERGENT Consult: No Notified: Yes Date Notified: 02/22/21 Time Notified: 07:46 Method of Notification: Text 02/26/21 12:19 Consult: General Surgery Routine Consulting Provider: Molly Mayfield Reason for Consult: dysphagia EMERGENT Consult: No Notified: Yes Date Notified: 02/26/21 Time Notified: 12:19 Method of Notification: Verbal Reason For Visit: PNEUMONIA AND PULMOARY ABSCESSES Diagnosis Discharge Diagnosis (1) Failure to thrive: Status: Acute (2) Dementia: Status: Chronic Code(s): F03.90 - Unspecified dementia without behavioral disturbance (3) Abscess of lung: Status: Acute Code(s): J85.2 - Abscess of lung without pneumonia Qualifiers: Laterality: right Lung location: lower lobe of lung Pulmonary abscess pneumonia presence: with pneumonia Qualified Code(s): J85.1 - Abscess of lung with pneumonia (4) Malnutrition: Status: Acute Code(s): E46 - Unspecified protein-calorie malnutrition (5) VELIA (acute kidney injury): Status: Acute Code(s): N17.9 - Acute kidney failure, unspecified (6) Acute respiratory failure with hypoxia: Status: Acute Code(s): J96.01 - Acute respiratory failure with hypoxia (7) Hypokalemia: Status: Acute Code(s): E87.6 - Hypokalemia Plan: 1. Acute hypoxic respiratory failure secondary to recent COVID-19 pneumonia as well as possible pneumonia with pulmonary abscess 2. Severe protein caloric malnutrition as evidenced by patient's n.p.o. status, BMI 15, less than 50% of p.o. intake x5 days, 6.7% weight loss x2 weeks and obvious fat and muscle wasting in upper body-patient had a PEG tube inserted today by general surgery, tube feeds will probably be able to be started tomorrow #3 oropharyngeal dysphagia #4 dementia by history #5 generalized debility #6 right pulmonary abscess-organism unknown #7 acute kidney injury secondary to ATN Medications at Discharge Home Medications albuterol sulfate 0.63 mg INHALATION Q6H #0 ml 02/28/21 albuterol sulfate 2.5 mg INHALATION Q2H PRN PRN #1 ml 02/28/21 amoxicillin-pot clavulanate [Augmentin] 10 ml FEEDING TUBE TID 02/28/21 doxycycline calcium [Vibramycin] 100 mg FEEDING TUBE BID 02/28/21 menthol-zinc oxide [Calmoseptine] 1 applic TOPICAL BID 02/28/21 Hospital Course Operations None Procedures Peg tube placement Summary of Care Provided Minutes Spent on Discharge: 33 Hospital Course: This 80-year-old white male was brought in from a local extended care facility to the emergency room at [facility] with complaints of shortness of breath. He had recently had a COVID-19 infection in January 2021. Patient was noted to be 70% on room air at the [facility]. Work-up in the emergency room included a chest x-ray which showed a right upper lobe pneumonia and possible abscess, labs showed a potassium of 2.9, D-dimer was elevated so CTA of the chest was obtained-no evidence of pulmonary embolism was noted but there was evidence for a right lung abscess. Patient was started on Zosyn and vancomycin after cultures were obtained, discussion was carried out with the family about transferring the patient to a tertiary hospital due to the seriousness of the patient's infection, there was not a bed noted to be available however and the patient was admitted to [facility], he received IV antibiotics and he was seen in consultation by pulmonary medicine and infectious diseases. Patient was noted to be malnourished and he was seen by nutritional services. Discussions were carried out with the patient's family about perhaps making the patient a hospice patient, family decided however that they wanted nutritional support for the patient-he had been made n.p.o. by speech therapy due to oropharyngeal dysphagia-and the family consented to having a PEG tube placed. He was seen by general surgery and had a PEG tube placed and PT and OT worked with the patient during his hospital stay. TCU agreed to accept the patient for inpatient rehab services, patient's kidney functions which had deteriorated after admission indicating acute kidney injury, stabilized. On 02/28/2021, patient was seen and examined: On examination he appeared cachectic and frail. Vital signs as documented. Skin warm and dry and without overt rashes. Neck without JVD, neck was supple, trachea midline, thyroid was normal. Lungs clear bilaterally, normal air movement was noted. Heart exam notable for regular rhythm, normal sounds and absence of murmurs, rubs or gallops. Abdomen unremarkable and without evidence of organomegaly, masses, or abdominal aortic enlargement. Bowel sounds are present, abdomen is not distended. Extremities nonedematous, no cyanosis was noted, no clubbing was noted. Neuro: Cranial nerves II through XII are grossly intact, no focal motor deficits were noted, sensation to light touch and pinprick intact, motor exam 5/5 throughout. Psych: Patient is alert, there is some mild confusion noted, patient answers simple questions appropriately however On 02/28/2021, patient was transferred to TCU in stable condition. Medical Records Data Medical Nutrition Assessment Dietitian: Malnutrition Criteria Met Start: 02/21/21 12:40 Freq: Status: Active Protocol: Document 02/27/21 16:21 RMA (Rec: 02/27/21 16:21 RMA [id number]) Nutrition Malnutrition Evidence of Malnutrition Exists Yes Malnutrition (severe): Acute Illness/Injury Evidenced By Suboptimal Energy Intake ( Severe),Weight Loss (Severe), Physical Changes (Severe) Clinical Problem Acute Disease or Injury Related Malnutrition Etiology Severe protein-calorie malnutrition in the context of acute illness related to dysphagia and inadequate oral intake Signs/Symptoms as evidenced by extended NPO x 6 days, BMI 15.0, <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 Water flush 150 ml Q 4 hours for additional 900 ml free water. TF at goal rate and free water flushes to provide 1620 Kcal, 69 gm protein and 1721 ml free water per day. 2.) Pt is at risk for refeeding issues---start TF slow and increase gradually as tolerated. 3.) Pt is to remain strict NPO so, TF support meets~1005 estimated nutrition support. Weight / BMI Weight Weight: 50.3 kg Body Mass Index (BMI) 15.0 ABG / Lab / Microbiology Data Result Diagrams: 02/27/21 05:45 02/28/21 08:42 Laboratory: Laboratory Results - last 24 hr 02/27/21 15:08: Random Vancomycin 15.9 H 02/28/21 08:42: Sodium 139, Potassium 2.9 L, Chloride 102, Carbon Dioxide 29.0, Anion Gap 8, BUN 25 H, Creatinine 2.64 H, Estim Creat Clear Calc 16.14, Est GFR (MDRD) Af Amer 30 L, Est GFR (MDRD) Non-Af 25 L, BUN/Creatinine Ratio 9.5 L, Glucose 121 H, Calcium 8.1 L Microbiology: Microbiology 02/20/21 11:40 Blood Culture (Wb) - Anticubital Right Blood Culture - Final No growth in 5 days. 02/20/21 11:40 Blood Culture (Wb) - Anticubital Left Blood Culture - Final No growth in 5 days. 02/21/21 15:30 Urine, Random Legionella Antigen - Final 02/21/21 15:30 Urine, Random Streptococcus pneumoniae Antigen (M - Final 02/20/21 11:50 Nasal Secretion SARS-CoV-2 Antigen (Rapid) - Final Meaningful Use Info Meaningful Use Diagnoses (Choose all that apply): None applicable Discharge Plan Admission Admit Date/Time: 02/20/21 18:08 Primary Reason for Your Visit: Lung abscess right lower lobe, hypoxic respiratory failure Attending Provider: Yosef Bernardo Primary Care Provider: Yosef Ayers Consulting Providers: Brian Chambers ; Neo Cr ; Shanthi Corrales NP ; Russell Teague ; Molly Mayfield Discharge Orders/Prescriptions Prescriptions: New albuterol sulfate 2.5 mg /3 mL (0.083 %) Solution For Nebulization 2.5 mg inhalation Q2H PRN PRN (Reason: SHORTNESS OF BREATH) Qty: 1 RF: 0 Changed albuterol sulfate 0.63 mg/3 mL Solution For Nebulization 0.63 mg INHALATION Q6H Qty: 0 RF: 0 Discontinued bisacodyl 10 mg Suppository 10 mg RI DAILY PRN (Reason: Constipation) RF: 0 Fleet Enema 19-7 gram/118 mL Enema 118 ml RI DAILY PRN (Reason: Constipation) RF: 0 levofloxacin [Levaquin] 500 mg Tablet 500 mg PO DAILY RF: 0 Ensure Liquid 4 ml PO TID RF: 0 dexamethasone 6 mg Tablet 6 mg PO DAILY RF: 0 No Action amoxicillin-pot clavulanate [Augmentin] 250-62.5 mg/5 mL suspension for reconstitution 10 ml feeding tube TID RF: 0 Vibramycin 50 mg/5 mL syrup 100 mg feeding tube BID RF: 0 menthol-zinc oxide [Calmoseptine] 0.44-20.6 % ointment 1 applic topical BID RF: 0 Referrals / Follow Up: Neo Cr DO [STAFF PHYSICIAN] - See Referral Note (in 3 weeks) Yosef Ayers DO [Primary Care Provider] - Russell Teague MD [STAFF PHYSICIAN] - See Referral Note (in 3 weeks) Disposition Disposition (needs filled in before D/C Order can be placed): [facility] Facility Charges/Coding Visit Charges Inpatient E&M: 04020 Disch Hosp
--- NOTE | 2021-02-28 11:58 | CASEMGMT ---
Addendum entered by Germaine Curry 02/28/21 14:10: Social Work EVERTON called sawthi Davis to let him know as per RN, pt will go over to TCU about 3pm, and SW also called TCU, they can come see pt at 4:30. Son thanked SW for the help. No further needs. Pt to TCU today, skilled care, convalescent stay. ADRY Castillo Original Note: Social Work As per physician, pt can go to TCU today. EVERTON called Nori in TCU to let her know, faxed over discharge instructions. EVERTON spoke w/pt's RN, the plan is to use the peg tube and then send him over after that. EVERTON called swathi Davis to let him know we do anticipate pt going to TCU today after the peg tube is used. Son asked if we can call him to let him know when he goes over, SW explained that yes, we can do this. Otherwise, no further needs, pt to TCU this afternoon. ADRY Castillo
[2021-02-28] MEDS: Jevity 1.5 1,000 ML 20 ML GT (12:55)
--- NOTE | 2021-02-28 13:30 | NURSING ---
Tube feed initiated at 1300 hrs. Placement verified by auscultation and bile presence in tube.
[2021-02-28] MEDS: Potassium Chloride Oral Soln 20 MEQ/15 ML UDC 40 MEQ GT (13:48)
== END 2021-02-28 15:02 | DRG 177 ==
LOC: ED 12:46 → MS3 18:35
PROVIDERS: Anesthesiology; Family Medicine; Hospitalist; Internal Medicine Infectious Disease; Surgery; Emergency Provider Emergency Medicine; PCP Family Medicine; Visit Provider Internal Medicine
PROC: 0DJ08ZZ Inspection of Upper Intestinal Tract, Via Natural or Artificial Opening Endoscopic (ICD-10-PCS; CPT 43235; principal; 2021-02-27 10:55)
PROC: 0DH63UZ Insertion of Feeding Device into Stomach, Percutaneous Approach (ICD-10-PCS; CPT 49320; principal; 2021-02-27 16:00)
DX: J15.6 Pneumonia due to other Gram-negative bacteria (principal); J85.1 Abscess of lung with pneumonia; J96.01 Acute respiratory failure with hypoxia; N17.0 Acute kidney failure with tubular necrosis; E43 Unspecified severe protein-calorie malnutrition; E87.0 Hyperosmolality and hypernatremia; Z68.1 Body mass index [BMI] 19.9 or less, adult; F03.90 Unspecified dementia, unspecified severity, without behavioral disturbance, psychotic disturbance, mood disturbance, and anxiety; E87.6 Hypokalemia; I95.9 Hypotension, unspecified; Z87.891 Personal history of nicotine dependence; R62.7 Adult failure to thrive; Z79.899 Other long term (current) drug therapy; Z86.16 Personal history of COVID-19; R13.12 Dysphagia, oropharyngeal phase
CPT/HCPCS: 36415; 71045; 71275; 74230; 80048; 80053; 80202; 83605; 83735; 84100; 84484; 85025; 85379; 85610; 85730; 86850; 86900; 86901; 87040; 87426; 87449; 87641; 92507; 92526; 92610; 92611; 93005; 94640; 94667; 94668; 94762; 97110; 97162; 97166; 97530; 97535; 97802; 97803; 99251; 99285; J7030; J7040; J7050; Q9967; A4216; G0463; J2405

== ENCOUNTER 2021-02-28 15:15 | Inpatient (IN) | payer MEDICARE, SELFPAY, OTHER ==
[2021-02-28 15:27] VITALS: BP 102/50; PULSE 86; RESP 20; TEMP 36.3; O2SAT 96; BMI 17.6
[2021-02-28 16:28] VITALS: RESP 20
[2021-02-28] MEDS: Doxycycline 100 MG CAPSULE GT (18:37)
[2021-02-28] MEDS: Jevity 1.5 1,000 ML 15 ML GT (18:38)
[2021-02-28 19:45] VITALS: PULSE 85; RESP 22; O2SAT 96
[2021-02-28] MEDS: Albuterol 2.5 MG/3 ML VIAL.NEB. INHALATION (19:45)
--- NOTE | 2021-02-28 19:52 | HP.PCM_ITS ---
HPI - General General Date of Admission: 02/28/21 HPI Narrative 02/20/2021 CASEY MORALES, is a 80 Male who presents to [facility] Emergency Department with shortness of breath. 02/20/2021 EKG normal sinus rhythm, nonspecific ST abnormality, prolonged QT. Positive covid19 02/02/2021, recent hospital stay, discharged on room air. Pulsox 70% on room air, increased dyspnea. Chest X-ray shows pneumonia, K 2.9, covid19 negative. CTA chest negative pulmonary embolism, showed pneumonia, possible lung abscess. Vancomycin, Zosyn given for pneumonia. Consider transfer for CT surgery for lung abscess. 02/20/2021 Admit to Hospital. Oxygen 3 liters for acute respiratory failure with hypoxia. IV antibiotics, blood culture, sputum culture, strep antigen, legionella antigen for gram negative pneumonia/abscess. Replete potassium, check magnesium. Consider geriatric evaluation for dementia. 02/21/2021 Feels fine. No pneumothorax on Chest X-ray. ?unvaccinated. ST for dysarthria. 02/22/2021 Feels well. [facility] has no beds for transfer. 02/22/2021 Dr. Teague recommend biopsy, culture lung abscess. Continue Vancomycin, Zosyn. 02/23/2021 Phosphorous replaced. On room air. Transition to oral antibiotics when cleared by speech. 02/24/2021 Hypotension resolved with 1 liter IV bolus. Acute kidney injury Creatinine 1.88. Failed modified barium swallow, ? aspiration. 02/24/2021 Dr. Teague, recent covid19, lung abscess, blood cultures negative to date. on Vancomycin/Zosyn, recommend discharge on 30 days Augmentin, Doxycycline. 02/25/2021 K 3.4, Creatinine 2.77. D5W for acute kidney injury, hypernatremia. Patient confused, consider PICC/TPN or hospice if kidneys worsen. 02/26/2021 NPO for dysphagia. PT/OT for fdc facility. 02/27/2021 Dr. Mayfield placed PEG tube per family wishes. 02/28/2021 Admit to TCU with debility, here for rehabilitation, strengthening, prior to discharge home with . [facility] Medical History Altered mental status Cancer COVID COVID-19 Dementia Dysphagia Encephalopathy Failure to thrive Generalized weakness Muscle weakness Pneumonia Home Medications albuterol sulfate 0.63 mg INHALATION Q6H #0 ml 02/28/21 [Rx Last Taken Unknown] albuterol sulfate 2.5 mg INHALATION Q2H PRN PRN #1 ml 02/28/21 [Rx Last Taken Unknown] amoxicillin-pot clavulanate [Augmentin] 10 ml FEEDING TUBE TID 02/28/21 [History Last Taken Unknown] doxycycline calcium [Vibramycin] 100 mg FEEDING TUBE BID 02/28/21 [History Last Taken Unknown] menthol-zinc oxide [Calmoseptine] 1 applic TOPICAL BID 02/28/21 [History Last Taken Unknown] Allergy/AdvReac Type Severity Reaction Status Date / Time No Known Allergies Allergy Verified 02/20/21 11:55 Social History (Updated 02/28/21 @ 20:[address] Paulino Cifuentes MD) household members: spouse Smoking Status: Never smoker alcohol intake: never substance use type: does not use ROS Constitutional Constitutional: Denies chills, fever(s) or weight gain ENT HEENT: Denies headache(s), nasal congestion or nasal discharge Cardiovascular Cardiovascular: Denies chest pain or palpitations Respiratory/Chest Respiratory/Chest: Denies cough, excessive phlegm production or shortness of breath with exertion Gastrointestinal Gastrointestinal: Denies abdominal pain, nausea or vomiting Genitourinary Genitourinary: Denies dysuria Musculoskeletal Musculoskeletal: Denies joint pain or joint swelling Integumentary Integumentary: Denies rash or wounds Neurologic Neurologic: Denies focal weakness, numbness or tingling Psychiatric Psychiatric: Denies anxiety, auditory hallucinations, depression, homicidal ideation or suicidal ideation Vital Signs Vital Signs Vital Signs: 02/28/21 15:27 02/28/21 16:28 Temperature 97.3 F L Temperature Source Temporal Pulse Rate 86 Pulse Rhythm Regular Pulse Strength Normal (2+) Respiratory Rate 20 H 20 H Respiratory Effort Normal Non-Labored Respiratory Depth Normal Respiratory Pattern Normal Blood Pressure 102/50 L Blood Pressure Mean 67 Blood Pressure Position Semi-Fowlers Blood Pressure Location Left Arm Pulse Ox 96 Oxygen Delivery Method Room Air Room Air Weight Weight: 55.656 kg Body Mass Index (BMI) 17.6 Physical Exam Const alert and oriented x3 General Appearance: cooperative HEENT normocephalic Eyes PERRL and EOMs intact bilaterally Neck supple, no JVD and no carotid bruits Resp normal respiratory effort, normal air movement and clear to auscultation bilaterally Cardio regular rate and regular rhythm GI normal to inspection, nondistended, normoactive bowel sounds, non-tender and non-distended GI Narrative: PEG tube. Extremity normal capillary refill General Extremity: Negative for edema Skin no rashes or lesions noted General Skin Exam: no breakdown Psych affect normal Appearance: appropriate Assessment & Plan Assessment/Plan (1) Debility: (2) Encephalopathy due to 2019-nCoV: (3) Acute respiratory failure with hypoxia: (4) Pneumonia: (5) Lung abscess: (6) Hypokalemia: (7) Dysarthria: (8) Dysphagia: (9) Acute kidney injury: PLAN: 80 year old male with below past medical history significant for recent unvaccinated covid19, hospitalized for acute respiratory failure secondary to pneumonia, lung abscess, complicated by acute kidney injury, electrolyte abnormalities, dysphagia requiring PEG tube placement, admitted to TCU with debility, here for rehabilitation, strengthening, prior to discharge home with . * Debility - PT/OT. * Dysphagia ST. * Pain - Tylenol 650mg q4h prn pain (1-10). * Bowel - monitor, on tube feed. * Adult immunization - Administer prevnar 13, pneumovax 23, fluzone, covid19 vaccine as appropriate. * DVT prophylaxis - Lovenox 30mg sc daily. * Shortness of breath - Albuterol 2.5mg q6h, 2.5mg q2h prn. * Pneumonia/lung abscess - Augmentin 500mg tid, Doxycycline 100mg bid thru 03/20/2021. * Nutrition - Jevity 1.5 15ml/hour, advance as tolerated. * Acute kidney injury - monitor BMP.
[2021-02-28] MEDS: Amox/Clav 250mg/5ml Suspension 500 MG GT (20:02)
[2021-02-28] MEDS: Menthol/Lanolin/Calamine/Znox 113 GM Tube 1 APPLIC TOPICAL (20:04)
[2021-02-28] MEDS: 0.9% Saline Lock 10 ML Syringe IV (20:18)
[2021-03-01 05:00] VITALS: PULSE 95; O2SAT 93
[2021-03-01] MEDS: Doxycycline 100 MG CAPSULE GT ×2 (05:22→17:19)
[2021-03-01] MEDS: Amox/Clav 250mg/5ml Suspension 500 MG GT ×2 (05:22→17:19)
[2021-03-01] MEDS: Enoxaparin 30 MG/0.3 ML Syringe SC (05:23)
--- NOTE | 2021-03-01 05:34 | NURSING ---
5cc residual this AM, patient denies any nausea, does say he is sore at tube site. Tube feeding rate increased to 25cc/hr per order. Offered mouth swab, he refused at this time.
[2021-03-01 05:55] LABS: Absolute Lymphocyte Count 0.93 X10^3/uL (0.83-4.51); Absolute Neutrophil Count 7.1 X10^3/uL (2.0-7.7); Basophil# 0.02 X10^3/uL; Basophil% 0.2 % (0-1); Eosinophil# 0.04 X10^3/uL; Eosinophils% 0.5 % (0-5); Hematocrit 33.4 % (40-54); Hemoglobin 11.6 g/dL (13.0-16.5); Lymphocyte # 0.93 X10^3/ul (0.83-4.51); Lymphocyte % 10.9 % (19-41); Mean Corp Hgb Conc 34.7 g/dL (32-36); Mean Corpuscular Hgb 32.3 pg (27.0-32.0); Mean Platelet Vol. 11.7 fl (6.2-12.0); Monocyte% 4.7 % (0-10); NRBC Flagged by Analyzer 0 % (0-5); Neutrophil # 7.13 X10^3/uL (2.7-7.7); Neutrophil % 83.2 % (47-70); Platelet Count 247 K/mm3 (150-450); RBC Distribution Width CV 13.2 % (11.6-14.6); Red Blood Count 3.59 M/mm3 (4.6-6.2); White Blood Count 8.6 K/mm3 (4.4-11.0)
[2021-03-01 06:32] LABS: Anion Gap 8 (5-15); BUN 27 mg/dL (7-18); BUN/Creat Ratio 10.6 RATIO (10-20); Calcium,Total 7.9 mg/dL (8.5-10.1); Chloride 101 mmol/L (98-107); Creatinine, Serum 2.55 mg/dL (0.70-1.30); EST Glomerular Filtration Rate 26 mL/min (>60); Est Glom Filt Rate - Afr Amer 31 mL/min (>60); Estimated Creatinine Clearance 18.49 ml/min; Glucose 108 mg/dL (74-106); Potassium 3.2 mmol/L (3.5-5.1); Sodium Level 139 mmol/L (136-145)
[2021-03-01 07:55] VITALS: PULSE 96; RESP 24; O2SAT 92
[2021-03-01] MEDS: Albuterol 2.5 MG/3 ML VIAL.NEB. INHALATION ×2 (07:55→18:55)
--- NOTE | 2021-03-01 10:20 | CASEMGMT ---
Addendum entered by Gela Beyer 03/01/21 16:25: Requesting Palliative consult. Order entered and referral emailed to [facility]. Addendum entered by Gela Beyer 03/01/21 16:23: Received updated information from [facility] billing that pt insurance is listed incorrectly. After investigation, pt has Medicare Part B only as primary insurance, then [employer] as secondary insurance. Since Medicare B does not cover SNF stay, [employer] will cover 80% of stay after $2500 deductible is met, which started over 2021. Contacted son to inquire and explain insurance. Son spoke directly to O and confirmed the above is correct and pt can pay the out of pockets not covered by insurance. NRD still is 03/06. Son appreciative. Original Note: Social Work Son present in room with pt when SW entered to complete initial assessment. Pt asleep and not arousable. Son stated he could answer questions and give hx. Son explained pt was independent prior, very active, and caring for prior to COVNM. Son states he knows pt's chart has dx of Dementia, but that is not true. He explained only about 3 months prior did he have gradual, mild forgetfulness and had seen PCP in August with no indications of Dementia and had been researching tax law. These cognitive issues are all new for pt. Pt's was in a SNF but now home with family member and children have hired an aide 3x/wk and coordinated friends and neighbors to stay with her during the time being. Son explained the children are taking turns being in town visiting pt. Son, Ryan, is flying back to [place], [place] this date, then his sister Jenny is coming into town from [place] next, then his brother, Edmundo, will be taking the next shift flying in from [place]. Son states he is financial POA and sister Jenny is HCPOA and has asked to default all decisions to children and they will update her. Explained [facility] insurance with NRD 03/06 and continued stay is not guaranteed with each review. Son expressed understanding and is realistic to pt not recovering to be able to return home with . Children have all been discussing moving pt and to either [place] or [place] to an [place] or SNF or looking for SNF in [facility] vs hiring aides in the home if he does not need 24/7 care. Son stated pt can only go home if he is on a diet and can be independent with ADLs. SW explained role is to assist with making referrals to facilities, updating family on insurance and coordinating safe DC plan. Provided list of nonskilled HHC and [facility] SNF. Advised if children want to notify this worker of out of state SNFs to refer to, SW to complete referrals. Son appreciative of information. Offered to correspond in group email with all children to eliminate confusion and all stay in touch with first hand information - son very agreeable. Provided SW contact information. SW to continue to follow. Gela Beyer, [employer]
--- NOTE | 2021-03-01 11:28 | PCM.PN.RX ---
Progress Note - Pharmacy Subjective: TCU Admission Objective: Allergies No Known Allergies Allergy (Verified 02/20/21 11:55) Current Medications Generic Name Dose Route Start Last Admin Trade Name Freq PRN Reason Stop Dose Admin Acetaminophen 650 mg 02/28/21 20:10 Acetaminophen 650 Mg/20 Ml Udc GT Q4H PRN PRN Pain Score 1-10 Albuterol Sulfate 2.5 mg 02/28/21 16:00 03/01/21 07:55 Albuterol 2.5 Mg/3 Ml Vial.Neb. INHALATION 2.5 mg Q6H.RT PÉREZ Administration Albuterol Sulfate 2.5 mg 02/28/21 15:48 Albuterol 2.5 Mg/3 Ml Vial.Neb. INHALATION Q2H PRN PRN SHORTNESS OF BREATH Amoxicillin/Clavulanate Potassium 500 mg 03/01/21 18:00 Amox/Clav 250mg/5ml Suspension GT 03/20/21 22:01 BID [facility] Calamine/Phenol 1 applic 02/28/21 18:00 03/01/21 05:21 Menthol/Lanolin/Calamine/Znox 113 Gm Tube TOPICAL Not Given BID [facility] Protocol Doxycycline Monohydrate 100 mg 02/28/21 18:00 03/01/21 05:22 Doxycycline 100 Mg Capsule GT 03/30/21 06:01 100 mg BID PÉREZ Administration Enoxaparin Sodium 30 mg 03/01/21 06:00 03/01/21 05:23 Enoxaparin 30 Mg/0.3 Ml Syringe SC 30 mg DAILY@0600 PÉREZ Administration Enteral Nutritional Formula 1,000 mls @ 25 mls/hr 03/01/21 05:30 Jevity 1.5 GT .Q40H PÉREZ Potassium Chloride 20 meq 03/02/21 06:00 Potassium Chloride Oral Soln 20 Meq/15 Ml Udc PO DAILY PÉREZ Sodium Chloride 10 - 40 ml 02/28/21 15:31 02/28/21 20:18 0.9% Saline Lock 10 Ml Syringe IV 20 ml UD PRN Administration SALINE FLUSH Tuberculin PPD 0.1 ml 03/08/21 10:00 Tuberculin,Purif.Prot.Deriv. 50 Tu/Ml Vial ID 03/08/21 10:01 X1 ONE Problem List (Last Reviewed 02/28/21 @ 20:[address] Paulino Cifuentes MD) Acute kidney injury (Acute) Dysphagia (Acute) Dysarthria (Acute) Hypokalemia (Acute) Lung abscess (Acute) Pneumonia (Acute) Acute respiratory failure with hypoxia (Acute) Debility (Acute) Encephalopathy due to 2019-nCoV (Acute) Vital Signs Temp Pulse Resp BP Pulse Ox 97.3 F L 96 24 H 102/50 L 92 02/28/21 15:27 03/01/21 07:55 03/01/21 07:55 02/28/21 15:27 03/01/21 07:55 Oxygen Delivery Method Room Air Weight: 55.656 kg Body Mass Index (BMI) 17.6 Sodium 139 mmol/L (136-145) 03/01/21 05:15 Potassium 3.2 mmol/L (3.5-5.1) L 03/01/21 05:15 Chloride 101 mmol/L (98-107) 03/01/21 05:15 Carbon Dioxide 30.0 mmol/L (21.0-32.0) 03/01/21 05:15 Anion Gap 8 (5-15) 03/01/21 05:15 BUN 27 mg/dL (7-18) H 03/01/21 05:15 Creatinine 2.55 mg/dL (0.70-1.30) H 03/01/21 05:15 Est GFR (MDRD) Af Amer 31 mL/min (>60) L 03/01/21 05:15 Est GFR (MDRD) Non-Af 26 mL/min (>60) L 03/01/21 05:15 BUN/Creatinine Ratio 10.6 RATIO (10-20) 03/01/21 05:15 Glucose 108 mg/dL (74-106) H 03/01/21 05:15 Assessment/Plan: 1. Pain: acetaminophen 650mg GT Q4H PRN pain 1-11/27. Please continue to monitor for increased pain and PRN usage. 2. DVT prophylaxis: enoxaparin 30mg SC daily. Please continue to monitor for S/S of bleeding, platelets (last 247,000), hemoglobin (last 11.6g/dL) and renal function. 3. Pneumonia/lung abscess: Augmentin 500mg GT BID (changed from TID due to renal function) thru 03/20/21 and doxycycline 100mg GT BID thru 03/20/21. Please continue to monitor for S/S of infection, renal function and diarrhea. 4. Shortness of breath: albuterol nebulized solution 2.5mg inhalation Q6H.RT and Q2H PRN SOB. Please continue to monitor HR (last 96) and PRN usage. 5. Hypokalemia (based on potassium 3.2mmol/L): potassium chloride solution 20mEq PO daily. Please continue to monitor potassium levels. Psychotropic Medications: None Unnecessary Medications: None Bowel Regimen: None Date of Note:: 03/01/21
[2021-03-01] MEDS: Potassium Chloride Oral Soln 20 MEQ/15 ML UDC 40 MEQ PO (13:07)
[2021-03-01] MEDS: Jevity 1.5 1,000 ML 25 ML GT (13:11)
--- NOTE | 2021-03-01 13:14 | NURSING ---
Addendum entered by Neena Steve 03/01/21 14:29: Entered in Error was not done with note. Original Note: PEG tube Residual checked 30ml noted and readministered to pt. New Jevity hung and tubing Changed. Pt Dressing changed to SAMIRA drain and PEG site. SAMIRA draining had moderate amount of Serous drainage around site sutures still intact and pinned to abd binder. Removed 30ml of serous drainage from SAMIRA drain. Pt up to chair will continue to monitor pt call light within reach.
--- NOTE | 2021-03-01 13:30 | NURSING ---
PEG tube Residual checked 30ml noted and readministered to pt. New Jevity hung and tubing Changed. Pt Dressing changed to SAMIRA drain and PEG site. SAMIRA draining had moderate amount of Sanguineous drainage around site sutures still intact and pinned to abd binder. Removed 30ml of Sanguineous drainage from SAMIRA drain. Pt up to chair will continue to monitor pt call light within reach.
[2021-03-01] MEDS: Tuberculin,Purif.prot.deriv. 50 TU/ML Vial 0.1 ML ID (13:44)
[2021-03-01 15:16] VITALS: BP 112/55; PULSE 85; RESP 18; TEMP 36.3; O2SAT 90
--- NOTE | 2021-03-01 15:16 | NURSING ---
Dressing to SAMIRA drain site saturated. Dressing changed and new binder applied. pt tolerated well.
[2021-03-01 15:55] LABS: Albumin, Serum 1.7 g/dL (3.2-5.0)
--- NOTE | 2021-03-01 17:28 | NURSING ---
55 ml residual noted from peg tube, tube feeding increased to 35ml per hour.
[2021-03-01] MEDS: Jevity 1.5 1,000 ML 35 ML GT (18:37)
[2021-03-01 18:55] VITALS: PULSE 106; RESP 22
[2021-03-01 22:54] VITALS: PULSE 65; RESP 18; O2SAT 90
--- NOTE | 2021-03-02 01:03 | NURSING ---
Patient receiving Jevity 1.5 35ml/hour via PEG tube. Is [id number] well. SAMIRA drain located on left side draining serosanguinous fluid. 10ml emptied at HS. Dressings changed to SAMIRA drain site and PEG tube site. Areas cleansed with NS, patted dry, split gauze applied, then area covered with ABD and secured with tape. Patient tolerated well. Mepilex to Sacrum changed. No open areas noted, pad and protect at this time. Will continue to monitor.
[2021-03-02] MEDS: Doxycycline 100 MG CAPSULE GT ×2 (05:45→17:26)
[2021-03-02] MEDS: Enoxaparin 30 MG/0.3 ML Syringe SC (05:45)
[2021-03-02] MEDS: Potassium Chloride Oral Soln 20 MEQ/15 ML UDC PO (05:45)
[2021-03-02] MEDS: Amox/Clav 250mg/5ml Suspension 500 MG GT ×2 (05:48→17:27)
[2021-03-02 05:53] LABS: Anion Gap 8 (5-15); BUN 31 mg/dL (7-18); Calcium,Total 7.9 mg/dL (8.5-10.1); Chloride 103 mmol/L (98-107); Creatinine, Serum 2.59 mg/dL (0.70-1.30); EST Glomerular Filtration Rate 26 mL/min (>60); Est Glom Filt Rate - Afr Amer 31 mL/min (>60); Estimated Creatinine Clearance 18.21 ml/min; Glucose 141 mg/dL (74-106); Potassium 3.6 mmol/L (3.5-5.1); Sodium Level 141 mmol/L (136-145)
[2021-03-02] MEDS: 0.9% Saline Lock 10 ML Syringe IV ×2 (06:10→17:43)
[2021-03-02] MEDS: Menthol/Lanolin/Calamine/Znox 113 GM Tube 1 APPLIC TOPICAL ×2 (06:10→17:25)
[2021-03-02 06:47] VITALS: PULSE 86; RESP 18; O2SAT 93
[2021-03-02] MEDS: Albuterol 2.5 MG/3 ML VIAL.NEB. INHALATION (06:47)
[2021-03-02 07:44] VITALS: RESP 18; O2SAT 90
--- NOTE | 2021-03-02 14:34 | NURSING ---
receiving Jevity 1.5 @ 40ml/hr, goal is 45ml/hr. tolerating well. SAMIRA drain to LUQ draining sero sang fluid 90ml out thus far this shift. Dressing to peg and SAMIRA changed. SAMIRA with minimal amount sero sang drainage.
[2021-03-02 15:08] VITALS: BP 102/62; PULSE 100; RESP 15; TEMP 37.2; O2SAT 94
[2021-03-02] MEDS: Jevity 1.5 1,000 ML 40 ML GT (15:36)
--- NOTE | 2021-03-03 02:14 | NURSING ---
Addendum entered by Yuliana Garzon 03/03/21 02:15: Increase of Jevity was at 01:20. Original Note: Jevity increased to 45 ml/hr per order. Patient tolerating well.
[2021-03-03] MEDS: Potassium Chloride Oral Soln 20 MEQ/15 ML UDC PO (04:57)
[2021-03-03] MEDS: Enoxaparin 30 MG/0.3 ML Syringe SC (04:57)
[2021-03-03] MEDS: Amox/Clav 250mg/5ml Suspension 500 MG GT ×2 (04:57→16:35)
[2021-03-03] MEDS: Doxycycline 100 MG CAPSULE GT ×2 (04:58→16:33)
[2021-03-03] MEDS: 0.9% Saline Lock 10 ML Syringe IV ×2 (05:10→14:11)
[2021-03-03] MEDS: Menthol/Lanolin/Calamine/Znox 113 GM Tube 1 APPLIC TOPICAL ×2 (05:10→16:32)
[2021-03-03] MEDS: Nystatin Powder 15gm Bottle 1 APPLIC TOPICAL ×2 (05:10→16:33)
[2021-03-03 05:46] VITALS: PULSE 88; RESP 16; O2SAT 95
--- NOTE | 2021-03-03 11:44 | NURSING ---
CALLED DAUGHTER NISREEN TO NOTIFY HER THERAPY IS AT 0900 TOMORROW. SHE WANTS TO BE HERE DURING THERAPY. SHE STATES SHE WILL BE HERE.
[2021-03-03 13:55] VITALS: BP 119/70; PULSE 95; RESP 16; TEMP 36.4; O2SAT 93
[2021-03-03] MEDS: Jevity 1.5 1,000 ML 40 ML GT (14:12)
--- NOTE | 2021-03-03 14:49 | PCM.CONS.P ---
Assessment & Plan Assessment/Plan (1) Debility: (2) Dysphagia: QUALIFIERS: Dysphagia type: unspecified Qualified Code(s): R13.10 - Dysphagia, unspecified (3) Dysarthria: (4) Pneumonia: QUALIFIERS: Laterality: unspecified laterality Lung location: unspecified part of lung Pneumonia type: due to unspecified organism Qualified Code(s): J18.9 - Pneumonia, unspecified organism (5) Acute respiratory failure with hypoxia: (6) Abscess of lung: QUALIFIERS: Laterality: right Lung location: lower lobe of lung Pulmonary abscess pneumonia presence: with pneumonia Qualified Code(s): J85.1 - Abscess of lung with pneumonia (7) Malnutrition: QUALIFIERS: Malnutrition type: protein-calorie malnutrition Protein-calorie malnutrition severity: moderate Qualified Code(s): E44.0 - Moderate protein-calorie malnutrition (8) Encephalopathy due to 2019-nCoV: (9) VELIA (acute kidney injury): (10) Hypokalemia: PLAN: 80-year-old male with COVID-19 in January 2021, subsequent COVID-19 pneumonia and right lower lobe lung cavitation, decline in cognition and developed significant weakness. Seen today for palliative consultation for symptom management of weakness and supportive care. 1. Debility: Again, recent COVID-19 and now lung cavitation. On antibiotics through end february. Following with ID and will follow-up with pulmonary as well. He appears quite weak, was not able to participate in therapy today. Overall, appears to have a poor prognosis. If he does not recover and continues to decline, he would be hospice appropriate with his significant decline in ADLs. It appears his kidneys have not recovered since 02/24, this is being monitored closely. No medication recommendations as no significant uncontrolled symptoms. We will see how he does with therapy 2. Dysphagia/dysarthria: A PEG tube was inserted this admit, he is still NPO. Working with speech therapy. Minimal conversation at this point but able to converse when encouraged to do so. 3. Pneumonia/respiratory failure with hypoxia/malnutrition/lung abscess/encephalopathy/VELIA/electrolyte imbalances: Complicates overall care, management, recovery, and prognosis. He is still confused and somewhat lethargic. See above. Remains a full code. Thank you for the opportunity to participate in this patient's care, please do not hesitate to contact [facility] with any further questions or concerns. Palliative direct line is [phone]. I did call his and his daughter, Jenny. We will touch base at a later date as they both seemed overwhelmed. Greater than 50% of F2F visit dedicated to education and counseling of palliative care services, medications, comorbid conditions and potential assistance with management, and plan of care moving forward. Start time: 1449 End time: 1550 HPI Consult Data Date of Consult: 03/03/21 HPI Narrative HPI Narrative: CASEY MORALES, is a 80 M who presented [facility] 02[facility]20/2021 with complaints of shortness of breath. He tested positive for COVID-19 02/02/2021 and was admitted to the hospital at that time. He recovered and discharged on room air. Then presented back 02/20 with hypoxemia and shortness of breath. Chest x-ray showed pneumonia and hypokalemia. CTA of the chest was negative for PE but did show the pneumonia and possible lung abscess. Patient treated with IV antibiotics and oxygen supplementation. He was to be transferred to [facility] for possible RLL lung abscess, however there were no beds available. ID followed and recommended biopsy and culture of the lung abscess. Patient did develop some complications including hypotension and VELIA, as well as failed MBS and had questionable aspiration. There was question if he had dementia or if it was an acute encephalopathy. Patient received a PEG tube per family wishes by Dr. Mayfield 02/27/2021. He was transferred to TCU for further rehab and strengthening 02/28/2021. He will remain on oral antibiotics through 03/20. It was recommended he follow-up with the motion study technician 4 to 6 weeks after discharge and also have a follow-up CT. Nursing reports patient has been lethargic for several days. Noted to have a gradual, mild forgetfulness the past 3 months. Patient's had been in SNF but was discharged home prior to patient coming in. They hired an aide 3 times a week and had multiple friends and families coming and going to assist with care. Patient's daughter, Jenny is HCPOA. He is up to goal on his Jevity feedings. Patient also has a SAMIRA drain but unclear why. He has Tylenol as needed for pain. Patient is on minimal medications. Family not at bedside during my visit. Patient is lethargic but arousable. It took a lot of encouragement for him to open his eyes and discuss his care. I did explain palliative services. Patient denies any chest pain. No N/V/D. Nursing reports bowels are loose, patient is on tube feeds and antibiotics. No suspicion of C. difficile infection. Admits he does not have an appetite and feels very weak and fatigued. Nodding head yes when asked if he is short of breath. He was not speaking, however asked him to answer questions and he did so in a hoarse, soft, whispering voice. He remains NPO. I called the to update her, however she deferred to her daughter Jenny but said she does not have any contact information for her. Nursing did give me the number [phone] for Jenny. Called Jenny, left voicemail but she ended up calling right back. Explained to her reason for visit and reviewed palliative services. She did have questions about palliative and hospice. I let her know I left our contact information in the patient's room and if she has any further questions or concerns, feel free to call us. [facility] Medical History Altered mental status Cancer COVID COVID-19 Dementia Dysphagia Encephalopathy Failure to thrive Generalized weakness Muscle weakness Pneumonia Home Medications albuterol sulfate 0.63 mg INHALATION Q6H #0 ml 02/28/21 [Rx Last Taken Unknown] albuterol sulfate 2.5 mg INHALATION Q2H PRN PRN #1 ml 02/28/21 [Rx Last Taken Unknown] amoxicillin-pot clavulanate [Augmentin] 10 ml FEEDING TUBE TID 02/28/21 [History Last Taken Unknown] doxycycline calcium [Vibramycin] 100 mg FEEDING TUBE BID 02/28/21 [History Last Taken Unknown] menthol-zinc oxide [Calmoseptine] 1 applic TOPICAL BID 02/28/21 [History Last Taken Unknown] Allergy/AdvReac Type Severity Reaction Status Date / Time No Known Allergies Allergy Verified 02/20/21 11:55 Social History household members: spouse Smoking Status: Never smoker alcohol intake: never substance use type: does not use ROS ROS Narrative Review of systems otherwise negative from a constitutional, HEENT, respiratory, cardiovascular, GI, genitourinary, musculoskeletal, skin, neurologic, psychiatric and hematologic system unless stated above. Physical Exam Const General Appearance: lethargic, ill appearing and frail Nutritional Appearance: cachectic HEENT normocephalic and head/scalp atraumatic Neck supple Resp no use of accessory muscles Resp Narrative: Tachypnea with conversation Effort and Inspection: symmetric chest movement; Negative for able to speak in complete sentences Auscultation: diminished lung sounds Cardio regular rate, regular rhythm, S1 normal heart sound and S2 normal heart sound GI Inspection: GI tube present Auscultation: hyperactive bowel sounds Palpation: soft and tender other (Generalized) Extremity no clubbing, cyanosis or edema Skin no rashes or lesions noted Neuro Neuro Narrative: Following commands when alert enough to do so, no focal deficits noted. Kept eyes shut most of exam. Psych Psych Narrative: Avoided answering questions, however when prompted to do so, he was agreeable to converse. Speech: soft and pressured Mood & Affect: flat affect Memory / Cognition: cognition impaired
[2021-03-03 15:26] VITALS: O2SAT 97
[2021-03-04] MEDS: Doxycycline 100 MG CAPSULE GT ×2 (05:38→17:13)
[2021-03-04] MEDS: Nystatin Powder 15gm Bottle 1 APPLIC TOPICAL ×2 (05:39→17:14)
[2021-03-04] MEDS: Enoxaparin 30 MG/0.3 ML Syringe SC (05:39)
[2021-03-04] MEDS: Menthol/Lanolin/Calamine/Znox 113 GM Tube 1 APPLIC TOPICAL ×2 (05:39→17:13)
[2021-03-04] MEDS: Potassium Chloride Oral Soln 20 MEQ/15 ML UDC PO (05:39)
[2021-03-04] MEDS: Amox/Clav 250mg/5ml Suspension 500 MG GT ×2 (05:41→17:15)
--- NOTE | 2021-03-04 05:47 | NURSING ---
Patient found with brief undone and solid in stool attempting to clean self with Kleenex. Complete bed change and bed bath, including washing hair done at this time by this Nurse and RETINA SUBSPECIALIST. Dressings changed to SAMIRA drain site and PEG tube site. Old dressing to SAMIRA drain site saturated with Serosanguineous fluid. Areas cleansed with Normal Saline, pat dry, split gauze applied to both and secured with tape. 50 mL removed from SAMIRA drain. Patient tolerated well. Mepilex to Sacrum removed d/t being soiled. Applied Rachel heavily.
--- NOTE | 2021-03-04 05:54 | NURSING ---
Verified peg tube with 10ml residual noted. Jevity 1.5 running at 45 mL/hr with 150ml Flush. Patient tolerating well.
[2021-03-04 05:57] VITALS: RESP 16; O2SAT 94
[2021-03-04] MEDS: Jevity 1.5 1,000 ML 45 ML GT (13:50)
--- NOTE | 2021-03-04 13:50 | NURSING ---
Pt found by CHIEF OF INTERNAL MEDICINE in bed with stool everywhere, attends on floor with liquid brown stool. Pt had been up in chair, self transferred to bed, alarm in chair but had not gone off, complete bed change done, pt cleaned up with soap and water. Pulled up in bed and head of bed raised to 35 degrees. Pt noted to have occasional cough, opens eyes when addressed, will obey commands but does not answer questions. Residual checked at this time, 2ml, peg tube cleaned at port, new bag and tubing hung, peg tube site dressing dry and intact but SAMIRA site has moderate amount drainage, site cleaned with alcohol pads and new dressing applied, SAMIRA emptied for 30ml at this time. HOB remains elevated, pt calm at this time, bed alarm on. Will continue to monitor.
[2021-03-04 14:44] VITALS: BP 128/63; PULSE 83; RESP 18; TEMP 35.8; O2SAT 96
--- NOTE | 2021-03-04 23:46 | NURSING ---
2040 Pt refusing Pneumovax at this time, witnessed by this HAZARDOUS WASTE MATERIAL TECHNICIAN and ARA Rao. Asked pharmacy to reschedule Pneumovax for reattempt on 03/05/21 @ 1000.
[2021-03-05] MEDS: Amox/Clav 250mg/5ml Suspension 500 MG GT ×2 (06:05→16:29)
[2021-03-05] MEDS: Menthol/Lanolin/Calamine/Znox 113 GM Tube 1 APPLIC TOPICAL ×2 (06:06→16:31)
[2021-03-05] MEDS: Potassium Chloride Oral Soln 20 MEQ/15 ML UDC PO (06:06)
[2021-03-05] MEDS: Doxycycline 100 MG CAPSULE GT ×2 (06:06→16:29)
[2021-03-05] MEDS: Enoxaparin 30 MG/0.3 ML Syringe SC (06:07)
[2021-03-05] MEDS: Nystatin Powder 15gm Bottle 1 APPLIC TOPICAL ×2 (06:07→16:31)
[2021-03-05 09:19] VITALS: PULSE 77; RESP 18; O2SAT 91
[2021-03-05 14:33] VITALS: BP 99/59; PULSE 89; RESP 18; TEMP 36.8
[2021-03-05] MEDS: Jevity 1.5 1,000 ML 45 ML GT (14:36)
--- NOTE | 2021-03-05 14:54 | NURSING ---
Resident repositioned to RT side, oral care provided, new jug of Jevity hung w/tubing. pt pleasant and cooperative. call light in reach. bed in low position. alarms in place. Emptied drain 20cc serosang fluid.
[2021-03-06] MEDS: Potassium Chloride Oral Soln 20 MEQ/15 ML UDC PO (05:45)
[2021-03-06] MEDS: Doxycycline 100 MG CAPSULE GT ×2 (05:45→17:09)
[2021-03-06] MEDS: Amox/Clav 250mg/5ml Suspension 500 MG GT ×2 (05:45→17:07)
[2021-03-06] MEDS: Enoxaparin 30 MG/0.3 ML Syringe SC (05:46)
[2021-03-06] MEDS: Menthol/Lanolin/Calamine/Znox 113 GM Tube 1 APPLIC TOPICAL ×2 (05:46→17:08)
[2021-03-06] MEDS: Nystatin Powder 15gm Bottle 1 APPLIC TOPICAL ×2 (05:47→17:08)
--- NOTE | 2021-03-06 13:19 | NURSING ---
Dr. Teague saw pt on acute side of hospital but no consult ordered at this time. This nurse spoke with Dr. Teague and stated that he was ok with f/u with pt in office after discharge but consult could be done if need arises.
--- NOTE | 2021-03-06 14:34 | NURSING ---
Resident and son, Ryan, notified of two staff members testing positive for COVID.
[2021-03-06 14:41] VITALS: BP 80/47; PULSE 104; RESP 18; TEMP 37; O2SAT 92
--- NOTE | 2021-03-06 14:42 | NURSING ---
Notified Dr. Cifuentes of patient's current V.S. received order for 1 liter N.S. bolus and to contact the lift mechanic to see if pt needs increased in tube feedings and or water flush. Post Office Clerk notified and stated she will review patient's chart.
[2021-03-06] MEDS: 0.9% Normal Saline 1,000 ML 999 ML IV ×2 (15:23→17:03)
[2021-03-06] MEDS: Jevity 1.5 1,000 ML 45 ML GT (15:23)
--- NOTE | 2021-03-06 15:36 | NURSING ---
Addendum entered by Lashay Yan 03/06/21 16:51: BP rechecked after bolus completed. BP 98/44 Dr. Cifuentes updated and N.O. to give another 1,000cc NS IV bolus Original Note: BP 80/47, Dr. Cifuentes updated and N.O. 1,000cc IV NS bolus. saline lock started to right wrist. SAMIRA drained emptied and 40cc serosanguineous fluid noted, new PEG tube jevity hung at this time with 5cc residual.
[2021-03-06 16:00] VITALS: BP 98/44
[2021-03-06 18:46] VITALS: BP 97/47; PULSE 78
[2021-03-06 19:56] VITALS: PULSE 74; RESP 16; O2SAT 94
[2021-03-06 20:26] VITALS: BP 93/47; PULSE 74
--- NOTE | 2021-03-06 22:00 | RAD_ITS ---
EXAM: XR CHEST, 2 VIEWS CLINICAL INDICATION: covid19, lung abscess, hypotension. TECHNIQUE: Frontal and lateral views of the chest. This report was created using [employer] report generation technology. COMPARISON: Chest x-ray 02/21/2021. FINDINGS: LUNGS AND PLEURAL SPACES: Bilateral lower lobe heterogeneous ill-defined airspace disease is concerning for pneumonia in the appropriate clinical setting. Redemonstration of cavitary lesion involving the peripheral aspect of the right midlung zone. This appears more contracted compared to the prior study. Suggestion of diffuse emphysema. Biapical fibrocalcific changes. Mild pleural parenchymal scarring at the lung bases. No pneumothorax. No effusion. HEART: Unremarkable. Cardiac silhouette not enlarged. MEDIASTINUM: Central airways and mediastinal contour are unremarkable. BONES/JOINTS: Degenerative changes of the left femoral, greater joint and spine. The right acromioclavicular joint is not imaged on this study. SOFT TISSUES: Unremarkable. RAD/Chest PA and Lateral IMPRESSION: 1. Bilateral lower lobe heterogeneous ill-defined airspace disease is concerning for pneumonia in the appropriate clinical setting. 2. Redemonstration of cavitary lesion involving the peripheral aspect of the right midlung zone. This appears more contracted compared to the prior study. Electronically Signed: Dominic Snell MD at 23:09 EST Tel , Service support ,
--- NOTE | 2021-03-06 22:01 | NURSING ---
Patient continues to be hypotensive. Dr. Cifuentes updated. New orders: Normal Saline at 75 mL/hr, chest X-Ray, BMP and CBC.
[2021-03-06 22:15] LABS: Absolute Lymphocyte Count 1.24 X10^3/uL (0.83-4.51); Absolute Neutrophil Count 6.5 X10^3/uL (2.0-7.7); Basophil# 0.01 X10^3/uL; Basophil% 0.1 % (0-1); Eosinophil# 0.05 X10^3/uL; Eosinophils% 0.6 % (0-5); Hematocrit 26.6 % (40-54); Hemoglobin 8.9 g/dL (13.0-16.5); Lymphocyte # 1.24 X10^3/ul (0.83-4.51); Lymphocyte % 15.1 % (19-41); Mean Corp Hgb Conc 33.5 g/dL (32-36); Mean Corpuscular Volume 95.7 fL (80-94); Mean Platelet Vol. 11.1 fl (6.2-12.0); Monocyte# 0.36 X10^3/uL; Monocyte% 4.4 % (0-10); NRBC Flagged by Analyzer 0 % (0-5); Neutrophil % 79.1 % (47-70); Platelet Count 221 K/mm3 (150-450); RBC Distribution Width CV 13.7 % (11.6-14.6); RBC Distribution Width SD 47.8 fl (35.1-43.9); Red Blood Count 2.78 M/mm3 (4.6-6.2); White Blood Count 8.2 K/mm3 (4.4-11.0)
[2021-03-06 22:53] LABS: Anion Gap 4 (5-15); BUN 41 mg/dL (7-18); Chloride 107 mmol/L (98-107); Creatinine, Serum 1.86 mg/dL (0.70-1.30); EST Glomerular Filtration Rate 37 mL/min (>60); Est Glom Filt Rate - Afr Amer 45 mL/min (>60); Estimated Creatinine Clearance 25.43 ml/min; Glucose 101 mg/dL (74-106); Potassium 3.9 mmol/L (3.5-5.1); Sodium Level 142 mmol/L (136-145)
[2021-03-06] MEDS: 0.9% Saline Lock 10 ML Syringe IV (22:56)
[2021-03-06] MEDS: 0.9% Normal Saline 1,000 ML 75 ML IV (22:56)
[2021-03-07] VITALS (8 sets, daily range): BP systolic 87–97; BP diastolic 41–56; PULSE 61–81; RESP 16–22; TEMP 36.5; O2SAT 94–97
[2021-03-07] MEDS: Potassium Chloride Oral Soln 20 MEQ/15 ML UDC PO (06:30)
[2021-03-07] MEDS: Enoxaparin 30 MG/0.3 ML Syringe SC (06:30)
[2021-03-07] MEDS: Doxycycline 100 MG CAPSULE GT ×2 (06:30→16:46)
[2021-03-07] MEDS: Amox/Clav 250mg/5ml Suspension 500 MG GT ×2 (06:32→16:46)
[2021-03-07] MEDS: Menthol/Lanolin/Calamine/Znox 113 GM Tube 1 APPLIC TOPICAL ×2 (06:45→16:46)
--- NOTE | 2021-03-07 06:52 | NURSING ---
70ml residual noted. Medications administered per policy. Jevity 1.5 running at 45 mL/hr with 200ml Flush. Patient tolerating well.
[2021-03-07] MEDS: Nystatin Powder 15gm Bottle 1 APPLIC TOPICAL ×2 (09:01→16:47)
[2021-03-07] MEDS: 0.9% Normal Saline 1,000 ML 75 ML IV (10:35)
--- NOTE | 2021-03-07 12:57 | CASEMGMT ---
Social Work Discussed with Dr. Cifuentes goals for pt, living will documents, change of code status and for this worker to discuss with pt and family. Dtr present in room with pt. Pt awake and appeared in good spirits, alert, talking and smiling. Encouraged pt with progress thus far. Per Dr. Cifuentes's discussed the living will document and inquired to pt about his wishes in regards to life sustaining treatment. Pt explained his interpretation and wishes are if he is in a vegetative state he would not want treatment, but currently is agreeable to continue with treatment, i.e. feeding tube. Dtr concurs. Inquired to pt about code status. Explained full code, which is currently the order or DNR-CCA/CC. Pt wishes to be DNR-CCA, no intubation - I want God to decide my course. Dtr concurs. Notified nursing of code status change. Also updated pt/dtr on insurance NRD 03/13, which indicated the review will be sent to er medical technician - meaning a potential DC date. Inquired about DC plan. Dtr and pt agreeable and realistic if pt still has IVs/peg/SAMIRA drain he cannot DC home nor to a SNF in [facility]. The ultimate goal is for pt to remain in TCU until progressed to diet, no IVs, wounds are healed to DC home or to live in [facility]. Suggested for dtr/pt decide on local SNFs for SW to refer to as an alternative plan. Dtr agrees and will discuss with siblings. Explained further rehab progress and goals will be discussed at tomorrow's care plan meeting. Dtr appreciative of speaking with SW prior to meeting and information. SW to continue to follow. Attempted to complete BIMS/PHQ-9 with pt but pt drowsy and unable to stay awake for assessment. Will attempt later or will complete staff assessment. Gela Beyer, SPOUT TENDER SERVICE PLUMBER
[2021-03-07] MEDS: BACITRACIN 15 GM Tube 1 APPLIC TOPICAL (16:45)
[2021-03-07] MEDS: Jevity 1.5 1,000 ML 45 ML GT (16:46)
--- NOTE | 2021-03-07 18:50 | NURSING ---
This nurse went into pt's room and pt had pulled IV out of Right arm Tip Intact.
--- NOTE | 2021-03-07 20:18 | NURSING ---
20 gauge IV started in left AC, flushed with 10cc Normal Saline, secured with Tegaderm and tape. Patient tolerated well.
[2021-03-08] VITALS (7 sets, daily range): BP systolic 92–121; BP diastolic 46–62; PULSE 62–80; RESP 16–20; TEMP 36.7; O2SAT 94–98
--- NOTE | 2021-03-08 03:11 | NURSING ---
Dressings changed to SAMIRA drain site changed at this time. Dressings saturated with Serosanguineous fluid. Areas cleansed with Normal Saline, pat dry, split gauze applied. Pet tube dressing site dressing changed too, no drainage noted to dressing. Removed 4x4 Mepilex as it was falling off. Replaced with Sacral Mepilex. No open areas noted. Mepilex is for protection of anup prominence.
[2021-03-08 05:37] LABS: Absolute Neutrophil Count 5.7 X10^3/uL (2.0-7.7); Basophil# 0.01 X10^3/uL; Basophil% 0.1 % (0-1); Eosinophils% 1.4 % (0-5); Hematocrit 28.5 % (40-54); Hemoglobin 9.5 g/dL (13.0-16.5); Lymphocyte % 11.3 % (19-41); Mean Corp Hgb Conc 33.3 g/dL (32-36); Mean Corpuscular Hgb 31.9 pg (27.0-32.0); Mean Corpuscular Volume 95.6 fL (80-94); Monocyte# 0.34 X10^3/uL; Monocyte% 4.8 % (0-10); NRBC Flagged by Analyzer 0 % (0-5); Neutrophil # 5.74 X10^3/uL (2.7-7.7); Neutrophil % 81.4 % (47-70); Platelet Count 216 K/mm3 (150-450); RBC Distribution Width CV 13.7 % (11.6-14.6); RBC Distribution Width SD 47.9 fl (35.1-43.9); Red Blood Count 2.98 M/mm3 (4.6-6.2); White Blood Count 7.1 K/mm3 (4.4-11.0)
[2021-03-08 06:06] LABS: Anion Gap 6 (5-15); BUN 34 mg/dL (7-18); BUN/Creat Ratio 21.4 RATIO (10-20); Chloride 105 mmol/L (98-107); Creatinine, Serum 1.59 mg/dL (0.70-1.30); EST Glomerular Filtration Rate 45 mL/min (>60); Est Glom Filt Rate - Afr Amer 54 mL/min (>60); Glucose 132 mg/dL (74-106); Potassium 3.6 mmol/L (3.5-5.1); Sodium Level 141 mmol/L (136-145)
[2021-03-08] MEDS: Potassium Chloride Oral Soln 20 MEQ/15 ML UDC PO (06:55)
[2021-03-08] MEDS: BACITRACIN 15 GM Tube 1 APPLIC TOPICAL ×2 (06:55→17:10)
[2021-03-08] MEDS: Doxycycline 100 MG CAPSULE GT ×2 (06:55→17:09)
[2021-03-08] MEDS: Enoxaparin 30 MG/0.3 ML Syringe SC (06:56)
[2021-03-08] MEDS: Nystatin Powder 15gm Bottle 1 APPLIC TOPICAL ×2 (06:56→17:10)
[2021-03-08] MEDS: Amox/Clav 250mg/5ml Suspension 500 MG GT ×2 (06:57→17:11)
[2021-03-08] MEDS: Menthol/Lanolin/Calamine/Znox 113 GM Tube 1 APPLIC TOPICAL ×2 (07:03→07:21)
--- NOTE | 2021-03-08 07:04 | NURSING ---
10ml residual noted. Medications administered per policy. Jevity 1.5 running at 45 mL/hr with 200ml Flush. Patient tolerating well.
[2021-03-08] MEDS: Jevity 1.5 1,000 ML 50 ML GT (09:30)
--- NOTE | 2021-03-08 09:40 | NURSING ---
Jevity increased from 45mL to 50 mL this morning, patient tolerated AM care overall pretty well with no complaints.
--- NOTE | 2021-03-08 10:31 | CASEMGMT ---
Social Work IDT met with patient, dtr, SABINA in person and two sons via conference call for care plan meeting. Discussed patient's progress in PT/OT/ST, nursing and dietary. Pt making progress but does fluctuate. Pt can easily fatigue which affects level of assisted needed. Explained MMO CM insurance with NRD 03/13 and continued stay is not guaranteed with each review. Reiterated insurance indicated possible DC being issued at next review. IDT and family recommending continued stay with skilled services. The goal is for pt to have all tubes/IVs discontinued and further improvement with regain in strength and upgrade to diet for PO intake. Pt and family would like pt to be able to return directly home with assistance vs transfer to another facility for care. Answered questions about Palliative care and the benefit. Family agreeable to services. Answered family questions and left communication of medical questions for Dr. Cifuentes. Family expressed appreciation for staff care and assistance. SW to continue to follow for DC Planning. Gela Beyer, OXYGEN EQUIPMENT AIDE CANCER PROGRAM DIRECTOR
[2021-03-08] MEDS: Tuberculin,Purif.prot.deriv. 50 TU/ML Vial 0.1 ML ID (10:55)
--- NOTE | 2021-03-08 12:13 | NURSING ---
Surgical Manager Note: CD player and instrumental music place at bedside table. Family states that resident enjoys music. 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 Family states that resident has always been very active prior to illness.
[2021-03-08] MEDS: Ipratropium/Albuterol Sulfate 3 ML AMPUL.NEB INHALATION (20:10)
[2021-03-09] MEDS: BACITRACIN 15 GM Tube 1 APPLIC TOPICAL ×2 (06:39→18:21)
[2021-03-09] MEDS: Jevity 1.5 1,000 ML 50 ML GT (06:39)
[2021-03-09 06:40] VITALS: RESP 14; O2SAT 95
[2021-03-09] MEDS: Menthol/Lanolin/Calamine/Znox 113 GM Tube 1 APPLIC TOPICAL ×2 (06:40→18:20)
[2021-03-09] MEDS: Ipratropium/Albuterol Sulfate 3 ML AMPUL.NEB INHALATION ×3 (06:40→19:10)
[2021-03-09] MEDS: Enoxaparin 30 MG/0.3 ML Syringe SC (06:41)
[2021-03-09] MEDS: Potassium Chloride Oral Soln 20 MEQ/15 ML UDC PO (06:41)
[2021-03-09] MEDS: Nystatin Powder 15gm Bottle 1 APPLIC TOPICAL ×2 (06:41→18:20)
[2021-03-09] MEDS: Amox/Clav 250mg/5ml Suspension 500 MG GT ×2 (06:46→18:20)
--- NOTE | 2021-03-09 09:40 | CASEMGMT ---
Social Work Ongoing email correspondence with all three children. Provided updates from this worker speaking to Dr. Cifuentes last evening to get answers from questions. Reiterated/recapped Dr. Cifuentes's response to the questions: Overall, he said the doctors from the acute side of the hospital did rule out MRSA, strep, etc., did treat him with Zosyn and Vanc, and the antibiotics he is currently on is the correct treatment. As far as improvement overall and with his pneumonia (PNA), he is unsure [the pt] will make a full recovery. It is hard for Dr. Cifuentes because he has seen many deaths from COVID-19, especially in the unvaccinated, that gives little hope to a full recovery. He is unsure [the pt] will get the strength back in his throat to get his feeding tube removed, and he is unsure the PNA will resolve. However, he wants to see [the pt] make a recovery and will continue to treat him medically. He wants him to continue working with therapy to get as much strength back as possible. He would be happy to speak with any of [the children] further, but [social media strategist advised] he will most likely discuss hospice services. Dr. Cifuentes and staff know that is not the route any of [the children or pt] want to take right now, but he wants [the children] to know that option is available. Empathized with children the struggles of this situation. Children also inquired about private pay rate at TCU and other SNFs and if there would be any coverage from [facility]. Replied back explaining $660/day in TCU all inclusive. SNFs range from $185-$270/day room and board, but does not include therapies, meds, dr visits, testing, etc. Also explained there is not another SNF in [facility] that is in network with [facility], thus pt would not get coverage for part B therapies. Offered to refer to SNFs to see if they could get a one time contract with [facility] for pt and/or see if pt has any out of network coverage. Will await outcome. SW to continue to follow. Gela Beyer ,FRANCISCO CROUCHW
[2021-03-09] MEDS: Doxycycline 100 MG CAPSULE GT ×2 (09:50→18:20)
--- NOTE | 2021-03-09 10:04 | NURSING ---
3cc residual noted at this time prior to doxycycline administration.
[2021-03-09 13:45] VITALS: PULSE 90; RESP 14; O2SAT 96
[2021-03-09 13:48] VITALS: BP 92/56; PULSE 104; RESP 20; TEMP 36.8; O2SAT 98
--- NOTE | 2021-03-09 16:07 | NURSING ---
Dr. Mayfield in today and removed SAMIRA Drain
[2021-03-09 19:10] VITALS: PULSE 84; RESP 20
[2021-03-10] MEDS: Jevity 1.5 1,000 ML 50 ML GT (07:07)
[2021-03-10 07:17] VITALS: PULSE 75; RESP 18
[2021-03-10] MEDS: Ipratropium/Albuterol Sulfate 3 ML AMPUL.NEB INHALATION ×2 (07:17→13:45)
[2021-03-10] MEDS: Menthol/Lanolin/Calamine/Znox 113 GM Tube 1 APPLIC TOPICAL ×2 (07:19→17:24)
[2021-03-10] MEDS: Nystatin Powder 15gm Bottle 1 APPLIC TOPICAL ×2 (07:19→17:24)
[2021-03-10] MEDS: Potassium Chloride Oral Soln 20 MEQ/15 ML UDC PO (07:20)
[2021-03-10] MEDS: Enoxaparin 30 MG/0.3 ML Syringe SC (07:20)
[2021-03-10] MEDS: Doxycycline 100 MG CAPSULE GT ×2 (07:21→17:23)
[2021-03-10] MEDS: BACITRACIN 15 GM Tube 1 APPLIC TOPICAL ×2 (07:21→17:25)
[2021-03-10] MEDS: Amox/Clav 250mg/5ml Suspension 500 MG GT ×2 (07:22→17:28)
[2021-03-10] MEDS: 0.9% Normal Saline 1,000 ML 999 ML IV (15:29)
[2021-03-10 16:00] VITALS: BP 91/57; PULSE 83; RESP 16; TEMP 36.8; O2SAT 100
[2021-03-10 22:45] VITALS: PULSE 71; O2SAT 96
[2021-03-11] MEDS: Amox/Clav 250mg/5ml Suspension 500 MG GT ×2 (05:08→18:02)
[2021-03-11] MEDS: BACITRACIN 15 GM Tube 1 APPLIC TOPICAL ×2 (05:09→17:59)
[2021-03-11] MEDS: Potassium Chloride Oral Soln 20 MEQ/15 ML UDC PO (05:10)
[2021-03-11] MEDS: Enoxaparin 30 MG/0.3 ML Syringe SC (05:10)
[2021-03-11] MEDS: Menthol/Lanolin/Calamine/Znox 113 GM Tube 1 APPLIC TOPICAL ×2 (05:10→17:58)
[2021-03-11] MEDS: Doxycycline 100 MG CAPSULE GT ×2 (05:11→17:59)
[2021-03-11] MEDS: Nystatin Powder 15gm Bottle 1 APPLIC TOPICAL ×2 (05:11→17:58)
[2021-03-11] MEDS: Jevity 1.5 1,000 ML 50 ML GT (06:52)
[2021-03-11 07:18] VITALS: PULSE 77; RESP 18
[2021-03-11] MEDS: Ipratropium/Albuterol Sulfate 3 ML AMPUL.NEB INHALATION ×3 (07:18→19:17)
[2021-03-11 13:01] VITALS: PULSE 101; RESP 14
[2021-03-11 13:42] VITALS: BP 92/54; PULSE 105; RESP 16; TEMP 36.6; O2SAT 97
--- NOTE | 2021-03-11 18:06 | NURSING ---
Meds given via peg tube, placement checked via aspiration of gastric contents, 3cc residual noted. Pt tolerated well
[2021-03-11 19:17] VITALS: PULSE 80; RESP 26
--- NOTE | 2021-03-11 19:50 | NURSING ---
Received phone call from daughter, Jenny, requesting an update on progress w/ therapy. Jenny is listed under pt contacts. Summarized functional mobility from SE[facility] and CREW LEADER visits on 03/09-03/11. Minimal detail provided regarding ST visits on 03/10 and 03/11, d/t multiple medical terms not familiar with this nurse. Encouraged Jenny to contact therapy at the beginning of the week for additional updates to help further determine plan of care upon dc. She verbalizes understanding and expresses appreciation for assistance.
[2021-03-12] MEDS: Jevity 1.5 1,000 ML 55 ML GT ×2 (01:05→17:09)
[2021-03-12 04:32] VITALS: PULSE 98; RESP 26
[2021-03-12] MEDS: Ipratropium/Albuterol Sulfate 3 ML AMPUL.NEB INHALATION ×2 (04:32→18:50)
[2021-03-12] MEDS: Menthol/Lanolin/Calamine/Znox 113 GM Tube 1 APPLIC TOPICAL ×2 (04:50→17:09)
[2021-03-12] MEDS: BACITRACIN 15 GM Tube 1 APPLIC TOPICAL ×2 (04:51→17:10)
[2021-03-12] MEDS: Amox/Clav 250mg/5ml Suspension 500 MG GT ×2 (04:54→17:17)
[2021-03-12] MEDS: Enoxaparin 30 MG/0.3 ML Syringe SC (04:55)
[2021-03-12] MEDS: Doxycycline 100 MG CAPSULE GT ×2 (04:55→17:09)
[2021-03-12] MEDS: Potassium Chloride Oral Soln 20 MEQ/15 ML UDC PO (04:55)
[2021-03-12] MEDS: Acetaminophen 650 MG/20 ML UDC GT (05:25)
[2021-03-12 16:00] VITALS: BP 82/54; PULSE 73; RESP 16; TEMP 36.3; O2SAT 97
[2021-03-12] MEDS: Nystatin Powder 15gm Bottle 1 APPLIC TOPICAL (17:10)
[2021-03-12] MEDS: 0.9% Saline Lock 10 ML Syringe IV (17:11)
--- NOTE | 2021-03-12 17:18 | NURSING ---
Medication given via peg tube, placement checked via aspiration of martinez colored gastric contents. 15cc residual noted.
[2021-03-12 18:50] VITALS: PULSE 83; RESP 24
[2021-03-12 20:36] VITALS: PULSE 71; RESP 20; O2SAT 95
[2021-03-13 03:00] VITALS: PULSE 98; RESP 20
[2021-03-13] MEDS: Ipratropium/Albuterol Sulfate 3 ML AMPUL.NEB INHALATION (03:00)
[2021-03-13 04:58] VITALS: BP 86/51; PULSE 80
[2021-03-13] MEDS: Doxycycline 100 MG CAPSULE GT ×2 (05:00→17:23)
[2021-03-13] MEDS: Potassium Chloride Oral Soln 20 MEQ/15 ML UDC PO (05:00)
[2021-03-13] MEDS: Amox/Clav 250mg/5ml Suspension 500 MG GT ×2 (05:02→17:23)
[2021-03-13] MEDS: BACITRACIN 15 GM Tube 1 APPLIC TOPICAL ×2 (05:02→17:30)
[2021-03-13] MEDS: 0.9% Saline Lock 10 ML Syringe IV (05:05)
[2021-03-13] MEDS: Nystatin Powder 15gm Bottle 1 APPLIC TOPICAL ×2 (05:17→17:23)
[2021-03-13] MEDS: Menthol/Lanolin/Calamine/Znox 113 GM Tube 1 APPLIC TOPICAL ×2 (05:17→17:24)
[2021-03-13 05:36] VITALS: PULSE 80; RESP 20; O2SAT 95
[2021-03-13] MEDS: Acetaminophen 650 MG/20 ML UDC GT (06:48)
--- NOTE | 2021-03-13 07:24 | NURSING ---
Repositioned patient several times throughout shift. Within seconds patient observed turning or repositioning himself. Patient more restless than Normal. PRN Tylenol given.
--- NOTE | 2021-03-13 07:36 | MDS.RN ---
Information for the mds was obtained from review of the medical record, interview of resident, staff, and direct observation of resident's care.
--- NOTE | 2021-03-13 07:51 | NURSING ---
Call placed to Dr. Cifuentes regarding Lovenox injections. Patient with very little SQ tissue and hard bumps are appearing at injection sites. New order to discontinue Lovenox.
--- NOTE | 2021-03-13 08:15 | CASEMGMT ---
Social Work Received correspondence from the children that they do not have a final decision made if insurance were to issue a discharge date. They may be paying privately to remain in TCU or they may want pt transferred to [facility]. Their first choice is pt remain in TCU for continued continuity of care and best chance of progress, per the children. SW referred to [facility]. Will continue to follow. Gela Beyer, FRANCISCO CROUCHW
--- NOTE | 2021-03-13 13:53 | CASEMGMT ---
Social Work Updated children on insurance approving additional days, NRD 03/15, to finalize DC plans. Spoke with son Ryan, via phone to answer clarifying questions on skilled vs nonskilled, insurance coverage, part B therapies and insurance coverage, Marc Justin accepting, paying for 2 weeks privately at [facility] and insurance coverage with hospice. Explained family must provide SW with DC plan prior to insurance update 03/15. Even if plan is not given and insurance still do not see progress in therapy, they will issue DC date and only provide one day notice. Son expressed understanding and continued appreciation for care and this worker's assistance. SW to continue to follow. Gela Beyer, FRANCISCO CROUCHW
[2021-03-13 14:55] VITALS: BP 105/54; PULSE 82; RESP 17; TEMP 36.6; O2SAT 99
[2021-03-14] MEDS: Potassium Chloride Oral Soln 20 MEQ/15 ML UDC PO (05:41)
[2021-03-14] MEDS: Doxycycline 100 MG CAPSULE GT ×2 (05:41→18:15)
[2021-03-14] MEDS: BACITRACIN 15 GM Tube 1 APPLIC TOPICAL (05:42)
[2021-03-14] MEDS: Menthol/Lanolin/Calamine/Znox 113 GM Tube 1 APPLIC TOPICAL ×2 (05:42→18:14)
[2021-03-14] MEDS: Amox/Clav 250mg/5ml Suspension 500 MG GT ×2 (05:42→18:16)
[2021-03-14] MEDS: Nystatin Powder 15gm Bottle 1 APPLIC TOPICAL ×2 (05:43→18:15)
[2021-03-14] MEDS: Jevity 1.5 1,000 ML 55 ML GT (10:11)
[2021-03-14 13:31] VITALS: BP 85/59; PULSE 105; RESP 16; TEMP 36.7; O2SAT 97
[2021-03-15 05:25] LABS: Absolute Lymphocyte Count 1.24 X10^3/uL (0.83-4.51); Absolute Neutrophil Count 6.1 X10^3/uL (2.0-7.7); Basophil# 0.04 X10^3/uL; Basophil% 0.5 % (0-1); Eosinophil# 0.07 X10^3/uL; Eosinophils% 0.9 % (0-5); Hematocrit 26.7 % (40-54); Lymphocyte # 1.24 X10^3/ul (0.83-4.51); Mean Corp Hgb Conc 33.7 g/dL (32-36); Mean Corpuscular Hgb 31.9 pg (27.0-32.0); Mean Corpuscular Volume 94.7 fL (80-94); Mean Platelet Vol. 10.7 fl (6.2-12.0); Monocyte# 0.27 X10^3/uL; Monocyte% 3.5 % (0-10); NRBC Flagged by Analyzer 0 % (0-5); Neutrophil # 6.08 X10^3/uL (2.7-7.7); Neutrophil % 78.3 % (47-70); Platelet Count 230 K/mm3 (150-450); RBC Distribution Width CV 13.9 % (11.6-14.6); RBC Distribution Width SD 47.8 fl (35.1-43.9); Red Blood Count 2.82 M/mm3 (4.6-6.2); White Blood Count 7.8 K/mm3 (4.4-11.0)
[2021-03-15 07:29] LABS: Anion Gap 5 (5-15); BUN 42 mg/dL (7-18); BUN/Creat Ratio 30.9 RATIO (10-20); Calcium,Total 8.3 mg/dL (8.5-10.1); Chloride 101 mmol/L (98-107); Creatinine, Serum 1.36 mg/dL (0.70-1.30); EST Glomerular Filtration Rate 54 mL/min (>60); Est Glom Filt Rate - Afr Amer 65 mL/min (>60); Estimated Creatinine Clearance 30.52 ml/min; Glucose 123 mg/dL (74-106); Potassium 4.4 mmol/L (3.5-5.1); Sodium Level 138 mmol/L (136-145)
[2021-03-15] MEDS: Amox/Clav 250mg/5ml Suspension 500 MG GT ×2 (07:47→18:17)
[2021-03-15] MEDS: Potassium Chloride Oral Soln 20 MEQ/15 ML UDC PO (07:47)
[2021-03-15] MEDS: Doxycycline 100 MG CAPSULE GT ×2 (07:48→18:18)
[2021-03-15] MEDS: Jevity 1.5 1,000 ML 55 ML GT (07:54)
[2021-03-15] MEDS: BACITRACIN 15 GM Tube 1 APPLIC TOPICAL ×2 (07:54→18:17)
[2021-03-15] MEDS: Menthol/Lanolin/Calamine/Znox 113 GM Tube 1 APPLIC TOPICAL ×2 (07:58→18:17)
[2021-03-15] MEDS: Nystatin Powder 15gm Bottle 1 APPLIC TOPICAL ×2 (07:58→18:18)
--- NOTE | 2021-03-15 08:27 | CASEMGMT ---
Social Work Received email correspondence from children stating they would like to pay privately for 2 weeks in TCU if insurance issues LCD from update today. They feel TCU is the best chance for pts recovery and then will consider LTP/Hospice after 2 weeks depending on pts progress. Gela Beyer, SCOURING MACHINE TENDER SAWMILL MANAGER
--- NOTE | 2021-03-15 10:17 | NURSING ---
Pt had large loose bowel movement this morning. Duoderm on coccyx completely saturated and needed to be removed. coccyx raw and jennifer was applied but it was difficult to get jennifer to stick to wet surfaces. 4x4 gauze applied as a pad and protect to coccyx d/t duoderm and mepilex's needing to be changed frequently.
[2021-03-15 14:09] VITALS: BP 93/62; PULSE 98; RESP 12; TEMP 36.6; O2SAT 99
--- NOTE | 2021-03-15 16:11 | NURSING ---
Rebeca crossbar frame wirer called and updated this nurse that jevity tube feed rate will be increased to 60cc/hr and pt will start on ruth
[2021-03-16] MEDS: Jevity 1.5 1,000 ML 60 ML GT (03:43)
[2021-03-16 06:43] LABS: Phosphorus 3.6 mg/dL (2.5-4.9)
[2021-03-16] MEDS: Potassium Chloride Oral Soln 20 MEQ/15 ML UDC PO (07:33)
[2021-03-16] MEDS: Amox/Clav 250mg/5ml Suspension 500 MG GT ×2 (07:34→17:54)
[2021-03-16] MEDS: Nystatin Powder 15gm Bottle 1 APPLIC TOPICAL ×2 (07:36→17:57)
[2021-03-16] MEDS: Doxycycline 100 MG CAPSULE GT ×2 (07:36→17:57)
[2021-03-16] MEDS: BACITRACIN 15 GM Tube 1 APPLIC TOPICAL ×2 (07:36→17:56)
[2021-03-16] MEDS: Menthol/Lanolin/Calamine/Znox 113 GM Tube 1 APPLIC TOPICAL ×2 (07:36→17:57)
--- NOTE | 2021-03-16 08:05 | RAD_ITS ---
STUDY: X-RAY - ABDOMEN/PELVIS REASON FOR EXAM: Male, 80 years old. Abd pain/PEG TECHNIQUE: Single AP view of the abdomen / pelvis. COMPARISON: None. FINDINGS: A PEG tube is seen in the left upper quadrant most likely within the stomach. There is an unremarkable bowel gas pattern. The visualized liver, spleen and kidneys are grossly normal in size and morphology. Normal soft tissue structures. Normal visualized osseous structures. RAD/Abdomen Single View (Portable) IMPRESSION: A PEG tube is seen in the left upper quadrant most likely within the stomach. Electronically Signed: Ayden Gregory MD at 9:39 EST ,
--- NOTE | 2021-03-16 10:38 | EX.PCM.CON.S ---
Assessment & Plan Assessment/Plan (1) PEG (percutaneous endoscopic gastrostomy) adjustment/replacement/removal: PLAN: We will plan to remove current PEG tube as it is no longer in place and place an additional G-tube at bedside with the balloon. We will check placement with x-ray/Gastrografin. This was also discussed with patient's . Mikaela Benson M.D. Pager: [phone] [facility] [address] [place] [address], Outpatient [place], [address] [place] [address] Office: [phone] HPI Consult Data Date of Consult: 03/17/21 HPI Narrative HPI Narrative: CASEY MORALES, is a 80 M who admitted to the TCU with previous PEG placed 02/27/[address] Mayfield. Patient was found to have the PEG that 0.5 at the skin this morning was previously placed originally at 2.5 at the skin. Tube feeds were stopped/held. Consult was placed. Patient complains of pain at PEG tube site. [facility] Medical History Altered mental status Cancer COVID COVID-19 Dementia Dysphagia Encephalopathy Failure to thrive Generalized weakness Muscle weakness Pneumonia Home Medications albuterol sulfate 0.63 mg INHALATION Q6H #0 ml 02/28/21 [Rx Last Taken Unknown] albuterol sulfate 2.5 mg INHALATION Q2H PRN PRN #1 ml 02/28/21 [Rx Last Taken Unknown] amoxicillin-pot clavulanate [Augmentin] 10 ml FEEDING TUBE TID 02/28/21 [History Last Taken Unknown] doxycycline calcium [Vibramycin] 100 mg FEEDING TUBE BID 02/28/21 [History Last Taken Unknown] menthol-zinc oxide [Calmoseptine] 1 applic TOPICAL BID 02/28/21 [History Last Taken Unknown] Allergy/AdvReac Type Severity Reaction Status Date / Time No Known Allergies Allergy Verified 02/20/21 11:55 Social History household members: spouse Smoking Status: Never smoker alcohol intake: never substance use type: does not use ROS Constitutional Constitutional: Denies fever(s) ENT HEENT: Denies dizziness Cardiovascular Cardiovascular: Denies chest pain Respiratory/Chest Respiratory/Chest: Denies shortness of breath at rest Gastrointestinal Gastrointestinal: Reports abdominal pain; Denies constipation, diarrhea, heartburn, hematemesis or melena Genitourinary Genitourinary: Denies burning urination Musculoskeletal Musculoskeletal: Denies joint pain Integumentary Integumentary: Denies rash Neurologic Neurologic: Denies focal weakness Endocrine Endocrinology: Denies palpitations Hematologic/Lymphatic Hematologic/Lymphatic: Denies easy bleeding or easy bruising Physical Exam Const no apparent distress General Appearance: cooperative Nutritional Appearance: underweight Resp normal respiratory effort Cardio Rate: regular rate GI GI Narrative: PEG tube at 0.5 at the skin does not advance any further into the stomach. Tender to palpation. No signs of obvious infection. Otherwise abdomen soft, nondistended nontender, previous incisions healing well with Steri-Strips Psych Mood & Affect: flat affect Medical Records Data Medical Nutrition Assessment Dietitian: Malnutrition Criteria Met Start: 03/01/21 07:48 Freq: Status: Active Protocol: Document 03/15/21 16:41 BILL (Rec: 03/15/21 16:41 SLA [id number]) Nutrition Malnutrition Evidence of Malnutrition Exists Yes Malnutrition (severe): Acute Illness/Injury Evidenced By Suboptimal Energy Intake ( Severe),Physical Changes ( Severe) Clinical Problem Acute Disease or Injury Related Malnutrition Etiology related to recent covid, dysphagia and dementia making it difficult to safely consume adequate nutrition to meet est nutritional needs Signs/Symptoms as evidenced by 6 days NPO until PEG placed and fat/ muscle loss (orbital/temporal regions, clavicle area, arms) and BMI 15.5 Status Active Problem Recommendation Dietitian Recommendations/Changes Will increase Jevity 1.5 to goal rate 60 ml/hr with 200 ml H2O flush every 4 hours to provide ~ 2160 jimbo/ 92 gm pro/ 2294 ml free water/day. This will provide ~ 44 jimbo/kg and 1.87 gm pro/kg. Rec Alex bid 1 packet with 8 oz water via Gtube for skin healing once completes doxycycline regimen Check mag and phos d/t res at high risk for refeeding syndrome Lab / Micro Data Result Diagrams: 03/15/21 05:06 03/15/21 05:06 Labs: Laboratory Results - last 24 hr 03/16/21 05:14: Magnesium 2.0 03/16/21 05:39: Phosphorus 3.6 Radiology Impression KUB X-Ray 03/16/21 08:05 IMPRESSION: A PEG tube is seen in the left upper quadrant most likely within the stomach. Electronically Signed: Ayden Gregory MD at 9:39 EST , Charges/Coding Visit Charges Inpatient E&M: 10669 Init Hosp L2
--- NOTE | 2021-03-16 10:45 | NURSING ---
Dr Benson here and reinserted PEG tube 20 FR, 10cc balloon at #3 skin level, insertion site reddened. new order for gastrograph with radiology to check site. abd binder placed over tube.
--- NOTE | 2021-03-16 10:48 | RAD_ITS ---
STUDY: X-RAY - ABDOMEN/PELVIS REASON FOR EXAM: Male, 80 years old. Peg tube replace -- gastrografin via G-tube TECHNIQUE: Single AP view of the abdomen / pelvis. COMPARISON: Comparison is made with prior study of the day. FINDINGS: Contrast was injected into the indwelling PEG tube. Contrast is seen within the stomach. RAD/Abdomen Single View IMPRESSION: The PEG tube is seen within the stomach. Electronically Signed: Ayden Gregory MD at 11:37 EST ,
--- NOTE | 2021-03-16 10:50 | NURSING ---
slot shift supervisor called this nurse to pts room this morning at approx 0730 to look at peg tube. Peg tube placement was noted to be under 1 based on peg tube indicators. Abdomen red around peg site and pt c/o constant dull ache. PEG tube pump was immediately stopped. Dr. Cifuentes on floor and assessed area, and gave orders for KUB. KUB showed that peg was most likely within the stomach. Operative report was reviewed by nursing staff and it states that peg tube was placed at 2.[address] Cifuentes updated and N.O. to consult general surgery. Dr. Benson came to floor and removed PEG Tube and placed a new one. Placement is being checked at this time with an xray and contrast.
--- NOTE | 2021-03-16 10:51 | OP.PCM_ITS ---
Report of Operation Date of Procedure: 03/16/21 Pre-Operative Diagnosis: Displaced PEG tube Post-Operative Diagnosis: Replacement with G-tube Surgery/Procedure Performed:: Displaced PEG tube, removal of PEG, replacement with G-tube Surgeon: Mikaela Benson Type of Anesthesia: None Drains: G tube 20 fr Description of Procedure: Patient's previous PEG tube was at 1 cm at the skin however this would not advance in any further as it is likely out of the stomach and subcutaneous tissue. This was removed with gentle traction. 20 [place] gastrostomy feeding tube balloon was placed. 8 cc of saline was placed in the balloon. This was at 30 at the skin. The bumper was loose on the skin. Patient tolerated well. Plan to get x-ray with Gastrografin to prove its location before starting tube feeds. Grafts/Implants Used: ESTEFANIA gastrostomy feeding tube 20 [place] Citizen-balloon w 8 cc saline lot [id number] Complications none
[2021-03-16 13:52] VITALS: BP 91/71; PULSE 105; RESP 18; TEMP 36.3; O2SAT 99
--- NOTE | 2021-03-16 18:43 | NURSING ---
Addendum entered by Yuliana Garzon 03/16/21 19:33: [facility] phone number is [phone]. Original Note: Pt's chief transfer and pumphouse operator was in [facility] asking if pt can receive communion through his PEG tube. This nurse told them she would try to get them an answer by tomorrow. Dr. Cifuentes was updated and stated it is ok with him if it can be done safely and can be dissolved in water. This nurse called and asked if she had contact info to call and find out what is exactly they are wanting to give him. stated they go to [facility] in [place] and their chief transfer and pumphouse operator's name is father Sterling that office hours are 9:30am to 4pm and asked us to contact them tomorrow. This nurse called and left message at [facility] for return phone call.
--- NOTE | 2021-03-16 20:33 | NURSING ---
Addendum entered by Yuliana Garzon 03/16/21 21:07: Patient returned to unit from X-ray Original Note: Patient taken to Imaging for chest X-ray via bed.
--- NOTE | 2021-03-16 20:40 | RAD_ITS ---
INDICATION: Pneumonia/lung abscess. EXAMINATION/TECHNIQUE: X-RAY - XR Chest 2 Views COMPARISON: CTA chest 02/20/2021 and 02/21/2021 chest x-ray and 03/06/2021 chest x-ray FINDINGS: LINES/DEVICES: None. LUNGS: Mild interval decrease in size of right posterior lateral lung opacity with central air consistent with abscess seen on prior CT. There is also improvement in the right perihilar and left lung airspace disease previously exemplified. No appreciable airspace disease left lung at this time. Increased lung volumes suggesting air trapping of emphysema. No pleural effusion. No pneumothorax. MEDIASTINUM AND CARDIOVASCULAR STRUCTURES: Normal size and contour of the cardiomediastinal silhouette. No evidence of pulmonary vascular congestion. BONES AND SOFT TISSUES: No abnormality within limits of the exam. Tubing projecting over left upper quadrant suggesting PEG tube. RAD/Chest PA and Lateral IMPRESSION: 1. Mild interval decrease in size right sided abscess. 2. Resolved left lung airspace disease. 3. Improved, but persistent right perihilar airspace disease. Electronically Signed: Alfred Reis DO at 21:06 EST ,
[2021-03-16 22:22] VITALS: RESP 16; O2SAT 96
[2021-03-17] MEDS: Jevity 1.5 1,000 ML 60 ML GT ×2 (03:05→22:20)
[2021-03-17] MEDS: Acetaminophen 650 MG/20 ML UDC GT (03:06)
[2021-03-17] MEDS: Doxycycline 100 MG CAPSULE GT ×2 (05:22→17:29)
[2021-03-17] MEDS: Potassium Chloride Oral Soln 20 MEQ/15 ML UDC PO (05:22)
[2021-03-17] MEDS: Amox/Clav 250mg/5ml Suspension 500 MG GT ×2 (05:22→17:31)
[2021-03-17] MEDS: Nystatin Powder 15gm Bottle 1 APPLIC TOPICAL ×2 (05:26→17:29)
[2021-03-17] MEDS: BACITRACIN 15 GM Tube 1 APPLIC TOPICAL (05:27)
[2021-03-17 09:50] VITALS: PULSE 72; RESP 18; O2SAT 95
[2021-03-17 13:59] VITALS: BP 96/51; PULSE 89; RESP 17; TEMP 37.1; O2SAT 98
--- NOTE | 2021-03-17 15:11 | NURSING ---
THIS NURSE AND AID IN ROOM GETTING PT BACK IN BED WHEN THIS NURSE NOTICED TUBE FEED ON OUT SIDE OF PEG TUBE CLOSE TO PEG SITE. THIS NURSE CHECKED TUBE AND FOUND A SMALL PIN HOLE IN TUBE AT NUMBER 8. CONCHA VASQUEZ OUT SIDE DOOR AND ASKED HER TO COME IN AND LOOK AT SITE. RN ALSO AWARE AND WE PUT TAPE AND ABD AROUND SITE AND MONITOR,OK PER CONCHA. RN CALLING DR. KIMBLE.
--- NOTE | 2021-03-17 15:19 | NURSING ---
PT BROUGHT A CHAIR CUSHION IN FOR PT TO USE IN RECLINER.
--- NOTE | 2021-03-17 15:44 | PN.SURG_ITS ---
Subjective Subjective pt chente TF, denies abd pain Objective Data Objective Data Vital Signs: Vital Signs Temp Pulse Resp BP Pulse Ox 98.7 F 89 17 96/51 L 98 03/17/21 13:59 03/17/21 13:59 03/17/21 13:59 03/17/21 13:59 03/17/21 13:59 Oxygen Flow Rate (L/min) 3 Oxygen Delivery Method Room Air Weight: 237 lb 3.478 oz Body Mass Index (BMI) 17.6 Intake & Output: Intake and Output for Last 24 Hours 03/15/21 03/16/21 03/17/21 23:59 23:59 23:59 Intake Total 60 / 60 60 / 60 Balance 60 / 60 60 / 60 Medical Nutrition Assessment Dietitian: Malnutrition Criteria Met Start: 03/01/21 07:48 Freq: Status: Active Protocol: Document 03/15/21 16:41 BILL (Rec: 03/15/21 16:41 SLA [id number]) Nutrition Malnutrition Evidence of Malnutrition Exists Yes Malnutrition (severe): Acute Illness/Injury Evidenced By Suboptimal Energy Intake ( Severe),Physical Changes ( Severe) Clinical Problem Acute Disease or Injury Related Malnutrition Etiology related to recent covid, dysphagia and dementia making it difficult to safely consume adequate nutrition to meet est nutritional needs Signs/Symptoms as evidenced by 6 days NPO until PEG placed and fat/ muscle loss (orbital/temporal regions, clavicle area, arms) and BMI 15.5 Status Active Problem Recommendation Dietitian Recommendations/Changes Will increase Jevity 1.5 to goal rate 60 ml/hr with 200 ml H2O flush every 4 hours to provide ~ 2160 jimbo/ 92 gm pro/ 2294 ml free water/day. This will provide ~ 44 jimbo/kg and 1.87 gm pro/kg. Rec Alex bid 1 packet with 8 oz water via Gtube for skin healing once completes doxycycline regimen Check mag and phos d/t res at high risk for refeeding syndrome Lab / Micro Data Result Diagrams: 03/15/21 05:06 03/15/21 05:06 Radiography Diagnostic Testing: Radiology Impression Chest X-Ray 03/16/21 20:40 IMPRESSION: 1. Mild interval decrease in size right sided abscess. 2. Resolved left lung airspace disease. 3. Improved, but persistent right perihilar airspace disease. Electronically Signed: Alfred Reis DO at 21:06 EST , Physical Exam Const no apparent distress General Appearance: cooperative Nutritional Appearance: underweight Resp normal respiratory effort Cardio Rate: regular rate GI GI Narrative: Gtube in place-chente TF, non-tender Otherwise abdomen soft, nondistended nontender, previous incisions healing well with Steri-Strips Psych Mood & Affect: flat affect Assessment & Plan Assessment/Plan (1) PEG (percutaneous endoscopic gastrostomy) adjustment/replacement/removal: PLAN: New Gtube in place and pt chente TF. call with questions. Mikaela Benson M.D. Pager: [phone] [facility] [address] [place] [address], [address] [place] [id number] Office: [phone]
[2021-03-17] MEDS: Ferrous Sulfate 300 MG/5 ML UDC GT (17:28)
[2021-03-17] MEDS: Menthol/Lanolin/Calamine/Znox 113 GM Tube 1 APPLIC TOPICAL (17:29)
[2021-03-17 18:22] VITALS: BP 106/50; PULSE 84; TEMP 36.6; O2SAT 99
--- NOTE | 2021-03-17 22:33 | NURSING ---
Jevity continues to run at 60ml/hr, residual 0ml at this time, new bottle and tubing hung. HOB remains elevated at 35 degrees, pt calm at this time, no distress noted, will continue to monitor.
[2021-03-18] MEDS: Ferrous Sulfate 300 MG/5 ML UDC GT ×2 (06:00→17:00)
[2021-03-18] MEDS: Doxycycline 100 MG CAPSULE GT ×2 (06:00→18:00)
[2021-03-18] MEDS: Nystatin Powder 15gm Bottle 1 APPLIC TOPICAL ×2 (06:00→18:00)
[2021-03-18] MEDS: Potassium Chloride Oral Soln 20 MEQ/15 ML UDC PO (06:00)
[2021-03-18] MEDS: Amox/Clav 250mg/5ml Suspension 500 MG GT ×2 (06:00→18:00)
[2021-03-18] MEDS: Menthol/Lanolin/Calamine/Znox 113 GM Tube 1 APPLIC TOPICAL ×2 (06:00→18:00)
[2021-03-18] MEDS: Jevity 1.5 1,000 ML 60 ML GT (17:15)
[2021-03-18 21:15] VITALS: BP 94/77; PULSE 108; RESP 16; TEMP 36.9; O2SAT 95
[2021-03-18 22:15] VITALS: BP 100/62; PULSE 106; RESP 16; TEMP 36.6; O2SAT 95
[2021-03-18 23:14] VITALS: RESP 18
[2021-03-19 02:06] VITALS: BP 102/60; PULSE 88; RESP 16; TEMP 36.4; O2SAT 94
[2021-03-19] MEDS: Potassium Chloride Oral Soln 20 MEQ/15 ML UDC PO (05:01)
[2021-03-19] MEDS: Menthol/Lanolin/Calamine/Znox 113 GM Tube 1 APPLIC TOPICAL ×2 (05:02→16:38)
[2021-03-19] MEDS: Nystatin Powder 15gm Bottle 1 APPLIC TOPICAL ×2 (05:02→16:38)
[2021-03-19] MEDS: Doxycycline 100 MG CAPSULE GT ×2 (05:02→16:38)
[2021-03-19] MEDS: Amox/Clav 250mg/5ml Suspension 500 MG GT ×2 (05:03→16:37)
[2021-03-19] MEDS: Jevity 1.5 1,000 ML 60 ML GT ×2 (05:04→16:10)
[2021-03-19] MEDS: Ferrous Sulfate 300 MG/5 ML UDC GT ×2 (09:00→16:37)
--- NOTE | 2021-03-19 11:26 | NURSING ---
Patient given vaccine with no complications, speaking to son on phone, sitting in dining room to prevent patient from falling due to him trying to get up numerous times. Patient is pleasant A&O and overall having a wonderul cold saturday.
[2021-03-19 13:27] VITALS: BP 78/54; PULSE 101; RESP 16; TEMP 36.9; O2SAT 96
--- NOTE | 2021-03-19 13:35 | NURSING ---
Patient requesting to get up to ambulate. Patient transferred to room; dressed and ambulated with staff. Overall tolerated well. Fatigued easily. Currently resting in chair with bed alarm on.
[2021-03-20] MEDS: Amox/Clav 250mg/5ml Suspension 500 MG GT ×2 (05:26→18:00)
[2021-03-20] MEDS: Menthol/Lanolin/Calamine/Znox 113 GM Tube 1 APPLIC TOPICAL ×2 (05:26→18:57)
[2021-03-20] MEDS: Nystatin Powder 15gm Bottle 1 APPLIC TOPICAL ×2 (05:27→18:58)
[2021-03-20] MEDS: Potassium Chloride Oral Soln 20 MEQ/15 ML UDC PO (05:27)
[2021-03-20] MEDS: Doxycycline 100 MG CAPSULE GT ×2 (05:37→18:01)
[2021-03-20] MEDS: Ferrous Sulfate 300 MG/5 ML UDC GT ×2 (10:12→16:50)
[2021-03-20] MEDS: Jevity 1.5 1,000 ML 60 ML GT (10:25)
--- NOTE | 2021-03-20 11:10 | NURSING ---
Addendum entered by Rika Jamar Yoandy 03/20/21 12:27: xray on way up to do xray, transferred pt from chair to bed. Addendum entered by Rika Pitt 03/20/21 11:51: Dr Benson returned call, would like new PEG tube inserted, 6 ml fluid in balloon, done w/out resistance sitting at 4 skin level, bumper in place. pt tolerated well. binder reapplied, xray of abdomen ordered with gastrografin via peg, pt denies pain states it feels better. pt resting in recliner chair. call light in reach. Addendum entered by Rika Pitt 03/20/21 11:18: Dr Perkins notified, he states dr Benson is still on to page her and if she unable to call him back. Original Note: tube feed stopped, pt c/o abd pain, checked site, tube at 1 and should be at 3. will notify surgeon. binder in place but some how getting pulled on.
--- NOTE | 2021-03-20 11:49 | RAD_ITS ---
STUDY: X-RAY - ABDOMEN/PELVIS REASON FOR EXAM: Male, 80 years old. PEG TUBE replaced -- gastrografin via tube TECHNIQUE: Single AP view of the abdomen / pelvis. COMPARISON: Comparison is made with prior study dated 03/16/2021. FINDINGS: The PEG tube has been changed. 50 cc of barium mixture of GASTROGRAFIN and water was placed into the tube. The PEG tube is in the stomach. RAD/Abdomen Single View IMPRESSION: The PEG tube is in the stomach. Electronically Signed: Ayden Gregory MD at 13:47 EST ,
--- NOTE | 2021-03-20 12:40 | NURSING ---
updated Dr Alvarado at this time via phone call. appreciative of care. Would like to talk to her father when done with xray.
--- NOTE | 2021-03-20 13:21 | NURSING ---
sonRyan called and wanted Mila Saldaña, pt neighbor added to contact list and able to get information. Registration notified.
--- NOTE | 2021-03-20 13:44 | PN.SURG_ITS ---
Subjective Subjective Nursing again noticed patient's G-tube was at 1 cm at the skin. Patient did complain of pain as well. Nursing did attempt to deflate the balloon to replace however only 2 cc of the 8 cc of saline were actually still in the balloon. This was replaced with a new G-tube. X-ray was done with Gastrografin which showed to be within the stomach. Objective Data Objective Data Vital Signs: Vital Signs Temp Pulse Resp BP Pulse Ox 98.5 F 101 H 16 78/54 L 96 03/19/21 13:27 03/19/21 13:27 03/19/21 13:27 03/19/21 13:27 03/19/21 13:27 Oxygen Flow Rate (L/min) 3 Oxygen Delivery Method Room Air Weight: 109 lb Body Mass Index (BMI) 17.6 Intake & Output: Intake and Output for Last 24 Hours 03/18/21 03/19/21 03/20/21 23:59 23:59 23:59 Intake Total 60 / 60 610 / 610 3809 / 3809 Balance 60 / 60 610 / 610 3809 / 3809 Medical Nutrition Assessment Dietitian: Malnutrition Criteria Met Start: 03/01/21 07 :48 Freq: Status: Active Protocol: Document 03/15/21 16:41 BILL (Rec: 03/15/21 16:41 SLA [id number]) Nutrition Malnutrition Evidence of Malnutrition Exists Yes Malnutrition (severe): Acute Illness/Injury Evidenced By Suboptimal Energy Intake ( Severe),Physical Changes ( Severe) Clinical Problem Acute Disease or Injury Related Malnutrition Etiology related to recent covid, dysphagia and dementia making it difficult to safely consume adequate nutrition to meet est nutritional needs Signs/Symptoms as evidenced by 6 days NPO until PEG placed and fat/ muscle loss (orbital/temporal regions, clavicle area, arms) and BMI 15.5 Status Active Problem Recommendation Dietitian Recommendations/Changes Will increase Jevity 1.5 to goal rate 60 ml/hr with 200 ml H2O flush every 4 hours to provide ~ 2160 jimbo/ 92 gm pro/ 2294 ml free water/day. This will provide ~ 44 jimbo/kg and 1.87 gm pro/kg. Rec Alex bid 1 packet with 8 oz water via Gtube for skin healing once completes doxycycline regimen Check mag and phos d/t res at high risk for refeeding syndrome Lab / Micro Data Result Diagrams: 03/15/21 05:06 03/15/21 05:06 Physical Exam Const no apparent distress General Appearance: cooperative Nutritional Appearance: underweight Resp normal respiratory effort Cardio Rate: regular rate GI GI Narrative: Gtube in place, non-tender Otherwise abdomen soft, nondistended nontender, previous incisions healing well with Steri-Strips Psych Mood & Affect: flat affect Assessment & Plan Assessment/Plan (1) PEG (percutaneous endoscopic gastrostomy) adjustment/replacement/removal: PLAN: New Gtube in place which was placed today 03/20/2021. Okay to start tube feeds Mikaela Benson M.D. Pager: [phone] [facility] [address] [place] [address], [facility], [address] [place] [address] Office: [phone] Charges/Coding Visit Charges Inpatient E&M: 36621 Subs Hosp L2
--- NOTE | 2021-03-20 13:45 | NURSING ---
Dr Benson in to assess tube, pulled back to 3cm at skin level. Restarted Tube feed at 60ml/hr, flushed immediately per orders. pt resting in bed, HOB elevated 30 degrees. talking to Mila in room
[2021-03-20 14:46] VITALS: BP 110/68; PULSE 76; RESP 16; TEMP 36.6; O2SAT 98
[2021-03-21] MEDS: Amox/Clav 250mg/5ml Suspension 500 MG GT ×2 (05:27→17:58)
[2021-03-21] MEDS: Doxycycline 100 MG CAPSULE GT ×2 (05:29→17:57)
[2021-03-21] MEDS: Menthol/Lanolin/Calamine/Znox 113 GM Tube 1 APPLIC TOPICAL ×2 (05:30→17:57)
[2021-03-21] MEDS: Potassium Chloride Oral Soln 20 MEQ/15 ML UDC PO (05:30)
[2021-03-21] MEDS: Nystatin Powder 15gm Bottle 1 APPLIC TOPICAL ×2 (05:31→17:57)
[2021-03-21] MEDS: Ferrous Sulfate 300 MG/5 ML UDC GT ×2 (08:16→17:57)
[2021-03-21] MEDS: Jevity 1.5 1,000 ML 60 ML GT (08:16)
--- NOTE | 2021-03-21 09:45 | PN_ITS ---
Progress Note Patient is tolerating tube feeds well with no residuals after replacement of G- tube yesterday. I will be out of town starting tomorrow if any issues please call Dr. Cosetllo or general surgeon in tube conversion technician.
--- NOTE | 2021-03-21 09:45 | PCM.PN.BLA ---
Progress Note Patient is tolerating tube feeds well with no residuals after replacement of G-tube yesterday. I will be out of town starting tomorrow if any issues please call Dr. Costello or general surgeon extension edger.
[2021-03-21 14:22] VITALS: BP 82/54; PULSE 90; RESP 20; TEMP 36.3; O2SAT 98
--- NOTE | 2021-03-21 15:47 | NURSING ---
Son, Ryan and resident notified of staff member testing positive for COVID.
[2021-03-22] MEDS: Jevity 1.5 1,000 ML 60 ML GT ×2 (02:00→17:47)
[2021-03-22] MEDS: Potassium Chloride Oral Soln 20 MEQ/15 ML UDC PO (05:27)
[2021-03-22] MEDS: Ferrous Sulfate 300 MG/5 ML UDC GT ×2 (05:27→17:47)
[2021-03-22] MEDS: Menthol/Lanolin/Calamine/Znox 113 GM Tube 1 APPLIC TOPICAL ×2 (05:27→17:59)
[2021-03-22] MEDS: Doxycycline 100 MG CAPSULE GT ×2 (05:27→17:47)
[2021-03-22] MEDS: Nystatin Powder 15gm Bottle 1 APPLIC TOPICAL ×2 (05:27→18:00)
[2021-03-22] MEDS: Amox/Clav 250mg/5ml Suspension 500 MG GT ×2 (05:27→17:47)
[2021-03-22 05:33] LABS: Absolute Neutrophil Count 5.3 X10^3/uL (2.0-7.7); Basophil# 0.03 X10^3/uL; Basophil% 0.4 % (0-1); Eosinophil# 0.18 X10^3/uL; Eosinophils% 2.4 % (0-5); Hematocrit 25.6 % (40-54); Hemoglobin 8.8 g/dL (13.0-16.5); Lymphocyte % 19.9 % (19-41); Mean Corp Hgb Conc 34.4 g/dL (32-36); Mean Corpuscular Hgb 32.8 pg (27.0-32.0); Mean Corpuscular Volume 95.5 fL (80-94); Mean Platelet Vol. 10.7 fl (6.2-12.0); Monocyte# 0.48 X10^3/uL; Monocyte% 6.4 % (0-10); NRBC Flagged by Analyzer 0 % (0-5); Neutrophil % 70.5 % (47-70); Platelet Count 273 K/mm3 (150-450); RBC Distribution Width CV 14.7 % (11.6-14.6); RBC Distribution Width SD 50.4 fl (35.1-43.9); Red Blood Count 2.68 M/mm3 (4.6-6.2); White Blood Count 7.5 K/mm3 (4.4-11.0)
[2021-03-22 06:08] LABS: Anion Gap 4 (5-15); BUN 36 mg/dL (7-18); BUN/Creat Ratio 30.3 RATIO (10-20); Calcium,Total 8.2 mg/dL (8.5-10.1); Chloride 102 mmol/L (98-107); Creatinine, Serum 1.19 mg/dL (0.70-1.30); EST Glomerular Filtration Rate 63 mL/min (>60); Est Glom Filt Rate - Afr Amer 76 mL/min (>60); Glucose 113 mg/dL (74-106); Potassium 4.2 mmol/L (3.5-5.1); Sodium Level 137 mmol/L (136-145)
[2021-03-22 12:50] VITALS: BP 80/53; PULSE 90; RESP 18; TEMP 36.4
[2021-03-22 21:30] VITALS: PULSE 88; RESP 16; O2SAT 92
[2021-03-23] MEDS: Amox/Clav 250mg/5ml Suspension 500 MG GT ×2 (05:21→17:53)
[2021-03-23] MEDS: Doxycycline 100 MG CAPSULE GT ×2 (05:22→17:49)
[2021-03-23] MEDS: Potassium Chloride Oral Soln 20 MEQ/15 ML UDC PO (05:23)
[2021-03-23] MEDS: Nystatin Powder 15gm Bottle 1 APPLIC TOPICAL ×2 (05:24→17:51)
[2021-03-23] MEDS: Jevity 1.5 1,000 ML 60 ML GT (08:28)
[2021-03-23 10:00] VITALS: PULSE 95; RESP 16
--- NOTE | 2021-03-23 13:37 | NURSING ---
Resident and son, Ryan, notified of a resident on the unit testing positive for COVID.
[2021-03-23 13:42] VITALS: BP 90/50; PULSE 95; RESP 14; TEMP 37.6; O2SAT 95
[2021-03-23] MEDS: Ferrous Sulfate 300 MG/5 ML UDC GT (17:49)
[2021-03-23] MEDS: Menthol/Lanolin/Calamine/Znox 113 GM Tube 1 APPLIC TOPICAL (17:50)
[2021-03-24] MEDS: Jevity 1.5 1,000 ML 60 ML GT ×2 (03:39→14:24)
[2021-03-24] MEDS: Amox/Clav 250mg/5ml Suspension 500 MG GT ×2 (05:45→18:21)
[2021-03-24] MEDS: Doxycycline 100 MG CAPSULE GT ×2 (05:46→18:20)
[2021-03-24] MEDS: Potassium Chloride Oral Soln 20 MEQ/15 ML UDC PO (05:46)
[2021-03-24] MEDS: Ferrous Sulfate 300 MG/5 ML UDC GT ×2 (05:47→18:19)
[2021-03-24] MEDS: Nystatin Powder 15gm Bottle 1 APPLIC TOPICAL ×2 (05:58→18:18)
[2021-03-24 14:17] VITALS: BP 80/50; PULSE 95; RESP 15; TEMP 35.9; O2SAT 97
[2021-03-24] MEDS: Menthol/Lanolin/Calamine/Znox 113 GM Tube 1 APPLIC TOPICAL (18:18)
[2021-03-24 21:13] VITALS: RESP 16
[2021-03-25] MEDS: Doxycycline 100 MG CAPSULE GT ×2 (05:39→17:23)
[2021-03-25] MEDS: Amox/Clav 250mg/5ml Suspension 500 MG GT ×2 (05:39→17:23)
[2021-03-25] MEDS: Potassium Chloride Oral Soln 20 MEQ/15 ML UDC PO (05:39)
[2021-03-25] MEDS: Menthol/Lanolin/Calamine/Znox 113 GM Tube 1 APPLIC TOPICAL (05:57)
[2021-03-25] MEDS: Nystatin Powder 15gm Bottle 1 APPLIC TOPICAL ×2 (05:58→17:24)
[2021-03-25] MEDS: Jevity 1.5 1,000 ML 60 ML GT (08:20)
[2021-03-25] MEDS: Ferrous Sulfate 300 MG/5 ML UDC GT ×2 (08:20→17:21)
--- NOTE | 2021-03-25 08:36 | NURSING ---
pt working with therapy, sitting up in recliner chair, drinking thin water per rossi h2o protocol after oral care completed. pt pleasant and cooperative. new TF hung and tube flushed, 0cc residual. call lit in reach. alarm in place on chair.
[2021-03-25 13:39] VITALS: PULSE 88; RESP 16; O2SAT 96
[2021-03-25 15:17] VITALS: BP 91/59; PULSE 82; RESP 17; TEMP 37.2; O2SAT 97
[2021-03-25] MEDS: Albuterol Sulfate 8 gm Inhaler (60 puffs) 2 PUFF INHALATION (17:46)
--- NOTE | 2021-03-26 03:19 | NURSING ---
Dressing changed around PEG tube site. Minimal drainage. Tubing changed and new feed hung.
[2021-03-26] MEDS: Jevity 1.5 1,000 ML 60 ML GT ×2 (05:13→18:46)
[2021-03-26] MEDS: Doxycycline 100 MG CAPSULE GT ×2 (05:14→16:25)
[2021-03-26] MEDS: Amox/Clav 250mg/5ml Suspension 500 MG GT ×2 (05:14→16:27)
[2021-03-26] MEDS: Potassium Chloride Oral Soln 20 MEQ/15 ML UDC PO (05:14)
[2021-03-26] MEDS: Nystatin Powder 15gm Bottle 1 APPLIC TOPICAL ×2 (05:15→16:26)
[2021-03-26] MEDS: Ferrous Sulfate 300 MG/5 ML UDC GT ×2 (08:21→16:25)
[2021-03-26] MEDS: Albuterol Sulfate 8 gm Inhaler (60 puffs) 2 PUFF INHALATION (08:27)
--- NOTE | 2021-03-26 11:32 | NURSING ---
pt ambulated around Young x1 on TCU w/walker and SB assist. pt does c/o chest tightness at times with exertion, history of lung nodule. inhaler given PRN. pt sitting in lobby in recliner chair. visitor here.
[2021-03-26 16:00] VITALS: BP 81/52; PULSE 82; RESP 18; TEMP 36.8; O2SAT 96
--- NOTE | 2021-03-26 18:55 | NURSING ---
0 residual, new bottle of jevity hung. pt resting in recliner chair, call light in reach. alarm in place. legs elevated.
[2021-03-27] MEDS: Nystatin Powder 15gm Bottle 1 APPLIC TOPICAL ×2 (04:57→17:33)
[2021-03-27] MEDS: Menthol/Lanolin/Calamine/Znox 113 GM Tube 1 APPLIC TOPICAL (04:58)
[2021-03-27] MEDS: Potassium Chloride Oral Soln 20 MEQ/15 ML UDC PO (04:58)
[2021-03-27] MEDS: Doxycycline 100 MG CAPSULE GT ×2 (04:58→17:33)
[2021-03-27] MEDS: Amox/Clav 250mg/5ml Suspension 500 MG GT ×2 (05:03→17:33)
--- NOTE | 2021-03-27 05:22 | NURSING ---
Pt repositions self in bed. HOB remains at 30 degrees. Call light w/ in reach.
[2021-03-27] MEDS: Ferrous Sulfate 300 MG/5 ML UDC GT ×2 (08:43→17:33)
[2021-03-27 10:00] VITALS: PULSE 88; RESP 18; O2SAT 99
--- NOTE | 2021-03-27 11:14 | SP.MBSS_ITS ---
Modified Barium Swallow - Patient Information Study Date: 03/27/21 Study Time: 10:30 Direct Billable Minutes: 120 Total Minutes procedure & reportin Diagnosis: pharyngeal dysphagia (R13.13) Referring Physician: Paulino Cifuentes Chi Reason for Referral: To objectively assess swallow function and determine presence of aspiration. Medical History: CASEY MORALES, is a 80 Male who presents to [facility] Emergency Department with shortness of breath. 02/20/2021 EKG normal sinus rhythm, nonspecific ST abnormality, prolonged QT. Positive covid19 02/02/2021, recent hospital stay, discharged on room air. Pulsox 70% on room air, increased dyspnea. Chest X-ray shows pneumonia, K 2.9, covid19 negative. CTA chest negative pulmonary embolism, showed pneumonia, possible lung abscess. Vancomycin, Zosyn given for pneumonia. Consider transfer for CT surgery for lung abscess. 02/20/2021 Admit to Hospital. Oxygen 3 liters for acute respiratory failure with hypoxia. IV antibiotics, blood culture, sputum culture, strep antigen, legionella antigen for gram negative pneumonia/abscess. Replete potassium, check magnesium. Consider geriatric evaluation for dementia. 02/21/2021 Feels fine. No pneumothorax on Chest X-ray. ?unvaccinated. ST for dysarthria. 02/22/2021 Feels well. [facility] [place] has no beds for transfer. 02/22/2021 Dr. Teague recommend biopsy, culture lung abscess. Continue Vancomycin, Zosyn. 02/23/2021 Phosphorous replaced. On room air. Transition to oral antibiotics when cleared by speech. 02/24/2021 Hypotension resolved with 1 liter IV bolus. Acute kidney injury Creatinine 1.88. Failed modified barium swallow, ? aspiration. 02/24/2021 Dr. Teague, recent covid19, lung abscess, blood cultures negative to date. on Vancomycin/Zosyn, recommend discharge on 30 days Augmentin, Doxycycline. 02/25/2021 K 3.4, Creatinine 2.77. D5W for acute kidney injury, hypernatremia. Patient confused, consider PICC/TPN or hospice if kidneys worsen. 02/26/2021 NPO for dysphagia. PT/OT for fdc facility. 02/27/2021 Dr. Mayfield placed PEG tube per family wishes. 02/28/2021 Admit to TCU with debility, here for rehabilitation, strengthening, prior to discharge home with . [facility] Medical History Altered mental status Cancer COVID COVID-19 Dementia Dysphagia Encephalopathy Failure to thrive Generalized weakness Muscle weakness Pneumonia Current Diet Ordered: NPO/PEG tube supplementation Dentition: Natural Teeth Mental Status: Impaired - dementia - difficulty following commands, requires repetition Respiratory Status: Oxygenating on Room Air - Penetration-Aspiration Scale Penetration-Aspiration Scale: OBJECTIVE ASSESSMENT OF SWALLOW FUNCTION (QUANTITATIVE ? PER TRIAL): PENETRATION / ASPIRATION SCALE (SIDHU): 1 = does not enter airway 2 = enters airway/above vocal folds/ejected 3 = enters airway/above vocal folds/not ejected 4 = enters airway/contacts vocal folds/ejected 5 = enters airway/contacts vocal folds/not ejected 6 = enters airway/below vocal folds/ejected 7 = enters airway/below vocal folds/not ejected despite effort 8 = enters airway/below vocal folds/no effort - Penetration-Aspiration Scale Score Thin Liquid via teaspoon Result: 5= enters airways/contacts vocal folds/not ejected Cue to cough and reswallow following 2nd trial of tsp sip Result: 8= enters airway/below vocal folds/no effort - *post prandial silent aspiration Thin Liquid via small single sip from cup Result: 8= enters airway/below vocal folds/no effort Thin Liquid via large single sip from cup Result: 8= enters airway/below vocal folds/no effort Cue to cough and re-swallow following large single sip of thin liquid Result: 7= enters airways/below vocal folds/not ejected despite effort - *post prandial aspiration Hague Thick Liquid via small single sip from cup Result: 8= enters airway/below vocal folds/no effort - prior to trial pt demonstrated aspiration on pharyngeal residue Hague Thick Liquid via large single sip from cup Result: 5= enters airways/contacts vocal folds/not ejected Hague Thick Liquid via large single sip from cup Chin tuck Result: 5= enters airways/contacts vocal folds/not ejected Cue to take 2nd hard swallow Result: 3= enters airways/above vocal folds/not ejected Honey Thick Liquid via small single sip from cup Result: 5= enters airways/contacts vocal folds/not ejected Honey Thick Liquid via large single sip from cup Result: 8= enters airway/below vocal folds/no effort Pudding via teaspoon Result: 5= enters airways/contacts vocal folds/not ejected - post prandial aspiration Cookie Result: 8= enters airway/below vocal folds/no effort Thin liquid potable water treatment operator via single sip from cup Result: 7= enters airways/below vocal folds/not ejected despite effort - Oral Phase Labial Seal: Interlabial escape, no progression to anterior lip Tongue Control During Bolus Hold: Posterior escape of less than half of bolus Bolus Preparation/Mastication: Slow prolonged chewing/mashing with complete recollection Bolus Transport/Lingual Motion: Brisk tongue motion Oral Residue: Residue collection on oral structures - Pharyngeal Phase Initiation of Pharyngeal Swallow: Bolus head in valleculae Soft Palate Elevation: No bolus between soft palate and pharyngeal wall Laryngeal Elevation: Partial superior movement thyroid cart/partial apprx aryt- epig petiole Anterior Hyoid Excursion: Partial anterior movement Epiglottic Movement: Partial inversion Laryngeal Vestibule Closure at Height of Swallow: Incomplete; narrow column of air/contrast in laryngeal vestibule Pharyngeal Stripping Wave: Present - diminished Pharyngoesophageal Segment Opening: Parital distension and partial duration; parital obstruction of flow Tongue Base Retraction: Wide column of contrast between tongue base & post. pharyngeal wall Pharyngeal Residue: Majority of contrast within or on pharyngeal structures - Diagnosis/Impression Diagnosis: moderate-severe pharyngeal dysphagia (R13.13) Impression: Oral phase characterized by slowed mastication and mild oral residue post deglutition. Pharyngeal phase characterized by decreased hyolaryngeal excursion and incomplete epiglottic inversion resulting in copious amounts of residue in the vallecula with additional residue in the pyriforms and PES. Patient presented with silent aspiration both during trials and often post-prandial with contrast spilling from the vallecula and pyriforms. Patient required max cues several times throughout the study to take multiple swallows per bolus to clear pharyngeal residue, however only partial clearance achieved. Patient continued to demonstrate post prandial silent aspiration with pharyngeal residue dropping below vocal cords throughout the study. The patient requires continued skilled ST intervention for instruction and execution of oropharyngeal strengthening exercises and Vital Stim treatment to facilitate improved tongue base retraction, pharyngeal contraction/stripping wave, hyolaryngeal excursion, epiglottic inversion, and laryngeal vestibule closure. Due to patient?s difficulty comprehending and following directions, teaching of compensatory strategies for reduced risk of aspiration may be unsuccessful without frequent cueing from caregiver. - Recommendations Diet: NPO - PEG tube supplementation Recommend Repeat Modified Barium Swallow: Yes - Repeat in 4-6 weeks with continued skilled ST intervention; would discourage advancing diet without a repeat MBS due to severity of pharyngeal residue and lack of overt response to penetration/aspiration Need for Skilled Speech Therapy Services: Yes Education Completed: 1. Described result of evaluation. - Status Active ST Patient: Active - Contact Information [facility] Speech Therapy:: Lisa Ortiz MA, CCC-CHEMIST PHARMACEUT[employer] [place] [phone] [email or web address]
[2021-03-27] MEDS: Jevity 1.5 1,000 ML 60 ML GT (11:26)
[2021-03-27 15:00] VITALS: BP 96/59; PULSE 80; RESP 16; TEMP 37.2; O2SAT 94
[2021-03-28] MEDS: Amox/Clav 250mg/5ml Suspension 500 MG GT ×2 (05:17→17:50)
[2021-03-28] MEDS: Potassium Chloride Oral Soln 20 MEQ/15 ML UDC PO (05:17)
[2021-03-28] MEDS: Doxycycline 100 MG CAPSULE GT ×2 (05:18→17:48)
[2021-03-28] MEDS: Nystatin Powder 15gm Bottle 1 APPLIC TOPICAL ×2 (05:18→17:49)
[2021-03-28] MEDS: Menthol/Lanolin/Calamine/Znox 113 GM Tube 1 APPLIC TOPICAL ×2 (05:18→17:47)
[2021-03-28 05:20] VITALS: BP 97/58; PULSE 88
[2021-03-28] MEDS: Jevity 1.5 1,000 ML 60 ML GT ×2 (05:27→17:50)
[2021-03-28] MEDS: Ferrous Sulfate 300 MG/5 ML UDC GT ×2 (08:51→17:47)
--- NOTE | 2021-03-28 09:29 | PN.TCU_ITS ---
Subjective Subjective Resident seen, examined for regulatory visit. Resident has no new complaints. Unfortunately, Modified barium swallow 1 day prior still recommends NPO, alternative nutrition source. Objective Data Objective Data Vital Signs: Vital Signs Temp Pulse Resp BP Pulse Ox 98.9 F 88 16 97/58 L 94 03/27/21 15:00 03/28/21 05:20 03/27/21 15:00 03/28/21 05:20 03/27/21 15:00 Oxygen Flow Rate (L/min) 3 Oxygen Delivery Method Room Air Weight: 50.5 kg Body Mass Index (BMI) 17.6 Intake & Output: Intake and Output for Last 24 Hours 03/26/21 03/27/21 03/28/21 23:59 23:59 23:59 Intake Total 3883 / 3883 3147 / 3147 Output Total 200 / 200 425 / 425 Balance 3683 / 3683 -425 / -425 3147 / 3147 Medical Nutrition Assessment Dietitian: Malnutrition Criteria Met Start: 03/01/21 07:48 Freq: Status: Active Protocol: Document 03/22/21 08:40 SLA (Rec: 03/22/21 08:40 SLA [id number]) Nutrition Malnutrition Evidence of Malnutrition Exists Yes Malnutrition (severe): Acute Illness/Injury Evidenced By Suboptimal Energy Intake ( Severe),Physical Changes ( Severe) Clinical Problem Acute Disease or Injury Related Malnutrition Etiology related to recent covid, dysphagia and dementia making it difficult to safely consume adequate nutrition to meet est nutritional needs Signs/Symptoms as evidenced by 6 days NPO until PEG placed and fat/ muscle loss (orbital/temporal regions, clavicle area, arms) and BMI <16 Status Active Problem Recommendation Dietitian Recommendations/Changes Will increase Jevity 1.5 to goal rate 60 ml/hr with 200 ml H2O flush every 4 hours to provide ~ 2160 jimbo/ 92 gm pro/ 2294 ml free water/day. This will provide ~ 44 jimbo/kg and 1.87 gm pro/kg. Rec Alex bid 1 packet with 8 oz water via Gtube for skin healing once completes doxycycline regimen Check mag and phos d/t res at high risk for refeeding syndrome Lab / Micro Data Result Diagrams: 03/22/21 05:09 03/22/21 05:09 Physical Exam Const alert and oriented x3 General Appearance: cooperative HEENT normocephalic Eyes PERRL and EOMs intact bilaterally Neck supple, no JVD and no carotid bruits Resp normal respiratory effort, normal air movement and clear to auscultation bilate rally Cardio regular rate and regular rhythm GI normal to inspection, nondistended, normoactive bowel sounds, non-tender and non-distended GI Narrative: PEG tube. Extremity normal capillary refill General Extremity: Negative for edema Skin no rashes or lesions noted General Skin Exam: no breakdown Psych affect normal Appearance: appropriate Assessment & Plan Assessment/Plan (1) Debility: (2) Encephalopathy due to 2019-nCoV: (3) Acute respiratory failure with hypoxia: (4) Pneumonia: QUALIFIERS: Pneumonia type: due to unspecified organism Laterality: unspecified laterality Lung location: unspecified part of lung Qualified Code(s): J18.9 - Pneumonia, unspecified organism (5) Lung abscess: (6) Hypokalemia: (7) Dysarthria: (8) Dysphagia: QUALIFIERS: Dysphagia type: unspecified Qualified Code(s): R13.10 - Dysphagia, unspecified (9) Acute kidney injury: PLAN: 80 year old male with below past medical history significant for recent unvaccinated covid19, hospitalized for acute respiratory failure secondary to pneumonia, lung abscess, complicated by acute kidney injury, electrolyte abnormalities, dysphagia requiring PEG tube placement, admitted to TCU with debility, here for rehabilitation, strengthening, prior to discharge home with . * Debility - PT/OT. * Dysphagia - ST, 03/27/2021 recommended NPO. * Pain - Tylenol 650mg q4h prn pain (1-10). * Bowel - monitor, on tube feed. * Adult immunization - Administer prevnar 13, pneumovax 23, fluzone, covid19 vaccine as appropriate. * DVT prophylaxis - Hold. * Shortness of breath - Albuterol 2 puff Q6H prn. * Pneumonia/lung abscess - Augmentin 500mg bid, Doxycycline 100mg bid thru 04/08/2021 for total 8 weeks course, order CXR to monitor progress. * Nutrition - Jevity 1.5 60ml/hour, advance as tolerated. * Skin irritation - Eucerin topical bid, Calmoseptine topical bid. * Iron deficiency anemia - Ferrous sulfate 300mg gt bid. * Hypokalemia - KCL 20meq daily. * GI prophylaxis - Lactobacillus 1 capsule bid. * Tinea Corporis - Nystatin powder topical bid. Capacity Capacity Assessment Tool Can the patient make a choice & communicate that choice?: Yes Can the patient understand benefits, risks and alternatives?: Yes Can the patient make a logical, rational choice?: Yes Is the choice the patient makes consistent w/ their values?: Yes Is there an impending, emergent risk to the patient?: No Does the patient have an Advance Directive?: Yes Is there a Surrogate Available?: Yes i.e. HCPOA: Yes i.e. close relative (spouse, child, parent, sibling)?: Yes
--- NOTE | 2021-03-28 09:35 | RAD_ITS ---
STUDY: X-RAY CHEST REASON FOR EXAM: Male, 80 years old. Pneumonia/lung abscess improvement. TECHNIQUE: PA and lateral views of the chest. COMPARISON: Comparison is made with prior study dated 09/13/2021. FINDINGS: Hyperinflation. Persistent cavitated and infiltration in the peripheral lateral aspect of the right upper lobe although this has improved as compared to prior study. There is no demonstrated pleural abnormality. Normal size heart. Normal mediastinum and susie. Normal visualized pulmonary arteries. Normal visualized aortic arch and descending thoracic aorta. Normal visualized thoracic spine. Normal visualized ribs, clavicles, and shoulders. There is no demonstrated abnormality of the visualized soft tissue structures of the upper abdomen. RAD/Chest PA and Lateral IMPRESSION: Persistent cavitation in the infiltrate in the peripheral lateral aspect of the right upper lobe. There has been improvement as compared to prior study. The left lung is clear. Electronically Signed: Ayden Gregory MD at 14:18 EST ,
[2021-03-28 13:46] VITALS: BP 107/60; PULSE 108; RESP 20; TEMP 36.6; O2SAT 97
--- NOTE | 2021-03-28 18:07 | CASEMGMT ---
Addendum entered by Gela Beyer 03/29/21 15:46: Spoke with [facility] - they can accept and use Medicare Part B for therapies. [facility] and [facility] are reviewing. [facility] had a DC cancellation and can accept the pt again. Updated above with children. Inquired about FOC. Will await response and insurance outcome. Original Note: Social Work Exchanged several email correspondences with children. Provided summary from PT/OT/ST to children of updated level of care and continued recommendations for SNF. Also inquired about update on DC plans as insurance update 03/29 and MBS did not go well, thus indicating insurance will most likely issue DC date. Son responded with several questions regarding insurance, level of care inquires and SNF options. Contacted son directly to answer questions. In that time, received correspondence from [facility] that they are no longer able to hold a bed for pt and there are no planned discharges. Explained to son, family will need to decide on another SNF or if they would private pay at [facility]. Discussed at length the insurance coverage. In conclusion, SW to contact [facility], [facility], [facility] and [facility] to check on bed availability, if they would get one time contract with MMO or they could provide therapies under Medicare Part B secondary. Son expressed concern about pt transferring to another SNF and not receiving any continued therapy. SW expressed understanding. Son is to contact O and Medicare to research if pt can disenroll from MMO and enroll in Medicare Part A. Explained Medicare benefit in SNF if pt would switch coverages. Son appreciative of time and assistance of this worker. Referrals made to [facility] and [facility]. [facility] does not have any beds availability. Spoke with [facility] and they can provide therapies under Med B - are reviewing clinically. SW to continue to follow. Gela Beyer, FRANCISCO CROUCHW
[2021-03-28 23:00] VITALS: RESP 16; O2SAT 98
--- NOTE | 2021-03-29 02:46 | NURSING ---
Patient discovered ambulating in room, alarm was not sounding. Large amount of loose, liquid BM noted on w/c and floor. Patient stated he had no options. Patient washed, clothes changed. W/C and floor cleaned, housekeeping notified.
[2021-03-29] MEDS: Doxycycline 100 MG CAPSULE GT ×2 (04:41→16:59)
[2021-03-29] MEDS: Potassium Chloride Oral Soln 20 MEQ/15 ML UDC PO (04:42)
[2021-03-29] MEDS: Amox/Clav 250mg/5ml Suspension 500 MG GT ×2 (04:43→17:11)
[2021-03-29] MEDS: Menthol/Lanolin/Calamine/Znox 113 GM Tube 1 APPLIC TOPICAL ×2 (05:00→16:58)
[2021-03-29] MEDS: Nystatin Powder 15gm Bottle 1 APPLIC TOPICAL ×2 (05:01→16:58)
[2021-03-29 05:54] LABS: Absolute Lymphocyte Count 1.97 X10^3/uL (0.83-4.51); Absolute Neutrophil Count 5.8 X10^3/uL (2.0-7.7); Basophil# 0.01 X10^3/uL; Basophil% 0.1 % (0-1); Eosinophil# 0.44 X10^3/uL; Hematocrit 25.2 % (40-54); Hemoglobin 8.7 g/dL (13.0-16.5); Lymphocyte # 1.97 X10^3/ul (0.83-4.51); Lymphocyte % 22.5 % (19-41); Mean Corp Hgb Conc 34.5 g/dL (32-36); Mean Corpuscular Hgb 33.6 pg (27.0-32.0); Mean Corpuscular Volume 97.3 fL (80-94); Mean Platelet Vol. 10.7 fl (6.2-12.0); Monocyte# 0.46 X10^3/uL; Monocyte% 5.3 % (0-10); NRBC Flagged by Analyzer 0 % (0-5); Neutrophil # 5.84 X10^3/uL (2.7-7.7); Neutrophil % 66.6 % (47-70); Platelet Count 276 K/mm3 (150-450); RBC Distribution Width CV 15.4 % (11.6-14.6); RBC Distribution Width SD 54.5 fl (35.1-43.9); Red Blood Count 2.59 M/mm3 (4.6-6.2); White Blood Count 8.8 K/mm3 (4.4-11.0)
[2021-03-29 06:38] LABS: Anion Gap 5 (5-15); BUN 33 mg/dL (7-18); BUN/Creat Ratio 31.7 RATIO (10-20); Calcium,Total 8.7 mg/dL (8.5-10.1); Chloride 97 mmol/L (98-107); Creatinine, Serum 1.04 mg/dL (0.70-1.30); EST Glomerular Filtration Rate 73 mL/min (>60); Est Glom Filt Rate - Afr Amer 88 mL/min (>60); Estimated Creatinine Clearance 41.05 ml/min; Glucose 128 mg/dL (74-106); Potassium 4.6 mmol/L (3.5-5.1); Sodium Level 133 mmol/L (136-145)
[2021-03-29] MEDS: Ferrous Sulfate 300 MG/5 ML UDC GT ×2 (07:51→16:59)
[2021-03-29 08:36] VITALS: O2SAT 98
[2021-03-29] MEDS: Jevity 1.5 1,000 ML 60 ML GT (12:17)
[2021-03-29 14:17] VITALS: BP 95/50; PULSE 89; RESP 12; TEMP 36.9; O2SAT 97
[2021-03-30] MEDS: Amox/Clav 250mg/5ml Suspension 500 MG GT ×2 (05:06→18:17)
[2021-03-30] MEDS: Potassium Chloride Oral Soln 20 MEQ/15 ML UDC PO (05:12)
[2021-03-30] MEDS: Doxycycline 100 MG CAPSULE GT ×2 (05:13→18:12)
[2021-03-30] MEDS: Menthol/Lanolin/Calamine/Znox 113 GM Tube 1 APPLIC TOPICAL ×2 (05:22→18:12)
[2021-03-30] MEDS: Nystatin Powder 15gm Bottle 1 APPLIC TOPICAL ×2 (05:23→18:13)
[2021-03-30] MEDS: Jevity 1.5 1,000 ML 60 ML GT ×2 (05:23→23:19)
[2021-03-30] MEDS: Ferrous Sulfate 300 MG/5 ML UDC GT ×2 (08:11→18:11)
[2021-03-30 13:34] VITALS: BP 88/45; PULSE 76; RESP 16; TEMP 37.3; O2SAT 95
--- NOTE | 2021-03-30 16:49 | CASEMGMT ---
Social Work Received communication after business hours on 03/29 that insurance issued LCD 03/29, DC 03/30 for pt. Contacted pt's son, Ryan, to update on DC and provided appeal rights and reason insurance gave for denial. Son discussed with siblings and requesting peer to peer appeal. On 03/30, spoke with Dr. Cifuentes - he agreed for appeal. This worker contacted insurance to schedule P2P, however, the earliest time available was 03/31 at 10 am. Challenged the time frame as a fair appeal d/t insurance issuing DC and pt would be financially liable for 03/30 if appeal is lost. The insurance rep attempted to rebuttal with insurance allowing pt 14 days to file an appeal. Again, this worker refuted reiterating those days with still be out of pocket for the pt, as the pt/family is not in agreement with the insurance's DC date. Rep stated he would relay the message to the physician and contact this worker if any changes would be made. SW expressed appreciation. Moments later, insurance rep contacted this worker that the physician agreed to schedule P2P this date, 03/30, at 1:30 pm. SW expressed appreciation. Updated Dr. Cifuentes and IDT. Corresponded with pt's siblings updating on above information and inquired about DC direction. Son replied with great appreciation for appeal, and pt would remain private pay until they can coordinate a transfer to a SNF in [place], where dtr resides. Confirmed to cancel referrals with [facility] SNFs - confirmed. Updated all [facility] SNFs. Dtr requested referral to [facility] in [facility] [place]. Left message with compensation coordinator, Elise, to return call with fax for referral. Assisted Dr. Cifuentes with P2P - granted an additional week stressing needing to improvements to extend further. Updated family and IDT. SW to continue to follow. Gela Beyer, BUILDING INSPECTION ENGINEER SAMPLING THEORY TEACHER
[2021-03-30 21:45] VITALS: PULSE 93; RESP 16; O2SAT 93
[2021-03-31] MEDS: Amox/Clav 250mg/5ml Suspension 500 MG GT ×2 (05:04→17:48)
[2021-03-31] MEDS: Potassium Chloride Oral Soln 20 MEQ/15 ML UDC PO (05:05)
[2021-03-31] MEDS: Doxycycline 100 MG CAPSULE GT ×2 (05:05→17:48)
[2021-03-31] MEDS: Ferrous Sulfate 300 MG/5 ML UDC GT ×2 (08:34→17:48)
[2021-03-31 10:00] VITALS: PULSE 84; RESP 16; O2SAT 95
--- NOTE | 2021-03-31 10:35 | CASEMGMT ---
Social Work Received NRD from insurance as 04/05 and detailed description of goals for NRD. Provided information to family. Contacted [facility] SNF again - spoke to [facility] [employer] - faxed referral. Updated family. SW to continue to follow. Glea Beyer, GRANTS AND CONTRACTS ASSISTANT MANAGER SYSTEMS
[2021-03-31] MEDS: Jevity 1.5. 1,000 ML Bottle 300 ML GT ×3 (14:15→22:21)
[2021-03-31 15:06] VITALS: BP 94/57; PULSE 102; RESP 20; TEMP 36.6; O2SAT 95
[2021-03-31] MEDS: Acetaminophen 650 MG/20 ML UDC GT (22:21)
[2021-04-01] MEDS: Doxycycline 100 MG CAPSULE GT ×2 (04:59→17:26)
[2021-04-01] MEDS: Amox/Clav 250mg/5ml Suspension 500 MG GT ×2 (04:59→17:32)
[2021-04-01] MEDS: Menthol/Lanolin/Calamine/Znox 113 GM Tube 1 APPLIC TOPICAL ×2 (05:00→17:44)
[2021-04-01] MEDS: Potassium Chloride Oral Soln 20 MEQ/15 ML UDC PO (05:00)
[2021-04-01] MEDS: Jevity 1.5. 1,000 ML Bottle 300 ML GT ×5 (05:01→21:09)
[2021-04-01] MEDS: Nystatin Powder 15gm Bottle 1 APPLIC TOPICAL ×2 (05:01→17:44)
--- NOTE | 2021-04-01 09:00 | NURSING ---
Jevity bolus given, placement checked via aspiration of gastric contents and measurement on securement device, 0cc residual, flushed post feed with sterile water 225cc
[2021-04-01] MEDS: Ferrous Sulfate 300 MG/5 ML UDC GT ×2 (09:03→17:25)
[2021-04-01 14:38] VITALS: BP 112/49; PULSE 97; RESP 12; TEMP 36.5; O2SAT 98
--- NOTE | 2021-04-01 15:09 | NURSING ---
Jevity bolus given, placement checked via aspiration of gastric contents and measurement on securement device, 0cc residual, flushed post feed with sterile water 225cc
[2021-04-01] MEDS: Acetaminophen 650 MG/20 ML UDC GT (22:20)
--- NOTE | 2021-04-02 00:46 | NURSING ---
Pt requests water. Mouth swabbed w/ toothettes x2. Pt took sips of water w/ supervision per this nurse. Dry cough noted x 2. Pt lays down and positions self in bed. Call light w/ in reach.
[2021-04-02] MEDS: Amox/Clav 250mg/5ml Suspension 500 MG GT ×2 (04:59→17:57)
[2021-04-02] MEDS: Potassium Chloride Oral Soln 20 MEQ/15 ML UDC PO (04:59)
[2021-04-02] MEDS: Doxycycline 100 MG CAPSULE GT ×2 (04:59→17:53)
[2021-04-02] MEDS: Nystatin Powder 15gm Bottle 1 APPLIC TOPICAL ×2 (05:00→18:32)
[2021-04-02] MEDS: Jevity 1.5. 1,000 ML Bottle 300 ML GT ×5 (05:00→23:37)
[2021-04-02] MEDS: Menthol/Lanolin/Calamine/Znox 113 GM Tube 1 APPLIC TOPICAL ×2 (05:00→17:56)
--- NOTE | 2021-04-02 06:45 | NURSING ---
Patient tolerating Jevity Bolus well. No issues noted. PEG flushing well.
[2021-04-02] MEDS: Ferrous Sulfate 300 MG/5 ML UDC GT ×2 (08:39→17:53)
--- NOTE | 2021-04-02 09:02 | NURSING ---
Jevity bolus given per order, placement checked via gastric aspiration and checking markings on securement device. 0cc residual noted. flushed with 225 sterile water flush.
[2021-04-02 16:00] VITALS: BP 100/53; PULSE 79; RESP 16; TEMP 36.5; O2SAT 97
--- NOTE | 2021-04-03 00:14 | NURSING ---
300 mL Jevity 1.5 bolus given tonight per order with 225mL flush. Placement check via residual and measurement marked on tube, residual 0. HOB at 30 degrees at this time, pt tolerated well.
[2021-04-03] MEDS: Potassium Chloride Oral Soln 20 MEQ/15 ML UDC PO (06:42)
[2021-04-03] MEDS: Menthol/Lanolin/Calamine/Znox 113 GM Tube 1 APPLIC TOPICAL ×2 (06:42→22:09)
[2021-04-03] MEDS: Doxycycline 100 MG CAPSULE GT ×2 (06:42→18:05)
[2021-04-03] MEDS: Jevity 1.5. 1,000 ML Bottle 300 ML GT ×5 (06:43→22:09)
[2021-04-03] MEDS: Nystatin Powder 15gm Bottle 1 APPLIC TOPICAL ×2 (06:43→22:09)
[2021-04-03] MEDS: Amox/Clav 250mg/5ml Suspension 500 MG GT ×2 (06:45→18:07)
[2021-04-03] MEDS: Ferrous Sulfate 300 MG/5 ML UDC GT ×2 (09:52→18:03)
--- NOTE | 2021-04-03 10:16 | NURSING ---
PLACEMENT VERIFIED, 0 RESIDUAL. 300ML OF JEVITY WITH 255 FLUSH WITH MEDS. PT TOLERATED WELL.
--- NOTE | 2021-04-03 14:28 | NURSING ---
PLACEMENT VERIFIED 0 RESIDUAL. 300ML JEVITY AND 225 OF FLUSH GIVEN. PT TOLERATED WELL. TUBE AT #3
[2021-04-03 14:35] VITALS: BP 90/54; PULSE 89; RESP 15; TEMP 37.1; O2SAT 97
--- NOTE | 2021-04-03 18:32 | NURSING ---
0 RESIDUAL,300ML JEVITY AND 250 FLUSH WITH MEDS GIVEN. PT TOLERATED WELL.
[2021-04-04] MEDS: Amox/Clav 250mg/5ml Suspension 500 MG GT ×2 (06:38→17:46)
[2021-04-04] MEDS: Doxycycline 100 MG CAPSULE GT ×2 (06:38→17:47)
[2021-04-04] MEDS: Ferrous Sulfate 300 MG/5 ML UDC GT ×2 (06:38→17:46)
[2021-04-04] MEDS: Potassium Chloride Oral Soln 20 MEQ/15 ML UDC PO (06:38)
[2021-04-04] MEDS: Nystatin Powder 15gm Bottle 1 APPLIC TOPICAL ×2 (06:39→17:50)
[2021-04-04] MEDS: Jevity 1.5. 1,000 ML Bottle 300 ML GT ×5 (06:39→22:48)
[2021-04-04] MEDS: Menthol/Lanolin/Calamine/Znox 113 GM Tube 1 APPLIC TOPICAL ×2 (06:39→17:50)
--- NOTE | 2021-04-04 10:30 | NURSING ---
Jevity bolus given per order, placement checked via gastric aspiration and checking markings on securement device, #3 at the skin. 90cc cloudy straw colored residual noted. flushed with 225 sterile water flush.
[2021-04-04 13:10] VITALS: BP 94/60; PULSE 81; RESP 16; TEMP 36.2; O2SAT 97
--- NOTE | 2021-04-04 13:46 | MDS.RN ---
Jevity bolus given per order, placement checked via gastric aspiration and checking markings on securement device, #3 at the skin. 5cc cloudy yellow colored residual noted. flushed with 225 sterile water flush.
--- NOTE | 2021-04-04 16:06 | CASEMGMT ---
Social Work Followed up with [facility] in [place]. Spoke with Elise. She was still unable to provide a clear response if pt is accepted or not. She did state there isn't immediate bed availability. Asked if she could get the final answer for acceptance today as the insurance update is tomorrow. She agreed and will contact this worker. This worker has not received any plans from family to come into town to begin therapy training before move to [place]. SW to continue to follow. Gela Beyer, POACHER OPERATOR ROPE MAKER
[2021-04-05] MEDS: Amox/Clav 250mg/5ml Suspension 500 MG GT ×2 (04:51→17:34)
[2021-04-05] MEDS: Potassium Chloride Oral Soln 20 MEQ/15 ML UDC PO (04:51)
[2021-04-05] MEDS: Ferrous Sulfate 300 MG/5 ML UDC GT ×2 (04:51→17:28)
[2021-04-05] MEDS: Menthol/Lanolin/Calamine/Znox 113 GM Tube 1 APPLIC TOPICAL ×2 (04:52→17:28)
[2021-04-05] MEDS: Doxycycline 100 MG CAPSULE GT ×2 (04:52→17:28)
[2021-04-05] MEDS: Nystatin Powder 15gm Bottle 1 APPLIC TOPICAL ×2 (04:56→17:29)
[2021-04-05] MEDS: Jevity 1.5. 1,000 ML Bottle 300 ML GT ×5 (04:56→22:09)
--- NOTE | 2021-04-05 14:24 | ST ---
Nursing reports pt's dtr was inquiring if pt was able to read books, newspapers, articles, etc as she was wanting to bring in some reading material for pt. Called and left voicemail with patient's dtr Jenny to report pt is able to read although unable to recall read information successfully. Patient reports enjoying short magazine or newspaper articles to read for entertainment.
[2021-04-05 14:54] VITALS: BP 90/59; PULSE 95; RESP 15; TEMP 36.4; O2SAT 98
--- NOTE | 2021-04-05 16:22 | CASEMGMT ---
Social Work Insurance issued LCD 04/05, DC 04/06. Spoke with son - he still would like to pay privately in TCU until pt can transfer to SNF in [place]. Provided information again for valet cashier's office and reiterated for children to provide schedule on when to coordinate therapy training. Also updated that this worker has not receive return calls from [facility] and suggested providing other SNF options. Son expressed understanding and continues to express great appreciation for this worker's time and assistance. SW to continue to follow. FRANCISCO BhardwajW
[2021-04-05 22:14] VITALS: BP 106/62; PULSE 88; RESP 17; TEMP 36; O2SAT 96
[2021-04-06] MEDS: Amox/Clav 250mg/5ml Suspension 500 MG GT ×2 (05:35→17:40)
[2021-04-06] MEDS: Potassium Chloride Oral Soln 20 MEQ/15 ML UDC PO (05:35)
[2021-04-06] MEDS: Doxycycline 100 MG CAPSULE GT ×2 (05:35→17:40)
[2021-04-06] MEDS: Menthol/Lanolin/Calamine/Znox 113 GM Tube 1 APPLIC TOPICAL ×2 (05:42→17:41)
[2021-04-06] MEDS: Jevity 1.5. 1,000 ML Bottle 300 ML GT ×5 (05:43→21:32)
[2021-04-06] MEDS: Nystatin Powder 15gm Bottle 1 APPLIC TOPICAL ×2 (05:43→17:41)
[2021-04-06] MEDS: Ferrous Sulfate 300 MG/5 ML UDC GT ×2 (10:10→17:39)
[2021-04-06 10:20] VITALS: PULSE 73; RESP 18; O2SAT 95
--- NOTE | 2021-04-06 10:42 | NURSING ---
placement verified, 0 residual. ,jevity 300 ml,230 flush with meds given. #3 at skin, dressing changed, no drainage skin in tack. pt tolerated well.
[2021-04-06 13:21] VITALS: BP 91/54; PULSE 90; RESP 18; TEMP 35.9; O2SAT 98
[2021-04-06] MEDS: Midodrine HCl 5 MG Tablet 10 MG GT ×2 (14:42→17:39)
--- NOTE | 2021-04-06 14:54 | NURSING ---
PLACEMENT VERIFIED,0 RESIDUAL. JEVITY 300 ML AND 245 FLUSH WITH MEDS GIVEN. PT TOLERATED WELL.
--- NOTE | 2021-04-06 15:10 | NURSING ---
PT COMPLAINED TO THIS NURSE THAT HE COULDN'T HEAR WITH HIS 1 HEARING AID AND WANTED SOMETHING DONE ABOUT IT CAUSE HE STATED IT WAS DRIVING HIM CRAZY. THIS NURSE LOOKED AT HEARING AIDS IN MANAGER LVN AND FOUND THE ONE WAS NOT CHARGING. CALLED PT SON SANA AND TOLD HIM ABOUT THE PROBLEM AND SON STATED HE WOULD LOOK INTO IT AND STATED IT WILL DRIVE HIS DAD CRAZY. SON THANKED THIS NURSE AND STATED HE WILL CALL BACK WHEN HE FINDS OUT ABOUT GETTING HEARING AID FIXED. RN AWARE
[2021-04-07] MEDS: Potassium Chloride Oral Soln 20 MEQ/15 ML UDC PO (05:03)
[2021-04-07] MEDS: Amox/Clav 250mg/5ml Suspension 500 MG GT ×2 (05:03→17:10)
[2021-04-07] MEDS: Menthol/Lanolin/Calamine/Znox 113 GM Tube 1 APPLIC TOPICAL (05:03)
[2021-04-07] MEDS: Jevity 1.5. 1,000 ML Bottle 300 ML GT ×5 (05:04→22:46)
[2021-04-07] MEDS: Doxycycline 100 MG CAPSULE GT ×2 (05:04→16:48)
[2021-04-07] MEDS: Nystatin Powder 15gm Bottle 1 APPLIC TOPICAL ×2 (05:04→16:49)
[2021-04-07] MEDS: Ferrous Sulfate 300 MG/5 ML UDC GT ×2 (07:37→16:48)
[2021-04-07] MEDS: Midodrine HCl 5 MG Tablet 10 MG GT ×3 (07:37→16:48)
[2021-04-07 13:42] VITALS: PULSE 70; RESP 16; O2SAT 99
--- NOTE | 2021-04-07 14:19 | NURSING ---
Resident and son, Ryan, notified of a resident and a staff member testing positive for COVID.
--- NOTE | 2021-04-07 15:12 | PT ---
Spoke with pt's daughter Jenny and updated her on pt's progress. Pt is now ambulating without AD, and demonstrates improvement with overall balance, activity tolerance and stair navigation. Pt also demonstrates increased strength in BLE. Pt's dtr thankful for update and will pass along the information to the other family members. Dtr stated they are still working on what they feel would be a good discharge plan for pt.
[2021-04-07 16:00] VITALS: BP 92/58; PULSE 64; RESP 12; TEMP 36.6; O2SAT 99
[2021-04-08] MEDS: Nystatin Powder 15gm Bottle 1 APPLIC TOPICAL ×2 (06:49→17:17)
[2021-04-08] MEDS: Ferrous Sulfate 300 MG/5 ML UDC GT ×2 (06:49→17:14)
[2021-04-08] MEDS: Potassium Chloride Oral Soln 20 MEQ/15 ML UDC PO (06:50)
[2021-04-08] MEDS: Doxycycline 100 MG CAPSULE GT ×2 (06:51→17:15)
[2021-04-08] MEDS: Jevity 1.5. 1,000 ML Bottle 300 ML GT ×5 (06:52→20:42)
[2021-04-08] MEDS: Menthol/Lanolin/Calamine/Znox 113 GM Tube 1 APPLIC TOPICAL ×2 (06:52→17:15)
[2021-04-08] MEDS: Amox/Clav 250mg/5ml Suspension 500 MG GT ×2 (06:55→17:21)
[2021-04-08] MEDS: Midodrine HCl 5 MG Tablet 10 MG GT ×3 (07:45→17:15)
[2021-04-08 14:29] VITALS: BP 98/56; PULSE 66; RESP 14; TEMP 36.5; O2SAT 99
--- NOTE | 2021-04-08 15:34 | NURSING ---
1430- pt laying reclined in chair by window. no residual again noted from peg. pt doing well with rossi water. teaching given however to drink when sitting upright fully and to not try while reclined. no pain this afternoon or needs
--- NOTE | 2021-04-08 18:38 | NURSING ---
pt up in chair with no needs. no residual in peg and pt chente bolus feeds well. attends changed and pt in chair for awhile longer yet
[2021-04-09] MEDS: Menthol/Lanolin/Calamine/Znox 113 GM Tube 1 APPLIC TOPICAL ×2 (05:18→17:21)
[2021-04-09] MEDS: Jevity 1.5. 1,000 ML Bottle 300 ML GT ×5 (05:19→19:51)
[2021-04-09] MEDS: Nystatin Powder 15gm Bottle 1 APPLIC TOPICAL ×2 (05:19→17:21)
[2021-04-09] MEDS: Potassium Chloride Oral Soln 20 MEQ/15 ML UDC PO (05:19)
[2021-04-09] MEDS: Midodrine HCl 5 MG Tablet 10 MG GT ×3 (08:51→17:21)
[2021-04-09] MEDS: Ferrous Sulfate 300 MG/5 ML UDC GT ×2 (08:52→17:20)
--- NOTE | 2021-04-09 10:46 | NURSING ---
pt up to ambulate in [place] with walker and sba. fast steady pace obs. back to room and up in chair. talking to nurse about short term memory impairments and that cant remember stuff 10min after joseph read it or been told sometimes bolus tf given and no residual noted. peg site clear and new split drsg on. chair alarm on and call light within reach. no other needs at this time
[2021-04-09 14:35] VITALS: BP 94/62
--- NOTE | 2021-04-09 15:05 | NURSING ---
1430 pt up in [place]en with innersole fitter and did 3 laps again around entire unit. sba with no device and did great. back to room bp rechecked prior to walking and was up to 94\62. pt reported feeling great after my nap
[2021-04-10] MEDS: Jevity 1.5. 1,000 ML Bottle 300 ML GT ×5 (05:18→21:31)
[2021-04-10] MEDS: Potassium Chloride Oral Soln 20 MEQ/15 ML UDC PO (05:18)
[2021-04-10] MEDS: Menthol/Lanolin/Calamine/Znox 113 GM Tube 1 APPLIC TOPICAL ×2 (05:19→17:33)
[2021-04-10] MEDS: Nystatin Powder 15gm Bottle 1 APPLIC TOPICAL ×2 (05:19→17:34)
[2021-04-10] MEDS: Midodrine HCl 5 MG Tablet 10 MG GT ×3 (07:52→17:33)
[2021-04-10] MEDS: Ferrous Sulfate 300 MG/5 ML UDC GT ×2 (07:52→17:33)
[2021-04-10 13:56] VITALS: BP 110/60; PULSE 88; RESP 16; TEMP 36.2; O2SAT 100
[2021-04-10] MEDS: Juven (unflavored) Packet 1 PACKET GT (21:31)
[2021-04-11] MEDS: Menthol/Lanolin/Calamine/Znox 113 GM Tube 1 APPLIC TOPICAL ×2 (05:12→18:17)
[2021-04-11] MEDS: Jevity 1.5. 1,000 ML Bottle 300 ML GT ×5 (05:13→21:02)
[2021-04-11] MEDS: Nystatin Powder 15gm Bottle 1 APPLIC TOPICAL ×2 (05:13→18:17)
[2021-04-11] MEDS: Potassium Chloride Oral Soln 20 MEQ/15 ML UDC PO (05:13)
[2021-04-11] MEDS: Midodrine HCl 5 MG Tablet 10 MG GT ×3 (06:59→18:16)
[2021-04-11] MEDS: Juven (unflavored) Packet 1 PACKET GT ×2 (09:31→18:16)
[2021-04-11] MEDS: Ferrous Sulfate 300 MG/5 ML UDC GT ×2 (09:31→18:16)
[2021-04-11 13:53] VITALS: BP 101/46; PULSE 80; RESP 16; TEMP 36.2; O2SAT 97
--- NOTE | 2021-04-11 15:28 | NURSING ---
Jevity bolus given per order with 225 ml sterile water flush, placement checked via aspiration of gastric contents and external securement device. 0cc residual noted, abdominal binder in place
--- NOTE | 2021-04-11 16:45 | CASEMGMT ---
Social Work Spoke with son at length. Answered questions about insurance coverage and reason for denial from MMO. Provided information given from insurance. Reexplained in network and out of network coverage, private pay costs for SNF. Explained update therapist provided to his sister and that whenever family is ready for DC, IDT is ready for DC. Reiterated SW will not refer SNFs locally until family has plan and DC date. IDT feels pt can transport to [place] with dtr, but still requiring family therapy training with the two people transporting him. Again, when family is ready for that, IDT to coordinate. Explained ST continuing to work in swallowing and cognition. Son appreciative of update and continued assistance. He is to collaborate with family and update this worker when they have a plan. Pt has paid for the 21 days for TCU. SW to continue to follow. Gela Beyer, SANDBLASTER PAINT SPRAYER FEATHER CUTTING MACHINE FEEDER
[2021-04-12] MEDS: Jevity 1.5. 1,000 ML Bottle 300 ML GT ×5 (06:27→21:54)
[2021-04-12] MEDS: Potassium Chloride Oral Soln 20 MEQ/15 ML UDC PO (06:27)
[2021-04-12] MEDS: Menthol/Lanolin/Calamine/Znox 113 GM Tube 1 APPLIC TOPICAL ×2 (06:28→16:28)
[2021-04-12] MEDS: Nystatin Powder 15gm Bottle 1 APPLIC TOPICAL ×2 (06:28→16:29)
[2021-04-12] MEDS: Midodrine HCl 5 MG Tablet 10 MG GT ×3 (08:11→16:27)
[2021-04-12] MEDS: Juven (unflavored) Packet 1 PACKET GT ×2 (08:12→16:27)
[2021-04-12] MEDS: Ferrous Sulfate 300 MG/5 ML UDC GT ×2 (08:12→16:27)
[2021-04-12 10:00] VITALS: RESP 18
--- NOTE | 2021-04-12 12:26 | CASEMGMT ---
Social Work Son left voicemail for this worker stating family would like pt to DC to [facility] and since they are paying privately, they can wait for a bed to become available. Returned call and left voicemail that [facility] has had a main water break in SNF and AL and not accepting referrals until that is fixed - which there is an unsure timeframe. Encouraged to choose alternate facility but then decide on DC timeframe as facilities cannot hold beds for several weeks. SW to continue to follow. Gela Beyer, LEAD SYSTEMS DEVELOPER SERVICE CONTROL OPERATOR
[2021-04-12 13:07] VITALS: BP 117/55; PULSE 69; RESP 18; TEMP 36.2; O2SAT 100
[2021-04-13] MEDS: Potassium Chloride Oral Soln 20 MEQ/15 ML UDC PO (06:39)
[2021-04-13] MEDS: Jevity 1.5. 1,000 ML Bottle 300 ML GT ×5 (06:40→20:45)
[2021-04-13] MEDS: Menthol/Lanolin/Calamine/Znox 113 GM Tube 1 APPLIC TOPICAL ×2 (06:51→18:18)
[2021-04-13] MEDS: Nystatin Powder 15gm Bottle 1 APPLIC TOPICAL ×2 (06:52→18:18)
[2021-04-13] MEDS: Juven (unflavored) Packet 1 PACKET GT ×2 (09:17→17:49)
[2021-04-13] MEDS: Midodrine HCl 5 MG Tablet 10 MG GT ×3 (09:17→17:49)
[2021-04-13] MEDS: Ferrous Sulfate 300 MG/5 ML UDC GT ×2 (09:17→17:49)
[2021-04-13 13:07] VITALS: BP 94/60; PULSE 78; RESP 18; TEMP 36.3; O2SAT 100
--- NOTE | 2021-04-13 15:27 | NURSING ---
Resident and son, Ryan notified of 2 residents testing positive for COVID.
--- NOTE | 2021-04-13 16:55 | PCM.PN.RX ---
Progress Note - Pharmacy Subjective: Monthly TCU medication Assessment Objective: Allergies No Known Allergies Allergy (Verified 03/28/21 10:53) Current Medications Generic Name Dose Route Start Last Admin Trade Name Murali PRN Reason Stop Dose Admin Acetaminophen 650 mg 02/28/21 20:10 04/01/21 22:20 Acetaminophen 650 Mg/20 Ml Udc GT 650 mg Q4H PRN PRN Administration Pain Score 1-10 Albuterol Sulfate 2 puff 03/13/21 07:18 03/26/21 08:27 Albuterol Sulfate 8 Gm Inhaler (60 Puffs) INHALATION 2 puff Q6H PRN PRN Administration SOB &/OR WHEEZING Calamine/Phenol 1 applic 02/28/21 18:00 04/13/21 06:51 Menthol/Lanolin/Calamine/Znox 113 Gm Tube TOPICAL 1 applic BID PÉREZ Administration Protocol Emollient Ointment 1 applic 03/03/21 06:00 04/13/21 06:51 Emollient Combination No.72 500 Ml Lotion TOPICAL 1 applic BID PÉREZ Administration Protocol Enteral Nutritional Formula 300 ml 03/31/21 10:00 04/13/21 14:11 Jevity 1.5. 1,000 Ml Bottle GT 300 ml 5X/DAY PÉREZ Administration Ferrous Sulfate 300 mg 03/17/21 17:00 04/13/21 09:17 Ferrous Sulfate 300 Mg/5 Ml Udc GT 300 mg BIDCM PÉREZ Administration L-Arginine/L-Glutamine/Calcium HMB 1 packet 04/10/21 17:00 04/13/21 09:17 Alex (Unflavored) Packet GT 1 packet BIDCM PÉREZ Administration Lactobacillus Acidophilus 1 tablet 04/04/21 06:00 04/13/21 06:39 Lactobacillus Acidophilus GT 1 tablet BID PÉREZ Administration Midodrine 10 mg 04/06/21 12:45 04/13/21 14:09 Midodrine Hcl 5 Mg Tablet GT 10 mg TIDCM PÉREZ Administration Nystatin 1 applic 03/03/21 06:00 04/13/21 06:52 Nystatin Powder 15gm Bottle TOPICAL 1 applic BID PÉREZ Administration Protocol Potassium Chloride 20 meq 03/02/21 06:00 04/13/21 06:39 Potassium Chloride Oral Soln 20 Meq/15 Ml Udc PO 20 meq DAILY PÉREZ Administration Sodium Chloride 10 - 40 ml 03/05/21 10:00 03/13/21 05:05 0.9% Saline Lock 10 Ml Syringe IV 10 ml UD PRN Administration SALINE FLUSH Problem List (Last Reviewed 03/28/21 @ 11:00 by Shanthi Corrales SECOND SHIFT SUPERVISOR, SECOND SHIFT SUPERVISOR-C) PEG (percutaneous endoscopic gastrostomy) adjustment/replacement/removal (Acute) Acute kidney injury (Acute) Dysphagia (Acute) Dysarthria (Acute) Hypokalemia (Acute) Lung abscess (Acute) Pneumonia (Acute) Acute respiratory failure with hypoxia (Acute) Debility (Acute) Encephalopathy due to 2019-nCoV (Acute) Abscess of lung (Acute) Malnutrition (Acute) VELIA (acute kidney injury) (Acute) Vital Signs Temp Pulse Resp BP Pulse Ox 97.4 F L 78 18 94/60 100 04/13/21 13:07 04/13/21 13:07 04/13/21 13:07 04/13/21 13:07 04/13/21 13:07 Oxygen Flow Rate (L/min) 3 Oxygen Delivery Method Room Air Weight: 52.617 kg Body Mass Index (BMI) 17.6 Sodium 133 mmol/L (136-145) L 03/29/21 05:05 Potassium 4.6 mmol/L (3.5-5.1) 03/29/21 05:05 Chloride 97 mmol/L (98-107) L 03/29/21 05:05 Carbon Dioxide 31.0 mmol/L (21.0-32.0) 03/29/21 05:05 Anion Gap 5 (5-15) 03/29/21 05:05 BUN 33 mg/dL (7-18) H 03/29/21 05:05 Creatinine 1.04 mg/dL (0.70-1.30) 03/29/21 05:05 Est GFR (MDRD) Af Amer 88 mL/min (>60) 03/29/21 05:05 Est GFR (MDRD) Non-Af 73 mL/min (>60) 03/29/21 05:05 BUN/Creatinine Ratio 31.7 RATIO (10-20) H 03/29/21 05:05 Glucose 128 mg/dL (74-106) H 03/29/21 05:05 Assessment/Plan: 1. Pain: Tylenol 650mg GT Q6h PRN pain 1-10. Please continue to monitor for increased/decreased S/S pain, PRN medication usage. 2. SOB: Ventolin inhaler 2 puff Q6H PRN. Please continue to monitor for medication effectiveness, HR, PRN medication usage. 3. Iron deficiency anemia: Iron liquid 300mg GT BID. Please continue to monitor H/H, iron studies as clinically indicated. 4. GI Prophylaxis: Acidophilus 1 tab PO BID. Please continue to monitor. 5. Hypokalemia: KCl liquid 20mEq GT Daily. Please continue to monitor potassium levels (last 4.6 on 03/29/21). Can consider getting another potassium level since last level was > 2 weeks ago if clinically indicated. Psychotropic Medications: None Unnecessary Medications: Midodrine 10mg GT TID. No indication on progress note, medical history. last BP 94/60, (possible use for orthostatic hypotension?). please evaluate for appropriate use, thank you. Bowel Regimen: Not currently on a bowel regimen. Last documented BM in EMR was 04/01/21. Please consider adding bowel regimen if clinically indicated as pt has not had a bowel movement per I/O documentation in EMR in >1 week, thank you. Date of Note:: 04/13/21
[2021-04-13 17:47] VITALS: BP 89/64; PULSE 66
--- NOTE | 2021-04-13 18:22 | NURSING ---
5ml residual prior to tube feeding. Tolerates well. Assisted to bathroom then to bed. Voice no complaints at this time.
[2021-04-14 06:03] VITALS: BP 107/62; PULSE 60; RESP 16; TEMP 37.3; O2SAT 99
[2021-04-14] MEDS: Jevity 1.5. 1,000 ML Bottle 300 ML GT ×5 (06:07→22:21)
[2021-04-14] MEDS: Potassium Chloride Oral Soln 20 MEQ/15 ML UDC PO (06:07)
[2021-04-14] MEDS: Nystatin Powder 15gm Bottle 1 APPLIC TOPICAL ×2 (06:08→17:47)
[2021-04-14] MEDS: Menthol/Lanolin/Calamine/Znox 113 GM Tube 1 APPLIC TOPICAL ×2 (06:08→17:46)
[2021-04-14] MEDS: Midodrine HCl 5 MG Tablet 10 MG GT ×3 (07:41→17:16)
[2021-04-14] MEDS: Ferrous Sulfate 300 MG/5 ML UDC GT ×2 (07:41→17:15)
[2021-04-14] MEDS: Juven (unflavored) Packet 1 PACKET GT ×2 (07:41→17:16)
[2021-04-14 15:01] VITALS: BP 93/68; PULSE 67; RESP 16; TEMP 36.3; O2SAT 100
--- NOTE | 2021-04-14 15:58 | NURSING ---
PER MARCIAL IN THERAPY,FAMILY IS ALLOWED TO WALK PT IN HALLS AND GROUND FLOOR WITH A GATE BELT AND MASK ON. BUT NOT . RN AWARE
[2021-04-15] MEDS: Menthol/Lanolin/Calamine/Znox 113 GM Tube 1 APPLIC TOPICAL ×2 (05:25→17:02)
[2021-04-15] MEDS: Jevity 1.5. 1,000 ML Bottle 300 ML GT ×5 (05:25→22:09)
[2021-04-15] MEDS: Nystatin Powder 15gm Bottle 1 APPLIC TOPICAL ×2 (05:25→17:02)
[2021-04-15] MEDS: Potassium Chloride Oral Soln 20 MEQ/15 ML UDC PO (05:26)
[2021-04-15] MEDS: Juven (unflavored) Packet 1 PACKET GT ×2 (08:08→17:02)
[2021-04-15] MEDS: Ferrous Sulfate 300 MG/5 ML UDC GT ×2 (08:08→17:01)
[2021-04-15] MEDS: Midodrine HCl 5 MG Tablet 10 MG GT ×3 (08:08→17:02)
[2021-04-15 08:12] VITALS: BP 85/41; PULSE 65
[2021-04-15 13:44] VITALS: BP 94/46; PULSE 64; RESP 18; TEMP 35.8; O2SAT 99
[2021-04-16] MEDS: Jevity 1.5. 1,000 ML Bottle 300 ML GT ×4 (05:29→17:50)
[2021-04-16] MEDS: Nystatin Powder 15gm Bottle 1 APPLIC TOPICAL ×2 (05:30→17:36)
[2021-04-16] MEDS: Menthol/Lanolin/Calamine/Znox 113 GM Tube 1 APPLIC TOPICAL ×2 (05:30→17:36)
[2021-04-16] MEDS: Potassium Chloride Oral Soln 20 MEQ/15 ML UDC PO (05:30)
[2021-04-16] MEDS: Ferrous Sulfate 300 MG/5 ML UDC GT ×2 (08:24→17:35)
[2021-04-16] MEDS: Midodrine HCl 5 MG Tablet 10 MG GT ×3 (08:24→17:35)
[2021-04-16] MEDS: Juven (unflavored) Packet 1 PACKET GT ×2 (08:24→17:35)
[2021-04-16 08:34] VITALS: BP 82/45; PULSE 57
[2021-04-16 14:50] VITALS: BP 88/56; PULSE 61; RESP 16; TEMP 36.7; O2SAT 98
[2021-04-17] MEDS: Jevity 1.5. 1,000 ML Bottle 300 ML GT ×6 (00:02→20:08)
[2021-04-17] MEDS: Potassium Chloride Oral Soln 20 MEQ/15 ML UDC PO (06:20)
[2021-04-17] MEDS: Nystatin Powder 15gm Bottle 1 APPLIC TOPICAL (06:21)
[2021-04-17] MEDS: Menthol/Lanolin/Calamine/Znox 113 GM Tube 1 APPLIC TOPICAL (06:21)
[2021-04-17 09:26] LABS: Absolute Lymphocyte Count 2.27 X10^3/uL (0.83-4.51); Absolute Neutrophil Count 4.1 X10^3/uL (2.0-7.7); Basophil# 0.03 X10^3/uL; Basophil% 0.4 % (0-1); Eosinophil# 0.09 X10^3/uL; Eosinophils% 1.3 % (0-5); Hematocrit 29.1 % (40-54); Hemoglobin 9.9 g/dL (13.0-16.5); Lymphocyte # 2.27 X10^3/ul (0.83-4.51); Lymphocyte % 32.3 % (19-41); Mean Corpuscular Hgb 34.5 pg (27.0-32.0); Mean Corpuscular Volume 101.4 fL (80-94); Monocyte# 0.48 X10^3/uL; Monocyte% 6.8 % (0-10); NRBC Flagged by Analyzer 0 % (0-5); Neutrophil # 4.14 X10^3/uL (2.7-7.7); Neutrophil % 58.9 % (47-70); POSITIVE MORPHOLOGY YES; Platelet Count 282 K/mm3 (150-450); RBC Distribution Width CV 18.4 % (11.6-14.6); RBC Distribution Width SD 68.3 fl (35.1-43.9); Red Blood Count 2.87 M/mm3 (4.6-6.2)
[2021-04-17 09:30] LABS: Differential Indicated SCAN CRITERIA MET
[2021-04-17 09:51] LABS: ALB/GLOB Ratio 0.5 RATIO (0.9-2.4); AST(SGOT) 94 U/L (15-37); Alanine Aminotransfer ALT/SGPT 89 U/L (16-61); Albumin, Serum 2.6 g/dL (3.2-5.0); Alkaline Phosphatase 122 U/L (45-117); Anion Gap 3 (5-15); BUN 47 mg/dL (7-18); BUN/Creat Ratio 47.1 RATIO (10-20); Calcium,Total 9.2 mg/dL (8.5-10.1); Chloride 103 mmol/L (98-107); EST Glomerular Filtration Rate 77 mL/min (>60); Est Glom Filt Rate - Afr Amer 93 mL/min (>60); Estimated Creatinine Clearance 46.26 ml/min; Globulin 4.8 g/dL (2.2-4.2); Glucose 115 mg/dL (74-106); Potassium 4.6 mmol/L (3.5-5.1); Protein, Total 7.4 g/dL (6.4-8.2); Sodium Level 137 mmol/L (136-145)
[2021-04-17 10:13] LABS: Anisocytosis 1+; Macrocytosis 1+; Polychromasia 1+
[2021-04-17] MEDS: Midodrine HCl 5 MG Tablet 10 MG GT ×3 (10:34→17:21)
[2021-04-17] MEDS: Juven (unflavored) Packet 1 PACKET GT ×2 (10:34→17:20)
[2021-04-17] MEDS: Ferrous Sulfate 300 MG/5 ML UDC GT ×2 (10:34→17:20)
--- NOTE | 2021-04-17 11:00 | NURSING ---
Pleasant and talkative. Tube feed given at this time. 0ml residual. Tolerates feeding well.
[2021-04-17 12:19] VITALS: BP 84/52; PULSE 68; RESP 16; TEMP 36.6; O2SAT 100
--- NOTE | 2021-04-17 14:29 | NURSING ---
Resting in bed. Tube feed given. 0 ml residual.
[2021-04-18] MEDS: Menthol/Lanolin/Calamine/Znox 113 GM Tube 1 APPLIC TOPICAL ×2 (07:09→17:43)
[2021-04-18] MEDS: Potassium Chloride Oral Soln 20 MEQ/15 ML UDC PO (07:10)
[2021-04-18] MEDS: Jevity 1.5. 1,000 ML Bottle 300 ML GT ×5 (07:10→21:28)
[2021-04-18] MEDS: Nystatin Powder 15gm Bottle 1 APPLIC TOPICAL ×2 (07:10→17:42)
--- NOTE | 2021-04-18 08:00 | NURSING ---
Bolus Jevity tube feed administered, placement checked via gastric content, 70cc straw colored residual noted. 225cc sterile water flush administered.
[2021-04-18] MEDS: Ferrous Sulfate 300 MG/5 ML UDC GT ×2 (09:09→17:31)
[2021-04-18] MEDS: Midodrine HCl 5 MG Tablet 10 MG GT ×3 (09:09→17:31)
[2021-04-18] MEDS: Juven (unflavored) Packet 1 PACKET GT ×2 (09:09→17:31)
--- NOTE | 2021-04-18 13:10 | NURSING ---
Bolus Jevity tube feed administered, placement checked via gastric content, 0cc residual noted. 225cc sterile water flush administered.
[2021-04-18 14:06] VITALS: BP 87/64; PULSE 79; RESP 16; TEMP 36.1; O2SAT 97
--- NOTE | 2021-04-18 15:56 | CASEMGMT ---
Addendum entered by Gela Beyer 04/20/21 08:57: Received email correspondence back from children stating they will be paying privately longer until they can facilitate the transfer to [facility] in [place]. This worker left message with admissions at [facility] inquiring of status and further needs from . Will continue to follow. Original Note: Social Work Communicated via email to three children updating them pt is paid through 04/26 and IDT feel pt is appropriate to DC, has reached new baseline. Will await outcome from children. Gela Beyer, FRANCISCO CROUCHW
--- NOTE | 2021-04-18 18:03 | NURSING ---
Bolus Jevity tube feed administered, placement checked via gastric content, 5cc straw colored residual noted. 225cc sterile water flush administered.
[2021-04-19] MEDS: Jevity 1.5. 1,000 ML Bottle 300 ML GT ×5 (06:10→22:24)
[2021-04-19] MEDS: Menthol/Lanolin/Calamine/Znox 113 GM Tube 1 APPLIC TOPICAL ×2 (06:10→17:02)
[2021-04-19] MEDS: Potassium Chloride Oral Soln 20 MEQ/15 ML UDC PO (06:10)
[2021-04-19] MEDS: Nystatin Powder 15gm Bottle 1 APPLIC TOPICAL ×2 (06:11→17:02)
[2021-04-19] MEDS: Juven (unflavored) Packet 1 PACKET GT ×2 (07:35→17:02)
[2021-04-19] MEDS: Midodrine HCl 5 MG Tablet 10 MG GT ×3 (07:35→17:06)
[2021-04-19] MEDS: Ferrous Sulfate 300 MG/5 ML UDC GT ×2 (07:35→17:02)
[2021-04-19 10:00] VITALS: PULSE 57; RESP 16; O2SAT 99
[2021-04-19 15:56] VITALS: BP 97/55; PULSE 74; RESP 18; TEMP 35.7; O2SAT 98
--- NOTE | 2021-04-19 18:02 | RAD_ITS ---
STUDY: X-RAY CHEST REASON FOR EXAM: Male, 80 years old. CHEST PAIN lung abscess TECHNIQUE: XR Chest 2 Views COMPARISON: 2.8. FINDINGS: There is no demonstrated pleural abnormality. The lung joseph are hyperexpanded. Stable cavitary lesion in the right upper lobe. Normal size heart. Normal mediastinum and susie. Normal visualized pulmonary arteries. There is atherosclerotic calcification of the aortic arch with tortuosity. There are diffuse degenerative changes of the visualized thoracic spine. There is degenerative osteoarthritis of the bilateral shoulders. There is no demonstrated abnormality of the visualized soft tissue structures of the upper abdomen. RAD/Chest PA and Lateral IMPRESSION: Stable cavitary lesion in the right upper lobe. Electronically Signed: Mc Olivares MD at 19:39 EST ,
--- NOTE | 2021-04-19 18:59 | PCA ---
patient was very content and would like to wait until morning to get washed up with therapy as patient in an ADL. helped patient wash face and they were satisfied
[2021-04-20] MEDS: Nystatin Powder 15gm Bottle 1 APPLIC TOPICAL ×2 (06:39→17:09)
[2021-04-20] MEDS: Menthol/Lanolin/Calamine/Znox 113 GM Tube 1 APPLIC TOPICAL ×2 (06:39→17:09)
[2021-04-20] MEDS: Jevity 1.5. 1,000 ML Bottle 300 ML GT ×5 (06:39→21:13)
[2021-04-20] MEDS: Potassium Chloride Oral Soln 20 MEQ/15 ML UDC PO (06:39)
[2021-04-20] MEDS: Juven (unflavored) Packet 1 PACKET GT ×2 (09:54→16:57)
[2021-04-20] MEDS: Midodrine HCl 5 MG Tablet 10 MG GT ×3 (09:54→16:57)
[2021-04-20] MEDS: Ferrous Sulfate 300 MG/5 ML UDC GT ×2 (09:54→16:57)
[2021-04-20 13:22] VITALS: BP 92/55; PULSE 62; RESP 14; TEMP 36.2; O2SAT 97
--- NOTE | 2021-04-20 15:39 | NURSING ---
Resident and son, Ryan, notified of a resident on the unit testing positive for COVID.
[2021-04-21] MEDS: Potassium Chloride Oral Soln 20 MEQ/15 ML UDC PO (05:19)
[2021-04-21] MEDS: Menthol/Lanolin/Calamine/Znox 113 GM Tube 1 APPLIC TOPICAL ×2 (05:32→17:00)
[2021-04-21] MEDS: Jevity 1.5. 1,000 ML Bottle 300 ML GT ×5 (05:34→21:51)
[2021-04-21] MEDS: Nystatin Powder 15gm Bottle 1 APPLIC TOPICAL ×2 (05:35→17:01)
[2021-04-21] MEDS: Midodrine HCl 5 MG Tablet 10 MG GT ×3 (08:00→17:00)
[2021-04-21] MEDS: Juven (unflavored) Packet 1 PACKET GT ×2 (08:00→17:00)
[2021-04-21] MEDS: Ferrous Sulfate 300 MG/5 ML UDC GT ×2 (08:00→17:00)
[2021-04-21 12:08] VITALS: BP 103/58; PULSE 72; RESP 16; TEMP 36.9; O2SAT 97
[2021-04-21 17:12] VITALS: BP 82/51; PULSE 63
[2021-04-21] MEDS: BACITRACIN 15 GM Tube 1 APPLIC TOPICAL (17:17)
[2021-04-21 21:15] VITALS: BP 94/57; PULSE 50; RESP 16; TEMP 36.7; O2SAT 99
--- NOTE | 2021-04-21 21:51 | NURSING ---
Bolus Jevity tube feed administered, placement checked via gastric content, 0cc residual noted. 225cc sterile water flush administered.
[2021-04-22 05:58] VITALS: BP 87/47; PULSE 67; RESP 16; TEMP 37.1; O2SAT 95
[2021-04-22] MEDS: Potassium Chloride Oral Soln 20 MEQ/15 ML UDC PO (06:01)
[2021-04-22] MEDS: Jevity 1.5. 1,000 ML Bottle 300 ML GT ×5 (06:01→22:34)
--- NOTE | 2021-04-22 06:01 | NURSING ---
Bolus Jevity tube feed administered, placement checked via gastric content, 0cc residual noted. 225cc sterile water flush administered.
[2021-04-22] MEDS: BACITRACIN 15 GM Tube 1 APPLIC TOPICAL ×2 (06:02→16:51)
[2021-04-22] MEDS: Nystatin Powder 15gm Bottle 1 APPLIC TOPICAL ×2 (06:03→16:51)
[2021-04-22] MEDS: Menthol/Lanolin/Calamine/Znox 113 GM Tube 1 APPLIC TOPICAL ×2 (06:03→16:50)
[2021-04-22] MEDS: Ferrous Sulfate 300 MG/5 ML UDC GT ×2 (09:13→16:49)
[2021-04-22] MEDS: Juven (unflavored) Packet 1 PACKET GT ×2 (09:13→16:49)
[2021-04-22] MEDS: Midodrine HCl 5 MG Tablet 10 MG GT ×3 (09:13→16:49)
--- NOTE | 2021-04-22 09:25 | NURSING ---
Bolus given at this time per order, no residual noted, placement checked via aspiration of contents and measurement on external securement device. pt tolerated well, 225cc flush sterile water administered
[2021-04-22 13:34] VITALS: BP 89/53; PULSE 73; RESP 12; TEMP 36.6; O2SAT 99
--- NOTE | 2021-04-23 00:15 | NURSING ---
Per Gerda Preston patient approved to take communion.
[2021-04-23] MEDS: Menthol/Lanolin/Calamine/Znox 113 GM Tube 1 APPLIC TOPICAL ×2 (06:10→18:02)
[2021-04-23] MEDS: Jevity 1.5. 1,000 ML Bottle 300 ML GT ×5 (06:10→21:42)
[2021-04-23] MEDS: BACITRACIN 15 GM Tube 1 APPLIC TOPICAL ×2 (06:11→17:47)
[2021-04-23] MEDS: Potassium Chloride Oral Soln 20 MEQ/15 ML UDC PO (06:11)
[2021-04-23] MEDS: Nystatin Powder 15gm Bottle 1 APPLIC TOPICAL ×2 (06:12→18:02)
[2021-04-23] MEDS: Midodrine HCl 5 MG Tablet 10 MG GT ×3 (08:51→17:46)
[2021-04-23] MEDS: Juven (unflavored) Packet 1 PACKET GT ×2 (08:51→17:46)
[2021-04-23] MEDS: Ferrous Sulfate 300 MG/5 ML UDC GT ×2 (08:51→17:46)
--- NOTE | 2021-04-23 09:13 | NURSING ---
Jevity bolus given per order, placement checked via aspiration of gastric content and placement of external securement device, 60cc light brown/martinez colored residual noted, pt tolerated well.
--- NOTE | 2021-04-23 13:13 | NURSING ---
Jevity bolus given per order, placement checked via aspiration of gastric content and placement of external securement device, 0cc residual noted, pt tolerated well.
[2021-04-23 14:41] VITALS: BP 87/52; PULSE 59; RESP 18; TEMP 36.8; O2SAT 98
[2021-04-24] MEDS: BACITRACIN 15 GM Tube 1 APPLIC TOPICAL ×2 (05:35→17:46)
[2021-04-24] MEDS: Potassium Chloride Oral Soln 20 MEQ/15 ML UDC PO (05:35)
[2021-04-24] MEDS: Jevity 1.5. 1,000 ML Bottle 300 ML GT ×5 (05:35→22:28)
[2021-04-24] MEDS: Menthol/Lanolin/Calamine/Znox 113 GM Tube 1 APPLIC TOPICAL ×2 (05:51→22:39)
[2021-04-24] MEDS: Nystatin Powder 15gm Bottle 1 APPLIC TOPICAL ×2 (07:43→22:40)
[2021-04-24] MEDS: Midodrine HCl 5 MG Tablet 10 MG GT ×3 (08:56→17:50)
[2021-04-24] MEDS: Juven (unflavored) Packet 1 PACKET GT (08:56)
[2021-04-24] MEDS: Ferrous Sulfate 300 MG/5 ML UDC GT ×2 (08:56→17:48)
--- NOTE | 2021-04-24 09:34 | NURSING ---
placement verified,0 residual. meds, ruth, jevity given. binder reapplied. pt tolerated well.
--- NOTE | 2021-04-24 10:57 | CASEMGMT ---
Social Work Received email correspondence from children with further questions. Children were inquiring about another update on the following topics: current level of care pt requires - if [facility] in [place] remains appropriate, tube feed - can family hire a nurse to administer either at home or AL, as family is finding out many ALs cannot accommodate tube feeds and if pt can administer the tube feeds himself, pt's incontinence, and the possibility of pt becoming adlib. SW forwarded email to the necessary disciplines to obtain accurate answers. OT/PT/ST/Supervisor Lens Generating/Nursing all responded and this worker relayed the answers to the children. Concluding: cognitively due to impulsivity, being fast paced and safety, pt still needs supervision/assistance whether that be at home, in an AL or SNF; he is continent. For the same reasons, pt cannot administer his own tube feeds; family can hire a nurse to administer those - if AL allows, and PT/OT discussed further then agreed to trial adlib status in room only to determine if pt is safe. ST scheduled MBS for 04/25 as there has been bedside improvement. Children expressed great appreciation for extensive update and continued time and great care for pt. SW to continue to follow. Gela Beyer, ARTS MANAGER TRIPLE AIR VALVE TESTER
--- NOTE | 2021-04-24 10:58 | NURSING ---
pt ambulating in halls with gaitbelt and assist of COLLEGE SPORTS ASSISTANT at this time.
[2021-04-24 14:04] VITALS: BP 100/64; PULSE 69
[2021-04-24 14:23] VITALS: PULSE 58; RESP 17; TEMP 36.4; O2SAT 92
[2021-04-24 18:08] VITALS: BP 105/64; PULSE 59
--- NOTE | 2021-04-24 19:10 | PN.TCU_ITS ---
Subjective Subjective Resident seen, examined for regulatory visit. Resident has no new complaints. He is doing well with therapy, his swallowing is his worse difficulty, he is still NPO, tubefed via PEG tube. Daughter Jenny planning on moving resident to [place] up discharge from TCU. She knows his lifespan is limited due to his mu ltiple medical problems. Objective Data Objective Data Vital Signs: Vital Signs Temp Pulse Resp BP Pulse Ox 97.6 F L 59 L 17 105/64 92 04/24/21 14:23 04/24/21 18:08 04/24/21 14:23 04/24/21 18:08 04/24/21 14:23 Oxygen Flow Rate (L/min) 3 Oxygen Delivery Method Room Air Weight: 56.699 kg Body Mass Index (BMI) 17.6 Intake & Output: Intake and Output for Last 24 Hours 04/22/21 04/23/21 04/24/21 23:59 23:59 23:59 Intake Total 220 / 220 225 / 225 1200 / 1200 Balance 220 / 220 225 / 225 1200 / 1200 Medical Nutrition Assessment Dietitian: Malnutrition Criteria Met Start: 03/01/21 07 :48 Freq: Status: Active Protocol: Document 04/10/21 11:00 [facility] (Rec: 04/10/21 11:00 [facility] [id number]) Nutrition Malnutrition Evidence of Malnutrition Exists Yes Malnutrition (severe): Acute Illness/Injury Evidenced By Suboptimal Energy Intake ( Severe),Physical Changes ( Severe) Clinical Problem Acute Disease or Injury Related Malnutrition Etiology related to recent covid, dysphagia and dementia making it difficult to safely consume adequate nutrition to meet est nutritional needs Signs/Symptoms as evidenced by 6 days NPO until PEG placed and fat/ muscle loss (orbital/temporal regions, clavicle area, arms) and BMI 16.6 Status Active Problem Recommendation Dietitian Recommendations/Changes Will continue tf of Jevity 1.5 bolus feeds 300 ml/feed w/ 225 ml water flush w/ each feed 5x/day while awake (6am, 10am, 2pm, 6pm, 10pm). This provides ~ 2250 jimbo/ 95 gm pro / 2265 ml water with flush/day . Rec Alex bid 1 packet with 8 oz water via Gtube for skin healing (buttock) once completes doxycycline regimen if indicated Lab / Micro Data Result Diagrams: 04/17/21 09:15 04/17/21 09:15 Physical Exam Const alert and oriented x3 General Appearance: cooperative HEENT normocephalic Eyes PERRL and EOMs intact bilaterally Neck supple, no JVD and no carotid bruits Resp normal respiratory effort, normal air movement and clear to auscultation bilaterally Cardio regular rate and regular rhythm GI normal to inspection, nondistended, normoactive bowel sounds, non-tender and non-distended GI Narrative: PEG tube. Extremity normal capillary refill General Extremity: Negative for edema Skin no rashes or lesions noted General Skin Exam: no breakdown Psych affect normal Appearance: appropriate Assessment & Plan Assessment/Plan (1) Debility: (2) Encephalopathy due to 2019-nCoV: (3) Acute respiratory failure with hypoxia: (4) Pneumonia: QUALIFIERS: Pneumonia type: due to unspecified organism Laterality: unspecified laterality Lung location: unspecified part of lung Qualified Code(s): J18.9 - Pneumonia, unspecified organism (5) Lung abscess: QUALIFIERS: Pulmonary abscess pneumonia presence: with pneumonia Laterality: right Lung location: middle lobe of lung Qualified Code(s): J85.1 - Abscess of lung with pneumonia (6) Hypokalemia: (7) Dysarthria: (8) Dysphagia: QUALIFIERS: Dysphagia type: unspecified Qualified Code(s): R13.10 - Dysphagia, unspecified (9) Acute kidney injury: PLAN: 80 year old male with below past medical history significant for recent unvaccinated covid19, hospitalized for acute respiratory failure secondary to pneumonia, lung abscess, complicated by acute kidney injury, electrolyte abnormalities, dysphagia requiring PEG tube placement, admitted to TCU with debility, here for rehabilitation, strengthening, prior to discharge home with . * Debility - PT/OT. * Dysphagia - ST, still NPO. * Pain - Tylenol 650mg q4h prn pain (1-10). * Bowel - monitor, on tube feed. * Adult immunization - Administer prevnar 13, pneumovax 23, fluzone, covid19 vaccine as appropriate. * DVT prophylaxis - Hold. * Shortness of breath - Albuterol 2 puff Q6H prn. * Pneumonia/lung abscess - Resolved, recent Chest X-ray shows stable cavity of abscess, resident has no cough, feels well. * Nutrition - Jevity 1.5 300ml 5x/day. * Skin irritation - Eucerin topical bid, Calmoseptine topical bid. * Iron deficiency anemia - Ferrous sulfate 300mg gt bid. * Hypokalemia - KCL 20meq daily. * GI prophylaxis - Lactobacillus 1 capsule bid. * Tinea Corporis - Nystatin powder topical bid. * Orthostatic hypotension - Midodrine 10mg tid. * PEG irritation - Bacitracin ointment twice daily. Capacity Capacity Assessment Tool Can the patient make a choice & communicate that choice?: Yes Can the patient understand benefits, risks and alternatives?: Yes Can the patient make a logical, rational choice?: Yes Is the choice the patient makes consistent w/ their values?: Yes Is there an impending, emergent risk to the patient?: No Does the patient have an Advance Directive?: Yes Is there a Surrogate Available?: Yes i.e. HCPOA: Yes i.e. close relative (spouse, child, parent, sibling)?: Yes
[2021-04-24 22:22] VITALS: BP 99/54; PULSE 50; RESP 16; TEMP 37; O2SAT 98
[2021-04-25 06:41] VITALS: BP 100/55; PULSE 57; RESP 16; TEMP 36.6; O2SAT 96
[2021-04-25] MEDS: BACITRACIN 15 GM Tube 1 APPLIC TOPICAL ×2 (06:42→18:06)
[2021-04-25] MEDS: Menthol/Lanolin/Calamine/Znox 113 GM Tube 1 APPLIC TOPICAL ×2 (06:42→18:07)
[2021-04-25] MEDS: Jevity 1.5. 1,000 ML Bottle 300 ML GT ×5 (06:43→21:52)
[2021-04-25] MEDS: Potassium Chloride Oral Soln 20 MEQ/15 ML UDC PO (06:44)
[2021-04-25] MEDS: Nystatin Powder 15gm Bottle 1 APPLIC TOPICAL ×2 (06:44→18:07)
[2021-04-25] MEDS: Midodrine HCl 5 MG Tablet 10 MG GT ×3 (09:01→18:05)
[2021-04-25] MEDS: Ferrous Sulfate 300 MG/5 ML UDC GT ×2 (09:02→18:05)
--- NOTE | 2021-04-25 09:55 | SP.MBSS_ITS ---
Modified Barium Swallow - Patient Information Study Date: 04/25/21 Study Time: 10:00 Direct Billable Minutes: 120 Total Minutes procedure & reportin Diagnosis: oropharyngeal dysphagia (R13.12) Referring Physician: Paulino Cifuentes Chi Reason for Referral: To objectively assess swallow function and determine presence of aspiration. Medical History: CASEY MORALES, is a 80 Male who presents to [facility] Emergency Department with shortness of breath. 02/20/2021 EKG normal sinus rhythm, nonspecific ST abnormality, prolonged QT. Positive covid19 02/02/2021, recent hospital stay, discharged on room air. Pulsox 70% on room air, increased dyspnea. Chest X-ray shows pneumonia, K 2.9, covid19 negative. CTA chest negative pulmonary embolism, showed pneumonia, possible lung abscess. Vancomycin, Zosyn given for pneumonia. Consider transfer for CT surgery for lung abscess. 02/20/2021 Admit to Hospital. Oxygen 3 liters for acute respiratory failure with hypoxia. IV antibiotics, blood culture, sputum culture, strep antigen, legionella antigen for gram negative pneumonia/abscess. Replete potassium, check magnesium. Consider geriatric evaluation for dementia. 02/21/2021 Feels fine. No pneumothorax on Chest X-ray. ?unvaccinated. ST for dysarthria. 02/22/2021 Feels well. [facility] has no beds for transfer. 02/22/2021 Dr. Teague recommend biopsy, culture lung abscess. Continue Vancomycin, Zosyn. 02/23/2021 Phosphorous replaced. On room air. Transition to oral antibiotics when cleared by speech. 02/24/2021 Hypotension resolved with 1 liter IV bolus. Acute kidney injury Creatinine 1.88. Failed modified barium swallow, ? aspiration. 02/24/2021 Dr. Teague, recent covid19, lung abscess, blood cultures negative to date. on Vancomycin/Zosyn, recommend discharge on 30 days Augmentin, Doxycycline. 02/25/2021 K 3.4, Creatinine 2.77. D5W for acute kidney injury, hypernatremia. Patient confused, consider PICC/TPN or hospice if kidneys worsen. 02/26/2021 NPO for dysphagia. PT/OT for halfway facility. 02/27/2021 Dr. Mayfield placed PEG tube per family wishes. 02/28/2021 Admit to TCU with debility, here for rehabilitation, strengthening, prior to discharge home with . [facility] Medical History Altered mental status Cancer COVID COVID-19 Dementia Dysphagia Encephalopathy Failure to thrive Generalized weakness Muscle weakness Pneumonia Current Diet Ordered: NPO/PEG tube supplementation Dentition: Natural Teeth Respiratory Status: Oxygenating on Room Air - Penetration-Aspiration Scale Penetration-Aspiration Scale: OBJECTIVE ASSESSMENT OF SWALLOW FUNCTION (QUANTITATIVE ? PER TRIAL): PENETRATION / ASPIRATION SCALE (SIDHU): 1 = does not enter airway 2 = enters airway/above vocal folds/ejected 3 = enters airway/above vocal folds/not ejected 4 = enters airway/contacts vocal folds/ejected 5 = enters airway/contacts vocal folds/not ejected 6 = enters airway/below vocal folds/ejected 7 = enters airway/below vocal folds/not ejected despite effort 8 = enters airway/below vocal folds/no effort - Penetration-Aspiration Scale Score Thin Liquid via teaspoon Result: 8= enters airway/below vocal folds/no effort Thin Liquid via teaspoon Trial 2 Result: 1= does not enter airway Comment: cue given to swallow hard and fast Thin Liquid via small single sip from cup Result: 1= does not enter airway Thin Liquid via small single sip from cup Trial 2 Result: 5= enters airways/contacts vocal folds/not ejected Comment: cue given to swallow hard and fast [place] Thick Liquid via small single sip from cup Result: 1= does not enter airway Honey Thick Liquid via small single sip from cup Result: 2= enter airway/above vocal folds/ejected Pudding Result: 1= does not enter airway Cookie Result: 1= does not enter airway Thin Liquid via single sip from straw Result: 1= does not enter airway Thin Liquid via sequential sips from straw Result: 2= enter airway/above vocal folds/ejected Thin Liquid via teaspoon Trial 3 Result: 1= does not enter airway Comment: cue given to swallow hard and fast to asses after fatigue with trials Thin Liquid via small single sip from cup Trial 3 Result: 5= enters airways/contacts vocal folds/not ejected Comment: cue given to swallow hard and fast to asses after fatigue with trials [place] Thick Liquid via small single sip from cup Trial 2 Result: 1= does not enter airway Comment: cue given to swallow hard and fast to asses after fatigue with trials - Oral Phase Labial Seal: No Labial Escape Tongue Control During Bolus Hold: Posterior escape of less than half of bolus Bolus Preparation/Mastication: Slow prolonged chewing/mashing with complete recollection Bolus Transport/Lingual Motion: Delayed initiation of tongue motion Oral Residue: Trace residue lining oral structures - Pharyngeal Phase Initiation of Pharyngeal Swallow: Bolus head in valleculae Soft Palate Elevation: No bolus between soft palate and pharyngeal wall Laryngeal Elevation: Partial superior movement thyroid cart/partial apprx aryt- epig petiole Anterior Hyoid Excursion: Partial anterior movement Epiglottic Movement: Partial inversion Laryngeal Vestibule Closure at Height of Swallow: Incomplete; narrow column of air/contrast in laryngeal vestibule Pharyngeal Stripping Wave: Present - diminished Pharyngoesophageal Segment Opening: Parital distension and partial duration; parital obstruction of flow Tongue Base Retraction: Wide column of contrast between tongue base & post. pharyngeal wall Pharyngeal Residue: Collection of residue within or on pharyngeal structures - Diagnosis/Impression Diagnosis: moderate-severe oropharyngeal dysphagia (R13.12) Impression: Oral phase characterized by slowed yet effective mastication. Mild oral residue remained post deglutition. Pharyngeal phase characterized by pooling of all trials to the vallecula secondary to decreased hyolaryngeal excursion and incomplete epiglottic inversion. Residue in the pyriforms and PES showing improvement since previous MBS studies. Patient presented with silent aspiration upon initial trial given of thin liquids via teaspoon and only on this trial. Patient cued throughout to swallow hard and fast and use a throat clear with a second hard swallow demonstrating slight improvement in the pharyngeal residue and overall tolerance. Thicker viscosities contributed to increased pharyngeal residue placing pt at higher risk of pulmonary compromise if patient were to aspirate. With subsequent trials of thin liquids via small quantities at a time, no aspiration was found. The patient requires continued skilled ST intervention for instruction and execution of oropharyngeal strengthening exercises and Vital Stim treatment to facilitate improved tongue base retraction, pharyngeal contraction/stripping wave, hyolaryngeal excursion, epiglottic inversion, and laryngeal vestibule closure. Patient has demonstrated improving cognition and comprehension during ST sessions and has consistently completed oropharyngeal exercises up to 5x a day as carryover. Patient will require 1:1 supervised meals with verbal cueing from caregiver of compensatory strategies for reduced risk of aspiration. - Recommendations Diet: Puree Textures, Thin Liquids Compensatory Strategies: Small Bites, Small Sips, Liquid by Teaspoon Only - verbal cue to swallow hard and fast, Slow Rate, Sitting upright - and remain upright 30-60 minutes after meals/drinks, Assist with verbal cues to use recommended strategies - Verbal cue to clear throat and take a second hard swallow for every sip. Supervision: 1:1 Close Supervision Recommend Repeat Modified Barium Swallow: Yes Comment: repeat in 3-6 months or with worsening symptoms/pulmonary compromise Need for Skilled Speech Therapy Services: Yes Education Completed: 1. Described result of evaluation. - Status Active ST Patient: Active - Contact Information [facility] Speech Therapy:: Lisa Ortiz MA, [facility], [place]MICAL PROCESSING LABORER [address] [address] [email or web address]
--- NOTE | 2021-04-25 10:42 | NURSING ---
Back from swallow study. Tube feed given at this time. No residual noted prior to feeding. Resident pleasant and talkative. No concerns or complaints voiced at this time.
[2021-04-25 14:03] VITALS: BP 94/68; PULSE 73; RESP 18; TEMP 36.7; O2SAT 100
[2021-04-25 14:29] VITALS: BP 102/57; PULSE 56; RESP 16; TEMP 36.4; O2SAT 97
[2021-04-26] MEDS: Jevity 1.5. 1,000 ML Bottle 300 ML GT ×2 (04:45→21:52)
[2021-04-26] MEDS: Potassium Chloride Oral Soln 20 MEQ/15 ML UDC PO (04:45)
[2021-04-26] MEDS: BACITRACIN 15 GM Tube 1 APPLIC TOPICAL ×2 (04:46→17:13)
[2021-04-26] MEDS: Nystatin Powder 15gm Bottle 1 APPLIC TOPICAL ×2 (05:04→17:16)
[2021-04-26] MEDS: Menthol/Lanolin/Calamine/Znox 113 GM Tube 1 APPLIC TOPICAL ×2 (05:04→17:15)
--- NOTE | 2021-04-26 05:06 | NURSING ---
Peg tube site remains red. No drainage noted. Area cleansed with NS, bacitracin and T-drain sponge applied. Patient tolerated well, denied any pain around site. Will continue to monitor.
[2021-04-26] MEDS: Midodrine HCl 5 MG Tablet 10 MG GT ×3 (09:23→17:10)
[2021-04-26] MEDS: Ferrous Sulfate 300 MG/5 ML UDC GT ×2 (09:23→17:09)
--- NOTE | 2021-04-26 11:04 | CASEMGMT ---
Social Work Son contacted this worker requesting updates from MBS. Offered for ST to provide update, but did confirm pt was upgraded to thin liquids and puree textures. Discussed possibility of pt returning home. Continued with recommendation to have pt supervised at home, but does not require physical assistance. Son explained pt's is having decline in memory and safety at home as well, thus children had discussed hiring help for both of them at home or moving both fo them to an AL in [place] [facility] to [facility]. SW agreed with those ideas. Son did inquire about submitting for precert with insurance again since pt has made great progress. SW explained, yes pt has made progress, but typically insurance's will say since the pt is adlib walking so well, he can continue with ST in the community. However, since the progress in great and daily, intensive ST has proven ongoing success, agreed to have precert resubmitted. Pt is tolerating new diet thus far and the goal is for pt to have tube feed discontinued. Son expressed ongoing appreciation and time. SW to continue to follow. Gela Beyer, SCULPTURE CONSERVATOR RETAIL AND RESTAURANT ASSOCIATE
[2021-04-26 13:43] VITALS: BP 101/65; PULSE 83; RESP 16; TEMP 36.8; O2SAT 97
[2021-04-26 22:00] VITALS: PULSE 74; O2SAT 94
[2021-04-27] MEDS: Potassium Chloride Oral Soln 20 MEQ/15 ML UDC PO (06:17)
[2021-04-27] MEDS: Ferrous Sulfate 300 MG/5 ML UDC GT ×2 (08:10→16:55)
[2021-04-27] MEDS: Midodrine HCl 5 MG Tablet 10 MG GT ×3 (08:10→16:55)
[2021-04-27] MEDS: Nystatin Powder 15gm Bottle 1 APPLIC TOPICAL ×2 (08:11→17:01)
[2021-04-27] MEDS: Menthol/Lanolin/Calamine/Znox 113 GM Tube 1 APPLIC TOPICAL ×2 (08:11→17:01)
[2021-04-27] MEDS: BACITRACIN 15 GM Tube 1 APPLIC TOPICAL ×2 (08:12→16:56)
--- NOTE | 2021-04-27 12:00 | CASEMGMT ---
Social Work Updated children that precert was denied and provided explanation from [facility] via email. Children expressed appreciation. Son stated he contacted the cashier clerk's office to make another payment for 2 more weeks. Also updated children that therapy made pt ad ming in room to trial how that goes. SW to continue to follow. Gela Beyer, ORNAMENTAL METAL ERECTOR VAULT MANAGER
[2021-04-27 14:51] VITALS: BP 96/53; PULSE 66; RESP 16; TEMP 36.3; O2SAT 100
[2021-04-27] MEDS: Jevity 1.5. 1,000 ML Bottle 300 ML GT (22:01)
[2021-04-28] MEDS: Potassium Chloride Oral Soln 20 MEQ/15 ML UDC PO (06:59)
[2021-04-28] MEDS: BACITRACIN 15 GM Tube 1 APPLIC TOPICAL ×2 (07:01→17:22)
[2021-04-28] MEDS: Menthol/Lanolin/Calamine/Znox 113 GM Tube 1 APPLIC TOPICAL ×2 (07:05→17:20)
[2021-04-28] MEDS: Nystatin Powder 15gm Bottle 1 APPLIC TOPICAL ×2 (07:05→22:12)
[2021-04-28] MEDS: Midodrine HCl 5 MG Tablet 10 MG GT ×3 (08:00→17:21)
[2021-04-28] MEDS: Ferrous Sulfate 300 MG/5 ML UDC GT ×2 (08:01→17:20)
--- NOTE | 2021-04-28 08:28 | NS ---
Res dislikes ensure pudding and magic cup - would rather have 8 oz ensure at meals instead. Will change order to reflect res preferences.
[2021-04-28 11:28] VITALS: BP 102/58; PULSE 64; RESP 16; TEMP 36.1; O2SAT 99
[2021-04-28] MEDS: Jevity 1.5. 1,000 ML Bottle 300 ML GT (22:13)
[2021-04-29] MEDS: Nystatin Powder 15gm Bottle 1 APPLIC TOPICAL ×2 (05:49→16:54)
[2021-04-29] MEDS: Potassium Chloride Oral Soln 20 MEQ/15 ML UDC PO (05:49)
[2021-04-29] MEDS: Menthol/Lanolin/Calamine/Znox 113 GM Tube 1 APPLIC TOPICAL ×2 (05:49→16:54)
[2021-04-29] MEDS: BACITRACIN 15 GM Tube 1 APPLIC TOPICAL ×2 (05:50→16:54)
[2021-04-29] MEDS: Midodrine HCl 5 MG Tablet 10 MG GT ×3 (09:16→16:55)
[2021-04-29] MEDS: Ferrous Sulfate 300 MG/5 ML UDC GT ×2 (09:18→16:55)
[2021-04-29 14:18] VITALS: BP 93/48; PULSE 59; RESP 16; TEMP 36.7; O2SAT 98
[2021-04-29] MEDS: Jevity 1.5. 1,000 ML Bottle 300 ML GT (21:49)
[2021-04-30] MEDS: BACITRACIN 15 GM Tube 1 APPLIC TOPICAL ×2 (05:28→18:18)
[2021-04-30] MEDS: Jevity 1.5. 1,000 ML Bottle 300 ML GT ×2 (09:00→22:28)
[2021-04-30] MEDS: Midodrine HCl 5 MG Tablet 10 MG GT ×3 (09:43→18:18)
[2021-04-30] MEDS: Potassium Chloride Oral Soln 20 MEQ/15 ML UDC PO (09:43)
[2021-04-30] MEDS: Ferrous Sulfate 300 MG/5 ML UDC GT ×2 (09:44→18:18)
[2021-04-30 15:32] VITALS: BP 90/50; PULSE 60; RESP 18; TEMP 35.9; O2SAT 100
[2021-04-30] MEDS: Menthol/Lanolin/Calamine/Znox 113 GM Tube 1 APPLIC TOPICAL (18:19)
[2021-04-30] MEDS: Nystatin Powder 15gm Bottle 1 APPLIC TOPICAL (18:19)
--- NOTE | 2021-04-30 21:15 | NURSING ---
Phone call placed to Dr. Cifuentes and questioned if Bacitracin can be dc'ed d/t improved PEG site. New order received to dc Bacitracin.
[2021-05-01] MEDS: Potassium Chloride Oral Soln 20 MEQ/15 ML UDC PO (06:30)
[2021-05-01] MEDS: Menthol/Lanolin/Calamine/Znox 113 GM Tube 1 APPLIC TOPICAL ×2 (06:30→16:51)
[2021-05-01] MEDS: Nystatin Powder 15gm Bottle 1 APPLIC TOPICAL ×2 (06:30→16:51)
[2021-05-01] MEDS: Ferrous Sulfate 300 MG/5 ML UDC GT ×2 (08:52→16:50)
[2021-05-01] MEDS: Midodrine HCl 5 MG Tablet 10 MG GT ×3 (08:52→16:50)
[2021-05-01 14:56] VITALS: BP 93/54; PULSE 46; RESP 18; TEMP 36.4; O2SAT 93
[2021-05-01 15:11] VITALS: BP 98/52; PULSE 63; RESP 18; TEMP 36.2; O2SAT 99
--- NOTE | 2021-05-01 15:15 | NURSING ---
Addendum entered by Lashay Yan 05/01/21 18:07: EULALIA approved by Dr. Cifuentes for saturday 05/06, Son Ryan aware Addendum entered by Lashay Yan 05/01/21 15:32: Pt now requesting EULALIA saturday 05/06 instead of friday 05/05 Original Note: Pt requesting EULALIA with family this Friday 05/05. Message left for Dr. Cifuentes
[2021-05-01] MEDS: Jevity 1.5. 1,000 ML Bottle 300 ML GT (21:31)
[2021-05-02] MEDS: Menthol/Lanolin/Calamine/Znox 113 GM Tube 1 APPLIC TOPICAL (06:17)
[2021-05-02] MEDS: Nystatin Powder 15gm Bottle 1 APPLIC TOPICAL (06:18)
[2021-05-02] MEDS: Potassium Chloride Oral Soln 20 MEQ/15 ML UDC PO (06:18)
[2021-05-02] MEDS: Ferrous Sulfate 300 MG/5 ML UDC GT ×2 (07:55→17:15)
[2021-05-02] MEDS: Midodrine HCl 5 MG Tablet 10 MG GT ×3 (07:55→17:16)
[2021-05-02 10:00] VITALS: PULSE 77; RESP 16; O2SAT 98
[2021-05-02 13:53] VITALS: BP 99/54; PULSE 71; RESP 16; TEMP 36.1; O2SAT 99
--- NOTE | 2021-05-02 15:59 | CASEMGMT ---
Addendum entered by Gela Beyer 05/03/21 15:34: During conversation on 05/02, son confirmed EULALIA is approved for 05/06; no other days. Emailed son the diet recommendations from MEAT MANAGER for EULALIA. Provider Relations Coordinator also spoke with son this date to update on tube feed duration and [place] SW emailed those resources to son as well. SW has not received response from Elise at [facility] at this time. SW to continue to follow. Addendum entered by Gela Beyer 05/02/21 16:23: Received call from Elise at [facility] requesting updated clinicals. Responded via email with updated clinicals and plan for DC: SNF or AL, continued therapy, tube feed management, etc. MEAT MANAGER also responded to son's questions via email and SW forwarded those responses to son. SW to continue to follow. Original Note: Social Work Son contacted this worker with further detailed questions on pt's tube feeds,diet, ad ming status in room and cognition. Referred those questions to MEAT MANAGER via email. Son questioning AL vs SNF. Reexplained it will be up to the AL facility if they can accept the pt with a tube feed or pt will need to DC to SNF until tube feed is removed to go to AL. Revisited hiring a nurse at [place] to assist with tube feeds, but this worker does not have those resources to share since it is out of state and unable to get in contact with ulises Olivares at [facility]; sister to locate those resources, and the AL would have to approve that as well. Son again very appreciative of information and assistance from this worker. SW to continue to follow for ongoing discharge planning. Gela Beyer ,FRANCISCO BIANCHI
[2021-05-02] MEDS: Jevity 1.5. 1,000 ML Bottle 300 ML GT (22:13)
[2021-05-03] MEDS: Midodrine HCl 5 MG Tablet 10 MG GT ×3 (06:49→16:56)
[2021-05-03] MEDS: Ferrous Sulfate 300 MG/5 ML UDC GT ×2 (06:49→16:56)
[2021-05-03] MEDS: Potassium Chloride Oral Soln 20 MEQ/15 ML UDC PO (06:49)
[2021-05-03] MEDS: Menthol/Lanolin/Calamine/Znox 113 GM Tube 1 APPLIC TOPICAL ×2 (06:57→16:56)
[2021-05-03] MEDS: Nystatin Powder 15gm Bottle 1 APPLIC TOPICAL ×2 (06:58→19:44)
[2021-05-03 11:00] VITALS: PULSE 97; RESP 18; O2SAT 98
--- NOTE | 2021-05-03 15:45 | CASEMGMT ---
Social Work There was some confusion between the EULALIA dates pt requested, family requested and Dr. Cifuentes approved. Spoke to all parties to get the final outcome that pt will have EULALIA 05/06 and 05/07. Children appreciative. Son asked further questions on how to properly supervise pt's meals, if there is a timeline for upgrading diet, tube feed removal and if vital stim is needed at DC. Forwarded questions to JAVA SOLUTIONS ARCHITECT. JAVA SOLUTIONS ARCHITECT replied and SW forwarded to children: provided proper cues for family to give at meal time, MBS recommended 3-6 months but JAVA SOLUTIONS ARCHITECT will continue to trial and assess upgraded diets at bedside, and the surgeon would be making the recommendations for tube feed removal. The oven heater helper also spoke to the son and son asked for materials on home delivered meals and pureed guidelines. Provided to children via email. SW to continue to follow. FRANCISCO BhardwajW
[2021-05-03 16:00] VITALS: BP 99/58; PULSE 72; RESP 18; TEMP 36.5; O2SAT 100
--- NOTE | 2021-05-03 19:46 | NURSING ---
Patient sitting in recliner at this time working on exercises. Patient denies any needs. Oral care provided at this time.
[2021-05-04] MEDS: Potassium Chloride Oral Soln 20 MEQ/15 ML UDC PO (05:30)
[2021-05-04] MEDS: Menthol/Lanolin/Calamine/Znox 113 GM Tube 1 APPLIC TOPICAL ×2 (05:33→17:08)
[2021-05-04] MEDS: Nystatin Powder 15gm Bottle 1 APPLIC TOPICAL ×2 (05:33→17:09)
--- NOTE | 2021-05-04 05:45 | NURSING ---
Peg tube placement verified. 0 residual noted. Flushed tube with 60cc of sterile water. Patient tolerated well.
[2021-05-04] MEDS: Midodrine HCl 5 MG Tablet 10 MG GT ×3 (09:17→17:05)
[2021-05-04] MEDS: Ferrous Sulfate 300 MG/5 ML UDC GT ×2 (09:17→17:05)
--- NOTE | 2021-05-04 11:32 | ST ---
Phone call made to patient's son Ryan to follow up with questions he had regarding pt's diet and compensatory strategy recommendations for pt's EULALIA. Ryan verbalizes understanding of all precautions. No further questions/concerns at this time.
--- NOTE | 2021-05-04 13:57 | NURSING ---
Resident educated on the COVID-19 Vaccine and does not want to receive it.
[2021-05-04 15:09] VITALS: BP 111/57; PULSE 70; RESP 18; TEMP 36.4
[2021-05-05] MEDS: Potassium Chloride Oral Soln 20 MEQ/15 ML UDC PO (04:38)
[2021-05-05] MEDS: Ferrous Sulfate 300 MG/5 ML UDC GT ×2 (04:38→18:39)
[2021-05-05] MEDS: Midodrine HCl 5 MG Tablet 10 MG GT ×2 (04:38→17:43)
[2021-05-05] MEDS: Menthol/Lanolin/Calamine/Znox 113 GM Tube 1 APPLIC TOPICAL ×2 (04:39→17:43)
[2021-05-05] MEDS: Nystatin Powder 15gm Bottle 1 APPLIC TOPICAL ×2 (04:39→17:44)
--- NOTE | 2021-05-05 08:05 | NURSING ---
Gabriel ESTEBAN at this time with his daughter
--- NOTE | 2021-05-05 08:16 | NURSING ---
Yesterday, when educating the resident on the COVID 19 Vaccine, did emphasize the importance of masking while out on his LOAs.
[2021-05-05 19:00] VITALS: BP 114/63; PULSE 75; RESP 16; TEMP 36.3; O2SAT 97
[2021-05-06] MEDS: Midodrine HCl 5 MG Tablet 10 MG GT ×2 (05:56→17:10)
[2021-05-06] MEDS: Menthol/Lanolin/Calamine/Znox 113 GM Tube 1 APPLIC TOPICAL ×2 (05:57→17:11)
[2021-05-06] MEDS: Nystatin Powder 15gm Bottle 1 APPLIC TOPICAL ×2 (05:58→17:12)
[2021-05-06] MEDS: Ferrous Sulfate 300 MG/5 ML UDC GT ×2 (05:58→17:09)
[2021-05-06] MEDS: Potassium Chloride Oral Soln 20 MEQ/15 ML UDC PO (05:58)
[2021-05-06 06:01] VITALS: BP 99/58; PULSE 60; RESP 16; TEMP 36.5; O2SAT 97
--- NOTE | 2021-05-06 09:16 | NURSING ---
[id number] Patient is out with family for the day for EULALIA
[2021-05-06 17:30] VITALS: BP 132/53; PULSE 65; RESP 16; TEMP 36.2; O2SAT 100
[2021-05-07] MEDS: Midodrine HCl 5 MG Tablet 10 MG GT ×3 (06:53→17:45)
[2021-05-07 06:55] VITALS: BP 105/49; PULSE 80
[2021-05-07] MEDS: Potassium Chloride Oral Soln 20 MEQ/15 ML UDC PO (08:51)
[2021-05-07] MEDS: Ferrous Sulfate 300 MG/5 ML UDC GT ×2 (08:51→17:45)
[2021-05-07 10:00] VITALS: PULSE 64; RESP 14; O2SAT 100
[2021-05-07 13:08] VITALS: BP 103/56; PULSE 73
[2021-05-07 15:30] VITALS: BP 104/60; PULSE 66; RESP 16; TEMP 36.4; O2SAT 98
[2021-05-08 05:37] LABS: Absolute Lymphocyte Count 2.14 X10^3/uL (0.83-4.51); Absolute Neutrophil Count 3.8 X10^3/uL (2.0-7.7); Basophil# 0.03 X10^3/uL; Basophil% 0.4 % (0-1); Eosinophil# 0.12 X10^3/uL; Eosinophils% 1.8 % (0-5); Hematocrit 26.9 % (40-54); Hemoglobin 9.1 g/dL (13.0-16.5); Lymphocyte # 2.14 X10^3/ul (0.83-4.51); Lymphocyte % 31.5 % (19-41); Mean Corp Hgb Conc 33.8 g/dL (32-36); Mean Corpuscular Hgb 34.5 pg (27.0-32.0); Mean Corpuscular Volume 101.9 fL (80-94); Mean Platelet Vol. 9.6 fl (6.2-12.0); Monocyte# 0.66 X10^3/uL; Monocyte% 9.7 % (0-10); NRBC Flagged by Analyzer 0 % (0-5); Neutrophil # 3.82 X10^3/uL (2.7-7.7); Neutrophil % 56.3 % (47-70); Platelet Count 256 K/mm3 (150-450); RBC Distribution Width CV 16.1 % (11.6-14.6); RBC Distribution Width SD 59.9 fl (35.1-43.9); Red Blood Count 2.64 M/mm3 (4.6-6.2); White Blood Count 6.8 K/mm3 (4.4-11.0)
[2021-05-08 06:14] LABS: Anion Gap 4 (5-15); BUN 45 mg/dL (7-18); BUN/Creat Ratio 36.3 RATIO (10-20); Calcium,Total 8.5 mg/dL (8.5-10.1); Chloride 109 mmol/L (98-107); Creatinine, Serum 1.24 mg/dL (0.70-1.30); EST Glomerular Filtration Rate 60 mL/min (>60); Est Glom Filt Rate - Afr Amer 72 mL/min (>60); Estimated Creatinine Clearance 41.78 ml/min; Glucose 90 mg/dL (74-106); Potassium 4.2 mmol/L (3.5-5.1); Sodium Level 141 mmol/L (136-145)
[2021-05-08] MEDS: Potassium Chloride Oral Soln 20 MEQ/15 ML UDC PO (08:34)
[2021-05-08] MEDS: Ferrous Sulfate 300 MG/5 ML UDC GT ×2 (08:34→16:46)
[2021-05-08] MEDS: Midodrine HCl 5 MG Tablet 10 MG GT ×3 (08:34→16:46)
--- NOTE | 2021-05-08 09:10 | CASEMGMT ---
Social Work Received email from children expressing appreciation for EULALIA days and asking follow up questions from what hey observation on those days. Son asked specific, in depth questions regarding PT/OT/ST, tube feedings and DC plans. Relayed questions to IDT and all agreed to schedule another POC meeting with family to answer questions. Suggested to family - all agreeable. POC scheduled for 05/10. Gela Beyer, MODEL HOME SALES GREETER CREATIVE CONSULTANT
[2021-05-08 14:16] VITALS: BP 113/53; PULSE 75; RESP 18; TEMP 36.2; O2SAT 99
[2021-05-08 19:50] VITALS: O2SAT 98
[2021-05-09] MEDS: Ferrous Sulfate 300 MG/5 ML UDC GT ×2 (07:48→17:14)
[2021-05-09] MEDS: Potassium Chloride Oral Soln 20 MEQ/15 ML UDC PO (07:48)
[2021-05-09] MEDS: Midodrine HCl 5 MG Tablet 10 MG GT ×3 (07:48→17:14)
[2021-05-09 09:30] VITALS: PULSE 90; RESP 18; O2SAT 98
[2021-05-09 14:07] VITALS: BP 106/59; PULSE 68; RESP 18; TEMP 36.2; O2SAT 98
[2021-05-10] MEDS: Potassium Chloride Oral Soln 20 MEQ/15 ML UDC PO (08:24)
[2021-05-10] MEDS: Midodrine HCl 5 MG Tablet 10 MG GT ×3 (08:24→18:28)
[2021-05-10] MEDS: Ferrous Sulfate 300 MG/5 ML UDC GT ×2 (08:24→18:28)
[2021-05-10 15:32] VITALS: BP 112/59; PULSE 76; RESP 16; TEMP 36.8; O2SAT 99
--- NOTE | 2021-05-10 16:12 | CASEMGMT ---
Social Work IDT met in patient room with son and dtr via conference call. Abstract Searcher, INVESTIGATIONS CONSULTANT, TOOL RADIAL DRILL PRESS SET UP OPERATOR and this worker spoke with family for approximately 60 minutes. Answered questions, provided suggestions and discussed appropriate discharge plans. The outcome of the meeting led to the following: asking Dr. Cifuentes to speak with surgeon on their guidance for removal of the tube feed, having nursing begin with educating pt on how to flush tube feed to determine if he can manage at DC, repeat MBS 3-6 months but continue with INVESTIGATIONS CONSULTANT after DC, but not crucial to continue with Vital Stim. Discussed the differences between [place] and [place] at the [facility] family is looking into: [facility] in [place], [place]. Dtr stated the goal is for pt and to live together in [place], where they can get meals delivered or carried out. However, family know IL or AL will not be able to manage the tube feed. IDT expressed concern about the lack of supervision available in [place] - would prefer [place]. Pt needs assistance with his medications as his cognition is still not improved enough to remember when or what to take. Discussed hiring a nurse for either places to manage the tube feed and medications. Family expressed understanding. SW offered to contact [facility] to get more information on their [place] and [place], send clinical information and get the responses about pt's tube feed. Family stated they will be able to continue paying privately until pt is ready to DC. IDT stressed DC date needs to be soon as pt is independent and now going on LOAs. Family agrees. SW to continue to follow. Gela Beyer, FRANCISCO BIANCHI
--- NOTE | 2021-05-10 17:18 | NURSING ---
Patient son called into facility in regards to EULALIA for 05/11/21. Uncomfortable with decision to allow patient to leave with no supervision under care due to wifes diagnosis of dementia. Left note for doctor to contact daughter or son.
[2021-05-11] MEDS: Potassium Chloride Oral Soln 20 MEQ/15 ML UDC PO (07:55)
[2021-05-11] MEDS: Ferrous Sulfate 300 MG/5 ML UDC GT ×2 (07:55→17:19)
[2021-05-11] MEDS: Midodrine HCl 5 MG Tablet 10 MG GT ×3 (07:55→17:19)
--- NOTE | 2021-05-11 11:37 | NURSING ---
PT LEFT AT 8;30 AM FOR EULALIA WITH BY WHEEL CHAIR.
--- NOTE | 2021-05-11 12:19 | NURSING ---
PT RETURNED AT 1210 FROM EULALIA,BY WHEEL CHAIR.
--- NOTE | 2021-05-11 12:31 | CASEMGMT ---
Social Work Contacted [facility] - spoke to transcription coordinator, Jessica. She was kind and informative of the [place] vs [place]. She confirmed [place] pt can receive meals just like [place], but [place] no nurse to manage tube feed or meds. AL there would be a nurse to manage meds and had that layer of supervision for pt and . She confirmed family can hire a nurse for [place] or [place] to assist with tube feeds. She stated if AL is more toward what pt needs, she will need to do a phone assessment with the nurse and speak with dtr about change in pricing, but could still have a move in date close to 05/23. Sent clinical information for her to review. Spoke with cashier credit's office about last day of private pay - it was done 05/10. Email sent to son to provide another 2 weeks of private pay and gave update on this worker's conversation with [facility]. SW to continue to follow. Gela Beyer, FRANCISCO DEMAND MANAGER
[2021-05-11 15:27] VITALS: BP 120/57; PULSE 71; RESP 18; TEMP 36.5; O2SAT 99
--- NOTE | 2021-05-11 15:39 | CASEMGMT ---
Social Work Received notification from staff that Dr. Cifuentes approved EULALIA for pt today to go home with his . Reportedly, drove pt back to the hospital, but pt stated they got lost, had to stop and ask someone for directions, which took them 30 minutes to get from their house to the hospital. TACTICAL DEBRIEFER OFFICER also updated this worker, she completed the SLUMS cognitive test with pt and he scored 10/30, which indicates pt is in the Dementia cognitive range. Email sent to children to update on above. FRANCISCO Bhardwaj
[2021-05-11 15:59] VITALS: PULSE 74; RESP 18; O2SAT 98
--- NOTE | 2021-05-12 06:14 | NURSING ---
Peg tube placement verified. 0 residual noted. Flushed tube with 30cc of sterile water. Patient tolerated well.
[2021-05-12] MEDS: Midodrine HCl 5 MG Tablet 10 MG GT ×2 (08:52→16:22)
[2021-05-12] MEDS: Ferrous Sulfate 300 MG/5 ML UDC GT ×2 (08:52→16:22)
--- NOTE | 2021-05-12 10:48 | NURSING ---
Spoke with Dr Benson made aware of consult for peg removal
--- NOTE | 2021-05-12 11:55 | NURSING ---
Dr Benson called and said to have pt NPO after lunch and she will remove the peg tube today.
--- NOTE | 2021-05-12 12:42 | CASEMGMT ---
Addendum entered by Gela Beyer 05/12/21 14:07: Director updated this worker that there was a false positive COVID test, a PCR test confirmed that pt was negative; thus TCU is NOT in outbreak status and pt does NOT have to quarantine. Email sent to children communicating the LIGHTING SPECIALIST response, LOAs can only be taken if son or dtr is accompanying/driving pt, and the surgeon is scheduled to remove pt's tube feed today. SW to keep children updated. Original Note: Social Work Received return email from children - dtr expressed appreciation for those notifications and questioned if pt received a cognitive test prior to have comparison. Spoke with LIGHTING SPECIALIST - no past tests. In the meantime, TCU became in outbreak status and since pt is out of his 90 day COVID positive window, he does not want to be vaccinated, and has been on several LOAs, pt now is in in-room quarantine for the duration of the outbreak window. Dr. Benson contacted TCU nurse that she will be in today to remove pt's tube feed. Director to make contact with son or dtr today d/t to COVID outbreak status and will relay the above information. Replied to dtr with LIGHTING SPECIALIST response and advised director to contact them today with other responses. SW to continue to follow. Gela Beyer ,FRANCISCO CROUCHW
[2021-05-12 13:35] VITALS: BP 105/50; PULSE 62; RESP 16; TEMP 36.4; O2SAT 98
--- NOTE | 2021-05-12 14:51 | NURSING ---
Dr Benson here to remove PEG tube at this time.
--- NOTE | 2021-05-12 15:03 | PCM.PN.SRG ---
Subjective Subjective Asked to see patient for PEG tube removal. Patient has been eating well p.o. and has not needed the tube. They have been flushing tube daily. Objective Data Objective Data Vital Signs: Vital Signs Temp Pulse Resp BP Pulse Ox 97.5 F L 62 16 105/50 L 98 05/12/21 13:35 05/12/21 13:35 05/12/21 13:35 05/12/21 13:35 05/12/21 13:35 Oxygen Flow Rate (L/min) 99 Oxygen Delivery Method Room Air Weight: 134 lb 8 oz Body Mass Index (BMI) 17.6 Intake & Output: Intake and Output for Last 24 Hours 05/10/21 05/11/21 05/12/21 23:59 23:59 23:59 Intake Total 720 / 720 1240 / 1240 720 / 720 Balance 720 / 720 1240 / 1240 720 / 720 Medical Nutrition Assessment Dietitian: Malnutrition Criteria Met Start: 03/01/21 07:48 Freq: Status: Active Protocol: Document 04/10/21 11:00 [facility] (Rec: 04/10/21 11:00 [facility] [id number]) Nutrition Malnutrition Evidence of Malnutrition Exists Yes Malnutrition (severe): Acute Illness/Injury Evidenced By Suboptimal Energy Intake ( Severe),Physical Changes ( Severe) Clinical Problem Acute Disease or Injury Related Malnutrition Etiology related to recent covid, dysphagia and dementia making it difficult to safely consume adequate nutrition to meet est nutritional needs Signs/Symptoms as evidenced by 6 days NPO until PEG placed and fat/ muscle loss (orbital/temporal regions, clavicle area, arms) and BMI 16.6 Status Active Problem Recommendation Dietitian Recommendations/Changes Will continue tf of Jevity 1.5 bolus feeds 300 ml/feed w/ 225 ml water flush w/ each feed 5x/day while awake (6am, 10am, 2pm, 6pm, 10pm). This provides ~ 2250 jimbo/ 95 gm pro / 2265 ml water with flush/day . Rec Alex bid 1 packet with 8 oz water via Gtube for skin healing (buttock) once completes doxycycline regimen if indicated Lab / Micro Data Result Diagrams: 05/08/21 05:10 05/08/21 05:10 Micro: Microbiology 05/11/21 12:38 Nasal Secretion SARS-CoV-2 Antigen (Rapid) - Final 05/04/21 11:39 Nasal Secretion SARS-CoV-2 Antigen (Rapid) - Final Physical Exam Narrative Abdomen: Soft, nondistended, nontender. G tube in good position, no signs of infection. Balloon of G-tube deflated and G-tube removed 4 x 4 gauze placed. Assessment & Plan Assessment/Plan (1) PEG (percutaneous endoscopic gastrostomy) adjustment/replacement/removal: PLAN: G-tube was easily removed after defects deflation of the balloon. 4 x 4 gauze was placed. Call with any questions or concerns. Mikaela Benson M.D. Pager: [phone] [facility] [address] [place] [address], [facility], [address] [place] [address] Office: [phone] Charges/Coding Visit Charges Inpatient E&M: 36545 Subs Hosp L3
[2021-05-13] MEDS: Ferrous Sulfate 300 MG/5 ML UDC GT ×2 (08:58→17:10)
[2021-05-13] MEDS: Midodrine HCl 5 MG Tablet 10 MG GT ×3 (08:58→17:10)
[2021-05-13 17:22] VITALS: BP 112/64; PULSE 66; RESP 16; TEMP 36.6; O2SAT 98
[2021-05-14] MEDS: Midodrine HCl 5 MG Tablet 10 MG GT ×3 (06:42→18:25)
[2021-05-14] MEDS: Albuterol Sulfate 8 gm Inhaler (60 puffs) 2 PUFF INHALATION (06:53)
[2021-05-14 07:00] VITALS: BP 82/35; PULSE 64
[2021-05-14] MEDS: Ferrous Sulfate 300 MG/5 ML UDC GT ×2 (08:50→18:25)
[2021-05-14 16:00] VITALS: BP 102/68; PULSE 68; RESP 16; TEMP 36.4; O2SAT 99
--- NOTE | 2021-05-14 20:55 | NURSING ---
Spoke w/ Dr. Cifuentes via phone to change form and route of Ferrous Sulfate and Tylenol since medication has been dc'ed. Pt also is requesting a stool softener. New orders received for Ferrous Sulfate 325 mg po BID, Tylenol 650 mg po q4hr PRN pain 1-10- converting to tablets from liquid, and Senna-S 1 tablet po BID. Orders read back. Communication sent to pharmacy to change remainder of meds to be given via GT to po.
[2021-05-15] MEDS: Midodrine HCl 5 MG Tablet 10 MG PO ×3 (06:10→17:02)
[2021-05-15] MEDS: Senna/Docusate Sodium 1 Tablet PO ×2 (06:10→17:02)
[2021-05-15 06:18] VITALS: BP 99/55; PULSE 69
[2021-05-15] MEDS: Ferrous Sulfate 325 MG Tablet PO ×2 (11:16→17:03)
--- NOTE | 2021-05-15 12:55 | PHA.CONS1_ITS ---
Progress Note - Pharmacy Subjective: TCU MONTHLY MEDICATION ASSESSMENT Objective: Allergies No Known Allergies Allergy (Verified 03/28/21 10:53) Current Medications Generic Name Dose Route Start Last Admin Trade Name Murali PRN Reason Stop Dose Admin Acetaminophen 650 mg 05/14/21 20:54 Acetaminophen 325 Mg Tablet PO Q4H PRN PRN Pain Score 1-10 Albuterol Sulfate 2 puff 03/13/21 07:18 05/14/21 06:53 Albuterol Sulfate 8 Gm Inhaler (60 Puffs) INHALATION 2 puff Q6H PRN PRN Administration SOB &/OR WHEEZING Emollient Ointment 1 applic 03/03/21 06:00 05/15/21 06:09 Emollient Combination No.72 500 Ml Lotion TOPICAL 1 applic BID PÉREZ Administration Protocol Ferrous Sulfate 325 mg 05/15/21 12:00 05/15/21 11:16 Ferrous Sulfate 325 Mg Tablet PO 325 mg 1200,1700 PÉREZ Administration Lactobacillus Acidophilus 1 tablet 05/15/21 06:00 05/15/21 06:10 Lactobacillus Acidophilus PO 1 tablet BID PÉREZ Administration Midodrine 10 mg 05/15/21 07:45 05/15/21 11:16 Midodrine Hcl 5 Mg Tablet PO 10 mg TIDCM PÉREZ Administration Senna/Docusate Sodium 1 tablet 05/14/21 21:00 05/15/21 06:10 Senna/Docusate Sodium 1 Tablet PO 1 tablet BID PÉREZ Administration Problem List (Last Reviewed 03/28/21 @ 11:00 by Shanthi Corrales CURATOR OF PHOTOGRAPHY AND PRINTS, CURATOR OF PHOTOGRAPHY AND PRINTS-C) PEG (percutaneous endoscopic gastrostomy) adjustment/replacement/removal (Acute) Acute kidney injury (Acute) Dysphagia (Acute) Dysarthria (Acute) Hypokalemia (Acute) Lung abscess (Acute) Pneumonia (Acute) Acute respiratory failure with hypoxia (Acute) Debility (Acute) Encephalopathy due to 2019-nCoV (Acute) Abscess of lung (Acute) Malnutrition (Acute) VELIA (acute kidney injury) (Acute) Vital Signs Temp Pulse Resp BP Pulse Ox 97.5 F L 69 16 99/55 L 99 05/14/21 16:00 05/15/21 06:18 05/14/21 16:00 05/15/21 06:18 05/14/21 16:00 Oxygen Flow Rate (L/min) 99 Oxygen Delivery Method Room Air Weight: 61.008 kg Body Mass Index (BMI) 17.6 Sodium 141 mmol/L (136-145) 05/08/21 05:10 Potassium 4.2 mmol/L (3.5-5.1) 05/08/21 05:10 Chloride 109 mmol/L (98-107) H 05/08/21 05:10 Carbon Dioxide 28.0 mmol/L (21.0-32.0) 05/08/21 05:10 Anion Gap 4 (5-15) L 05/08/21 05:10 BUN 45 mg/dL (7-18) H 05/08/21 05:10 Creatinine 1.24 mg/dL (0.70-1.30) 05/08/21 05:10 Est GFR (MDRD) Af Amer 72 mL/min (>60) 05/08/21 05:10 Est GFR (MDRD) Non-Af 60 mL/min (>60) 05/08/21 05:10 BUN/Creatinine Ratio 36.3 RATIO (10-20) H 05/08/21 05:10 Glucose 90 mg/dL (74-106) 05/08/21 05:10 Assessment/Plan: 1. Pain: Tylenol 650mg PO Q6h PRN pain 1-10. Please continue to monitor for increased/decreased S/S pain, PRN medication usage. -Patient has not required any PRN medication at this time in >48h 2. SOB: Ventolin inhaler 2 puff Q6H PRN. Please continue to monitor for medication effectiveness, HR, PRN medication usage. -Patient has used 1 PRN dose in the past 24hr 3. Iron deficiency anemia: Ferrous sulfate 325mg PO BID. Please continue to monitor H/H, iron studies as clinically indicated, GI upset. 4. GI Prophylaxis: Acidophilus 1 tab PO BID. Please continue to monitor. 5. Orthostatic Hypotension: Midodrine 10mg PO TIDCM. Please continue to monitor BP (Last BP reading 99/55, but has also had another low reading of 82/35 in the past 24h per EMR) Psychotropic Medications: None Unnecessary Medications: None Bowel Regimen: Senna/Docusate 1 tab PO BID. Please continue to monitor for increased/decreased constipation and/or diarrhea Date of Note:: 05/15/21
--- NOTE | 2021-05-15 14:11 | CASEMGMT ---
Addendum entered by Gela Beyer 05/15/21 15:25: Son returned phone call and stated he was unaware of the EULALIA request. Son nor dtr will be in town, this EULALIA was to be with pt's . Explained since last incident during EULALIA, Director stated no more LOAs unless with children. Son expressed understanding. Explained if pt is able to be going on LOAs for visits, a discharge date needs to be set, but acknowledged this worker and family collaborating to get that in place. Updated Dr. Cifuentes and nursing to cancel EULALIA order. At this time, still have not heard any further from [facility] where pt intends on discharging too. Son expressed understanding and appreciation. Will continue to keep SW updated on DC plans. Original Note: Social Work Via nurse hand-off, pt is scheduled to have EULALIA in the afternoon for 05/17 and 05/18. Left message with son to confirm and get details on the EULALIA as Director advised pt is no longer able to have EULALIA with . Will continue to follow. Gela Beyer, FRANCISCO CROUCHW
[2021-05-15 14:22] VITALS: BP 105/59; PULSE 82; RESP 18; TEMP 36; O2SAT 99
--- NOTE | 2021-05-15 14:43 | NURSING ---
PER CONOR,TEMPERING KILN TENDER, DR. MOCK SAID NO MORE EULALIA. INDIRA ALSO TALKED TO THE FAMILY.
[2021-05-16] MEDS: Senna/Docusate Sodium 1 Tablet PO ×2 (06:58→17:17)
[2021-05-16] MEDS: Midodrine HCl 5 MG Tablet 10 MG PO ×3 (07:36→17:17)
[2021-05-16 09:10] VITALS: PULSE 95; RESP 18; O2SAT 98
[2021-05-16] MEDS: Ferrous Sulfate 325 MG Tablet PO ×2 (11:44→17:16)
[2021-05-16 14:06] VITALS: BP 101/56; PULSE 72; RESP 18; TEMP 36.1; O2SAT 99
[2021-05-17] MEDS: Senna/Docusate Sodium 1 Tablet PO ×2 (05:03→17:09)
[2021-05-17] MEDS: Midodrine HCl 5 MG Tablet 10 MG PO ×3 (08:10→17:08)
[2021-05-17] MEDS: Ferrous Sulfate 325 MG Tablet PO ×2 (11:04→17:08)
[2021-05-17 14:06] VITALS: BP 107/56; PULSE 78; RESP 16; TEMP 36.6; O2SAT 99
[2021-05-18] MEDS: Senna/Docusate Sodium 1 Tablet PO ×2 (05:51→16:55)
[2021-05-18] MEDS: Midodrine HCl 5 MG Tablet 10 MG PO ×3 (07:32→16:54)
[2021-05-18] MEDS: Ferrous Sulfate 325 MG Tablet PO ×2 (13:18→16:54)
[2021-05-18 16:00] VITALS: BP 104/64; PULSE 66; RESP 16; TEMP 36; O2SAT 98
[2021-05-18 19:45] VITALS: PULSE 67; RESP 16; O2SAT 95
[2021-05-19] MEDS: Senna/Docusate Sodium 1 Tablet PO ×2 (06:25→17:07)
[2021-05-19] MEDS: Midodrine HCl 5 MG Tablet 10 MG PO ×3 (07:55→17:06)
[2021-05-19 09:30] VITALS: PULSE 83; RESP 18; O2SAT 98
[2021-05-19] MEDS: Ferrous Sulfate 325 MG Tablet PO ×2 (11:35→17:06)
--- NOTE | 2021-05-19 14:30 | CASEMGMT ---
Addendum entered by Gela Beyer 05/22/21 12:15: ST added to DC order Original Note: Social Work Received correspondence form children that they have pt discharged 05/25 to [facility] in [place], [place]. Dtr provided new doctor's and pharmacy phone numbers and requested medical records be transferred to the new PCP. Provided the release of records form to complete. [facility] will have PT/OT eval pt there. Plan: DC 05/25 to [facility] with , PT/OT Gela Beyer, FRANCISCO CROUCHW
[2021-05-19 14:36] VITALS: BP 107/68; PULSE 71; RESP 20; TEMP 36.1; O2SAT 97
--- NOTE | 2021-05-19 15:09 | DS.PCM_ITS ---
Providers Date of Admission: 02/28/21 Primary Care Physician: Dr. Yosef Ayers, DO Consultations 03/01/21 16:01 Consult: Hospice / Palliative Care Routine Consulting Provider: [facility] Reason for Consult: Palliative - Dementia, weight loss, COVID EMERGENT Consult: No Notified: Yes Date Notified: 03/01/21 Time Notified: 16:01 Method of Notification: Provider Initiated 03/16/21 10:24 Consult: General Surgery Routine Consulting Provider: Mikaela Benson Reason for Consult: pt pulled PEG Out to 0.5 EMERGENT Consult: No Notified: Yes Date Notified: 03/16/21 Time Notified: 10:26 Method of Notification: Page 05/11/21 17:41 Consult: General Surgery Routine Consulting Provider: Mikaela Benson Reason for Consult: PEG tube removal. EMERGENT Consult: No Notified: Yes Date Notified: 05/11/21 Time Notified: 17:42 Method of Notification: Verbal Reason For Visit: PNEUMONIA/PULMONARY ABSCESS Diagnosis Discharge Diagnosis (1) PEG (percutaneous endoscopic gastrostomy) adjustment/replacement/removal: Status: Acute Code(s): Z43.1 - Encounter for attention to gastrostomy Medications at Discharge Home Medications ferrous sulfate [FeroSul] 325 mg PO 1200,1700 30 Days #60 tab 05/19/21 midodrine 10 mg PO TIDCM 30 Days #180 tab 05/19/21 Hospital Course Operations None Procedures Peg tube placement Summary of Care Provided Minutes Spent on Discharge: 35 Hospital Course: 80 year old male with below past medical history significant for recent unvaccinated covid19, hospitalized for acute respiratory failure secondary to pneumonia, lung abscess, complicated by acute kidney injury, electrolyte abnormalities, dysphagia requiring PEG tube placement, admitted to TCU with debility, here for rehabilitation, strengthening, prior to discharge home with . 02/28/2021 Resident arrived TCU (SNF), I did not think he would survive, had discussed hospice with family. But resident continued to improve, he is now walking, talking, eating, PEG tube removed. Discharge to [facility] with 05/25/2021, PT/OT. Physical Exam Const alert General Appearance: cooperative HEENT normocephalic Eyes PERRL and EOMs intact bilaterally Neck supple, no JVD and no carotid bruits Resp normal respiratory effort, normal air movement and clear to auscultation bilaterally Cardio regular rate and regular rhythm GI normal to inspection, nondistended, normoactive bowel sounds, non-tender and non-distended Extremity normal capillary refill General Extremity: Negative for edema Skin no rashes or lesions noted General Skin Exam: no breakdown Psych affect normal Appearance: appropriate Medical Records Data Medical Nutrition Assessment Dietitian: Malnutrition Criteria Met Start: 03/01/21 07:48 Freq: Status: Active Protocol: Document 04/10/21 11:00 [facility] (Rec: 04/10/21 11:00 [facility] [id number]) Nutrition Malnutrition Evidence of Malnutrition Exists Yes Malnutrition (severe): Acute Illness/Injury Evidenced By Suboptimal Energy Intake ( Severe),Physical Changes ( Severe) Clinical Problem Acute Disease or Injury Related Malnutrition Etiology related to recent covid, dysphagia and dementia making it difficult to safely consume adequate nutrition to meet est nutritional needs Signs/Symptoms as evidenced by 6 days NPO until PEG placed and fat/ muscle loss (orbital/temporal regions, clavicle area, arms) and BMI 16.6 Status Active Problem Recommendation Dietitian Recommendations/Changes Will continue tf of Jevity 1.5 bolus feeds 300 ml/feed w/ 225 ml water flush w/ each feed 5x/day while awake (6am, 10am, 2pm, 6pm, 10pm). This provides ~ 2250 jimbo/ 95 gm pro / 2265 ml water with flush/day . Rec Alex bid 1 packet with 8 oz water via Gtube for skin healing (buttock) once completes doxycycline regimen if indicated Weight / BMI Weight Weight: 61.745 kg Body Mass Index (BMI) 17.6 ABG / Lab / Microbiology Data Result Diagrams: 05/08/21 05:10 05/08/21 05:10 Microbiology: Microbiology 05/18/21 06:31 Nasal Secretion SARS-CoV-2 Antigen (Rapid) - Final 05/11/21 12:38 Nasal Secretion SARS-CoV-2 Antigen (Rapid) - Final 05/04/21 11:39 Nasal Secretion SARS-CoV-2 Antigen (Rapid) - Final D/C Instructions Discharge Diet: No restrictions Discharge Activity: Return to Normal Activity May resume sexual activity in: No Restrictions Weight Bearing Status: Weight bearing as tolerated Call your doctor if you observe: Fever of 101 or Higher, Inability to urinate, Inability to have a bowel movement, Shortness of breath, Dizziness, Fainting spells, Swelling in the ankles, Chest pain and Uncontrolled pain Additional Instructions: Discharge to [facility] with 05/25/2021, PT/OT. Please Follow Up With: Neo Cr DO (will see Shanthi Olmstead NP) When: N/A. Meaningful Use Info Meaningful Use Diagnoses (Choose all that apply): None applicable Discharge Plan Admission Admit Date/Time: 02/28/21 15:15 Primary Reason for Your Visit: Debility. Attending Provider: Paulino Cifuentes Chi Primary Care Provider: Yosef Ayers Consulting Providers: Althea Wagoner ; Arnoldo To ; Opal Marte ; Dianna Flores ; Nessa Suárez ; Amy Ayers NP ; Mikaela Benson Instructions Additional Instructions / Restrictions: Discharge to [facility] with 05/25/2021, PT/OT. Discharge Orders/Prescriptions Prescriptions: New midodrine 5 mg Tablet 10 mg PO TIDCM 30 Days Qty: 180 RF: 0 ferrous sulfate [FeroSul] 325 mg (65 mg iron) Tablet 325 mg PO 1200,1700 30 Days Qty: 60 RF: 0 Discontinued albuterol sulfate 2.5 mg /3 mL (0.083 %) Solution For Nebulization 2.5 mg inhalation Q2H PRN PRN (Reason: SHORTNESS OF BREATH) Qty: 1 RF: 0 albuterol sulfate 0.63 mg/3 mL Solution For Nebulization 0.63 mg INHALATION Q6H Qty: 0 RF: 0 amoxicillin-pot clavulanate [Augmentin] 250-62.5 mg/5 mL suspension for reconstitution 10 ml feeding tube TID RF: 0 Vibramycin 50 mg/5 mL syrup 100 mg feeding tube BID RF: 0 menthol-zinc oxide [Calmoseptine] 0.44-20.6 % ointment 1 applic topical BID RF: 0 Referrals / Follow Up: Nic Nguyen [Other] - 06/07/21 Disposition Disposition (needs filled in before D/C Order can be placed): Assisted Living
[2021-05-20] MEDS: Senna/Docusate Sodium 1 Tablet PO ×2 (06:04→16:57)
[2021-05-20] MEDS: Midodrine HCl 5 MG Tablet 10 MG PO ×3 (08:14→16:56)
[2021-05-20] MEDS: Ferrous Sulfate 325 MG Tablet PO ×2 (12:02→16:56)
[2021-05-20 14:39] VITALS: BP 119/56; PULSE 64; RESP 18; TEMP 36.3; O2SAT 99
[2021-05-21] MEDS: Senna/Docusate Sodium 1 Tablet PO ×2 (04:54→17:48)
[2021-05-21] MEDS: Midodrine HCl 5 MG Tablet 10 MG PO ×3 (08:07→17:48)
[2021-05-21 10:37] VITALS: PULSE 82; RESP 16; O2SAT 97
[2021-05-21] MEDS: Ferrous Sulfate 325 MG Tablet PO ×2 (12:28→17:48)
[2021-05-21 14:22] VITALS: BP 114/59; PULSE 69; RESP 18; TEMP 36.3; O2SAT 98
[2021-05-22] MEDS: Senna/Docusate Sodium 1 Tablet PO ×2 (06:10→17:46)
[2021-05-22] MEDS: Midodrine HCl 5 MG Tablet 10 MG PO ×3 (07:47→17:46)
[2021-05-22] MEDS: Ferrous Sulfate 325 MG Tablet PO ×2 (11:45→17:45)
[2021-05-22 14:15] VITALS: BP 128/67; PULSE 71; RESP 18; TEMP 36.4; O2SAT 99
--- NOTE | 2021-05-22 15:36 | CASEMGMT ---
Social Work Received email correspondence that family will burr picker pt on 05/24 to DC between 1-3 pm. Updated IDT. Plan: DC to [facility], PT/OT/ST
[2021-05-22 19:32] VITALS: PULSE 67; RESP 16; O2SAT 98
[2021-05-23] MEDS: Senna/Docusate Sodium 1 Tablet PO ×2 (05:32→16:49)
[2021-05-23] MEDS: Midodrine HCl 5 MG Tablet 10 MG PO ×3 (08:42→16:49)
[2021-05-23] MEDS: Ferrous Sulfate 325 MG Tablet PO ×2 (12:59→16:49)
[2021-05-23 16:00] VITALS: BP 113/72; PULSE 75; RESP 18; TEMP 36.3; O2SAT 97
[2021-05-24] MEDS: Midodrine HCl 5 MG Tablet 10 MG PO ×2 (06:46→12:33)
[2021-05-24] MEDS: Senna/Docusate Sodium 1 Tablet PO (06:46)
[2021-05-24 06:49] VITALS: PULSE 111; RESP 16; O2SAT 98
--- NOTE | 2021-05-24 10:26 | CASEMGMT ---
Social Work BIMS and PHQ-9 completed for MDS assessment. Gela Beyer, DIRECTOR PRINT PROPULSION SYSTEMS ENGINEER
[2021-05-24] MEDS: Ferrous Sulfate 325 MG Tablet PO (11:26)
[2021-05-24 12:38] VITALS: BP 129/68; PULSE 89; RESP 16; TEMP 36.6; O2SAT 97
== END 2021-05-24 13:30 | disposition home or self-care (01) | DRG 177 ==
PROVIDERS: Surgery; Admitting Provider Family Medicine Geriatric Medicine; PCP Family Medicine; Visit Provider Family Medicine Geriatric Medicine
DX: J85.1 Abscess of lung with pneumonia (principal); J15.6 Pneumonia due to other Gram-negative bacteria; G93.40 Encephalopathy, unspecified; E44.0 Moderate protein-calorie malnutrition; N17.9 Acute kidney failure, unspecified; Z68.1 Body mass index [BMI] 19.9 or less, adult; B35.4 Tinea corporis; I95.1 Orthostatic hypotension; K94.29 Other complications of gastrostomy; D50.9 Iron deficiency anemia, unspecified; E87.6 Hypokalemia; R13.10 Dysphagia, unspecified; R47.1 Dysarthria and anarthria; U09.9 Post COVID-19 condition, unspecified; Z20.822 Contact with and (suspected) exposure to COVID-19; Z23 Encounter for immunization; Z79.899 Other long term (current) drug therapy
CPT/HCPCS: 36415; 71046; 74018; 74230; 80048; 80053; 82040; 83735; 84100; 85025; 87426; 87811; 90732; 92507; 92526; 92610; 92611; 94640; 97110; 97116; 97162; 97166; 97530; 97535; 97802; 97803; G0009; J7030; A4216

== ENCOUNTER 2021-03-18 18:47 | Outpatient (CLI) | payer MEDICARE, OTHER, SELFPAY ==
--- NOTE | 2021-03-18 18:30 | CT_ITS ---
EXAMINATION : Head CT w/out contrast HISTORY : FALL COMPARISON : None. TECHNIQUE : Multiple contiguous axial images were obtained from the skull base to the vertex without intravenous contrast. A radiation dose optimization technique was used for this scan. FINDINGS : There is no evidence for acute intracranial hemorrhage, mass effect, or midline shift. There is no extra-axial fluid collection. There are periventricular white matter changes consistent with chronic microvascular ischemic disease. There is sulcal widening and ventricular enlargement consistent with cerebral atrophy. There is normal argueta-white differentiation, without CT evidence of acute ischemia or infarct. The skull base and calvarium are unremarkable. The orbits are unremarkable. The paranasal sinuses are clear. The mastoid air cells are well-aerated. The soft tissues are unremarkable. CT/Brain/Head without Contrast IMPRESSION: No acute intracranial abnormality. Chronic involutional and ischemic changes of the brain. Electronically Signed: Fabio Castillo MD at 19:45 EST ,
== END 2021-03-18 23:59 | disposition short-term general hospital (02) ==
LOC: LAB 18:51
PROVIDERS: PCP Family Medicine; Visit Provider Family Medicine Geriatric Medicine
DX: Z91.81 History of falling (principal)
CPT/HCPCS: 70450